=== PATIENT | female | born 1955 | race Caucasian/White ===

== ENCOUNTER 2022-09-10 08:19 | Outpatient (CLI) | payer MEDICARE, SELFPAY ==
--- NOTE | ~2022-09-10 | US_ITS ---
EXAMINATION: US arterial ankle brachial ind DATE: 09/10/2022 09:14 INDICATION: Peripheral vascular disease with claudication TECHNIQUE: Segmental pressures and plethysmographic and Doppler waveforms of the brachial and lower e xtremity arteries were obtained. COMPARISON: None. FINDINGS: Right and left brachial artery pressures of 163 mm Hg and 163 mm Hg, respectively, are concordant (no rmal difference <= 30 mmHg). The right ankle-brachial index (SARANYA) is 0.80 (normal >= 0.9-1.0). The right great toe-brachial index (TBI) is 0.26 (normal >= 0.65). Arterial Doppler waveforms are biphasic with brisk systolic upstrokes at both right posterior tibial and dorsalis pedis arteries. The left SARANYA is 0.88. The left TBI is 0.25. Arterial Doppler waveforms are biphasic with brisk systol ic upstrokes at both left posterior tibial and dorsalis pedis arteries. IMPRESSION: 1. Arterial occlusive disease to bilateral lower limbs with lateral mildly decreased ABIs and moderat nito decreased TBI's Reviewed, dictated and finalized at location A. IMPRESSION: 1. Arterial occlusive disease to bilateral lower limbs with lateral mildly decr eased ABIs and moderately decreased TBI's
== END 2022-09-10 08:20 | disposition home or self-care (01) ==
LOC: ANHIMG 08:21
PROVIDERS: PCP Family Medicine; Visit Provider Physician Assistant
DX: I73.9 Peripheral vascular disease, unspecified (principal)
CPT/HCPCS: 93922

== ENCOUNTER 2022-11-11 14:14 | Outpatient (CLI) | payer MEDICARE, SELFPAY ==
--- NOTE | ~2022-11-11 | XR_ITS ---
EXAMINATION: XR lumbar spine 2-3V DATE: 11/11/2022 14:32 INDICATION: Lumbar radiculopathy TECHNIQUE: 3 views of lumbar spine were obtained. COMPARISON: None. FINDINGS: There is 12 degrees dextroscoliosis of thoracolumbar spine. There is 4 mm anterolisthesis o f L3 on L4. Vertebral body heights are normal. There is mildly decreased disc height at L1-L2, modera tely decreased disc height at L3-L4, and mildly decreased disc height at L5-S1. There is multilevel f acet joint osteoarthritis, severe at multiple levels. IMPRESSION: 1. Moderate lumbar spondylosis. 2. Thoracolumbar dextroscoliosis. Reviewed, dictated and finalized at location A.
== END 2022-11-11 14:15 | disposition home or self-care (01) ==
PROVIDERS: PCP Family Medicine; Visit Provider Physician Assistant
DX: M47.26 Other spondylosis with radiculopathy, lumbar region (principal)
CPT/HCPCS: 72100

== ENCOUNTER 2022-11-15 09:17 | Outpatient (CLI) | payer MEDICARE, SELFPAY ==
--- NOTE | ~2022-11-15 | MR_ITS ---
MRI of the lumbar spine Clinical History: Back pain Technique: Axial T2-weighted images, and sagittal T1-weighted, T2-weighted, and T2 fat-sat images wer e acquired. Findings: No fracture identified. 4 mm anterolisthesis of L3 over L4 noted. No suspicious bone marrow signal reality seen. At L1-L2, there is mild disc bulge and mild to moderate facet arthropathy. No central canal stenosis. There is moderate left neural foraminal narrowing, and mild right neural foraminal narrowing. At L2-L3, there is disc bulge and advanced facet arthropathy, which contribute to mild central canal stenosis. There is mild bilateral neural foraminal narrowing. At L3-L4, disc bulge/uncovering and severe facet arthropathy result in severe spinal canal stenosis/t hecal sac compression. There is moderate bilateral neural foraminal narrowing. At L4-L5, there is minimal disc bulge and minimal facet joint arthropathy. No central canal stenosis. There is mild bilateral neural foraminal narrowing. At L5-S1, there is no disc bulge or herniation. There is moderate facet arthropathy. No central canal stenosis or neural foraminal narrowing. Paravertebral soft tissues are unremarkable. Impression: Severe degenerative spondylosis at L3-L4 with associated 4 mm anterolisthesis of L3 over L4, as detai led above. Mild degenerative spondylosis in the remainder of the lumbar spine, as above. Reviewed, dictated and finalized at [facility]. Impression: Severe degenerative spondylosis at L3-L4 with associated 4 mm anterolisthesis o f L3 over L4, as detailed above. Mild degenerative spondylosis in the remainder of the lumbar spine, as above.
== END 2022-11-15 09:18 | disposition home or self-care (01) ==
LOC: ANHIMG 09:19
PROVIDERS: PCP Family Medicine; Visit Provider Physician Assistant
DX: M47.896 Other spondylosis, lumbar region (principal)
CPT/HCPCS: 72148

== ENCOUNTER 2023-03-03 10:23 | Outpatient (CLI) | payer MEDICARE, SELFPAY ==
--- NOTE | ~2023-03-03 | XR_ITS ---
Cervical Spine: AP, lateral, open-mouth views Clinical History: Pain Findings: There is reversal normal cervical lordosis. There is advanced degenerative disc narrowing C 4-C5, C5-C6, and C6-C7. There is minimal grade 1 retrolisthesis of C4 over C5, C5 over C6, and of C6 over C7. There is moderate to advanced facet arthropathy throughout the cervical spine. Pre-vertebral soft tissues are unremarkable. Impression: Advanced degenerative spondylosis, as detailed above. Reviewed, dictated and finalized at location M. Impression: Advanced degenerative spondylosis, as detailed above.
== END 2023-03-03 10:24 | disposition home or self-care (01) ==
PROVIDERS: PCP Family Medicine; Visit Provider Physician Assistant
DX: M54.2 Cervicalgia (principal); M43.02 Spondylolysis, cervical region
CPT/HCPCS: 72050

== ENCOUNTER 2024-03-05 08:59 | Outpatient (CLI) | payer MEDICARE, SELFPAY ==
[2024-03-05 09:23] LABS: Basophils Percent Auto 1.2 % (0.2-1.2); Eosinophils Absolute Auto 0.1 K/mm3 (0-0.3); Hematocrit 30.8 % (37.0-47.0); Hemoglobin 9.4 g/dL (12.0-15.0); Immature Granulocyte Absolute 0.01 K/mm3 (0.00-0.031); Immature Granulocyte Percent A 0.3 % (0-0.5); Lymphocytes Percent Auto 30.4 % (18.3-44.2); Mean Corpuscular HGB Conc 30.5 g/dl (32-36); Mean Corpuscular Hemoglobin 29.4 pg (26-34); Mean Corpuscular Volume 96.3 fl (80-100); Mean Platelet Volume 8.8 fl (7.4-10.4); Monocytes Absolute Auto 0.5 K/mm3 (0.1-0.6); Neutrophils Absolute Auto 1.7 K/mm3 (1.3-6.7); Neutrophils Percent Auto 51.1 % (45.5-73.1); Platelet Count Result 320 k/mm3 (150-375); Red Cell Distribution Width 14.5 % (11.5-14.5); White Blood Count 3.3 K/mm3 (4.5-10.0)
[2024-03-05 09:42] LABS: Alanine Aminotransferase 26 U/L (6-35); Albumin Level 4.5 g/dL (3.5-5.1); Alkaline Phosphatase 98 U/L (38-126); Anion Gap 9 mmol/L (4-12); Aspartate Amino Transferase 32 U/L (14-36); Bilirubin,Total 0.2 mg/dL (0.2-1.3); Blood Urea Nitrogen 15 mg/dL (7-17); Calcium 9.8 mg/dL (8.4-10.2); Carbon Dioxide 27 mmol/L (22-30); Chloride 102 mmol/L (98-107); Cholesterol 177 mg/dL (0-200); Estimated Glomerular Filt Rate > 60; Glucose 98 mg/dL (65-110); HDL Direct 63 mg/dL; Potassium 4.7 mmol/L (3.4-5.0); Sodium 138 mmol/L (137-145); Triglycerides 268 mg/dL (<150)
[2024-03-05 09:53] LABS: LDL Cholesterol Direct 79 mg/dL
[2024-03-05 10:16] LABS: Iron 203 ug/dL (37-170)
[2024-03-05 10:25] LABS: Percent Iron Saturation 42 % (20-50)
== END 2024-03-05 09:00 | disposition home or self-care (01) ==
LOC: ANHLAB 09:02
PROVIDERS: PCP Family Medicine; Visit Provider Family Medicine
DX: D50.9 Iron deficiency anemia, unspecified (principal); E78.2 Mixed hyperlipidemia; I10 Essential (primary) hypertension
CPT/HCPCS: 36415; 80053; 80061; 82728; 83540; 83550; 85025

== ENCOUNTER 2024-09-04 14:16 | Inpatient (IN) | payer MEDICARE, SELFPAY ==
[2024-09-04] VITALS (30 sets, daily range): BP systolic 141–168; BP diastolic 56–77; PULSE 93–113; RESP 16–46; TEMP 36.4–36.8; O2SAT 95–100
--- NOTE | ~2024-09-04 | CT_ITS ---
EXAMINATION: CT abdomen pelvis w con DATE: 09/04/2024 20:31 INDICATION: new anemia TECHNIQUE: Computed tomography (CT) of the abdomen and pelvis was performed with 100 mL Omnipaque-350 intravenous contrast. Automated exposure control and iterative reconstruction technique were employe d. The dose-length product was 284.57 mGy-cm. COMPARISON: 06/02/2015. FINDINGS: Lower thorax: Coronary artery calcification. Emphysematous changes. Medial right middle lobe scar/ate lectasis. Liver: Normal. Biliary/Gallbladder: Possible gallstones in the gallbladder neck. No gallbladder wall thickening or p ericholecystic fluid. No bile duct dilation. Pancreas: No mass or duct dilation. Spleen: Normal. Adrenals:No mass. Kidneys: No suspicious mass, obstructing stone, or hydronephrosis. Small parapelvic cysts versus unfi lled calyces. Simple left lower pole cyst. Contrast in the collecting system from prior contrasted ex amination. GI tract: Mild distal esophageal and gastric wall edema. No small or large bowel dilation. Normal jose endix. Mesentery/Peritoneum: No ascites, mass, or free air. Retroperitoneum: No mass. Atherosclerotic calcifications of intra-abdominal arterial vessels. Moderat e-severe celiac origin stenosis. Pelvis: Normal urinary bladder. Absent uterus. Normal bilateral ovaries. Soft Tissues: Soft tissues and body wall unremarkable. Bones: No acute osseous finding. Grade 1 retrolisthesis at L1-2, with severe degenerative disc disea se. Grade 1 retrolisthesis at L3-4, with severe degenerative disc disease. IMPRESSION: Mild esophagitis/gastritis. Cholelithiasis, without CT evidence of cholecystitis. Moderate-severe atherosclerotic celiac origin stenosis. Reviewed, dictated and finalized at location K.
--- NOTE | ~2024-09-04 | CT_ITS ---
EXAMINATION: CTA brain carotid DATE: 09/04/2024 20:03 INDICATION: acute stroke TECHNIQUE: Computed tomographic angiography (CTA) of the head and neck was performed with 100 mL Omni paque-350 intravenous contrast. Automated exposure control and iterative reconstruction technique wer e employed. The dose-length product was 1093.69 mGy-cm. Maximum intensity projection and volume rende red 3D-reconstructions were created by the technologist on a separate workstation. COMPARISON: CT brain, same date. FINDINGS: CTA HEAD: No large vessel occlusion, aneurysm, high flow vascular malformation, nidus or extravasation. Focal a ronaldo of parenchymal hypodensity in the right frontal lobe corresponding to the abnormality in the prio r CT. Patent cerebral veins. CTA NECK: Aortic arch and proximal great vessels: Normal arch anatomy. Atherosclerotic calcifications at the vi sualized aortic arch and proximal great vessels. Right common carotid, carotid bifurcation, and internal carotid artery: Calcified atherosclerotic bakari que at the carotid bifurcation.There is 0% stenosis of the proximal right internal carotid artery rel ative to normal distal artery lumen diameter (NASCET criteria). Left common carotid, carotid bifurcation, and internal carotid artery: No plaque.There is 0% stenosis of the proximal left internal carotid artery relative to normal distal artery lumen diameter (NASCET criteria). Vertebral arteries: No significant plaque or stenosis. Focal calcified and calcified/noncalcified bakari que in the proximal and mid left vertebral artery, respectively. Right vertebral artery is dominant. Other findings: Severe multilevel cervical degenerative disc disease, multilevel facet arthropathy, m ultilevel minimal degenerative listheses, moderate central canal stenosis at C6-7. Biapical pleural s carring. Emphysematous changes.. IMPRESSION: No large vessel intracranial occlusion, high-grade intracranial stenosis, or aneurysm. No carotid or vertebral artery occlusion, dissection, or significant stenosis. Reviewed, dictated and finalized at location K. IMPRESSION: No large vessel intracranial occlusion, high-grade intracranial stenosis, or an eurysm. No carotid or vertebral artery occlusion, dissection, or significant stenosis.
--- NOTE | ~2024-09-04 | CT_ITS ---
EXAMINATION: CT brain wo con DATE: 09/04/2024 18:52 INDICATION: confusion . TECHNIQUE: Computed tomography (CT) of the head was performed without intravenous contrast. The mA wa s adjusted according to patient size. Iterative reconstruction technique was employed. The dose-lengt h product was 605.33 mGy-cm. COMPARISON: None. FINDINGS: No acute intracranial hemorrhage or extra-axial fluid collection. No hydrocephalus, mass, or herniation. Focal area of gyral hypodensity in the right frontal lobe with loss of delgado-white junction. No acute large vessel ischemic infarct. Unremarkable dural venous sinus attenuation. No acute osseous abnormality. The aerated spaces are clear. Moderate atrophy and chronic white matter change. Atherosclerotic intracranial calcification. IMPRESSION: Focal area of right frontal lobe hypodensity suspicious for a acute or subacute infarct. No acute int racranial hemorrhage. Recommend MRI of the brain for further evaluation. Reviewed, dictated and finalized at location K. IMPRESSION: Focal area of right frontal lobe hypodensity suspicious for a acute or subacute infarct. No acute intracranial hemorrhage. Recommend MRI of the brain for furt her evaluation.
--- OUTSIDE RECORDS SUMMARY | 2024-09-04 14:19 | XMS_ITS | Referral Summary ---
Author Organization [facility] Address [address] [place] [address] Care Team Providers Care Operator Prefinish Name Role Phone Aicha Tatum Primary Care Provider [phone] Encounters Date Type Department Care Team Description 08/23/2024 Orders Only [facility] Medical Office Building [address] [place] [phone] Geronimo Gimenez MD Atherosclerosis of igiugig arteries of extremities with intermittent claudication, left leg (Primary Dx); Atherosclerosis of igiugig arteries of extremities with intermittent claudication, right leg 08/23/2024 9:45 AM BUFFER COPPER Office Visit [facility] [address] [place] [address] [place] [phone] Sallie Swain NP Encounter for surgical aftercare following surgery on the circulatory system (Primary Dx) 08/23/2024 8:00 AM BUFFER COPPER Ancillary Procedure [facility] Advanced [facility] [address]th [place] [address] [place] [phone] Encounter for surgical aftercare following surgery on the circulatory system; Presence of other vascular implants and grafts from Last 3 Months Allergies No known active allergies Medications ascorbic acid, vitamin C, 500 mg capsuleIndications :supplement Take 500 mg by mouth every morning Active atorvastatin (LIPITOR) 10 mg tabletIndications: hyperlipidemia Take 1 tablet (10 mg total) by mouth every morning 023 Active cholecalciferol (VITAMIN D-3) 2000 unit capsuleIndications :supplement Take 1 capsule (2,000 Units total) by mouth every morning Active L. acidophilus/Bifid. animalis 32 billion cell capsuleIndications :supplement Take 1 capsule by mouth nightly Active lisinopriL (PRINIVIL,ZESTRIL) 40 mg tabletIndications: hypertension Take 1 tablet (40 mg total) by mouth nightly 023 Active potassium chloride ER 10 mEq CR tabletIndications: hypokalemia prevention Take 1 tablet/capsule (10 mEq total) by mouth nightly Active pramipexole (MIRAPEX) 1 mg tabletIndications: Restless Legs Syndrome Take 1 tablet (1 mg total) by mouth nightly 023 Active traMADoL (ULTRAM) 50 mg tabletIndications: Pain Take 1 tablet (50 mg total) by mouth 2 (two) times a day as needed for pain [address] (VOLTAREN) 75 mg EC tabletIndications: Pain,inflammation Take 1 tablet (75 mg total) by mouth 2 (two) times a day 024 Active clopidogreL (PLAVIX) 75 mg tabletIndications: Peripheral Arterial Thromboembolism Prevention Take 1 tablet (75 mg total) by mouth every morning 024 Active zolpidem (AMBIEN) 5 mg tabletIndications: Sleep-Onset Insomnia Take 1 tablet (5 mg total) by mouth nightly 024 Active cetirizine (ZyrTEC) 10 mg tabletIndications: Allergic Rhinitis Take 1 tablet (10 mg total) by mouth nightly Active aspirin 81 mg chewable tablet Take 1 tablet (81 mg total) by mouth daily 30 tablet 024 2024 Active Additional Information Patient taking differently:81 mg oralDaily (early AM), Indications: prevention of thrombosis, Informant: Self, Reported on 08/23/2024 ferrous sulfate (IRON ORAL)Indications:s upplement Take 65 mg by mouth every other day Active igssupsc-qhyagac-f violeta-lutein tabletIndications: supplement Take 1 tablet by mouth geographic information systems director before breakfast Active CALCIUM CARBONATE-VITAMIN D3 ORALIndications:Os teoporosis,Vitamin D Deficiency Take 1 tablet by mouth daily Active amLODIPine (NORVASC) 5 mg tablet Take 1 tablet (5 mg total) by mouth daily Active sertraline (ZOLOFT) 50 mg tablet 025 Active sertraline (ZOLOFT) 25 mg tabletIndications: depression,mood swings Take 1 tablet (25 mg total) by mouth every morning 024 2024 Discontinued Active Problems Problem Noted Date Diagnosed Date PVD (peripheral vascular disease) 01/09/2024 Encounter for surgical after care following surgery on the circulatory system 01/05/2024 Non-healing open wound of toe, initial encounter 09/18/2023 Non-healing wound of left lower extremity 2023 Secondary hypertension 11/04/2022 Assessment & Plan (09/09/2023 10:27 AM CDT): Stable continue lisinopril 40 mg. Assessment & Plan (08/27/2023 2:36 PM BUFFER COPPER): Stable continue lisinopril 40 mg. Hypercholesterolemia 11/04/2022 Assessment & Plan (09/09/2023 10:26 AM CDT): Stable continue Lipitor 10 mg. Assessment & Plan (08/27/2023 2:36 PM BUFFER COPPER): Stable continue Lipitor 10 mg. PAD (peripheral artery disease) 10/11/2022 Assessment & Plan (09/10/2023 9:07 AM CDT): Chronic limb-threatening ischemia to the left lower extremity with ischemic changes of the left hallux. Discussed angiogram findings with the patient and her . Given her severe multilevel occlusive disease I have recommended a proximal amputation. She would like a 2nd and/or 3rd opinion and has an appointment scheduled with [facility]. Assessment & Plan (08/27/2023 2:36 PM BUFFER COPPER): Left lower extremity chronic limb-threatening ischemia with a left hallux wound, compared to her prior Dopplers which were normal she now has critical limb ischemia to the left lower extremity with likely a superficial femoral artery occlusion. Risks benefits alternatives to left lower extremity angiography with possible intervention discussed, risks including bleeding, infection, perforation, contrast induced nephropathy, dissection, thrombosis, distal embolization, need further surgery. She wished proceed. We also discussed she is at risk for limb loss given the wound. Assessment & Plan (08/19/2023 10:54 AM BUFFER COPPER): Continues to deny any symptoms of claudication or rest pain. However has developed a sore versus ingrown toenail to her left great toe. Has been trying to soak it for the past month which has gotten worse. She did see 1 of her physicians who put her on steroids for 5 days. This has not helped the wound. States now her toe is starting to turn a different color in his more painful just to the area of the sore. Plan: Follow-up in the next 1 week for re-evaluation and noninvasive studies. Patient may need referral to podiatry versus an angiogram. In the meantime will place her on Bactrim advised on continued daily wound care and to not soak the foot. Assessment & Plan (11/04/2022 11:53 AM CDT): History of bilateral hip and knee pain with walking. Continues to deny any rest pain or claudication to the calves with exertion. Lower extremity arterial Doppler shows triphasic waveforms bilaterally. Symptoms are likely neurogenic in nature versus arthritic. Discussed the patient with Dr. Smart. Plan: Recommend further workup with her orthopedist and continued follow-up with her PCP. If these workups are negative for any findings she can return for an exercise test otherwise can follow-up as needed. Assessment & Plan (10/11/2022 12:13 PM CDT): History of chronic bilateral lower extremity pain from the hips to the knees with ambulation. Has been ongoing for the past 2 years and slowly progressed. Lower extremities are warm with diminished palpable distal pulses. Seen with Dr. Smart. Plan: Obtain a lower extremity arterial Doppler follow-up in the next 2 weeks to discuss results. Disorder of esophagus 07/28/2015 Immunizations Immunization Administration Dates Next Due Tdap 08/22/2012 Social History Tobacco Use Types Packs/Day Years Used Date Smoking Tobacco: Former Cigarettes 1.5 42 1 974 - 2016 Passive Smoke Exposure: Never Smokeless Tobacco: Never Tobacco Cessation:Counseling Given: Not Answered AUDIT-C Answer Date Recorded Q1: How often do you have a drink containing alcohol? 4 or more times a week 01/21/2024 Q2: How many drinks containi ng alcohol do you have on a typical day when you are drinking? 7 to 9 Q3: How often do you have si x or more drinks on one occasion? Daily or almost daily 01/21/2024 Personal Safety Answer Date Recorded Have you ever been in or are you currently in a harmful physical or emotional relationship or is someone making you feel afraid or unsafe? Denies 01/21/2024 Comments No Sex and Gender Information Value Date Recorded Sex Assigned at Not on file Legal Sex Female 6:03 AM BUFFER COPPER Gender Identity Female 10/20/2022 4:51 PM CDT Sexual Orientation Not on file Last Filed Vital Signs Vital Sign Reading Time Taken Comments Blood Pressure 133/55 08/23/2024 8:49 AM BUFFER COPPER Pulse 100 08/23/2024 8:49 AM BUFFER COPPER Temperature 36.1 C (97 F) 01/21/2024 3:11 PM CDT Respiratory Rate 20 01/21/2024 5:30 PM CDT Oxygen Saturation 95% 08/23/2024 8:49 AM BUFFER COPPER Inhaled Oxygen Concentration - - Weight 61.2 kg (135 lb) 08/23/2024 8:49 AM BUFFER COPPER Height 157.5 cm (5' 2 ) 08/23/2024 8:49 AM BUFFER COPPER Body Mass Index 24.69 08/23/2024 8:49 AM BUFFER COPPER Plan of Treatment Not on file Medical Devices Implanted Type Area Aircraft Engine Assembler Device Identifier Shelf Expiration Date Model / Serial / Lot [employer] Protege Everflex 5mm .079in 60mm 120cm Otw Delivery System Self [id number] - [id number] Implanted:Qty : 1 on 09/18/2023 by Geronimo Gimenez MD at [facility] Left: Superficial Femoral Artery [employer] [id number] 04/22/2026 [id number] / / [id number] Procedures Procedure Name Priority Date/Time Associated Diagnosis Comments US ARTERIAL DUPLEX LOWER EXTREMITY LEFT LIMITED Schedule Routine, Read Routine (OP Routine) 08/23/2024 9:01 AM BUFFER COPPER Encounter for surgical aftercare following surgery on the circulatory system Presence of other vascular implants and grafts US ARTERIAL DOPPLER LOWER EXTREMITY BILATERAL Schedule Routine, Read Routine (OP Routine) 08/23/2024 9:01 AM BUFFER COPPER Encounter for surgical aftercare following surgery on the circulatory system from Last 3 Months Results * US Arterial Duplex Lower Extremity Left Limited (08/23/2024 9:01 AM BUFFER COPPER) Anatomical Region Laterality Modality Vascular Left Ultrasound 08/23/2024 7:52 AM BUFFER COPPER Narrative 08/23/2024 10:56 AM BUFFER COPPER [facility] - Department of Vascular Surgery, Vascular Laboratory [address] [place] [address] [facility] [place] Lower Extremity Arterial Duplex Report Patient Name: ACE YBARRA : 1955 Study Date: 08/23/2024 7:52:42 AM Gender: F Tech: Location: [facility] Provider: TY KNOX Quality: Adequate Order Provider: TY KNOX PROCEDURES: Arterial Report: Left Lower Extremity Arterial Duplex Exam - above knee pop and popliteal stent. INDICATIONS: Encounter for Surgical Aftercare Following Surgery on the Circulatory System; Presence of Vascular Implants and Grafts Dx: Encounter for surgical aftercare following surgery on the circulatory system [Z48.812 (ICD-10-CM)]; Presence of other vascular implants and grafts [Z95.828 (ICD-10-CM)] Z48.812 Encounter for surgical aftercare following surgery on the circulatory system, and Z95.828 Presence of other vascular implants and grafts. MEASUREMENTS: Left Value Units Lt AD COMPOSITOR Dst PSV 258 cm/s Lt Profunda Dst PSV 234 cm/s Lt Superficial Femoral Prx PSV 199 cm/s Lt Superficial Femoral Mid PSV 198 cm/s Lt Superficial Femoral Dst PSV 251 cm/s Lt Pop Dst PSV 75 cm/s Lt Tibio-Peroneal Trunk 73 cm/s Lt Post Tibial Mid PSV 58 cm/s Lt Ant Tibial Mid PSV 63 cm/s Lt Peroneal Mid PSV 70 cm/s Lt Mid Stent 187 cm/s Left Value Units FINDINGS: Performing Armor Reconnaissance Specialist: Jessica Lee RVT. Left Common Femoral: The left common femoral waveform is multiphasic. Elevated peak velocity of 258cm/s, ratio less than 2 consistent with mild, <50% stenosis. Left Profunda: The left profunda waveform is multiphasic. Left Proximal Superficial Femoral Artery: The left proximal femoral artery waveform is multiphasic. Left Mid Superficial Femoral Artery: The left mid femoral artery waveform is multiphasic. Smooth, heterogenous plaque. Left Distal Superficial Femoral Artery: The left distal femoral artery waveform is multiphasic. Elevated velocity of 251cm/s and ratio is 1.5 consistent with mild <50% stenosis. Left Popliteal: The left popliteal is stented. Stent is patent. Highest stented PSV is 198cm/s. Small area of homogenous in stent material. Waveform remains multiphasic. Left Posterior Tibial: The left posterior tibial waveform is multiphasic. Left Anterior Tibial: The left anterior tibial waveform is multiphasic. Left Peroneal: The left peroneal artery waveform is multiphasic. CONCLUSIONS: 1. See Ankle/ Brachial Index report. 2. Patent left popliteal artery stent. HISTORY: 01/21/2024 Second Drug coated balloon angioplasty of left popliteal artery 09/01/2023 above knee popliteal/SFA junction stent - PREVIOUS STUDIES: Previous study on 02/12/2024, patent popliteal artery stent, no evidence of hemodynamically significant stenosis. DISCLAIMER: The study images and the final report will be retained in the patient chart by the Vascular Laboratory for the legally required time period. This chart constitutes the legal record of any testing performed. ATTESTATION: I have reviewed and interpreted the pertinent images and measurements of this study. I attest to the conclusions in the final report that is provided above. Electronically Signed By: Geronimo Gimenez MD [facility] [phone] 08/23/2024 9:44:02 AM BUFFER COPPER Procedure Note Geronimo Gimenez MD - 08/23/2024 [facility] - Department of Vascular Surgery,Vascular Laboratory [address] [place] [address] [facility] Lower Extremity Arterial Duplex Report Patient Name: ACE YBARRA : 1955 Study Date: 08/23/2024 7:52:42 AM Gender: F Tech: Location: [facility] Provider: TY KNOX Quality: Adequate Order Provider: TY KNOX PROCEDURES: Arterial Report: Left Lower Extremity Arterial Duplex Exam - above knee pop and poplitealstent. INDICATIONS: Encounter for Surgical Aftercare Following Surgery on the CirculatorySystem; Presence of Vascular Implants and Grafts Dx: Encounter for surgical aftercare following surgery on the circulatorysystem [Z48.812 (ICD-10-CM)]; Presence of other vascular implants and grafts [Z95.828(ICD-10-CM)] Z48.812 Encounter for surgical aftercare following surgery on thecirculatory system, and Z95.828 Presence of other vascular implants and grafts. MEASUREMENTS: Left Value Units Lt AD COMPOSITOR Dst PSV 258 cm/s Lt Profunda Dst PSV 234 cm/s Lt Superficial Femoral Prx PSV 199 cm/s Lt Superficial Femoral Mid PSV 198 cm/s Lt Superficial Femoral Dst PSV 251 cm/s Lt Pop Dst PSV 75 cm/s Lt Tibio-Peroneal Trunk 73 cm/s Lt Post Tibial Mid PSV 58 cm/s Lt Ant Tibial Mid PSV 63 cm/s Lt Peroneal Mid PSV 70 cm/s Lt Mid Stent 187 cm/s Left Value Units FINDINGS: Performing Armor Reconnaissance Specialist: Jessica Lee RVT. Left Common Femoral: The left common femoral waveform is multiphasic. Elevated peak velocity of 258cm/s, ratio less than 2 consistent with mild,<50% stenosis. Left Profunda: The left profunda waveform is multiphasic. Left Proximal Superficial Femoral Artery: The left proximal femoral artery waveform is multiphasic. Left Mid Superficial Femoral Artery: The left mid femoral artery waveform is multiphasic. Smooth, heterogenous plaque. Left Distal Superficial Femoral Artery: The left distal femoral artery waveform is multiphasic. Elevated velocity of 251cm/s and ratio is 1.5 consistent with mild <50%stenosis. Left Popliteal: The left popliteal is stented. Stent is patent. Highest stented PSV is 198cm/s. Small area of homogenous in stentmaterial. Waveform remains multiphasic. Left Posterior Tibial: The left posterior tibial waveform is multiphasic. Left Anterior Tibial: The left anterior tibial waveform is multiphasic. Left Peroneal: The left peroneal artery waveform is multiphasic. CONCLUSIONS: 1. See Ankle/ Brachial Index report. 2. Patent left popliteal artery stent. HISTORY: 01/21/2024 Second Drug coated balloon angioplasty of left poplitealartery 09/01/2023 above knee popliteal/SFA junction stent - PREVIOUS STUDIES: Previous study on 02/12/2024, patent popliteal artery stent, no evidence of hemodynamically significant stenosis. DISCLAIMER: The study images and the final report will be retained in the patientchart by the Vascular Laboratory for the legally required time period. This chartconstitutes the legal record of any testing performed. ATTESTATION: I have reviewed and interpreted the pertinent images and measurements ofthis study. I attest to the conclusions in the final report that is provided above. Electronically Signed By: Geronimo Gimenez MD [facility] [phone] 08/23/2024 9:44:02 AM BUFFER COPPER us Ty Knox MD [facility] US PROCEDURES Final R esult * US Arterial Doppler Lower Extremity Bilateral (08/23/2024 9:01 AM BUFFER COPPER) Anatomical Region Laterality Modality Vascular Bilateral Ultrasound 08/23/2024 8:19 AM BUFFER COPPER Narrative 08/23/2024 10:56 AM BUFFER COPPER [facility] - Department of Vascular Surgery, Vascular Laboratory [address] [place] [address] Lower Extremity Arterial Doppler Report Patient Name: ACE YBARRA : 1955 Study Date: 08/23/2024 8:19:00 AM Gender: F Tech: Jessica Lee [facility] Location: [facility] Provider: TY KNOX Quality: Adequate Order Provider: TY KNOX PROCEDURES: Arterial Report: Bilateral lower extremity arterial Doppler exam at rest. INDICATIONS: Encounter for Surgical Aftercare Following Surgery on the Circulatory System Dx: Encounter for surgical aftercare following surgery on the circulatory system [Z48.812 (ICD-10-CM)] Z48.812 Encounter for surgical aftercare following surgery on the circulatory system. MEASUREMENTS: Right Value Units Left Value Units Rt Brachial Pressure 137 mmHg Lt Brachial Pressure 140 mmHg Rt FORM BLOCK MAKER Pressure 118 mmHg Lt FORM BLOCK MAKER Pressure 120 mmHg Rt DPA Pressure 93 mmHg Lt DPA Pressure 115 mmHg Rt 1st Digit Pressure 90 mmHg Lt 1st Digit Pressure 57 mmHg Rt PT SARANYA Resting 0.84 Lt PT SARANYA Resting 0.86 Rt AT SARANYA Resting 0.66 Lt AT SARANYA Resting 0.82 Rt Digit/Arm Index 0.64 Lt Digit/Arm Index 0.41 Right Value Units Left Value Units FINDINGS: Performing Armor Reconnaissance Specialist: Jessica Lee RVT. Right Common Femoral Artery Analysis: The common femoral artery waveform is multiphasic. Right Popliteal Artery Analysis: The popliteal waveform is multiphasic. Right Posterior Tibial Artery Analysis: The posterior tibial waveform is multiphasic. Right Anterior Tibial Artery Analysis: The anterior tibial waveform is monophasic. Right Digits: Normal right digit pressure. Left Common Femoral Artery Analysis: The common femoral artery waveform is multiphasic(turbulent - see Duplex exam). Left Popliteal Artery Analysis: The popliteal waveform is multiphasic. Left Posterior Tibial Artery Analysis: The posterior tibial waveform is multiphasic. Left Anterior Tibial Artery Analysis: The anterior tibial waveform is multiphasic. Left Digits: The left digit waveform is dampened. CONCLUSIONS: 1. The above listed right Ankle/Brachial Index at rest is consistent with mild -moderate peripheral arterial disease - claudication (for reference, claudication range is 0.50 -0.89). 2. The above listed left Ankle/Brachial Index at rest is consistent with mild -moderate peripheral arterial disease - claudication, (for reference, claudication range is 0.50 -0.89). 3. Right Digit/Arm Index is within normal limits (for reference, normal KYLEE is >0.6). 4. Left Digit/Arm Index is abnormal (for reference, abnormal KYLEE is <0.6). 5. There is evidence of right leg arterial insufficiency at the level of infrapopliteal arteries. 6. Unable to determine the level of stenosis on the left. HISTORY: 01/21/2024 Second Drug coated balloon angioplasty of left popliteal artery 09/01/2023 above knee popliteal/SFA junction stent - PREVIOUS STUDIES: Previous study on 02/12/2024 R SARANYA L SARANYA. DISCLAIMER: The study images and the final report will be retained in the patient chart by the Vascular Laboratory for the legally required time period. This chart constitutes the legal record of any testing performed. ATTESTATION: I have reviewed and interpreted the pertinent images and measurements of this study. I attest to the conclusions in the final report that is provided above. Electronically Signed By: Geronimo Gimenez MD [facility] [phone] 08/23/2024 9:40:32 AM BUFFER COPPER Procedure Note Geronimo Gimenez MD - 08/23/2024 [facility] - Department of Vascular Surgery,Vascular Laboratory [address] [place] [address] Lower Extremity Arterial Doppler Report Patient Name: ACE YBARRA : 1955 Study Date: 08/23/2024 8:19:00 AM Gender: F Tech: Jessica Lee [facility] Location: [facility] Provider: TY KNOX Quality: Adequate Order Provider: TY KNOX PROCEDURES: Arterial Report: Bilateral lower extremity arterial Doppler exam at rest. INDICATIONS: Encounter for Surgical Aftercare Following Surgery on the CirculatorySystem Dx: Encounter for surgical aftercare following surgery on the circulatorysystem [Z48.812 (ICD-10-CM)] Z48.812 Encounter for surgical aftercare following surgery on thecirculatory system. MEASUREMENTS: Right Value Units Left Value Units Rt Brachial Pressure 137 mmHg Lt Brachial Pressure 140 mmHg Rt FORM BLOCK MAKER Pressure 118 mmHg Lt FORM BLOCK MAKER Pressure 120 mmHg Rt DPA Pressure 93 mmHg Lt DPA Pressure 115 mmHg Rt 1st Digit Pressure 90 mmHg Lt 1st Digit Pressure 57 mmHg Rt PT SARANYA Resting 0.84 Lt PT SARANYA Resting 0.86 Rt AT SARANYA Resting 0.66 Lt AT SARANYA Resting 0.82 Rt Digit/Arm Index 0.64 Lt Digit/Arm Index 0.41 Right Value Units Left Value Units FINDINGS: Performing Armor Reconnaissance Specialist: Jessica Lee RVT. Right Common Femoral Artery Analysis: The common femoral artery waveform is multiphasic. Right Popliteal Artery Analysis: The popliteal waveform is multiphasic. Right Posterior Tibial Artery Analysis: The posterior tibial waveform is multiphasic. Right Anterior Tibial Artery Analysis: The anterior tibial waveform is monophasic. Right Digits: Normal right digit pressure. Left Common Femoral Artery Analysis: The common femoral artery waveform is multiphasic(turbulent - see Duplexexam). Left Popliteal Artery Analysis: The popliteal waveform is multiphasic. Left Posterior Tibial Artery Analysis: The posterior tibial waveform is multiphasic. Left Anterior Tibial Artery Analysis: The anterior tibial waveform is multiphasic. Left Digits: The left digit waveform is dampened. CONCLUSIONS: 1. The above listed right Ankle/Brachial Index at rest is consistent withmild -moderate peripheral arterial disease - claudication (for reference, claudicationrange is 0.50 -0.89). 2. The above listed left Ankle/Brachial Index at rest is consistent withmild -moderate peripheral arterial disease - claudication, (for reference, claudicationrange is 0.50 -0.89). 3. Right Digit/Arm Index is within normal limits (for reference, normalDAI is >0.6). 4. Left Digit/Arm Index is abnormal (for reference, abnormal KYLEE is<0.6). 5. There is evidence of right leg arterial insufficiency at the level ofinfrapopliteal arteries. 6. Unable to determine the level of stenosis on the left. HISTORY: 01/21/2024 Second Drug coated balloon angioplasty of left poplitealartery 09/01/2023 above knee popliteal/SFA junction stent - PREVIOUS STUDIES: Previous study on 02/12/2024 R SARANYA L SARANYA. DISCLAIMER: The study images and the final report will be retained in the patientchart by the Vascular Laboratory for the legally required time period. This chartconstitutes the legal record of any testing performed. ATTESTATION: I have reviewed and interpreted the pertinent images and measurements ofthis study. I attest to the conclusions in the final report that is provided above. Electronically Signed By: Geronimo Gimenez MD [facility] [phone] 08/23/2024 9:40:32 AM BUFFER COPPER Ty Knox MD IM US PROCEDURES Final R esult from Last 3 Months Insurance MEDICARE [employer] SENIOR SUPPLEMENT MEDICARE [facility] SENIOR SUPPLEMENT Advance Directives For more information, please contact: [phone] * Full Code (Latest Code Status on File) Date Activated Date Inactivated Comments 09/01/2023 10:16 AM 09/01/2023 6:05 PM Care Teams Operator Prefinish Relationship Specialty Start Date End Date Aicha Tatum PA [address] [place] [address] PCP - General Family Medicine 09/16/22
--- OUTSIDE RECORDS SUMMARY | 2024-09-04 14:19 | XMS_ITS | Clinical Summary ---
Author Organization [facility] the [facility] Address [address] [place] [address] Care Team Providers Care Lock Expert Name Role Phone Aicha Tatum Primary Care Provider [phone] Allergies No known active allergies Medications ascorbic [...] by mouth 2 (two) times a day Active clopidogreL (PLAVIX) 75 mg tabletIndications: Peripheral Arterial Thromboembolism Prevention Take 1 tablet (75 mg total) by mouth every morning Active zolpidem (AMBIEN) 5 mg tabletIndications: Sleep-Onset Insomnia Take 1 tablet (5 mg total) by mouth nightly Active cetirizine (ZyrTEC) 10 mg tabletIndications: Allergic Rhinitis Take 1 tablet (10 mg total) by mouth nightly Active aspirin 81 mg chewable tablet Take 1 tablet (81 mg total) by mouth daily 30 tablet 11 024 2024 Active Additional Information Patient taking differently:81 mg oralDaily (early AM), Indications: prevention of thrombosis, Informant: Self, Reported on 08/23/2024 ferrous sulfate (IRON ORAL)Indications:s upplement Take 65 mg by mouth every other day Active mmwesvvs-aakghoq-c violeta-lutein tabletIndications: supplement Take 1 tablet by mouth 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 Assessment & Plan (08/27/2023 2:36 PM SUPERVISOR FRUIT GRADING): Stable continue lisinopril 40 mg. Hypercholesterolemia 11/04/2022 Assessment & Plan (09/09/2023 10:26 AM CDT): Stable continue Lipitor 10 mg. Assessment & Plan (08/27/2023 2:36 PM SUPERVISOR FRUIT GRADING): Stable continue Lipitor 10 mg. PAD (peripheral [...] opinion and has an appointment scheduled with [facility]. Assessment & Plan (08/27/2023 2:36 PM SUPERVISOR FRUIT GRADING): Left lower extremity chronic limb-threatening ischemia with [...] wound. Assessment & Plan (08/19/2023 10:54 AM SUPERVISOR FRUIT GRADING): Continues to deny any symptoms of claudication [...] to discuss results. Disorder of esophagus 07/28/2015 Encounters Date Type Department Care Team Description 08/23/2024 9:45 AM SUPERVISOR FRUIT GRADING Office Visit [facility] Surgery [facility] [facility] 8th [place] [address] [place] [address] Sallie Swain NP Encounter for surgical aftercare following surgery on the circulatory system (Primary Dx) 08/23/2024 8:00 AM SUPERVISOR FRUIT GRADING Ancillary Procedure [facility] Vascular Lab at the [facility] [address] [facility] 8th [place] [address] [place] [address] Encounter for surgical aftercare following surgery on the circulatory system; Presence of other vascular implants and grafts 08/23/2024 Orders Only [facility] Vascular Surgery [address] [place] [address] Medical Office Building [address] [place] [address] Geronimo Gimenez MD Atherosclerosis of cowl[place] arteries of extremities with intermittent claudication, left leg (Primary Dx); Atherosclerosis of cowlitz arteries of extremities with intermittent claudication, right leg from Last 3 Months Immunizations Immunization Administration Dates Next Due Tdap 08/22/2012 Surgical History Surgery Date Site/Laterality Comments WRIST SURGERY 08/21/2021 - 09/20/2021 Right distal radius fx HYSTERECTOMY OTHER SURGICAL HISTORY 09/01/2023 Left angiogram, LLE COLONOSCOPY last one 2016 ELBOW SURGERY Left tendenitis - early Medical History Medical History Date Comments Motion sickness RLS (restless legs syndrome) PVD (peripheral vascular disease) Hypertension Hyperlipidemia Family History Medical History Relation Name Comments Heart disease Brother Stroke Father Heart attack Mother Cancer Sister Relation Name Status Comments Brother Father Mother Sister Social History Tobacco Use Types Packs/Day Years [...] on file Legal Sex Female 6:03 AM SUPERVISOR FRUIT GRADING Gender Identity Female 10/20/2022 4:51 PM CDT Sexual Orientation Not on file Obstetrics History Last Filed Vital Signs Vital Sign Reading Time Taken Comments Blood Pressure 133/55 08/23/2024 8:49 AM SUPERVISOR FRUIT GRADING Pulse 100 08/23/2024 8:49 AM SUPERVISOR FRUIT GRADING Temperature 36.1 C (97 F) 01/21/2024 3:11 PM CDT Respiratory Rate 20 01/21/2024 5:30 PM CDT Oxygen Saturation 95% 08/23/2024 8:49 AM SUPERVISOR FRUIT GRADING Inhaled Oxygen Concentration - - Weight 61.2 kg (135 lb) 08/23/2024 8:49 AM SUPERVISOR FRUIT GRADING Height 157.5 cm (5' 2 ) 08/23/2024 8:49 AM SUPERVISOR FRUIT GRADING Body Mass Index 24.69 08/23/2024 8:49 AM SUPERVISOR FRUIT GRADING Plan of Treatment Health Maintenance Due Date Last Done Comments Colon Cancer Screening-Colonoscopy 1955 Depression Screening 1957 Hepatitis C Screening 1955 Osteoporosis Screening-Bone Density Scan 1955 Hepatitis B Screening 1975 Lung Cancer Screening 2007 Pneumococcal vaccine 65+ (1 of 1 - PCV) 2007 Zoster Vaccine (1 of 2) 2007 Well Visit 65+ 2022 Breast Cancer Screening-Mammogram 04/13/2022 04/13/2021, 04/13/2021, 02/07/2020, Additional history exists DTaP/Tdap/Td Vaccine (2 - Td or Tdap) 08/22/2022 08/22/2012 Influenza Vaccine (#1) 2024 Fall Risk Assessment 09/17/2024 09/18/2023 Medical Devices Implanted Type Area Production Administrative Assistant Device Identifier Shelf Expiration Date Model / Serial / Lot Med[employer]onic [employer] Protege Everflex 5mm .079in 60mm 120cm Otw Delivery System Self [id number] - [id number] Implanted:Qty : 1 on 09/18/2023 by Geronimo Gimenez MD at [facility] Left: Superficial Femoral Artery [employer] [id number] 04/22/2026 [id number] / / [id number] Procedures Procedure Name Priority Date/Time Associated Diagnosis Comments US ARTERIAL DUPLEX LOWER EXTREMITY LEFT LIMITED Schedule Routine, Read Routine (OP Routine) 08/23/2024 9:01 AM SUPERVISOR FRUIT GRADING Encounter for surgical aftercare following surgery on the circulatory system Presence of other vascular implants and grafts US ARTERIAL DOPPLER LOWER EXTREMITY BILATERAL Schedule Routine, Read Routine (OP Routine) 08/23/2024 9:01 AM SUPERVISOR FRUIT GRADING Encounter for surgical aftercare following surgery on the circulatory system from Last 3 Months Results * US Arterial Duplex Lower Extremity Left Limited (08/23/2024 9:01 AM SUPERVISOR FRUIT GRADING) Anatomical Region Laterality Modality Vascular Left Ultrasound 08/23/2024 7:52 AM SUPERVISOR FRUIT GRADING Narrative 08/23/2024 10:56 AM SUPERVISOR FRUIT GRADING [facility] - Department of Vascular Surgery, Vascular Laboratory [address] [place] [address] [place] Lower Extremity Arterial Duplex Report Patient Name: ACE YBARRA : 1955 Study Date: 08/23/2024 7:52:42 AM Gender: F Tech: Location: [facility] Provider: TY KNOX Quality: Adequate Order Provider: [...] and grafts. MEASUREMENTS: Left Value Units Lt ORIGINATION SPECIALIST Dst PSV 258 cm/s Lt Profunda Dst [...] 187 cm/s Left Value Units FINDINGS: Performing Solutions Architect Consultant: Jessica Lee RVT. Left Common Femoral: The [...] above. Electronically Signed By: Geronimo Gimenez MD [facility] [phone] 08/23/2024 9:44:02 AM SUPERVISOR FRUIT GRADING Procedure Note Geronimo Gimenez MD - 08/23/2024 [facility] - Department of Vascular Surgery,Vascular Laboratory [address] [place] [address] [place] Lower Extremity Arterial Duplex Report Patient Name: ACE YBARRA : 1955 Study Date: 08/23/2024 7:52:42 AM Gender: F Tech: Location: [facility] Provider: TY KNOX Quality: Adequate Order Provider: [...] and grafts. MEASUREMENTS: Left Value Units Lt ORIGINATION SPECIALIST Dst PSV 258 cm/s Lt Profunda Dst [...] 187 cm/s Left Value Units FINDINGS: Performing Solutions Architect Consultant: Jessica Lee RVT. Left Common Femoral: The [...] above. Electronically Signed By: Geronimo Gimenez MD [facility] [phone] 08/23/2024 9:44:02 AM SUPERVISOR FRUIT GRADING us Ty Knox MD IM US PROCEDURES Final R esult * US Arterial Doppler Lower Extremity Bilateral (08/23/2024 9:01 AM SUPERVISOR FRUIT GRADING) Anatomical Region Laterality Modality Vascular Bilateral Ultrasound 08/23/2024 8:19 AM SUPERVISOR FRUIT GRADING Narrative 08/23/2024 10:56 AM SUPERVISOR FRUIT GRADING [facility] - Department of Vascular Surgery, Vascular Laboratory [address] [place] [address] Lower Extremity Arterial Doppler Report Patient Name: ACE YBARRA : 1955 Study Date: 08/23/2024 8:19:00 AM Gender: F Tech: Jessica Lee RVT Location: [facility] Provider: TY KNOX Quality: Adequate Order Provider: [...] mmHg Lt Brachial Pressure 140 mmHg Rt CAB STATION ATTENDANT Pressure 118 mmHg Lt CAB STATION ATTENDANT Pressure 120 mmHg Rt DPA Pressure 93 mmHg Lt DPA Pressure 115 mmHg Rt 1st Digit Pressure 90 mmHg Lt 1st Digit Pressure 57 mmHg Rt PT SARANYA Resting 0.84 Lt PT SARANYA Resting 0.86 Rt AT SARANYA Resting 0.66 Lt AT SARANYA Resting 0.82 Rt Digit/Arm Index 0.64 Lt Digit/Arm Index 0.41 Right Value Units Left Value Units FINDINGS: Performing Solutions Architect Consultant: Jessica Lee RVT. Right Common Femoral Artery [...] above. Electronically Signed By: Geronimo Gimenez MD [facility] [phone] 08/23/2024 9:40:32 AM SUPERVISOR FRUIT GRADING Procedure Note Geronimo Gimenez MD - 08/23/2024 [facility] - Department of Vascular Surgery,Vascular Laboratory [address] [place] [address] Lower Extremity Arterial Doppler Report Patient Name: ACE YBARRA : 1955 Study Date: 08/23/2024 8:19:00 AM Gender: F Tech: Jessica Lee RVT Location: [facility] Provider: TY KNOX Quality: Adequate Order Provider: [...] mmHg Lt Brachial Pressure 140 mmHg Rt CAB STATION ATTENDANT Pressure 118 mmHg Lt CAB STATION ATTENDANT Pressure 120 mmHg Rt DPA Pressure 93 mmHg Lt DPA Pressure 115 mmHg Rt 1st Digit Pressure 90 mmHg Lt 1st Digit Pressure 57 mmHg Rt PT SARANYA Resting 0.84 Lt PT SARANYA Resting 0.86 Rt AT SARANYA Resting 0.66 Lt AT SARANYA Resting 0.82 Rt Digit/Arm Index 0.64 Lt Digit/Arm Index 0.41 Right Value Units Left Value Units FINDINGS: Performing Solutions Architect Consultant: Jessica Krus, RVT. Right Common Femoral Artery Analysis: The [...] above. Electronically Signed By: Geronimo Gimenez MD [facility] [phone] 08/23/2024 9:40:32 AM SUPERVISOR FRUIT GRADING Ty Knox MD [facility] PROCEDURES Final R esult from Last 3 Months Insurance MEDICARE AET [facility] MEDICARE [employer] SENIOR SUPPLEMENT Advance Directives For more information, please contact: [phone] * Full Code (Latest Code Status on File) Date Activated Date Inactivated Comments 09/01/2023 10:16 AM 09/01/2023 6:05 PM Care Teams Lock Expert Relationship Specialty Start Date End Date Aicha Tatum PA [address] [place] [address] [place] [address] PCP - General Family Medicine 09/16/22
--- OUTSIDE RECORDS SUMMARY | 2024-09-04 14:19 | XMS_ITS | Clinical Summary ---
Author Organization [facility] Address [address] [place] [address] Care Team Providers Care Director Of Software Engineering Name Role Phone Zoe Aguero Primary Care Provider [phone] Allergies No known active allergies Medications sertraline 25 MG tablet Take 25 mg by mouth daily. 06/25/2021 Active pramipexole 1 MG tablet Take 1 mg by mouth nightly at bedtime. at bedtime. 02/16/2021 Active lisinopril 40 MG tablet Take 40 mg by mouth daily. 06/25/2021 Active traMADol 50 MG tablet 04/17/2021 Active Cyanocobalamin (B-12) 50 MCG Tab Active vitamin D3, cholecalciferol , 1000 UNIT Tab tablet Take 1 tablet by mouth daily. Active probiotic Cap capsule Take 1 capsule by mouth 3 (three) times daily with meals. Active Ascorbic Acid (VITAMIN C) 100 MG tablet Take 100 mg by mouth daily. Active potassium chloride CR 10 MEQ Tab CR tablet Take 1 tablet by mouth 3 (three) times daily. Active oxyCODONE-aceta minophen 5-325 MG tabletIndicatio ns:Acute Pain < 7 Day Supply Take 1-2 tablets by mouth every 6 (six) hours as needed for Pain. Indications: Acute Pain < 7 Day Supply For Severe Pain 20 tablet 08/28/2021 Active Active Problems No known active problems Family History Medical History Relation Comments Heart Attack Father Heart Attack Mother Breast Cancer Neg Hx Relation Status Comments Father Mother Social History Tobacco Use Types Packs/Day Years Used Date Smoking Tobacco: Former Cigarettes 1 30 0 08/27/1981 - 08/28/2011 Smokeless Tobacco: Never Tobacco Cessation:Counseling Given: No Comments:former Alcohol Use Standard Drinks/Week Comments Yes 0 (1 standard drink = 0.6 oz pur e alcohol) social PHQ-2 Answer Date Recorded PHQ-2 Score - If the patient scores above 3, please move on to questions 3-9 0 08/27/2021 Comments No Sex and Gender Information Value Date Recorded Sex Assigned at Not on file Legal Sex Female 6:17 PM CDT Gender Identity Not on file Sexual Orientation Not on file Last Filed Vital Signs Vital Sign Reading Time Taken Comments Blood Pressure 119/63 10/18/2021 7:59 AM CDT Pulse 84 10/18/2021 7:59 AM CDT Temperature 36.3 C (97.3 F) 09/03/2021 8:17 AM CDT Respiratory Rate 16 08/28/2021 4:35 PM PUBLICATIONS DESIGNER Oxygen Saturation 97% 08/28/2021 4:35 PM PUBLICATIONS DESIGNER Inhaled Oxygen Concentration - - Weight 62.3 kg (137 lb 6.4 oz) 10/18/2021 7:59 A M CDT Height 157.5 cm (5' 2 ) 10/18/2021 7:59 AM CDT Body Mass Index 25.13 10/18/2021 7:59 AM CDT Plan of Treatment Health Maintenance Due Date Last Done Comments Colorectal Cancer Screening Colonoscopy (10 Years) 1955 Hepatitis C 1975 DTaP, Tdap and Td Vaccines ( 1 - Tdap) 01/23/1976 Zoster Vaccines (1 of 2) 2007 Annual Medicare Wellness Visit 2022 Dexa Scan (General) 2022 Pneumococcal Vaccine: 65+ Years (1 of 1 - PCV) 2022 Mammogram Screening 04/13/2023 04/13/2021, 02/07/2020, 01/19/2019 COVID-19 Vaccine ( - 2023-2 5 season) 2024 Influenza Adult (#1) 2024 RSV Immunization or 60+ Years (1 - 1-dose 75+ series) 01/23/2032 Meningococcal B Vaccine Aged Out No l onger eligible based on patient's age to complete this topic Meningococcal Vaccine Aged Out No prabhakar zen eligible based on patient's age to complete this topic RSV Immunizations Under 20 Months Aged Out No longer eligible b ased on patient's age to complete this topic Medical Devices Implanted Type Area Upstream Biomanufacturing Technician Device Identifier Shelf Expiration Date Model / Serial / Lot Plate Synthes 2.4 Va-Lcp Vlr Dist Radius 6h Hd/2h Shaft Right - [id number] Implanted:Qty: 1 on 08/28/2021 by Jj Barr MD at [facility] Plate Right: Radius SYNTHES .111.620 / / Screw Synthes 2.4 Locking Stardrive 14mm - [id number] Implanted:Qty: 1 on 08/28/2021 by Jj Barr MD at [facility] Screw Right: Radius SYNTHES 210.114 / / Screw Synthes 2.4 Locking Stardrive 18mm - [id number] Implanted:Qty: 2 on 08/28/2021 by Jj Barr MD at [facility] Screw Right: Radius SYNTHES 210.118 / / Screw Synthes 2.4 Locking Stardrive 20mm - [id number] Implanted:Qty: 4 on 08/28/2021 by Jj Barr MD at [facility] Screw Right: Radius SYNTHES 210.120 / / Screw Synthes 2.4 Cortical Self Tap 12mm - [id number] Implanted:Qty: 1 on 08/28/2021 by Jj Barr MD at [facility] Screw Right: Radius SYNTHES 201.762 / / Procedures Procedure Name Priority Date/Time Associated Diagnosis Comments MG SCREENING W CHRISTIANNE VANE DIGI Routine 04/13/2021 3:51 PM CDT Visit for screening mammogram from Last 3 Months or Most Recently Relevant to Health Maintenance Results * MG SCREENING W CHRISTIANNE VANE DIGI (04/13/2021 3:51 PM CDT) Anatomical Region Laterality Modality Breast Bilateral Mammography 04/13/2021 4:34 PM CDT Impressions 04/13/2021 4:38 PM CDT IMPRESSION: 1. No mammographic evidence of malignancy. 2. BI-RADS Category 2 - benign findings. Annual screening mammography recommended. MQSA BI-RADS Categories: Category 0 - needs additional imaging evaluation. Category 1 - negative. Category 2 - benign findings. Category 3 - probably benign findings, but short interval follow-up is recommended. Category 4 - suspicious abnormality and biopsy should be considered though the lesion may well be benign. Category 5 - highly suggestive of malignancy and appropriate action should be taken. A) A negative report should not delay a biopsy if a dominant or clinically suspicious mass is present. B) Adenosis and dense breasts may obscure an underlying neoplasm. C) Study interpreted with computer aided detection. Referred By: ZOE AGUERO Interpreted By: Jeff Johnson, 04/13/2021 4:34 PM Narrative 04/13/2021 4:38 PM CDT IMAGING STUDIES: Bilateral screening mammograms with computer-aided detection with 2-D and 3-D imaging. Tomosynthesis. DATE: 04/13/2021 3:17 PM HISTORY: scr . No current complaints. Routine exam. COMPARISON: 01/19/2019. 02/07/2020 TISSUE TYPE: There are scattered areas of fibroglandular density. FINDINGS: 1. Bilateral screening mammograms with computer detection with 2-D and 3-D imaging. Tomosynthesis. Mild to moderate scattered fibroglandular tissue pattern is present. Benign nodularity. 2. No malignant microcalfcifications, new dominant masses, or architectural distortion. 3. No skin thickening or nipple retraction. Axillary regions are within normal limits. Zoe WESLEY MAMMO Final Result from Last 3 Months or Most Recently Relevant to Health Maintenance Insurance [employer] MEDICARE Care Teams Director Of Software Engineering Relationship Specialty Start Date End Date Zoe Aguero PA PCP - General PHYSICIAN AIR TWIST OPERATOR 01/12/19
--- OUTSIDE RECORDS SUMMARY | 2024-09-04 14:19 | XMS_ITS | Data Portability ---
Author Organization [place] - [facility] [employer], Main Office Address [address] [place] [address] Care Team Providers Care Databases Software Consultant Name Role Phone KATHY FRITZ Primary Care Provider KATHY FRITZ Referring Provider Assessment Encounter Date Assessment Date Assessment LastModified by Organization Details LastModified Time 09/11/2022 09/11/2022 impression: Patient has pain in her shoulders with heavier lifting particularly overhead work. On the left shoulder she has symptoms of rotator cuff tendinitis impingement syndrome. I suspect she has the same problem on the right it is just not symptomatic today. 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 She will continue with the Naprosyn I will see her back in 6 weeks to assess her progress. Not available 09/25/2022 08:41:42 10/23/2022 10/23/2022 HPI: Patient returns. She is here for follow-up of her bilateral shoulder pain. She has go to physical therapy and has been continuing on the naproxen 500 mg b.i.d.. She has not had any significant improvement in her shoulders. Her right shoulder is more painful than left. She states it has always been the right has been more problematic than the left. She has had no definite injury or trauma. Most the pain she feels is over the anterior deltoid in the right shoulder. It is worse with heavy use. She has been on restrictions with work and tolerating this. Physical exam: 67-year-old female alert. She has active elevation 150 external rotation is to 100 internal rotation is to T8. She has mild discomfort with range of motion. Moderate tenderness over the anterior supraspinatus tendon insertion. No AC joint tenderness. Subscap lift-off is intact. She has excellent strength with external rotation and mild weakness with abduction testing. Impression: 67-year-old female who has weakness in the right shoulder with continued pain and symptoms. Concern at this point is whether not she may have significant tearing of the rotator cuff tendon or possible full-thickness tear. I have recommended an MRI scan of her shoulder since she has not had improvement in her symptoms. We will keep her on the same work restriction see her back after the test. Not available 10/23/2022 09:42:29 11/04/2022 11/04/2022 patient returns after MRI scan of the right shoulder. I reviewed the images as well as the radiologist's report. there is diffuse tendinopathy the upper aspect of subscapularis and supraspinatus tendons. Image 80 1-15 and 7 1-15 show evidence of very small interstitial higher grade partial-thicknes s tear at the posterior aspect of the supraspinatus close the insertion. There are shallow bursal sided partial thickness tear and moderate subdeltoid effusion noted. MRI scan was reviewed with the patient. I have discussed options with her. She has never had a cortisone he I think trying a cortisone shot in the subacromial space may helpful for. She wished to try this. Risk of side effects were discussed. After ChloraPrep prep, 20 mg of Kenalog and 4 cc of 0.5% ropivacaine were injected the subacromial space successfully and after the injection she had full range of motion of her right shoulder it was painless including putting on her sugar which has been bothering. With respect to her work, we have her on her work restriction says no working with weights away from the body or overhead and I think be appropriate to make this a permanent restriction for. I have discussed with her that she has degenerative changes within the tendon. She does not have a full-thickness tear but the tendon may continue to deteriorate over time and at some point she may develop a full-thickness tear. For example if she develops severe symptoms again few years from now may wish to obtain a new MRI scan at that time as the deterioration may have worsened. For now, if she gets satisfactory results, observation is appropriate. I will be happy to see her back as needed. She has been taking naproxen and may start to wean off of this if gets excellent relief with the cortisone injection. 30 minutes were spent in total care this patient more than half the time spent in [id number] care. Not available 11/04/2022 16:25:45 03/28/2023 03/28/2023 HPI: 68-year-old female came in today for evaluation of her left lateral hip pain. She states she has been having symptoms for about a year. It comes and goes depending on activities. She points directly at the lateral hip where she feels the pain. She has no pain in the groin. There is no sensations radiating down the leg. She has been taking Aleve once in morning and once at night and has done this for a long time. She does feel it was helping much with her symptoms. Physical exam: 68-year-old female very alert pleasant. She is 5 ft 2 138 lb she walks very well without limp Trendelenburg sag. Her left hip flexes to 130 externally rotates to 40 internally rotates to 20 without any discomfort. Negative Stinchfield maneuver. Moderate tenderness over the trochanteric bursa to palpation. She has mild weakness with abductor testing lateral position. Mild pain with abductor testing as well. No swelling in either lower extremity. 2+ dorsalis pedis pulse. Impression: 68-year-old female who has trochanteric bursitis of the left hip. She does have some mild weakness on strength testing have recommended that she go to formal physical therapy to work stretching and strengthening. Again she does not feel that the sleeve is helping her. Her uses diclofenac and patient feels she would like to try the diclofenac 75 mg b.i.d. to see if this would benefit her at all and I think that is reasonable. I will see her in a month. If she has continued symptoms at that point I think cortisone injection would be reasonable. If she is doing very well she will cancel. 20 minutes was spent treatment patient than half of this in [id number] conversation Not available 03/28/2023 14:53:09 Plan of Treatment Reminders Order Date Submit Date Provider Last Modified By Organization Details Last Modified Time Details Appointments None recorded. Lab None recorded. Referral None recorded. Procedures injection/ aspiration joint/burs a (PROC) - in office procedure, administer ed by provider 2022 023 [email or web address] In-Office Order, Internal Use Only DO Not Attach Compendium DO Not Attach Compendium, Do Not Delete/merge, [id number] 16:19:15 Surgeries None recorded. Imaging XR, hip + pelvis, unilateral 2022 023 [facility] [place], [address], [place], [address], 16:06:59 XR, shoulder 2022 023 [email or web address] [facility] [place], [address], [place], [address], 09:56:50 Medication Orders diclofenac sodium 75 mg tablet,del ayed release 2022 023 [facility], [address] [place], [id number], 16:06:59 Kenalog 10 mg/mL suspension for injection 2022 023 [facility], [address] [place], [id number], 3 10:30:52 ropivacain e (PF) 5 mg/mL (0.5 %) injection solution 2022 023 [facility], [address] [place], [id number], 3 10:30:52 Patient TargetsNo targets recorded. Patient InstructionsNo instructions recorded. Reason for Referral None Reported. Results Created Date Observation Date Name Description Value Unit Range Abnormal Flag Note LastModifiedBy Organization Detail LastModifiedTime 09/12/19 23 XR, shoul marlon No observ ation record ed. [facility] [place] [address], [place], [address], 09/25/2022 08:40:00 11/02/19 23 MRI, shoul marlon, w/o contr ast [facility] [address], [place] [address] Patien t Name: SURESH YBARRA Access ion #: [id number] Sex: F : 1954 7 2 Locati on: RA2 Attend ing Physic carmen: MICHELE HERNANDEZ Orderi ng Physic carmen: MICHELE HERNANDEZ Exam Date: 023 8:51 AM Exam Name: MRI SHOULD ER RT WO Admitt ing Diagno sis(es ): RADIOL OGY REPORT - FINAL EXAM: MRI SHOULD ER RT WO HISTOR Y: 67-yea r-old female with right should er pain and poppin g, no known injury . COMPAR JULIEN: Should er radiog raphs dated 2022. TECHNI QUE: Multip lanar multis equenc e noncon trast MR images of the right should er were perfor med. FINDIN GS: No fractu re or bone marrow edema are identi fied about the right should er. No eviden ce of full-t hickne ss rotato r cuff tear. There are partia l-thic kness tears and attenu ation of the subsca pulari s tendon near the insert ion (image s 15-17, series 901). There are partia l-thic kness bursal surfac e tears of the supras pinatu s and infras pinatu s tendon s and partia l-thic kness intras ubstan ce Page 1 of 2 [facility] Pativaleriano t Name: SURESH YBARRA Access ion #: [id number] Sex: F : 1954 7 2 Exam Date: 023 8:51 AM Exam Name: MRI SHOULD ER RT WO Admitt ing Diagno sis(es ): and articu lar surfac e tears of the supras pinatu s tendon . There is an intras ubstan ce partia l thickn ess tear of the supras pinatu s muscul otendi nous juncti on. The labrum is torn gloria superi cherie (image s 15-16, series 401; image 11, series 801). The long head of the biceps tendon is intact and locate d in the bicipi isaac groove . There is acromi oclavi cular hypert rophy with fluid in the joint. The AC joint exerts mass effect on the supras pinatu s muscul otendi nous juncti on anteri or margin . The unders urface of the acromi on is curved . Subacr omial space is narrow ed to 6 mm. There is a small glenoh umeral effusi on. There is fluid in the subacr omial- subdel toid region . IMPRES EVA: 1. No fractu re of the right should er. 2. Multip le partia l-thic kness tears of the supras pinatu s, infras pinatu s, and subsca pulari s as detail ed above. 3. Tear of the anteri or superi or labrum . 4. Acromi oclavi cular hypert rophy and synovi tis with curved acromi on and mild narrow ing of the subacr omial space. These factor s may be relate d to clinic al sympto ms of subacr omial imping ement. 5. Subacr omial- subdel toid bursit is. 6. Small right glenoh umeral effusi on. Create d and electr onical ly signed by: Rashawn thakkar MD Signed Date: 3:32 PM (CT) Dictat ed by: Rashawn thakkar MD DD: 3:32 PM (CT) DT: 3:32 PM (CT) Page 2 of 2 [email or web address] [facility] (Imaging) [address] [place], [address], 11/04/2022 11:51:37 03/28/20 23 XR, hip + pelvi s, unila teral No observ ation record ed. [email or web address] [facility] [place] [address], [place], [address], 03/28/2023 14:51:38 Result Notes None recorded. Problems Name Problem SNOMED Code Status Onset Date Resolution Date Notes Provider Name and Address Organization Details Recorded Time Bilateral shoulder joint pain 09423469626513 104 Active 2022 Jenna Chin RMSandra null, [facility] 5minutes [facility] 3 09:07:42 Pain of right shoulder joint 68895084913697 100 Active 2022 Dasia Gutiérrez CMA null, [facility] 5minutes [facility] 3 09:45:31 Pain of left hip joint 87619583779515 0 Active 2022 Rizwana Franks null, [facility] 5minutes [facility] 3 14:09:14 Notes:Some problems listed i n Document: #[id number] could not be added to this patient's chart. Please review this document and add these problems to the patient's chart manually as needed. Problem Notes None recorded. Procedures Surgical History None recorded. Imaging Results Imaging Date Name Status LastModified by [facility] Details LastModified Time 09/11/2022 XR, shoulder completed [facility] [place] [address], [place], [address], 09/25/2022 08:40:00 11/01/2022 MRI, shoulder, w/o contrast completed [email or web address] [facility] (Imaging) [address] [place], [address], 11/04/2022 11:51:37 03/28/2023 XR, hip + pelvis, unilateral completed [email or web address] [facility] [place] [address], [place], [address], 03/28/2023 14:51:38 Procedure Notes None recorded. Medical Equipment None Reported. Allergies No known drug allergies Medications Name Sig Start Date Stop Date Status Note LastModified by Organization Details LastModified Time pramipexole 1 mg tablet TAKE 2 TABLETS BY MOUTH (2 MG) ORALLY EVERY DAY AT BEDTIME active Not Available Not Available N ot Available atorvastatin 10 mg tablet TAKE 1 TABLET BY MOUTH DAILY active Not Available Not Available Not Available tramadol 50 mg tablet TAKE 1 TABLET BY MOUTH EVERY SIX HOURS NEEDED active Not Available Not Available No t Available Kenalog 10 mg/mL suspension for injection in office procedure, administere d by provider 2022 active [facility]: 0003- 0494- 20 Not Available Not Available Not Available sertraline 25 mg tablet TAKE 1 TABLET BY MOUTH EVERY DAY active Not Available Not Available No t Available diclofenac sodium 75 mg tablet,delay ed release Take 1 tablet twice a day by oral route. active Not Available Not Available No t Available lisinopril 40 mg tablet TAKE 1 TABLET ORALLY ONCE A DAY 90 DAY(S) active Not Available Not Available No t Available naproxen active Not Available Not Avai lable Not Available B12 active Not Available Not Availa ble Not Available ropivacaine (PF) 5 mg/mL (0.5 %) injection solution in office procedure, administere d by provider 2022 active [facility] [phone] Not Available Not Available Not Available Vitals Date Recorded Body height Body mass index (BMI) Body weight Provider Name and Address Organization Details Last Updated DateTime 09/11/2022 157.48 cm 25.2 kg/m2 10635.75 g Jenna Chin Sandra [facility] 5minutes [facility] 09/11/2022 09:12:56 Date Recorded Body height Provider Name an d Address Organization Details Last Updated DateTime 10/23/2022 157.48 cm Jenna Chin [facility] 10/23/2022 08:59:11 Date Recorded Body height Provider Name an d Address Organization Details Last Updated DateTime 11/04/2022 157.48 cm Jenna Chin [facility] 5minutes [facility] 11/04/2022 15:31:32 Date Recorded Body height Provider Name an d Address Organization Details Last Updated DateTime 03/28/2023 157.48 cm Rizwana Ortizs [facility] 5minutes [facility] 03/28/2023 14:08:43 Social History Question Answer Notes LastModified by Organizat ion Details LastModified Time Tobacco Smoking Status Never Smoker Jenna Giuseppe, AMBER null, [place] [facility] 09/11/2022 09:06:58 What Is Your Level Of Alcohol Consumption? Heavy [email or web address] Information not available 09/11/2022 Sex: Unknown Functional Status None recorded. Mental Status None recorded. Family History Nothing Reported. Medical History No medical history recorded. Gynecological HistoryNo gynecological history recorded. Obstetrics History GPAL:G 0 P 0 0 0 0 Past Encounters Encounter ID Performer Location Encounter Start Date Encounter Closed Date Diagnosis/Indication Diagnosis SNOMED-CT Code Diagnosis ICD10 Code Diagnosis Note [id number] Shad Steiner MD [facility] [place] [address] [place] [address] 09/11/2022 08:42:59 09/30/2022 09:56:49 Bilateral shoulder joint pain 7496816160 5597507 M25.511 M25.512 [id number] MARYJANE Strange [facility] [place] [address] [place] [address] 10/23/2022 08:57:01 10/23/2022 10:01:19 Bilateral shoulder joint pain 2014433929 1090223 M25.511 M25.512 [id number] Shad Steiner MD [facility] [place] [address] [place] [address] 11/04/2022 15:26:52 11/04/2022 16:31:16 Pain of right shoulder joint 3985270388 6741313 M25.709 [id number] MARYJANE Strange [facility] [place] [address] [place] [address] 03/28/2023 14:00:59 03/28/2023 14:56:01 Pain of left hip joint 6110265544 80610 M25.552 Health Concerns Section Related Observation LastModified by Organization Detai ls LastModified Time None Recorded Concern Status LastModified by Organization Details LastModified Time None Recorded Advance Directives Directive None Recorded Payers Encounter Date Sequence Insurance Name Policy Number Policy Simon Covered Member ID Simon Member ID Guarantor Name 09/11/2022 1 [place] Ashley Ybarra [id number] Ashley Ybarra 09/11/2022 2 [employer] (MEDICARE SUPPLEMENT) Ashley Ybarra [id number] Ashley Ybarra 10/23/2022 1 [place] Ashley Hinojosaon [id number] Ashley Ybarra 10/23/2022 2 [employer] (MEDICARE SUPPLEMENT) Ashley Hinojosaon [id number] Ashley Ybarra 11/04/2022 1 [place] Ashley Esther Hinojosaon [id number] Ashley Ybarra 11/04/2022 2 [employer] (MEDICARE SUPPLEMENT) Ashley Ybarra [id number] Ashley Ybarra 03/28/2023 1 [place] Ashley Hinojosaon [id number] Ashley Ybarra 03/28/2023 2 [employer] (MEDICARE SUPPLEMENT) Ashley Ybarra [id number] Ashley Ybarra Notes Date Note Type Note Provider Name and Address Organization Details Recorded Time 09/11/2022 text/html patient is a 67-year-old female presents for evaluation of both shoulders. She started having symptoms approximately 3 months ago. No prior problems. No injury. Pain is mainly in the front and top of her shoulder worse on the. 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 She has been taking tramadol and naproxen twice daily for the last 2 years. She takes these medications for pain in her legs that has been thought to be due to vascular claudication pain and she is scheduled to see a vascular surgeon about that. The right Shoulder is slightly worse. Shad Steiner MD [address] [place] [address], [facility] [address], [place], [address], [facility] [employer] 09/25/2022 09:17:33 OBGyn Episode No OBEpisode recorded.
--- NOTE | 2024-09-04 18:11 | ECG_ITS ---
Test Date: 2024-09-04 18:35:47 Measurements Intervals [place] Rate: 94 P: 63 WI: 133 QRS: 38 QRSD: 85 T: 49 QT: 344 QTc: 432 Interpretive Statements SINUS RHYTHM Electronically Signed On 09-05-2024 13:59:44 CDT by Driss Nj D.O
--- OUTSIDE RECORDS SUMMARY | 2024-09-04 18:17 | XMS_ITS | Clinical Summary ---
Author Organization [facility] at the [facility] Address [address] [place] [address] Care Team Providers Care Patrol Officer Name Role Phone Aicha Tatum Primary Care Provider [phone] Allergies No known active allergies Medications ascorbic [...] mg by mouth every other day Active fewraqvn-iqlnukt-s violeta-lutein tabletIndications: supplement Take 1 tablet by mouth early education teacher before 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 Assessment & Plan (08/27/2023 2:36 PM PAPER BAG INSPECTOR): Stable continue lisinopril 40 mg. Hypercholesterolemia 11/04/2022 Assessment & Plan (09/09/2023 10:26 AM CDT): Stable continue Lipitor 10 mg. Assessment & Plan (08/27/2023 2:36 PM PAPER BAG INSPECTOR): Stable continue Lipitor 10 mg. PAD (peripheral [...] opinion and has an appointment scheduled with [facility]. Assessment & Plan (08/27/2023 2:36 PM PAPER BAG INSPECTOR): Left lower extremity chronic limb-threatening ischemia with [...] wound. Assessment & Plan (08/19/2023 10:54 AM PAPER BAG INSPECTOR): Continues to deny any symptoms of claudication [...] Department Care Team Description 08/23/2024 9:45 AM PAPER BAG INSPECTOR Office Visit [facility] Surgery [facility] 8th [place] [address] [place] [address] Sallie Swain NP Encounter for surgical aftercare following surgery on the circulatory system (Primary Dx) 08/23/2024 8:00 AM PAPER BAG INSPECTOR Ancillary Procedure [facility] Vascular Lab at the [facility] [address] [facility] 8th [place] [address] [place] [address] Encounter for surgical aftercare following surgery on the circulatory system; Presence of other vascular implants and grafts 08/23/2024 Orders Only [facility] Vascular Surgery [address] [place] [address] Medical Office Building [address] [place] [address] Geronimo Gimenez MD Atherosclerosis of [place] arteries of extremities with intermittent claudication, left leg (Primary Dx); Atherosclerosis of [place] arteries of extremities with intermittent claudication, right [...] on file Legal Sex Female 6:03 AM PAPER BAG INSPECTOR Gender Identity Female 10/20/2022 4:51 PM CDT Sexual Orientation Not on file Obstetrics History Last Filed Vital Signs Vital Sign Reading Time Taken Comments Blood Pressure 133/55 08/23/2024 8:49 AM PAPER BAG INSPECTOR Pulse 100 08/23/2024 8:49 AM PAPER BAG INSPECTOR Temperature 36.1 C (97 F) 01/21/2024 3:11 PM CDT Respiratory Rate 20 01/21/2024 5:30 PM CDT Oxygen Saturation 95% 08/23/2024 8:49 AM PAPER BAG INSPECTOR Inhaled Oxygen Concentration - - Weight 61.2 kg (135 lb) 08/23/2024 8:49 AM PAPER BAG INSPECTOR Height 157.5 cm (5' 2 ) 08/23/2024 8:49 AM PAPER BAG INSPECTOR Body Mass Index 24.69 08/23/2024 8:49 AM PAPER BAG INSPECTOR Plan of Treatment Health Maintenance Due Date [...] 09/17/2024 09/18/2023 Medical Devices Implanted Type Area Answerer Device Identifier Shelf Expiration Date Model / Serial / Lot Medtronic [employer] Protege Everflex 5mm .079in 60mm 120cm Otw Delivery System Self [id number] - [id number] Implanted:Qty : 1 on 09/18/2023 by Geronimo Gimenez MD at [facility] Left: Superficial Femoral Artery [employer] [id number] 04/22/2026 [id number] 060-120 / / [id number] Procedures Procedure Name Priority Date/Time Associated Diagnosis Comments US ARTERIAL DUPLEX LOWER EXTREMITY LEFT LIMITED Schedule Routine, Read Routine (OP Routine) 08/23/2024 9:01 AM PAPER BAG INSPECTOR Encounter for surgical aftercare following surgery on the circulatory system Presence of other vascular implants and grafts US ARTERIAL DOPPLER LOWER EXTREMITY BILATERAL Schedule Routine, Read Routine (OP Routine) 08/23/2024 9:01 AM PAPER BAG INSPECTOR Encounter for surgical aftercare following surgery on the circulatory system from Last 3 Months Results * US Arterial Duplex Lower Extremity Left Limited (08/23/2024 9:01 AM PAPER BAG INSPECTOR) Anatomical Region Laterality Modality Vascular Left Ultrasound 08/23/2024 7:52 AM PAPER BAG INSPECTOR Narrative 08/23/2024 10:56 AM PAPER BAG INSPECTOR [facility] - Department of Vascular Surgery, Vascular Laboratory [address] [place] [address] Nikolai Lower Extremity Arterial Duplex Report Patient Name: [...] and grafts. MEASUREMENTS: Left Value Units Lt FURNACE CHARGER Dst PSV 258 cm/s Lt Profunda Dst [...] 187 cm/s Left Value Units FINDINGS: Performing Patient Financial Services Specialist: Jessica Lee RVT. Left Common Femoral: [...] above. Electronically Signed By: Geronimo Gimenez MD [facility] [phone] 08/23/2024 9:44:02 AM PAPER BAG INSPECTOR Procedure Note Geronimo Gimenez MD - 08/23/2024 [facility] - Department of Vascular Surgery,Vascular Laboratory [address] [place] [address] Nikolai Lower Extremity Arterial Duplex Report Patient Name: [...] and grafts. MEASUREMENTS: Left Value Units Lt FURNACE CHARGER Dst PSV 258 cm/s Lt Profunda Dst [...] 187 cm/s Left Value Units FINDINGS: Performing Patient Financial Services Specialist: Jessica Lee RVT. Left Common Femoral: [...] above. Electronically Signed By: Geronimo Gimenez MD [facility] [phone] 08/23/2024 9:44:02 AM PAPER BAG INSPECTOR us Ty Knox MD IM US PROCEDURES Final R esult * US Arterial Doppler Lower Extremity Bilateral (08/23/2024 9:01 AM PAPER BAG INSPECTOR) Anatomical Region Laterality Modality Vascular Bilateral Ultrasound 08/23/2024 8:19 AM PAPER BAG INSPECTOR Narrative 08/23/2024 10:56 AM PAPER BAG INSPECTOR [facility] - Department of Vascular Surgery, Vascular Laboratory [address] [place] [address] Lower Extremity Arterial Doppler Report Patient Name: ACE YBARRA : 1955 Study Date: 08/23/2024 8:19:00 AM Gender: F Tech: Jessica Lee RVT Location: [facility] Provider: TY KNOX [...] mmHg Lt Brachial Pressure 140 mmHg Rt ENGLISH TUTOR Pressure 118 mmHg Lt ENGLISH TUTOR Pressure 120 mmHg Rt DPA Pressure 93 mmHg Lt DPA Pressure 115 mmHg Rt 1st Digit Pressure 90 mmHg Lt 1st Digit Pressure 57 mmHg Rt PT SARANYA Resting 0.84 Lt PT SARANYA Resting 0.86 Rt AT SARANYA Resting 0.66 Lt AT SARANYA Resting 0.82 Rt Digit/Arm Index 0.64 Lt Digit/Arm Index 0.41 Right Value Units Left Value Units FINDINGS: Performing Patient Financial Services Specialist: Jessica Lee RVT. Right Common Femoral [...] above. Electronically Signed By: Geronimo Gimenez MD [facility] [phone] 08/23/2024 9:40:32 AM PAPER BAG INSPECTOR Procedure Note Geronimo Gimenez MD - 08/23/2024 [facility] - Department of Vascular Surgery,Vascular Laboratory [address] [place] [address] Lower Extremity Arterial Doppler Report Patient Name: ACE YBARRA : 1955 Study Date: 08/23/2024 8:19:00 AM Gender: F Tech: Jessica Lee RVT Location: [facility] Provider: TY KNOX [...] mmHg Lt Brachial Pressure 140 mmHg Rt ENGLISH TUTOR Pressure 118 mmHg Lt ENGLISH TUTOR Pressure 120 mmHg Rt DPA Pressure 93 mmHg Lt DPA Pressure 115 mmHg Rt 1st Digit Pressure 90 mmHg Lt 1st Digit Pressure 57 mmHg Rt PT SARANYA Resting 0.84 Lt PT SARANYA Resting 0.86 Rt AT SARANYA Resting 0.66 Lt AT SARANYA Resting 0.82 Rt Digit/Arm Index 0.64 Lt Digit/Arm Index 0.41 Right Value Units Left Value Units FINDINGS: Performing Patient Financial Services Specialist: Jessica Krus, RVT. Right Common Femoral Artery [...] above. Electronically Signed By: Geronimo Gimenez MD [facility] [phone] 08/23/2024 9:40:32 AM PAPER BAG INSPECTOR Ty Knox MD [facility] PROCEDURES Final R esult from Last 3 Months Insurance MEDICARE [facility] Address: [address] [address] [place] [address] AET SENIOR [facility] MEDICARE [employer] SENIOR SUPPLEMENT Advance Directives For more information, please contact: [phone] * Full Code (Latest Code Status on File) Date Activated Date Inactivated Comments 09/01/2023 10:16 AM 09/01/2023 6:05 PM Care Teams Patrol Officer Relationship Specialty Start Date End Date Aicha Tatum PA [address] [place] [address] [place] [address] PCP - General Family Medicine 09/16/22
--- OUTSIDE RECORDS SUMMARY | 2024-09-04 18:17 | XMS_ITS | Clinical Summary ---
Author Organization [facility] Address [address] [place] [address] Care Team Providers Care Transport Manager Name Role Phone Zoe Aguero Primary Care Provider [phone] Allergies No known active allergies Medications sertraline [...] CDT Respiratory Rate 16 08/28/2021 4:35 PM OFFICE CLEANER Oxygen Saturation 97% 08/28/2021 4:35 PM OFFICE CLEANER Inhaled Oxygen Concentration - - Weight 62.3 [...] this topic Medical Devices Implanted Type Area Wardrobe Assistant Device Identifier Shelf Expiration Date Model / Serial / Lot Plate Synthes 2.4 Va-Lcp Vlr Dist Radius 6h Hd/2h Shaft Right - [id number] Implanted:Qty: 1 on 08/28/2021 by Jj Barr MD at [facility] Plate Right: Radius SYNTHES .111.620 / / Screw Synthes 2.4 Locking Stardrive 14mm - [id number] Implanted:Qty: 1 on 08/28/2021 by Jj Barr MD at [facility] Screw Right: Radius SYNTHES 210.114 / / Screw Synthes 2.4 Locking Stardrive 18mm - [id number] Implanted:Qty: 2 on 08/28/2021 by Jj Barr MD at [facility] Screw Right: Radius SYNTHES 210.118 / / Screw Synthes 2.4 Locking Stardrive 20mm - [id number] Implanted:Qty: 4 on 08/28/2021 by Jj Barr MD at [facility] Screw Right: Radius SYNTHES 210.120 / / Screw Synthes 2.4 Cortical Self Tap 12mm - [id number] Implanted:Qty: 1 on 08/28/2021 by Jj Barr MD at [facility] Screw Right: Radius SYNTHES 201.762 / / [...] Health Maintenance Insurance [employer] MEDICARE Care Teams Transport Manager Relationship Specialty Start Date End Date Zoe Aguero PA PCP - General PHYSICIAN MULTIMEDIA SPECIALIST 01/12/19
--- OUTSIDE RECORDS SUMMARY | 2024-09-04 18:17 | XMS_ITS | Referral Summary ---
Author Organization [facility] at the [facility] Office Center Address [address] [place] [address] Care Team Providers Care Director Digital Communications Name Role Phone Aicha Tatum Primary Care Provider [phone] Encounters Date Type Department Care Team Description 08/23/2024 Orders Only [facility] Vascular Surgery [facility] Medical Office Building [address] [place] [address] Geronimo Gimenez MD Atherosclerosis of [place] arteries of extremities with intermittent claudication, left leg (Primary Dx); Atherosclerosis of [place] arteries of extremities with intermittent claudication, right leg 08/23/2024 9:45 AM GREY PERCHER Office Visit [facility] Surgery [facility] 8th [place] [address] [place] [address] Sallie Swain NP Encounter for surgical aftercare following surgery on the circulatory system (Primary Dx) 08/23/2024 8:00 AM GREY PERCHER Ancillary Procedure [facility] Vascular Lab at the [facility] Advanced Medicine [facility] 8th [place] [address] [place] [address] Encounter for surgical aftercare following surgery on [...] mg by mouth every other day Active ufndndev-dsjgjtg-e violeta-lutein tabletIndications: supplement Take 1 tablet by mouth customer management specialist before 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 Assessment & Plan (08/27/2023 2:36 PM GREY PERCHER): Stable continue lisinopril 40 mg. Hypercholesterolemia 11/04/2022 Assessment & Plan (09/09/2023 10:26 AM CDT): Stable continue Lipitor 10 mg. Assessment & Plan (08/27/2023 2:36 PM GREY PERCHER): Stable continue Lipitor 10 mg. PAD (peripheral [...] opinion and has an appointment scheduled with [facility]. Assessment & Plan (08/27/2023 2:36 PM GREY PERCHER): Left lower extremity chronic limb-threatening ischemia with [...] wound. Assessment & Plan (08/19/2023 10:54 AM GREY PERCHER): Continues to deny any symptoms of claudication [...] on file Legal Sex Female 6:03 AM GREY PERCHER Gender Identity Female 10/20/2022 4:51 PM CDT Sexual Orientation Not on file Last Filed Vital Signs Vital Sign Reading Time Taken Comments Blood Pressure 133/55 08/23/2024 8:49 AM GREY PERCHER Pulse 100 08/23/2024 8:49 AM GREY PERCHER Temperature 36.1 C (97 F) 01/21/2024 3:11 PM CDT Respiratory Rate 20 01/21/2024 5:30 PM CDT Oxygen Saturation 95% 08/23/2024 8:49 AM GREY PERCHER Inhaled Oxygen Concentration - - Weight 61.2 kg (135 lb) 08/23/2024 8:49 AM GREY PERCHER Height 157.5 cm (5' 2 ) 08/23/2024 8:49 AM GREY PERCHER Body Mass Index 24.69 08/23/2024 8:49 AM GREY PERCHER Plan of Treatment Not on file Medical Devices Implanted Type Area Audio Narrator Device Identifier Shelf Expiration Date Model / Serial / Lot Medtronic Inc Protege Everflex 5mm .079in 60mm 120cm Otw Delivery System Self [id number] - [id number] Implanted:Qty : 1 on 09/18/2023 by Geronimo Gimenez MD at [facility] Left: Superficial Femoral Artery Medtronic Inc [id number] 04/22/2026 [id number]- 060-120 / / [id number] Procedures Procedure Name Priority Date/Time Associated Diagnosis Comments US ARTERIAL DUPLEX LOWER EXTREMITY LEFT LIMITED Schedule Routine, Read Routine (OP Routine) 08/23/2024 9:01 AM GREY PERCHER Encounter for surgical aftercare following surgery on the circulatory system Presence of other vascular implants and grafts US ARTERIAL DOPPLER LOWER EXTREMITY BILATERAL Schedule Routine, Read Routine (OP Routine) 08/23/2024 9:01 AM GREY PERCHER Encounter for surgical aftercare following surgery on the circulatory system from Last 3 Months Results * US Arterial Duplex Lower Extremity Left Limited (08/23/2024 9:01 AM GREY PERCHER) Anatomical Region Laterality Modality Vascular Left Ultrasound 08/23/2024 7:52 AM GREY PERCHER Narrative 08/23/2024 10:56 AM GREY PERCHER [facility] - Department of Vascular Surgery, Vascular Laboratory [address] [place] [address] [place] Lower Extremity Arterial Duplex Report Patient Name: ACE YBARRA : 1955 Study Date: 08/23/2024 7:52:42 AM Gender: F Tech: Location: [facility] Provider: TY KNOX Quality: Adequate Order [...] and grafts. MEASUREMENTS: Left Value Units Lt INSERT MOLDING OPERATOR Dst PSV 258 cm/s Lt Profunda Dst [...] 187 cm/s Left Value Units FINDINGS: Performing Fleet Sales Manager: Jessica Lee RVT. Left Common Femoral: The [...] above. Electronically Signed By: Geronimo Gimenez MD [facility] [phone] 08/23/2024 9:44:02 AM GREY PERCHER Procedure Note Geronimo Gimenez MD - 08/23/2024 [facility] - Department of Vascular Surgery,Vascular Laboratory [address] [place] [address] [place] Lower Extremity Arterial Duplex Report Patient Name: ACE YBARRA : 1955 Study Date: 08/23/2024 7:52:42 AM Gender: F Tech: Location: [facility] Provider: TY KNOX Quality: Adequate Order [...] and grafts. MEASUREMENTS: Left Value Units Lt INSERT MOLDING OPERATOR Dst PSV 258 cm/s Lt Profunda Dst [...] 187 cm/s Left Value Units FINDINGS: Performing Fleet Sales Manager: Jessica Lee RVT. Left Common Femoral: The [...] above. Electronically Signed By: Geronimo Gimenez MD [facility] [phone] 08/23/2024 9:44:02 AM GREY PERCHER us Ty Knox MD [facility] US PROCEDURES Final R esult * US Arterial Doppler Lower Extremity Bilateral (08/23/2024 9:01 AM GREY PERCHER) Anatomical Region Laterality Modality Vascular Bilateral Ultrasound 08/23/2024 8:19 AM GREY PERCHER Narrative 08/23/2024 10:56 AM GREY PERCHER [facility] - Department of Vascular Surgery, Vascular Laboratory [address] [place] [address] Lower Extremity Arterial Doppler Report Patient Name: ACE YBARRA : 1955 Study Date: 08/23/2024 8:19:00 AM Gender: F Tech: Jessica Lee [facility] Location: [facility] Provider: TY KNOX Quality: Adequate Order [...] mmHg Lt Brachial Pressure 140 mmHg Rt FEED HOUSE SUPERVISOR Pressure 118 mmHg Lt FEED HOUSE SUPERVISOR Pressure 120 mmHg Rt DPA Pressure 93 mmHg Lt DPA Pressure 115 mmHg Rt 1st Digit Pressure 90 mmHg Lt 1st Digit Pressure 57 mmHg Rt PT SARANYA Resting 0.84 Lt PT SARANYA Resting 0.86 Rt AT SARANYA Resting 0.66 Lt AT SARANYA Resting 0.82 Rt Digit/Arm Index 0.64 Lt Digit/Arm Index 0.41 Right Value Units Left Value Units FINDINGS: Performing Fleet Sales Manager: Jessica Lee RVT. Right Common Femoral Artery [...] above. Electronically Signed By: Geronimo Gimenez MD [facility] [phone] 08/23/2024 9:40:32 AM GREY PERCHER Procedure Note Geronimo Gimenez MD - 08/23/2024 [facility] - Department of Vascular Surgery,Vascular Laboratory [address] [place] [address] Lower Extremity Arterial Doppler Report Patient Name: ACE YBARRA : 1955 Study Date: 08/23/2024 8:19:00 AM Gender: F Tech: Jessica Lee [facility] Location: [facility] Provider: TY KNOX Quality: Adequate Order [...] mmHg Lt Brachial Pressure 140 mmHg Rt FEED HOUSE SUPERVISOR Pressure 118 mmHg Lt FEED HOUSE SUPERVISOR Pressure 120 mmHg Rt DPA Pressure 93 mmHg Lt DPA Pressure 115 mmHg Rt 1st Digit Pressure 90 mmHg Lt 1st Digit Pressure 57 mmHg Rt PT SARANYA Resting 0.84 Lt PT SARANYA Resting 0.86 Rt AT SARANYA Resting 0.66 Lt AT SARANYA Resting 0.82 Rt Digit/Arm Index 0.64 Lt Digit/Arm Index 0.41 Right Value Units Left Value Units FINDINGS: Performing Fleet Sales Manager: Jessica Lee RVT. Right Common Femoral Artery [...] above. Electronically Signed By: Geronimo Gimenez MD [facility] [phone] 08/23/2024 9:40:32 AM GREY PERCHER Ty Knox MD IM US PROCEDURES Final R esult from Last 3 Months [place] [address] [employer] SENIOR SUPPLEMENT MEDICARE [facility] SENIOR SUPPLEMENT Advance Directives For more information, please contact: [phone] * Full Code (Latest Code Status on File) Date Activated Date Inactivated Comments 09/01/2023 10:16 AM 09/01/2023 6:05 PM Care Teams Director Digital Communications Relationship Specialty Start Date End Date Aicha Tatum PA [address] [place] [address] PCP - General Family Medicine 09/16/22
[2024-09-04 18:42] LABS: BEDSIDEPREGUCG Negative (Negative)
[2024-09-04 18:56] LABS: Add Urine Microscopic? YES; Appearance Urine Cloudy (Clear); Bacteria Urine None Seen /hpf; Basophils Percent Auto 0.6 % (0.2-1.2); Bilirubin Urine Negative (Negative); Blood Urine Negative (Negative); Color Urine Yellow (Yellow); Eosinophils Absolute Auto 0.1 K/mm3 (0-0.3); Eosinophils Percent Auto 1.1 % (0-4.4); Glucose Urine UA Negative (Negative); Hematocrit 21.7 % (37.0-47.0); Immature Granulocyte Absolute 0.02 K/mm3 (0.00-0.031); Immature Granulocyte Percent A 0.4 % (0-0.5); Ketones Urine Negative (Negative); Leukocyte Esterase Ur 2+ LEU/UL (Negative); Lymphocytes Absolute Auto 0.81 K/mm3 (0.9-3.2); Lymphocytes Percent Auto 15.1 % (18.3-44.2); Mean Corpuscular HGB Conc 26.3 g/dl (32-36); Mean Corpuscular Hemoglobin 19.8 pg (26-34); Mean Corpuscular Volume 75.3 fl (80-100); Mean Platelet Volume 8.6 fl (7.4-10.4); Monocytes Absolute Auto 0.6 K/mm3 (0.1-0.6); Monocytes Percent Auto 10.8 % (2.6-8.5); Neutrophils Absolute Auto 3.9 K/mm3 (1.3-6.7); Nitrate Urine Negative (Negative); Non Pathogenic Casts 0-2; Platelet Count Result 346 k/mm3 (150-375); Protein Urine Negative (Negative); RBC Urine 0-2 /hpf (0-2); Red Blood Count 2.88 M/mm3 (4.2-5.4); Red Cell Distribution Width 16.3 % (11.5-14.5); Specific Grav Ur 1.006 (1.001-1.035); Squamous Epithelial Cell Urine None Seen /hpf (Few); Urobilinogen Urine 0.2 mg/dL (<2.0); White Blood Count 5.4 K/mm3 (4.5-10.0); pH Urine 5.5 (5.0-9.0)
[2024-09-04 19:04] LABS: Alanine Aminotransferase 24 U/L (6-35); Albumin Level 4.7 g/dL (3.5-5.1); Alkaline Phosphatase 100 U/L (38-126); Anion Gap 13 mmol/L (4-12); Aspartate Amino Transferase 25 U/L (14-36); Bilirubin,Total 0.2 mg/dL (0.2-1.3); Blood Urea Nitrogen 21 mg/dL (7-17); Calcium 9.2 mg/dL (8.4-10.2); Carbon Dioxide 22 mmol/L (22-30); Chloride 108 mmol/L (98-107); Estimated CRCL calculation 43 ml/min; Estimated Glomerular Filt Rate > 60; Glucose 94 mg/dL (65-110); Potassium 4.2 mmol/L (3.4-5.0); Sodium 143 mmol/L (137-145)
[2024-09-04 19:05] LABS: Ethanol < 10 mg/dL (<10)
[2024-09-04 19:07] LABS: Prothrombin Time 13.7 Seconds (11.1-14.7)
[2024-09-04 19:08] LABS: Partial Thromboplastin Time 24.6 Seconds (22.3-36.8)
--- NOTE | 2024-09-04 19:14 | ED_ITS ---
HPI - Altered Mental Status General Chief Complaint: Altered Mental Status <Tyson Smith MD - Last Filed: 09/04/24 20:10> Stated Complaint: DIZZINESS REPORTS ODD BEHAVIOR. CONFUSION <Tyson Smith MD - Last Filed: 09/04/24 20:10> Time Seen by Provider: 09/04/24 18:10 <Tyson Smith MD - Last Filed: 09/04/24 20:10> Limitations: language barrier <Tyson Smith MD - Last Filed: 09/04/24 20:10> History of Present Illness HPI narrative: 69-year-old female with a past medical history including peripheral vascular disease, hypertension, hyperlipidemia, restless leg syndrome. She presents to the emergency department for evaluation of confusion. Patient was otherwise in her normal state of health but today he has been acting more confused according to the . She is normally alert oriented x3 but states she is alert to herself, she is not any acute distress denies any injuries. No falls or trauma. No headache, vision changes, chest pain, shortness a breath. No back pain, fever chills. She states she feels fine but her states that she has been acting confused throughout the day, acting inappropriately and not herself. This has never happened before according the family. Last on well 7:00 p.m. last night. <Tyson Smith MD - Last Filed: 09/04/24 20:10> Related Data Allergies/Adverse Reactions: Allergies Allergy/AdvReac Type Severity Reaction Status Date / Time No Known Allergies Allergy Verified 09/05/24 05:01 <Tyson Smith MD - Last Filed: 09/04/24 20:10> Review of Systems 2 Review of Systems: As reviewed above in HPI <Tyson Smith MD - Last Filed: 09/04/24 20:10> PMF Past Medical History Medical History: Medical History Major depressive disorder in partial remission Chronic anemia Peripheral arterial disease with history of revascularization Mixed hyperlipidemia Joint pain Restless leg syndrome Major depression in full remission Allergic rhinitis Vitamin D deficiency, unspecified Essential (primary) hypertension <Tyson Smith MD - Last Filed: 09/04/24 20:10> Surgical History Surgical History: Surgical History History of surgery on right wrist ORIF Hx of elbow surgery left cubital tunnel release History of total abdominal hysterectomy 1995 <Tyson Smith MD - Last Filed: 09/04/24 20:10> Family History Family History: Family History Father Heart disease Mother Heart disease <Tyson Smith MD - Last Filed: 09/04/24 20:10> Social History Social History: Social History Smoking packs per day: 2 Smoking cigarettes per day: 40.0 Years smoked: 40 Smoking pack-years: 80.00 Smoking status: Former smoker Tobacco type: cigarettes Second hand tobacco smoke exposure: No Alcohol intake: current Drinks per week: 5 Substance use: never Substance use type: does not use Do You Feel Safe in your Home?: Yes Lack of Transportation: No Lack of Food: Never True Current Housing: I Have Housing Concerned About Future Housing: Decline to Answer Difficulty Paying Gas/Electric Bills: Decline to Answer Difficulty Paying for Meds: Decline to Answer Currently Unemployed: Decline to Answer Education: Decline to Answer Difficulty w/ Childcare or Family Care: Decline to Answer Living arrangements: with family Occupation/Education: occupation Gender identity (if verbalized by the patient): Female Sexual Orientation (if Verbalized by the Patient): Straight or Heterosexual Spiritual care concerns: No <Tyson Smith MD - Last Filed: 09/04/24 20:10> Exam 2 Narrative: GENERAL: [Well-appearing, well-nourished, and in no acute distress.] HEAD: [Normocephalic, atraumatic.] EYES: [PERRLA and EOMI.] ENT: Nares clear, no rhinorrhea or epistaxis. Mucous membranes moist. NECK: Supple. CHEST: [Clear to auscultation. No respiratory distress.] HEART: [Regular rate and rhythm]. No murmur heard. [Normal peripheral pulses.] ABDOMEN: [Soft, nondistended], [nontender], [No rigidity or guarding] EXTREMITIES: Normal range of motion. [No edema.] SKIN: Warm, dry, no rash. NEURO: [No focal deficits]. Alert and oriented x2, does not know the month PSYCH: [Normal mood and affect.] <Tyson Smith MD - Last Filed: 09/04/24 20:10> Course Course Emergency Course: Patient signed out to [facility] on 09/04/24. New patient has a history of hypertension hyperlipidemia, restless leg syndrome with 7:00 p.m. the day prior this last greater than 20 hours. It is reported that she had been altered this morning mother did x1 2 which is at her baseline. No focal deficits had been demonstrating odd behavior by report. Was concern CT scan a frontal acute versus subacute stroke. Patient pending CTA as well as consultation with Neurology. The patient had 6 compared to greater than 9 approximately 1 year prior with no obvious source. Discussed with Dr Smith and recommended obtaining pre-transfusion labs, holding off on administering aspirin and/or Plavix, and obtaining CT abd/pelvis to assess for obvious source. Patient has 2 units of blood ordered and 1 is hanging in being administered at the time I assessed her. CT has been done, no mention of infarct but also no evidence of aneurysm/mass effect, etc. Discussed recommendation/need for admission given her two main issues and for further work up of this to include repeat H/H and obtaining MRI. She and family/friend at bedside verified understanding and are in agreement. 3 attempts by charge out clerk made to contact loss prevention guard neurologist Dr Oviedo with no response. Consulted neurologist Dr Arias who is in agreement with holding aspirin or DAPT until further assessment. Discussed patient with on-call hospitalist Dr Arthur who accepts admission. MRI ordered as is repeat CBC in the AM. Ferritin lab added as it had accidentally been excluded. Patient to be IMU admission given CVA/TIA work up as well as degree of anemia. Stable. <Zofia Hummel MD - Last Filed: 09/05/24 17:16> Vital Signs Vital signs: Vital Signs Temperature 97.9 F 09/04/24 14:53 Pulse Rate 97 09/04/24 14:53 Respiratory Rate 18 09/04/24 14:53 Blood Pressure 153/64 H 09/04/24 14:53 Pulse Oximetry 100 09/04/24 14:53 Oxygen Delivery Room Air 09/04/24 14:53 Temperature 98.3 F 09/05/24 15:47 Pulse Rate 101 H 09/05/24 15:47 Respiratory Rate 14 09/05/24 15:47 Blood Pressure 153/58 H 09/05/24 15:47 Pulse Oximetry 100 09/05/24 15:47 Oxygen Delivery Room Air 09/05/24 05:00 <Tyson Smith MD - Last Filed: 09/04/24 20:10> Vital Signs Temperature 97.9 F 09/04/24 14:53 Pulse Rate 97 09/04/24 14:53 Respiratory Rate 18 09/04/24 14:53 Blood Pressure 153/64 H 09/04/24 14:53 Pulse Oximetry 100 09/04/24 14:53 Oxygen Delivery Room Air 09/04/24 14:53 Temperature 98.3 F 09/05/24 15:47 Pulse Rate 101 H 09/05/24 15:47 Respiratory Rate 14 09/05/24 15:47 Blood Pressure 153/58 H 09/05/24 15:47 Pulse Oximetry 100 09/05/24 15:47 Oxygen Delivery Room Air 09/05/24 05:00 <Zofia Hummel MD - Last Filed: 09/05/24 17:16> MDM - Altered Mental Status MDM Narrative Medical decision making narrative: 69-year-old female with history of peripheral vascular disease, hypertension, hyperlipidemia, restless leg syndrome. She presents today with mental status changes throughout the day. She is more confused than her normal self according to the spouse was at bedside. Patient has no focal neurological deficits, normal neurovascular assessment, full strength and sensation throughout both arms and legs, no ataxia. Normal vital signs aside from some stable hypertension. No tachycardia, fever or hypoxia. No signs of trauma. Patient denies any urinary complaints. Patient denies any complaints whatsoever at this time but the is concerned about her confusion. Present suspicion for potential urinary tract infection, electrolyte imbalance, dehydration. Low suspicion intracranial pathology such as stroke or bleed given the lacking neurological deficits. Toxicological suspicions are lower she denies any alcohol intake or drug use. Laboratory studies were including a CBC, CMP, urinalysis, alpha level, drug screen, CT of the head, chest x-ray, EKG, coag studies. Spoke to the who provided a concrete last known well approximately 7:00 p.m. last night. Laboratory studies show a significant anemia 5.7 appears to be microcytic. Patient denies any active bleeding or hemorrhage. Her last hemoglobin here is 9.4. Coagulation panel within normal limits. Electrolytes largely unremarkable. Normal renal, normal hepatic function. Normal glucose. Urinalysis without signs of active infection. Alcohol level negative. CT of the head shows focal area of right frontal temporal hypodensity suspicious for acute or subacute infarct. Patient is approximately 24+ hours out from her last known well making her not a candidate for thrombectomy or thrombolytics therapy. No acute intracranial hemorrhage was noted. At this time CT angiography was ordered and I attempted to reach our neurologist for recommendations. Awaiting CT angiography at this time. Patient signed out to oncoming ER physician Dr. Hummel pending imaging and discussion with Neurology and hospitalist for admission. <Tyson Smith MD - Last Filed: 09/04/24 20:10> Lab Data Result diagrams: 09/05/24 05:57 09/04/24 18:44 <Tyson Smith MD - Last Filed: 09/04/24 20:10> Labs: Lab Results 09/04/24 09/04/24 09/04/24 Range/Units 18:40 18:44 19:42 WBC 5.4 (4.5-10.0) K/mm3 RBC 2.88 L (4.2-5.4) M/mm3 Hgb 5.7 L* D (12.0-15.0) g/dL Hct 21.7 L (37.0-47.0) % MCV 75.3 L (80-100) fl MCH 19.8 L (26-34) pg MCHC 26.3 L (32-36) g/dl RDW 16.3 H (11.5-14.5) % Plt Count 346 (150-375) k/mm3 MPV 8.6 (7.4-10.4) fl Immature Gran % (Auto) 0.4 (0-0.5) % Neut % (Auto) 72.0 (45.5-73.1) % Lymph % (Auto) 15.1 L (18.3-44.2) % Pershing % (Auto) 10.8 H (2.6-8.5) % Eos % (Auto) 1.1 (0-4.4) % Baso % (Auto) 0.6 (0.2-1.2) % Lymph # (Auto) 0.81 L (0.9-3.2) K/mm3 Pershing # (Auto) 0.6 (0.1-0.6) K/mm3 Eos # (Auto) 0.1 (0-0.3) K/mm3 Baso # (Auto) 0.0 (0.0-0.1) K/mm3 Abs Immat Gran (auto) 0.02 (0.00-0.031) K/mm3 Absolute Neuts (auto) 3.9 (1.3-6.7) K/mm3 Absolute Nucleated RBC 0.000 (0.0-0.012) K/mm3 Band Neutrophils % Not Reportable Nucleated RBC % 0.0 (0.0-0.2) % Platelet Estimate Adequate (Adequate) Hypochromasia 2+ Anisocytosis 1+ Microcytosis 1+ (NORMAL) Schistocytes None seen PT 13.7 (11.1-14.7) Seconds INR 1.0 APTT 24.6 (22.3-36.8) Seconds Sodium 143 (137-145) mmol/L Potassium 4.2 (3.4-5.0) mmol/L Chloride 108 H (98-107) mmol/L Carbon Dioxide 22 (22-30) mmol/L Anion Gap 13 H (4-12) mmol/L BUN 21 H (7-17) mg/dL Creatinine 0.89 (0.7-1.0) mg/dL Estim Creat Clear Calc 43 ml/min Estimated GFR > 60 (59 - ) Glucose 94 (65-110) mg/dL Calcium 9.2 (8.4-10.2) mg/dL Iron 27 L (37-170) ug/dL TIBC 646 H (261-462) ug/dL % Saturation 4 L (20-50) % Ferritin 6.53 L (11.1-264) ng/mL Total Bilirubin 0.2 (0.2-1.3) mg/dL AST 25 (14-36) U/L ALT 24 (6-35) U/L Alkaline Phosphatase 100 (38-126) U/L Total Protein 7.0 (6.3-8.2) g/dL Albumin 4.7 (3.5-5.1) g/dL Urine Color Yellow (Yellow) Urine Appearance Cloudy H (Clear) Urine pH 5.5 (5.0-9.0) Ur Specific [place] 1.006 (1.001-1.035) Urine Protein Negative (Negative) mg/dL Urine Glucose (UA) Negative (Negative) mg/dL Urine Ketones Negative (Negative) mg/dL Ur Blood (Man) Negative (Negative) Urine Nitrate Negative (Negative) Urine Bilirubin Negative (Negative) Urine Urobilinogen 0.2 (<2.0) mg/dL Leukocyte Esterase Rfl 2+ H (Negative) LAUREN/UL Urine RBC 0-2 (0-2) /hpf Urine WBC 11-20 H (0-3) /hpf Ur Squamous Epith Cells None seen (Few) /hpf Urine Bacteria None seen /hpf Urine Casts 0-2 POC Urine HCG, Qual Negative (Negative) Urine Opiates Screen Negative (Negative) Urine Methadone Screen Negative (Negative) Ur Barbiturates Screen Negative (Negative) Ur Phencyclidine Scrn Negative (Negative) Ur Amphetamine Screen Negative (Negative) U Benzodiazepines Scrn Negative (Negative) Urine Cocaine Screen Negative (Negative) U Cannabinoids Screen Negative (Negative) Ethyl Alcohol < 10 (<10) mg/dL Blood Type O Negative Antibody Screen Negative Crossmatch See Detail <Tyson Smith MD - Last Filed: 09/04/24 20:10> Lab Results 09/04/24 09/04/24 09/04/24 Range/Units 18:40 18:44 19:42 WBC 5.4 (4.5-10.0) K/mm3 RBC 2.88 L (4.2-5.4) M/mm3 Hgb 5.7 L* D (12.0-15.0) g/dL Hct 21.7 L (37.0-47.0) % MCV 75.3 L (80-100) fl MCH 19.8 L (26-34) pg MCHC 26.3 L (32-36) g/dl RDW 16.3 H (11.5-14.5) % Plt Count 346 (150-375) k/mm3 MPV 8.6 (7.4-10.4) fl Immature Gran % (Auto) 0.4 (0-0.5) % Neut % (Auto) 72.0 (45.5-73.1) % Lymph % (Auto) 15.1 L (18.3-44.2) % Pershing % (Auto) 10.8 H (2.6-8.5) % Eos % (Auto) 1.1 (0-4.4) % Baso % (Auto) 0.6 (0.2-1.2) % Lymph # (Auto) 0.81 L (0.9-3.2) K/mm3 Pershing # (Auto) 0.6 (0.1-0.6) K/mm3 Eos # (Auto) 0.1 (0-0.3) K/mm3 Baso # (Auto) 0.0 (0.0-0.1) K/mm3 Abs Immat Gran (auto) 0.02 (0.00-0.031) K/mm3 Absolute Neuts (auto) 3.9 (1.3-6.7) K/mm3 Absolute Nucleated RBC 0.000 (0.0-0.012) K/mm3 Band Neutrophils % Not Reportable Nucleated RBC % 0.0 (0.0-0.2) % Platelet Estimate Adequate (Adequate) Hypochromasia 2+ Anisocytosis 1+ Microcytosis 1+ (NORMAL) Schistocytes None seen PT 13.7 (11.1-14.7) Seconds INR 1.0 APTT 24.6 (22.3-36.8) Seconds Sodium 143 (137-145) mmol/L Potassium 4.2 (3.4-5.0) mmol/L Chloride 108 H (98-107) mmol/L Carbon Dioxide 22 (22-30) mmol/L Anion Gap 13 H (4-12) mmol/L BUN 21 H (7-17) mg/dL Creatinine 0.89 (0.7-1.0) mg/dL Estim Creat Clear Calc 43 ml/min Estimated GFR > 60 (59 - ) Glucose 94 (65-110) mg/dL Calcium 9.2 (8.4-10.2) mg/dL Iron 27 L (37-170) ug/dL TIBC 646 H (261-462) ug/dL % Saturation 4 L (20-50) % Ferritin 6.53 L (11.1-264) ng/mL Total Bilirubin 0.2 (0.2-1.3) mg/dL AST 25 (14-36) U/L ALT 24 (6-35) U/L Alkaline Phosphatase 100 (38-126) U/L Total Protein 7.0 (6.3-8.2) g/dL Albumin 4.7 (3.5-5.1) g/dL Urine Color Yellow (Yellow) Urine Appearance Cloudy H (Clear) Urine pH 5.5 (5.0-9.0) Ur Specific [place] 1.006 (1.001-1.035) Urine Protein Negative (Negative) mg/dL Urine Glucose (UA) Negative (Negative) mg/dL Urine Ketones Negative (Negative) mg/dL Ur Blood (Man) Negative (Negative) Urine Nitrate Negative (Negative) Urine Bilirubin Negative (Negative) Urine Urobilinogen 0.2 (<2.0) mg/dL Leukocyte Esterase Rfl 2+ H (Negative) LAUREN/UL Urine RBC 0-2 (0-2) /hpf Urine WBC 11-20 H (0-3) /hpf Ur Squamous Epith Cells None seen (Few) /hpf Urine Bacteria None seen /hpf Urine Casts 0-2 POC Urine HCG, Qual Negative (Negative) Urine Opiates Screen Negative (Negative) Urine Methadone Screen Negative (Negative) Ur Barbiturates Screen Negative (Negative) Ur Phencyclidine Scrn Negative (Negative) Ur Amphetamine Screen Negative (Negative) U Benzodiazepines Scrn Negative (Negative) Urine Cocaine Screen Negative (Negative) U Cannabinoids Screen Negative (Negative) Ethyl Alcohol < 10 (<10) mg/dL Blood Type O Negative Antibody Screen Negative Crossmatch See Detail <Zofia Hummel MD - Last Filed: 09/05/24 17:16> Imaging Data Radiologist's impression: Impressions Head CT 09/04/24 19:03 IMPRESSION: Focal area of right frontal lobe hypodensity suspicious for a acute or subacute infarct. No acute intracranial hemorrhage. Recommend MRI of the brain for further evaluation. Head/Neck CTA 09/04/24 20:11 IMPRESSION: No large vessel intracranial occlusion, high-grade intracranial stenosis, or aneurysm. No carotid or vertebral artery occlusion, dissection, or significant stenosis. Abdomen/Pelvis CT 09/04/24 20:41 IMPRESSION: Mild esophagitis/gastritis. Cholelithiasis, without CT evidence of cholecystitis. Moderate-severe atherosclerotic celiac origin stenosis. <Zofia Hummel MD - Last Filed: 09/05/24 17:16> Discharge Plan Discharge Clinical Impression: Ischemic cerebrovascular accident (CVA) of frontal lobe, Anemia, Blood transfusion during current hospitalization <Tyson Smith MD - Last Filed: 09/04/24 20:10> Patient Disposition: Still a Patient <Tyson Smith MD - Last Filed: 09/04/24 20:10> Condition: Stable <Tyson Smith MD - Last Filed: 09/04/24 20:10>
[2024-09-04 19:20] LABS: Hemoglobin 5.7 g/dL (12.0-15.0)
[2024-09-04 19:21] LABS: Hypochromasia 2+; Platelet Estimate Adequate (Adequate)
[2024-09-04 19:22] LABS: Anisocytosis 1+; Microcytosis 1+ (NORMAL); Schistocytes None Seen
--- NOTE | 2024-09-04 19:22 | PC.NURSE ---
Report received from KATLYN Carmen. Assumed care of patient at this time.
[2024-09-04 20:22] LABS: Iron 27 ug/dL (37-170)
[2024-09-04 20:32] LABS: Percent Iron Saturation 4 % (20-50)
[2024-09-04] MEDS: SODIUM CHLORIDE 0.9% IV 250 ML 30 ML IV CONT (20:56)
[2024-09-04] MEDS: TUBING, BLOOD PLUM PUMP TUBING 1 EACH XX ×2 (20:56→22:49)
[2024-09-04] MEDS: SODIUM CHLORIDE 0.9% IV 1,000 ML 999 ML IV CONT (20:56)
[2024-09-04 20:59] LABS: Amphetamine Screen Urine Negative (Negative); Barbiturate Screen Urine Negative (Negative); Benzodiazepines Screen Urine Negative (Negative); Cannabinoid Screen Urine Negative (Negative); Cocaine Screen Urine Negative (Negative); Methadone Screen Urine Negative (Negative); Opiate Screen Urine Negative (Negative); Phencyclidine Screen Urine Negative (Negative)
[2024-09-04] MEDS: PRAMIPEXOLE 1 MG TABLET 2 MG PO (21:17)
[2024-09-04 22:46] LABS: Ferritin 6.53 ng/mL (11.1-264)
--- NOTE | 2024-09-04 22:49 | PC.NURSE ---
Patients brought food for patient to eat. EPR states okay for patient to eat. Patient remains a/ox4. Patient denies any pain.
[2024-09-05] VITALS (25 sets, daily range): BP systolic 140–174; BP diastolic 56–79; PULSE 90–107; RESP 14–33; TEMP 36.5–36.8; O2SAT 95–100; BMI 24.0
--- NOTE | 2024-09-05 04:45 | PC.NURSE ---
This patient, Ashley Ybarra, was admitted to IMU Room 201-01. Patient/family oriented to hospital policies and general routines including ID bracelet, bed and alarms, visiting hours, pain management, procedures, bathroom and other care routines, personal items, smoking policy, room service/diet, and visiting hours. Information on how to activate the Rapid Response Team has been discussed. Patient/Family are encouraged to report perceived risks to care and to ask questions if they do not understand what they are told or what they should do.
[2024-09-05 06:04] LABS: Basophils Percent Auto 0.5 % (0.2-1.2); Eosinophils Absolute Auto 0.1 K/mm3 (0-0.3); Eosinophils Percent Auto 1.4 % (0-4.4); Hematocrit 29.5 % (37.0-47.0); Hemoglobin 8.6 g/dL (12.0-15.0); Immature Granulocyte Absolute 0.03 K/mm3 (0.00-0.031); Immature Granulocyte Percent A 0.5 % (0-0.5); Lymphocytes Absolute Auto 0.65 K/mm3 (0.9-3.2); Lymphocytes Percent Auto 11.4 % (18.3-44.2); Mean Corpuscular HGB Conc 29.2 g/dl (32-36); Mean Corpuscular Hemoglobin 22.3 pg (26-34); Mean Corpuscular Volume 76.6 fl (80-100); Mean Platelet Volume 8.7 fl (7.4-10.4); Monocytes Absolute Auto 0.7 K/mm3 (0.1-0.6); Monocytes Percent Auto 12.7 % (2.6-8.5); Neutrophils Absolute Auto 4.2 K/mm3 (1.3-6.7); Neutrophils Percent Auto 73.5 % (45.5-73.1); Platelet Count Result 304 k/mm3 (150-375); Red Blood Count 3.85 M/mm3 (4.2-5.4); Red Cell Distribution Width 16.2 % (11.5-14.5); White Blood Count 5.7 K/mm3 (4.5-10.0)
[2024-09-05 06:25] LABS: Platelet Estimate Adequate (Adequate)
[2024-09-05 06:26] LABS: Anisocytosis 1+; Hypochromasia 1+; Ovalocytes 1+; Polychromasia 1+; Schistocytes None Seen
--- NOTE | 2024-09-05 07:59 | P.HP_ITS ---
H&P: HPI History of Present Illness Date/Time: 09/05/24 07:59 Chief Complaint: Confusion Narrative: [age] years old lady with history of peripheral vascular disease, hypertension, hyperlipidemia, restless leg syndrome present ED with a chief complaint of confusion. Patient's noticed patient was confused yesterday, acting inappropriately. Last known well was 7:00 p.m. before yesterday patient. Patient states she could not understand what she was reading, and patient could not is breast herself. She denies headache, vision changes, lightheadedness, unstable gait. Patient also denies chest pain, shortness of breath abdomen pain, nausea vomiting diarrhea dysuria. Patient also denies bloody or black stools. Patient also denies fever chills. Upon arrival to ED, patient was afebrile blood pressure stable, no O2 desaturation on room air. Labs showed profound anemia hemoglobin 5.7, baseline hemoglobin 9.4 on March 05 2024. chemistry showed elevated BUN creatinine ratio 21/0.[address] abdomen pelvis scan showed mild esophagitis gastritis gallstone without evidence of cholecystitis CT head showed focal area of right frontal lobe hypodensity suspicious for a acu te or subacute infarct. No acute intracranial hemorrhage. CT head shows no large vessel occlusion, stenosis or aneurysm Review of Systems Review of Systems: ROS negative except above PMFSH Past Medical History Medical History Major depressive disorder in partial remission Chronic anemia Peripheral arterial disease with history of revascularization Mixed hyperlipidemia Joint pain Restless leg syndrome Major depression in full remission Allergic rhinitis Vitamin D deficiency, unspecified Essential (primary) hypertension Surgical History Surgical History History of surgery on right wrist ORIF Hx of elbow surgery left cubital tunnel release History of total abdominal hysterectomy 1995 Family History Family History Father Heart disease Mother Heart disease Social History Social History Smoking packs per day: 2 Smoking cigarettes per day: 40.0 Years smoked: 40 Smoking pack-years: 80.00 Smoking status: Former smoker Tobacco type: cigarettes Second hand tobacco smoke exposure: No Alcohol intake: current Drinks per week: 5 Substance use: never Substance use type: does not use Do You Feel Safe in your Home?: Yes Lack of Transportation: No Lack of Food: Never True Current Housing: I Have Housing Concerned About Future Housing: Decline to Answer Difficulty Paying Gas/Electric Bills: Decline to Answer Difficulty Paying for Meds: Decline to Answer Currently Unemployed: Decline to Answer Education: Decline to Answer Difficulty w/ Childcare or Family Care: Decline to Answer Living arrangements: with family Occupation/Education: occupation Gender identity (if verbalized by the patient): Female Sexual Orientation (if Verbalized by the Patient): Straight or Heterosexual Spiritual care concerns: No Meds Home Medications and Allergies Home Medications ?Medication ?Instructions ?Recorded ?Confirmed ?Type calcium 1,000 mg (as 800 - 1,000 tablet PO DAILY #90 08/30/22 09/05/24 Rx carbonate)-vitamin D3 20 mcg (800 tabs unit) tablet cetirizine 10 mg tablet (All Day 10 mg PO DAILY PRN allergy 08/30/22 09/04/24 Rx Allergy (cetirizine)) symptoms #90 tabs lactobacillus combination no.9 4 4,000 mmu cells PO DAILY #90 caps 08/30/22 09/04/24 Rx billion cell capsule (Adult 50 Plus Probiotic) potassium citrate 99 mg capsule 99 mg PO DAILY #90 caps 08/30/22 09/04/24 Rx tramadol 50 mg tablet 50 mg PO Q6H PRN pain 30 days #90 02/18/24 09/04/24 Rx tabs sertraline 50 mg tablet 50 mg PO DAILY #90 tabs 03/15/24 09/04/24 Rx pramipexole 1 mg tablet 1 mg PO QHS #135 tabs 03/29/24 09/04/24 Rx atorvastatin 10 mg tablet See Rx Instructions .Route 05/10/24 09/04/24 Rx .COMPLEX #30 tabs clopidogrel 75 mg tablet See Rx Instructions .Route 06/29/24 09/04/24 Rx .COMPLEX #90 tabs diclofenac sodium 75 mg See Rx Instructions .Route 06/29/24 09/04/24 Rx tablet,delayed release .COMPLEX #60 tabs zolpidem 5 mg tablet 5 mg PO QHS PRN insomnia #30 tabs 07/27/24 09/04/24 Rx amlodipine 5 mg tablet 5 mg PO DAILY #90 tabs 08/25/24 09/04/24 Rx lisinopril 40 mg tablet 40 mg PO DAILY #90 tabs 08/25/24 09/04/24 Rx Allergies Allergy/AdvReac Type Severity Reaction Status Date / Time No Known Allergies Allergy Verified 09/05/24 05:01 Vital Signs Vital Signs - 24 hr 09/04/24 14:53 09/04/24 18:30 09/04/24 19:31 Temperature 97.9 F Pulse Rate 97 105 H Respiratory Rate 18 21 H Blood Pressure 153/64 H 168/61 H Pulse Oximetry 100 100 Oxygen Delivery Room Air Room Air 09/04/24 20:03 09/04/24 20:07 09/04/24 20:15 Temperature Pulse Rate 108 H 99 104 H Respiratory Rate 23 H 23 H 28 H Blood Pressure 160/66 H Pulse Oximetry 98 99 Oxygen Delivery 09/04/24 20:31 09/04/24 20:47 09/04/24 20:48 Temperature Pulse Rate 110 H 103 H 102 H Respiratory Rate 46 H 23 H 19 Blood Pressure 161/77 H Pulse Oximetry 99 98 98 Oxygen Delivery 09/04/24 20:51 09/04/24 20:54 09/04/24 21:00 Temperature 97.6 F Pulse Rate 113 H 107 H 102 H Respiratory Rate 20 23 H 27 H Blood Pressure 161/77 H 161/77 H Pulse Oximetry 95 100 97 Oxygen Delivery 09/04/24 21:01 09/04/24 21:10 09/04/24 21:36 Temperature 97.6 F Pulse Rate 104 H 107 H 106 H Respiratory Rate 21 H 21 H 25 H Blood Pressure 165/75 H 165/75 H Pulse Oximetry 99 100 100 Oxygen Delivery 09/04/24 21:45 09/04/24 22:08 09/04/24 22:10 Temperature 97.8 F Pulse Rate 103 H 105 H 99 Respiratory Rate 19 23 H Blood Pressure 153/57 H Pulse Oximetry 99 99 Oxygen Delivery 09/04/24 22:10 09/04/24 22:29 09/04/24 22:29 Temperature 97.9 F Pulse Rate 98 100 99 Respiratory Rate 23 H 22 H 19 Blood Pressure 153/57 H 148/63 H Pulse Oximetry 100 97 100 Oxygen Delivery 09/04/24 22:30 09/04/24 22:31 09/04/24 22:42 Temperature 97.6 F Pulse Rate 102 H 102 H 99 Respiratory Rate 19 22 H 20 Blood Pressure 148/63 H 141/56 H Pulse Oximetry 99 Oxygen Delivery 09/04/24 22:44 09/04/24 22:45 09/04/24 22:59 Temperature 98.1 F Pulse Rate 100 105 H 99 Respiratory Rate 23 H 26 H 20 Blood Pressure 141/56 H 142/59 H Pulse Oximetry 100 100 97 Oxygen Delivery 09/04/24 23:10 09/04/24 23:15 09/04/24 23:30 Temperature Pulse Rate 104 H 99 98 Respiratory Rate 19 20 16 Blood Pressure Pulse Oximetry 96 96 98 Oxygen Delivery 09/04/24 23:31 09/04/24 23:45 09/04/24 23:59 Temperature 98.2 F Pulse Rate 97 96 93 Respiratory Rate 18 20 18 Blood Pressure 156/69 H 154/67 H Pulse Oximetry 98 96 Oxygen Delivery 09/05/24 00:04 09/05/24 00:30 09/05/24 00:31 Temperature Pulse Rate 107 H 93 91 Respiratory Rate 33 H 21 H 17 Blood Pressure 159/74 H Pulse Oximetry 96 98 Oxygen Delivery 09/05/24 00:43 09/05/24 00:45 09/05/24 01:02 Temperature 98.1 F Pulse Rate 95 91 94 Respiratory Rate 19 19 15 Blood Pressure 157/79 H Pulse Oximetry 95 95 Oxygen Delivery 09/05/24 01:15 09/05/24 01:30 09/05/24 01:31 Temperature Pulse Rate 93 98 95 Respiratory Rate 21 H 22 H 20 Blood Pressure 174/76 H Pulse Oximetry 96 97 96 Oxygen Delivery 09/05/24 03:33 09/05/24 04:36 09/05/24 04:50 Temperature Pulse Rate 90 92 96 Respiratory Rate 19 20 Blood Pressure 140/56 L 164/68 H Pulse Oximetry 96 99 Oxygen Delivery 09/05/24 05:00 09/05/24 05:17 09/05/24 06:00 Temperature 97.7 F Pulse Rate 95 100 Respiratory Rate 18 Blood Pressure 172/66 H Pulse Oximetry 100 Oxygen Delivery Room Air Exam Narrative: GENERAL: Pleasant, in no acute distress. Well-nourished. - EYES: EOMI. Anicteric. - HENT: Moist mucous membranes. - LUNGS: Clear to auscultation bilateral ly, no wheezing, rhonchi, or rales. - CARDIOVASCULAR: Regular rate and rhyth m. No murmur. No JVD. - ABDOMEN: Soft, non-tender and non-dist ended. No palpable masses. - EXTREMITIES: No edema. Peripheral puls es 2+. Non-tender. - NEUROLOGIC: No focal neurological defi cits. CN II-XII grossly intact. - PSYCHIATRIC: Awake, Alert and oriented x 3. Appropriate mood and affect. - SKIN: No rashes or lesions. Warm. - LYMPH: No cervical lymphadenopathy. H&P: Results Labs Labs: Short CBC 09/04/24 09/05/24 Range/Units 18:44 05:57 WBC 5.4 5.7 (4.5-10.0) K/mm3 Hgb 5.7 L* D 8.6 L (12.0-15.0) g/dL Hct 21.7 L 29.5 L (37.0-47.0) % Plt Count 346 304 (150-375) k/mm3 BMP 09/04/24 18:44 Sodium 143 Potassium 4.2 Chloride 108 H Carbon Dioxide 22 BUN 21 H Creatinine 0.89 Glucose 94 Calcium 9.2 Liver Function 09/04/24 Range/Units 18:44 Total Bilirubin 0.2 (0.2-1.3) mg/dL AST 25 (14-36) U/L ALT 24 (6-35) U/L Alkaline Phosphatase 100 (38-126) U/L Albumin 4.7 (3.5-5.1) g/dL Urine 09/04/24 Range/Units 18:44 Urine Color Yellow (Yellow) Urine Appearance Cloudy H (Clear) Urine pH 5.5 (5.0-9.0) Ur Specific [place] 1.006 (1.001-1.035) Urine Protein Negative (Negative) mg/dL Urine Glucose (UA) Negative (Negative) mg/dL Assessment and Plan Assessment and plan (1) Altered mental status: Code(s): R41.82 - Altered mental status, unspecified Status: Acute (2) Severe anemia: Code(s): D64.9 - Anemia, unspecified Status: Acute (3) Complicated UTI (urinary tract infection): Code(s): N39.0 - Urinary tract infection, site not specified Status: Acute (4) Acute CVA (cerebrovascular accident): Code(s): I63.9 - Cerebral infarction, unspecified Status: Acute (5) Essential (primary) hypertension: Code(s): I10 - Essential (primary) hypertension Status: Acute (6) Peripheral arterial disease with history of revascularization: Code(s): I73.9 - Peripheral vascular disease, unspecified; Z98.890 - Other specified postprocedural states Status: Acute (7) Mixed hyperlipidemia: Code(s): E78.2 - Mixed hyperlipidemia Status: Acute (8) Chronic anemia: Code(s): D64.9 - Anemia, unspecified Status: Acute Plan Acute CVA Patient had a sudden onset confusion yesterday, patient states she could not understand what she was reading. And patient was not oriented yesterday Patient denies lightheadedness, unstable gait CT head showed focal area of right frontal lobe hypodensity suspicious for a acute or subacute infarct. No acute intracranial hemorrhage. CT head shows no large vessel occlusion, stenosis or aneurysm Will continue Plavix 75 mg daily p.o. given the acute stroke, even though the patient has profound anemia Pending brain MRI and echocardiogram with bubble study ER physician consulted urologist, follow-up recommendations Altered mental status change Likely secondary to acute stroke, anemia, UTI Profound anemia Labs showed profound anemia hemoglobin 5.7, baseline hemoglobin 9.4 on March 05 2024. Patient denies nausea vomiting black emesis or bloody stools CT abdomen pelvis scan showed mild esophagitis gastritis gallstone without evidence of cholecystitis Patient received 2 pack RBC in the ED Hemoglobin stable Follow-up stool guaiac, ferritin, iron panel, reticulocyte Will start Protonix 40 mg b.i.d. IV push because patient has gastritis and profound anemia Will consult GI for evaluation treatment Uncontrolled hypertension Hypertension permission is over Continue amlodipine 5 mg daily p.o. lisinopril 40 mg daily p.o. Dehydration Gentle IV fluid UTI UA shows pyuria Start ceftriaxone IV Pending urine culture Patient may stay more than 2 midnights in the hospital
[2024-09-05 09:00] LABS: Immature Reticulocyte Fraction 41.9 % (3.0-15.9); Reticulocyte Hemoglobin Conten 19.4 pg (28.2-36.6); Reticulocyte Percent 2.16 % (0.7-4.3); Reticulocytes Absolute 0.08 10^6/uL (0.02-0.10)
[2024-09-05] MEDS: lisinopriL 20 MG TABLET 40 MG PO (09:06)
[2024-09-05] MEDS: amLODIPine BESYLATE 5 MG TABLET PO (09:06)
[2024-09-05] MEDS: ATORVASTATIN 10 MG TABLET BY MOUTH (09:09)
[2024-09-05 09:22] LABS: Iron 41 ug/dL (37-170)
[2024-09-05 09:29] LABS: Percent Iron Saturation 7 % (20-50)
--- NOTE | 2024-09-05 12:22 | WPDNEURCNPN ---
Assessment and Plan Assessment and plan (1) Acute CVA (cerebrovascular accident): Code(s): I63.9 - Cerebral infarction, unspecified Status: Acute (2) Severe anemia: Code(s): D64.9 - Anemia, unspecified Status: Acute (3) Restless leg syndrome: Code(s): G25.81 - Restless legs syndrome Status: Acute Plan 1. Confusion with focal area of right frontal lobe hypodensity raising the possibly acute or subacute infarct, MRI of the brain would be necessary to differentiate further. Head and neck CTA has been done which is completely normal. Echocardiogram will also be obtained. 2. Complaints of increasing confusion ,a routine EEG will be obtained in addition considering the history of alcohol B12 and folate levels are indicated 3. 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 Consult date: 09/05/24 HPI: Ashley Yabrra is a 69 year old female Admitted to the hospital through the emergency room for the complaints of change in the mental status described as altered behavior confusion and dizziness in addition to the ongoing history of in the past 1. Peripheral vascular disease 2. Hypertension 3. Hyperlipidemia 4. Restless leg syndrome 5. No drug allergy as per the patient was becoming increasingly confused. 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, CTA of the brain normal with no evidence of stenosis or aneurysm, patient did have the advanced degenerative spondylosis on x-ray of cervical spine on March 03, 2023, severe degenerative spondylosis at L3-4 immune of 23 on MRI, also serum iron in August of 2024 was only 27 and in February of 2024 was 203 and accordingly abnormal total iron binding capacity is and saturation, last normal hemoglobin was in August of 2023 that is 13.5 Review of Systems Review of Systems: All systems reviewed & are unremarkable except as noted in HPI and below PMFSH Past Medical History Medical History Major depressive disorder in partial remission Chronic anemia Peripheral arterial disease with history of revascularization Mixed hyperlipidemia Joint pain Restless leg syndrome Major depression in full remission Allergic rhinitis Vitamin D deficiency, unspecified Essential (primary) hypertension Surgical History Surgical History History of surgery on right wrist ORIF Hx of elbow surgery left cubital tunnel release History of total abdominal hysterectomy 1995 Family History Family History Father Heart disease Mother Heart disease Social History Social History Smoking packs per day: 2 Smoking cigarettes per day: 40.0 Years smoked: 40 Smoking pack-years: 80.00 Smoking status: Former smoker Tobacco type: cigarettes Second hand tobacco smoke exposure: No Alcohol intake: current Drinks per week: 5 Substance use: never Substance use type: does not use Do You Feel Safe in your Home?: Yes Lack of Transportation: No Lack of Food: Never True Current Housing: I Have Housing Concerned About Future Housing: Decline to Answer Difficulty Paying Gas/Electric Bills: Decline to Answer Difficulty Paying for Meds: Decline to Answer Currently Unemployed: Decline to Answer Education: Decline to Answer Difficulty w/ Childcare or Family Care: Decline to Answer Living arrangements: with family Occupation/Education: occupation Gender identity (if verbalized by the patient): Female Sexual Orientation (if Verbalized by the Patient): Straight or Heterosexual Spiritual care concerns: No Meds Home Medications and Allergies Home Medications ?Medication ?Instructions ?Recorded ?Confirmed ?Type calcium 1,000 mg (as 800 - 1,000 tablet PO DAILY #90 08/30/22 09/05/24 Rx carbonate)-vitamin D3 20 mcg (800 tabs unit) tablet cetirizine 10 mg tablet (All Day 10 mg PO DAILY PRN allergy 08/30/22 09/04/24 Rx Allergy (cetirizine)) symptoms #90 tabs lactobacillus combination no.9 4 4,000 mmu cells PO DAILY #90 caps 08/30/22 09/04/24 Rx billion cell capsule (Adult 50 Plus Probiotic) potassium citrate 99 mg capsule 99 mg PO DAILY #90 caps 08/30/22 09/04/24 Rx tramadol 50 mg tablet 50 mg PO Q6H PRN pain 30 days #90 02/18/24 09/04/24 Rx tabs sertraline 50 mg tablet 50 mg PO DAILY #90 tabs 03/15/24 09/04/24 Rx pramipexole 1 mg tablet 1 mg PO QHS #135 tabs 03/29/24 09/04/24 Rx atorvastatin 10 mg tablet See Rx Instructions .Route 05/10/24 09/04/24 Rx .COMPLEX #30 tabs clopidogrel 75 mg tablet See Rx Instructions .Route 06/29/24 09/04/24 Rx .COMPLEX #90 tabs diclofenac sodium 75 mg See Rx Instructions .Route 06/29/24 09/04/24 Rx tablet,delayed release .COMPLEX #60 tabs zolpidem 5 mg tablet 5 mg PO QHS PRN insomnia #30 tabs 07/27/24 09/04/24 Rx amlodipine 5 mg tablet 5 mg PO DAILY #90 tabs 08/25/24 09/04/24 Rx lisinopril 40 mg tablet 40 mg PO DAILY #90 tabs 08/25/24 09/04/24 Rx Allergies Allergy/AdvReac Type Severity Reaction Status Date / Time No Known Allergies Allergy Verified 09/05/24 05:01 Vital Signs Vital Signs - 24 hr 09/04/24 14:53 09/04/24 18:30 09/04/24 19:31 Temperature 36.6 C Pulse Rate 97 105 H Respiratory Rate 18 21 H Blood Pressure 153/64 H 168/61 H Pulse Oximetry 100 100 Oxygen Delivery Room Air Room Air 09/04/24 20:03 09/04/24 20:07 09/04/24 20:15 Temperature Pulse Rate 108 H 99 104 H Respiratory Rate 23 H 23 H 28 H Blood Pressure 160/66 H Pulse Oximetry 98 99 Oxygen Delivery 09/04/24 20:31 09/04/24 20:47 09/04/24 20:48 Temperature Pulse Rate 110 H 103 H 102 H Respiratory Rate 46 H 23 H 19 Blood Pressure 161/77 H Pulse Oximetry 99 98 98 Oxygen Delivery 09/04/24 20:51 09/04/24 20:54 09/04/24 21:00 Temperature 36.4 C Pulse Rate 113 H 107 H 102 H Respiratory Rate 20 23 H 27 H Blood Pressure 161/77 H 161/77 H Pulse Oximetry 95 100 97 Oxygen Delivery 09/04/24 21:01 09/04/24 21:10 09/04/24 21:36 Temperature 36.4 C Pulse Rate 104 H 107 H 106 H Respiratory Rate 21 H 21 H 25 H Blood Pressure 165/75 H 165/75 H Pulse Oximetry 99 100 100 Oxygen Delivery 09/04/24 21:45 09/04/24 22:08 09/04/24 22:10 Temperature 36.6 C Pulse Rate 103 H 105 H 99 Respiratory Rate 19 23 H Blood Pressure 153/57 H Pulse Oximetry 99 99 Oxygen Delivery 09/04/24 22:10 09/04/24 22:29 09/04/24 22:29 Temperature 36.6 C Pulse Rate 98 100 99 Respiratory Rate 23 H 22 H 19 Blood Pressure 153/57 H 148/63 H Pulse Oximetry 100 97 100 Oxygen Delivery 09/04/24 22:30 09/04/24 22:31 09/04/24 22:42 Temperature 36.4 C Pulse Rate 102 H 102 H 99 Respiratory Rate 19 22 H 20 Blood Pressure 148/63 H 141/56 H Pulse Oximetry 99 Oxygen Delivery 09/04/24 22:44 09/04/24 22:45 09/04/24 22:59 Temperature 36.7 C Pulse Rate 100 105 H 99 Respiratory Rate 23 H 26 H 20 Blood Pressure 141/56 H 142/59 H Pulse Oximetry 100 100 97 Oxygen Delivery 09/04/24 23:10 09/04/24 23:15 09/04/24 23:30 Temperature Pulse Rate 104 H 99 98 Respiratory Rate 19 20 16 Blood Pressure Pulse Oximetry 96 96 98 Oxygen Delivery 09/04/24 23:31 09/04/24 23:45 09/04/24 23:59 Temperature 36.8 C Pulse Rate 97 96 93 Respiratory Rate 18 20 18 Blood Pressure 156/69 H 154/67 H Pulse Oximetry 98 96 Oxygen Delivery 09/05/24 00:04 09/05/24 00:30 09/05/24 00:31 Temperature Pulse Rate 107 H 93 91 Respiratory Rate 33 H 21 H 17 Blood Pressure 159/74 H Pulse Oximetry 96 98 Oxygen Delivery 09/05/24 00:43 09/05/24 00:45 09/05/24 01:02 Temperature 36.7 C Pulse Rate 95 91 94 Respiratory Rate 19 19 15 Blood Pressure 157/79 H Pulse Oximetry 95 95 Oxygen Delivery 09/05/24 01:15 09/05/24 01:30 09/05/24 01:31 Temperature Pulse Rate 93 98 95 Respiratory Rate 21 H 22 H 20 Blood Pressure 174/76 H Pulse Oximetry 96 97 96 Oxygen Delivery 09/05/24 03:33 09/05/24 04:36 09/05/24 04:50 Temperature Pulse Rate 90 92 96 Respiratory Rate 19 20 Blood Pressure 140/56 L 164/68 H Pulse Oximetry 96 99 Oxygen Delivery 09/05/24 05:00 09/05/24 05:17 09/05/24 06:00 Temperature 36.5 C Pulse Rate 95 100 Respiratory Rate 18 Blood Pressure 172/66 H Pulse Oximetry 100 Oxygen Delivery Room Air 09/05/24 08:00 09/05/24 11:59 Temperature 36.7 C 36.7 C Pulse Rate 92 94 Respiratory Rate 16 18 Blood Pressure 157/69 H 152/58 H Pulse Oximetry 100 98 Oxygen Delivery Exam Narrative: Exam this morning revealed her to be awake alert cooperative in no obvious acute distress, happened to be in the room at the bedside, his speech not dysphasic not dysarthric not dysphonic, head normocephalic with no bruit, ear nose throat examination normal, neck supple with no cervical bruit no thyromegaly no lymphadenopathy, heart regular, lungs clear to auscultation with no rhonchi or crepitations, abdomen is soft nontender, neurologically she is awake alert follow the verbal commands appropriately his speech not dysphasic not dysarthric and not dysphonic pupils round regular feels the vision full in all 4 quadrants extraocular movements full with no nystagmus facial sensation intact face symmetrical tongue midline uvula midline motor examination revealed normal strength and tone in upper and lower extremities with no evidence of abnormal tone reflexes symmetrical plantars downgoing there is no evidence of gross cerebellar deficit. Results Labs 09/05/24 05:57 09/04/24 18:44 Labs: Short CBC 09/04/24 09/05/24 Range/Units 18:44 05:57 WBC 5.4 5.7 (4.5-10.0) K/mm3 Hgb 5.7 L* D 8.6 L (12.0-15.0) g/dL Hct 21.7 L 29.5 L (37.0-47.0) % Plt Count 346 304 (150-375) k/mm3 BMP 03/15/25 18:44 Sodium 143 Potassium 4.2 Chloride 108 H Carbon Dioxide 22 BUN 21 H Creatinine 0.89 Glucose 94 Calcium 9.2 Liver Function 09/04/24 Range/Units 18:44 Total Bilirubin 0.2 (0.2-1.3) mg/dL AST 25 (14-36) U/L ALT 24 (6-35) U/L Alkaline Phosphatase 100 (38-126) U/L Albumin 4.7 (3.5-5.1) g/dL Urine 09/04/24 Range/Units 18:44 Urine Color Yellow (Yellow) Urine Appearance Cloudy H (Clear) Urine pH 5.5 (5.0-9.0) Ur Specific [place] 1.006 (1.001-1.035) Urine Protein Negative (Negative) mg/dL Urine Glucose (UA) Negative (Negative) mg/dL
[2024-09-05] MEDS: CLOPIDOGREL BISULFATE 75 MG TABLET PO (13:15)
--- NOTE | 2024-09-05 16:43 | PC.NURSE ---
Called MRI with the results of MRI screening. MRI needed more info on stent in leg. I looked through [facility] vascular information and found the date inserted, size, and type of stent. MRI wanted information about whether the stent was MRI compatible or not. Patient does not have stent card. Patient went through all [facility] info and did not find a stent card. MRI called. Since patient does not have card they cancelled MRI. Brennan was notified of MRI decision.
--- NOTE | 2024-09-05 16:49 | WPDGICN ---
Assessment and Plan Assessment and plan (1) Severe anemia: Code(s): D64.9 - Anemia, unspecified Status: Acute Assessment and Plan: no overt gib per patient will do egd and colonoscopy tomorrow to assess if gi source, she is agreeable (2) Acute CVA (cerebrovascular accident): Code(s): I63.9 - Cerebral infarction, unspecified Status: Acute Assessment and Plan: confusion resolved pending mri brain neurology on board (3) Altered mental status: Code(s): R41.82 - Altered mental status, unspecified Status: Acute (4) Essential (primary) hypertension: Code(s): I10 - Essential (primary) hypertension Status: Acute GI Consult Note Consult date/time: 09/05/24 16:49 Reason for consult: severe anemia HPI: Ashley Ybarra is a 69 year old female with history of peripheral vascular disease, hypertension, hyperlipidemia, restless leg syndrome here with new onset of confusion. Her noticed she was confused yesterday and not acting herself. inappropriately. She was brought here and noted to have severe anemia with hgb 5.7. Patient denies bloody or black stools. Baseline hemoglobin 9.4 on March 05 2024. UA shows pyuria CT abdomen pelvis scan showed mild esophagitis gastritis gallstone without evidence of cholecystitis. CT head showed focal area of right frontal lobe hypodensity suspicious for a acute or subacute infarct. She says that last colonoscopy 6 years ago and never had EGD. She uses plavix. Review of Systems Constitutional: Constitutional: Reports weakness Eyes: Eyes: Denies photophobia ENT: Reports Normal hearing present Cardiovascular: Cardiovascular: Denies chest pain Respiratory: Respiratory: Denies cough Gastrointestinal: Gastrointestinal: Denies melena Genitourinary: Genitourinary: Denies hematuria Musculoskeletal: Musculoskeletal: Denies neck pain Integumentary/Breasts: Skin/Breast: Denies rash Neurologic: Reports confusion Psychiatric: Psychiatric: Reports confusion (resolved now) [facility] Past Medical History Medical History Major depressive disorder in partial remission Chronic anemia Peripheral arterial disease with history of revascularization Mixed hyperlipidemia Joint pain Restless leg syndrome Major depression in full remission Allergic rhinitis Vitamin D deficiency, unspecified Essential (primary) hypertension Surgical History Surgical History History of surgery on right wrist ORIF Hx of elbow surgery left cubital tunnel release History of total abdominal hysterectomy 1995 Family History Family History Father Heart disease Mother Heart disease Social History Social History Smoking packs per day: 2 Smoking cigarettes per day: 40.0 Years smoked: 40 Smoking pack-years: 80.00 Smoking status: Former smoker Tobacco type: cigarettes Second hand tobacco smoke exposure: No Alcohol intake: current Drinks per week: 5 Substance use: never Substance use type: does not use Do You Feel Safe in your Home?: Yes Lack of Transportation: No Lack of Food: Never True Current Housing: I Have Housing Concerned About Future Housing: Decline to Answer Difficulty Paying Gas/Electric Bills: Decline to Answer Difficulty Paying for Meds: Decline to Answer Currently Unemployed: Decline to Answer Education: Decline to Answer Difficulty w/ Childcare or Family Care: Decline to Answer Living arrangements: with family Occupation/Education: occupation Gender identity (if verbalized by the patient): Female Sexual Orientation (if Verbalized by the Patient): Straight or Heterosexual Spiritual care concerns: No Meds Home Medications and Allergies Home Medications ?Medication ?Instructions ?Recorded ?Confirmed ?Type calcium 1,000 mg (as 800 - 1,000 tablet PO DAILY #90 08/30/22 09/05/24 Rx carbonate)-vitamin D3 20 mcg (800 tabs unit) tablet cetirizine 10 mg tablet (All Day 10 mg PO DAILY PRN allergy 08/30/22 09/04/24 Rx Allergy (cetirizine)) symptoms #90 tabs lactobacillus combination no.9 4 4,000 mmu cells PO DAILY #90 caps 08/30/22 09/04/24 Rx billion cell capsule (Adult 50 Plus Probiotic) potassium citrate 99 mg capsule 99 mg PO DAILY #90 caps 08/30/22 09/04/24 Rx tramadol 50 mg tablet 50 mg PO Q6H PRN pain 30 days #90 02/18/24 09/04/24 Rx tabs sertraline 50 mg tablet 50 mg PO DAILY #90 tabs 03/15/24 09/04/24 Rx pramipexole 1 mg tablet 1 mg PO QHS #135 tabs 03/29/24 09/04/24 Rx atorvastatin 10 mg tablet See Rx Instructions .Route 05/10/24 09/04/24 Rx .COMPLEX #30 tabs clopidogrel 75 mg tablet See Rx Instructions .Route 06/29/24 09/04/24 Rx .COMPLEX #90 tabs diclofenac sodium 75 mg See Rx Instructions .Route 06/29/24 09/04/24 Rx tablet,delayed release .COMPLEX #60 tabs zolpidem 5 mg tablet 5 mg PO QHS PRN insomnia #30 tabs 07/27/24 09/04/24 Rx amlodipine 5 mg tablet 5 mg PO DAILY #90 tabs 08/25/24 09/04/24 Rx lisinopril 40 mg tablet 40 mg PO DAILY #90 tabs 08/25/24 09/04/24 Rx Allergies Allergy/AdvReac Type Severity Reaction Status Date / Time No Known Allergies Allergy Verified 09/05/24 05:01 Vital Signs Vital Signs - 24 hr 09/04/24 18:30 09/04/24 19:31 09/04/24 20:03 Temperature Pulse Rate 105 H 108 H Respiratory Rate 21 H 23 H Blood Pressure 168/61 H Pulse Oximetry 100 Oxygen Delivery Room Air 09/04/24 20:07 09/04/24 20:15 09/04/24 20:31 Temperature Pulse Rate 99 104 H 110 H Respiratory Rate 23 H 28 H 46 H Blood Pressure 160/66 H Pulse Oximetry 98 99 99 Oxygen Delivery 09/04/24 20:47 09/04/24 20:48 09/04/24 20:51 Temperature Pulse Rate 103 H 102 H 113 H Respiratory Rate 23 H 19 20 Blood Pressure 161/77 H 161/77 H Pulse Oximetry 98 98 95 Oxygen Delivery 09/04/24 20:54 09/04/24 21:00 09/04/24 21:01 Temperature 97.6 F Pulse Rate 107 H 102 H 104 H Respiratory Rate 23 H 27 H 21 H Blood Pressure 161/77 H 165/75 H Pulse Oximetry 100 97 99 Oxygen Delivery 09/04/24 21:10 09/04/24 21:36 09/04/24 21:45 Temperature 97.6 F Pulse Rate 107 H 106 H 103 H Respiratory Rate 21 H 25 H 19 Blood Pressure 165/75 H Pulse Oximetry 100 100 99 Oxygen Delivery 09/04/24 22:08 03/15/25 22:10 09/04/24 22:10 Temperature 97.8 F Pulse Rate 105 H 99 98 Respiratory Rate 23 H 23 H Blood Pressure 153/57 H 153/57 H Pulse Oximetry 99 100 Oxygen Delivery 09/04/24 22:29 09/04/24 22:29 09/04/24 22:30 Temperature 97.9 F Pulse Rate 100 99 102 H Respiratory Rate 22 H 19 19 Blood Pressure 148/63 H Pulse Oximetry 97 100 Oxygen Delivery 09/04/24 22:31 09/04/24 22:42 09/04/24 22:44 Temperature 97.6 F Pulse Rate 102 H 99 100 Respiratory Rate 22 H 20 23 H Blood Pressure 148/63 H 141/56 H 141/56 H Pulse Oximetry 99 100 Oxygen Delivery 09/04/24 22:45 09/04/24 22:59 09/04/24 23:10 Temperature 98.1 F Pulse Rate 105 H 99 104 H Respiratory Rate 26 H 20 19 Blood Pressure 142/59 H Pulse Oximetry 100 97 96 Oxygen Delivery 09/04/24 23:15 09/04/24 23:30 09/04/24 23:31 Temperature Pulse Rate 99 98 97 Respiratory Rate 20 16 18 Blood Pressure 156/69 H Pulse Oximetry 96 98 98 Oxygen Delivery 09/04/24 23:45 09/04/24 23:59 09/05/24 00:04 Temperature 98.2 F Pulse Rate 96 93 107 H Respiratory Rate 20 18 33 H Blood Pressure 154/67 H Pulse Oximetry 96 Oxygen Delivery 09/05/24 00:30 09/05/24 00:31 09/05/24 00:43 Temperature 98.1 F Pulse Rate 93 91 95 Respiratory Rate 21 H 17 19 Blood Pressure 159/74 H 157/79 H Pulse Oximetry 96 98 95 Oxygen Delivery 09/05/24 00:45 09/05/24 01:02 09/05/24 01:15 Temperature Pulse Rate 91 94 93 Respiratory Rate 19 15 21 H Blood Pressure Pulse Oximetry 95 96 Oxygen Delivery 09/05/24 01:30 09/05/24 01:31 09/05/24 03:33 Temperature Pulse Rate 98 95 90 Respiratory Rate 22 H 20 19 Blood Pressure 174/76 H 140/56 L Pulse Oximetry 97 96 96 Oxygen Delivery 09/05/24 04:36 09/05/24 04:50 09/05/24 05:00 Temperature Pulse Rate 92 96 Respiratory Rate 20 Blood Pressure 164/68 H Pulse Oximetry 99 Oxygen Delivery Room Air 09/05/24 05:17 09/05/24 06:00 09/05/24 08:00 Temperature 97.7 F 98.0 F Pulse Rate 95 100 92 Respiratory Rate 18 16 Blood Pressure 172/66 H 157/69 H Pulse Oximetry 100 100 Oxygen Delivery 09/05/24 08:00 09/05/24 10:00 09/05/24 11:59 Temperature 98.0 F Pulse Rate 98 96 94 Respiratory Rate 18 Blood Pressure 152/58 H Pulse Oximetry 98 Oxygen Delivery 09/05/24 12:00 09/05/24 14:00 09/05/24 15:47 Temperature 98.3 F Pulse Rate 97 95 101 H Respiratory Rate 14 Blood Pressure 153/58 H Pulse Oximetry 100 Oxygen Delivery Exam Const: General: comfortable and no acute distress Other: she is fully awake and oriented, back to her normal. HENMT: Face/Nose/Sinus: Normal nares present Eyes: General: appearance normal, both eyes and all related structures Neck: Neck: supple Resp: Auscultation: clear to auscultation bilaterally Cardio: Rate: regular rate Rhythm: regular rhythm GI: Inspection: non-distended GI Palp: Yes Soft to palpation and No Tenderness to palpation present (GI) Auscultation: normal bowel sounds Skin: General skin exam: no rashes or lesions noted Neuro: Speech: normal speech Motor exam (neuro): 5/5 motor strength present throughout Extrem: General: normal to inspection Psych: Mental Status: mental status grossly normal Results Labs 09/05/24 05:57 09/04/24 18:44 Labs: Short CBC 09/04/24 09/05/24 Range/Units 18:44 05:57 WBC 5.4 5.7 (4.5-10.0) K/mm3 Hgb 5.7 L* D 8.6 L (12.0-15.0) g/dL Hct 21.7 L 29.5 L (37.0-47.0) % Plt Count 346 304 (150-375) k/mm3 BMP 09/04/24 18:44 Sodium 143 Potassium 4.2 Chloride 108 H Carbon Dioxide 22 BUN 21 H Creatinine 0.89 Glucose 94 Calcium 9.2 Liver Function 09/04/24 Range/Units 18:44 Total Bilirubin 0.2 (0.2-1.3) mg/dL AST 25 (14-36) U/L ALT 24 (6-35) U/L Alkaline Phosphatase 100 (38-126) U/L Albumin 4.7 (3.5-5.1) g/dL Urine 09/04/24 Range/Units 18:44 Urine Color Yellow (Yellow) Urine Appearance Cloudy H (Clear) Urine pH 5.5 (5.0-9.0) Ur Specific [place] 1.006 (1.001-1.035) Urine Protein Negative (Negative) mg/dL Urine Glucose (UA) Negative (Negative) mg/dL
[2024-09-05] MEDS: BISACODYL 5 MG TABLET EC 20 MG PO (17:39)
[2024-09-05] MEDS: polyethylene glycoL 3350 238 GM BOTTLE PO (17:39)
[2024-09-05 19:03] LABS: IFOB Positive Control Positive; Immunochemical Fecal Occult Bl Positive (N)
[2024-09-05] MEDS: PANTOPRAZOLE SODIUM IV 40 MG VIAL IV PUSH (20:24)
[2024-09-05] MEDS: PRAMIPEXOLE 1 MG TABLET PO (20:26)
[2024-09-06] VITALS (18 sets, daily range): BP systolic 97–160; BP diastolic 43–73; PULSE 85–120; RESP 14–20; TEMP 36–36.7; O2SAT 99–100
[2024-09-06] MEDS: MAGNESIUM CITRATE 300 ML BTL PO (03:21)
[2024-09-06] MEDS: PANTOPRAZOLE SODIUM IV 40 MG VIAL IV PUSH (08:43)
--- NOTE | 2024-09-06 09:35 | P.PNIM_ITS ---
Progress Note: A&P Assessment and Plan (1) Altered mental status: Code(s): R41.82 - Altered mental status, unspecified Status: Acute (2) Severe anemia: Code(s): D64.9 - Anemia, unspecified Status: Acute (3) Complicated UTI (urinary tract infection): Code(s): N39.0 - Urinary tract infection, site not specified Status: Acute (4) Acute CVA (cerebrovascular accident): Code(s): I63.9 - Cerebral infarction, unspecified Status: Acute (5) Essential (primary) hypertension: Code(s): I10 - Essential (primary) hypertension Status: Acute (6) Peripheral arterial disease with history of revascularization: Code(s): I73.9 - Peripheral vascular disease, unspecified; Z98.890 - Other specified postprocedural states Status: Acute (7) Mixed hyperlipidemia: Code(s): E78.2 - Mixed hyperlipidemia Status: Acute (8) Chronic anemia: Code(s): D64.9 - Anemia, unspecified Status: Acute Plan Acute CVA Patient had a sudden onset confusion yesterday, patient states she could not understand what she was reading. And patient was not oriented yesterday Patient denies lightheadedness, unstable gait CT head showed focal area of right frontal lobe hypodensity suspicious for a acute or subacute infarct. No acute intracranial hemorrhage. CT head shows no large vessel occlusion, stenosis or aneurysm Will continue Plavix 75 mg daily p.o. given the acute stroke, even though the patient has profound anemia Pending brain MRI and echocardiogram with bubble study ER physician consulted urologist, follow-up recommendations Altered mental status change Likely secondary to acute stroke, anemia, UTI Profound anemia Labs showed profound anemia hemoglobin 5.7, baseline hemoglobin 9.4 on March 05 2024. Patient denies nausea vomiting black emesis or bloody stools CT abdomen pelvis scan showed mild esophagitis gastritis gallstone without evidence of cholecystitis Patient received 2 pack RBC in the ED Hemoglobin stable Follow-up stool guaiac, ferritin, iron panel, reticulocyte Will start Protonix 40 mg b.i.d. IV push because patient has gastritis and profound anemia Will consult GI for evaluation treatment Uncontrolled hypertension Hypertension permission is over Continue amlodipine 5 mg daily p.o. lisinopril 40 mg daily p.o. Dehydration Gentle IV fluid UTI UA shows pyuria Start ceftriaxone IV Pending urine culture Patient may stay more than 2 midnights in the hospital Subjective Date/time seen: 09/06/24 09:35 Interval history: Patient feels tired, but denies nausea vomiting black stools. Mental status is improving, no focal weakness. Hemoglobin stable Exam Narrative: GENERAL: Pleasant, in no acute distress. Well-nourished. - EYES: EOMI. Anicteric. - HENT: Moist mucous membranes. - LUNGS: Clear to auscultation bilateral ly, no wheezing, rhonchi, or rales. - CARDIOVASCULAR: Regular rate and rhyth m. No murmur. No JVD. - ABDOMEN: Soft, non-tender and non-dist ended. No palpable masses. - EXTREMITIES: No edema. Peripheral puls es 2+. Non-tender. - NEUROLOGIC: No focal neurological defi cits. CN II-XII grossly intact. - PSYCHIATRIC: Awake, Alert and oriented x 3. Appropriate mood and affect. - SKIN: No rashes or lesions. Warm. - LYMPH: No cervical lymphadenopathy. Objective Data Vital Signs Vital Signs: Vital Signs - 24 hr 09/05/24 10:00 09/05/24 11:59 09/05/24 12:00 Temperature 98.0 F Pulse Rate 96 94 97 Respiratory Rate 18 Blood Pressure 152/58 H Pulse Oximetry 98 Oxygen Delivery 09/05/24 14:00 09/05/24 15:47 09/05/24 16:00 Temperature 98.3 F Pulse Rate 95 101 H 102 H Respiratory Rate 14 Blood Pressure 153/58 H Pulse Oximetry 100 Oxygen Delivery 09/05/24 18:00 09/05/24 20:00 09/05/24 20:00 Temperature 98.3 F Pulse Rate 101 H 101 H 100 Respiratory Rate 14 Blood Pressure 174/71 H Pulse Oximetry 98 Oxygen Delivery 09/05/24 22:00 09/05/24 23:15 09/06/24 00:00 Temperature 98.2 F Pulse Rate 104 H 96 102 H Respiratory Rate 14 Blood Pressure 165/61 H Pulse Oximetry 98 Oxygen Delivery 09/06/24 02:00 09/06/24 04:00 09/06/24 04:00 Temperature 98.0 F Pulse Rate 110 H 103 H Respiratory Rate 14 Blood Pressure 160/73 H Pulse Oximetry 100 Oxygen Delivery Room Air 09/06/24 04:00 09/06/24 06:00 09/06/24 07:40 Temperature 98.1 F Pulse Rate 104 H 117 H 95 Respiratory Rate 14 Blood Pressure 137/60 Pulse Oximetry 99 Oxygen Delivery Intake/Output Intake/Output: Intake & Output 09/03/24 09/04/24 09/05/24 09/06/24 23:59 23:59 23:59 23:59 Intake Total 1350 2230 2440 Output Total 700 Balance 1350 1530 2440 Meds/Results Medications: Active Medications Generic Name Dose Route Start Last Admin Trade Name Freq PRN Reason Stop Dose Admin Acetaminophen 650 mg 09/04/24 21:51 Acetaminophen 325 Mg Tablet PO Q4H PRN Mild Pain (1-3) or Fever Amlodipine Besylate 5 mg 09/05/24 09:00 09/05/24 09:06 Amlodipine Besylate 5 Mg Tablet PO 5 mg DAILY LIAM Administration Atorvastatin Calcium 10 mg 09/05/24 09:00 09/05/24 09:09 Atorvastatin 10 Mg Tablet BY MOUTH 10 mg DAILY LIAM Administration Clopidogrel Bisulfate 75 mg 09/05/24 10:55 09/05/24 13:15 Clopidogrel Bisulfate 75 Mg Tablet PO 75 mg DAILY LIAM Administration Ceftriaxone Sodium 1 gm in 50 mls @ 100 mls/hr 09/05/24 09:00 09/06/24 08:43 Rocephin 1 Gm/Ns 50 Ml IVPB 100 mls/hr Q24H LIAM Administration Lisinopril 40 mg 09/05/24 09:00 09/05/24 09:06 Lisinopril 20 Mg Tablet PO 40 mg DAILY LIAM Administration Ondansetron HCl 4 mg 09/04/24 21:51 Ondansetron Inj 4 Mg/2 Ml Vial IV PUSH Q4H PRN Nausea Pantoprazole Sodium 40 mg 09/05/24 21:00 09/06/24 08:43 Pantoprazole Sodium Iv 40 Mg Vial IV PUSH 40 mg Q12HR LIAM Administration Pramipexole Dihydrochloride 1 mg 09/05/24 21:00 09/05/24 20:26 Pramipexole 1 Mg Tablet PO 1 mg HS LIAM Administration Zolpidem Tartrate 5 mg 09/05/24 08:18 Zolpidem Tartrate (*Crx) 5 Mg Tablet PO QHS PRN insomnia Radiology Results: ITS Impressions Head CT 09/04/24 19:03 IMPRESSION: Focal area of right frontal lobe hypodensity suspicious for a acute or subacute infarct. No acute intracranial hemorrhage. Recommend MRI of the brain for further evaluation. Head/Neck CTA 09/04/24 20:11 IMPRESSION: No large vessel intracranial occlusion, high-grade intracranial stenosis, or aneurysm. No carotid or vertebral artery occlusion, dissection, or significant stenosis. Abdomen/Pelvis CT 09/04/24 20:41 IMPRESSION: Mild esophagitis/gastritis. Cholelithiasis, without CT evidence of cholecystitis. Moderate-severe atherosclerotic celiac origin stenosis. Labs Labs: Laboratory Results - last 24 hr 09/05/24 09/05/24 05:57 18:50 Ferritin 7.20 L Stl Occult Blood (IFOB) Positive H
[2024-09-06 11:31] LABS: Basophils Absolute Auto 0.1 K/mm3 (0.0-0.1); Basophils Percent Auto 0.8 % (0.2-1.2); Eosinophils Percent Auto 0.6 % (0-4.4); Hematocrit 34.4 % (37.0-47.0); Hemoglobin 9.9 g/dL (12.0-15.0); Immature Granulocyte Absolute 0.02 K/mm3 (0.00-0.031); Immature Granulocyte Percent A 0.3 % (0-0.5); Lymphocytes Absolute Auto 0.68 K/mm3 (0.9-3.2); Lymphocytes Percent Auto 10.9 % (18.3-44.2); Mean Corpuscular HGB Conc 28.8 g/dl (32-36); Mean Corpuscular Hemoglobin 22.2 pg (26-34); Mean Corpuscular Volume 77.3 fl (80-100); Monocytes Absolute Auto 0.6 K/mm3 (0.1-0.6); Monocytes Percent Auto 10.1 % (2.6-8.5); Neutrophils Absolute Auto 4.8 K/mm3 (1.3-6.7); Neutrophils Percent Auto 77.3 % (45.5-73.1); Platelet Count Result 377 k/mm3 (150-375); Red Blood Count 4.45 M/mm3 (4.2-5.4); White Blood Count 6.2 K/mm3 (4.5-10.0)
[2024-09-06 11:47] LABS: Anion Gap 12 mmol/L (4-12); Blood Urea Nitrogen 7 mg/dL (7-17); Calcium 9.9 mg/dL (8.4-10.2); Carbon Dioxide 23 mmol/L (22-30); Chloride 107 mmol/L (98-107); Estimated CRCL calculation 47 ml/min; Estimated Glomerular Filt Rate > 60; Glucose 115 mg/dL (65-110); Potassium 4.3 mmol/L (3.4-5.0); Sodium 142 mmol/L (137-145)
[2024-09-06 12:09] LABS: Schistocytes None Seen
[2024-09-06 12:10] LABS: Hypochromasia 1+
[2024-09-06 13:19] LABS: Platelet Estimate Adequate (Adequate)
[2024-09-06] MEDS: LACTATED RINGERS 1,000 ML 150 ML IV CONT (13:56)
--- NOTE | 2024-09-06 14:00 | P.PNAN_ITS ---
Anes - Initial Pre Proc Eval Procedure: Operation Date: 09/06/24 15:00 Proposed Procedures p Esophagogastroduodenoscopy & Colonoscopy - Carlin Jones MD Date/Time: 09/06/24 14:00 Surgeon: Lily Arthur DO Pre Op Diagnosis: CVA/TIA work up; Anemia requiring blood transfusio Patient Data Age: 69 Gender: F Height: 1.57 m Weight: 57.2 kg Last Vital Signs Temp 36.0 C L 09/06/24 13:57 Pulse 93 09/06/24 13:57 Resp 20 09/06/24 13:57 BP 120/46 L 09/06/24 13:57 Pulse Ox 100 09/06/24 13:57 O2 Del Method Room Air 09/06/24 13:57 Allergies Allergy/AdvReac Type Severity Reaction Status Date / Time No Known Allergies Allergy Verified 09/06/24 13:48 Home Medications ?Medication ?Instructions ?Recorded ?Confirmed ?Type calcium 1,000 mg (as 800 - 1,000 tablet PO DAILY #90 08/30/22 09/05/24 Rx carbonate)-vitamin D3 20 mcg (800 tabs unit) tablet cetirizine 10 mg tablet (All Day 10 mg PO DAILY PRN allergy 08/30/22 09/04/24 Rx Allergy (cetirizine)) symptoms #90 tabs lactobacillus combination no.9 4 4,000 mmu cells PO DAILY #90 caps 08/30/22 09/04/24 Rx billion cell capsule (Adult 50 Plus Probiotic) potassium citrate 99 mg capsule 99 mg PO DAILY #90 caps 08/30/22 09/04/24 Rx tramadol 50 mg tablet 50 mg PO Q6H PRN pain 30 days #90 02/18/24 09/04/24 Rx tabs sertraline 50 mg tablet 50 mg PO DAILY #90 tabs 03/15/24 09/04/24 Rx pramipexole 1 mg tablet 1 mg PO QHS #135 tabs 03/29/24 09/04/24 Rx atorvastatin 10 mg tablet See Rx Instructions .Route 05/10/24 09/04/24 Rx .COMPLEX #30 tabs clopidogrel 75 mg tablet See Rx Instructions .Route 06/29/24 09/04/24 Rx .COMPLEX #90 tabs diclofenac sodium 75 mg See Rx Instructions .Route 06/29/24 09/04/24 Rx tablet,delayed release .COMPLEX #60 tabs zolpidem 5 mg tablet 5 mg PO QHS PRN insomnia #30 tabs 07/27/24 09/04/24 Rx amlodipine 5 mg tablet 5 mg PO DAILY #90 tabs 08/25/24 09/04/24 Rx lisinopril 40 mg tablet 40 mg PO DAILY #90 tabs 08/25/24 09/04/24 Rx Laboratory Tests 09/05/24 09/06/24 18:50 11:25 WBC 6.2 K/mm3 (4.5-10.0) RBC 4.45 M/mm3 (4.2-5.4) Hgb 9.9 L g/dL (12.0-15.0) Hct 34.4 L % (37.0-47.0) MCV 77.3 L fl (80-100) MCH 22.2 L pg (26-34) MCHC 28.8 L g/dl (32-36) RDW 17.0 H % (11.5-14.5) Plt Count 377 H k/mm3 (150-375) MPV 9.0 fl (7.4-10.4) Immature Gran % (Auto) 0.3 % (0-0.5) Neut % (Auto) 77.3 H % (45.5-73.1) Lymph % (Auto) 10.9 L % (18.3-44.2) [place] % (Auto) 10.1 H % (2.6-8.5) Eos % (Auto) 0.6 % (0-4.4) Baso % (Auto) 0.8 % (0.2-1.2) Lymph # (Auto) 0.68 L K/mm3 (0.9-3.2) [place] # (Auto) 0.6 K/mm3 (0.1-0.6) Eos # (Auto) 0.0 K/mm3 (0-0.3) Baso # (Auto) 0.1 K/mm3 (0.0-0.1) Abs Immat Gran (auto) 0.02 K/mm3 (0.00-0.031) Absolute Neuts (auto) 4.8 K/mm3 (1.3-6.7) Absolute Nucleated RBC 0.000 K/mm3 (0.0-0.012) Band Neutrophils % Not Reportable Nucleated RBC % 0.0 % (0.0-0.2) Platelet Estimate Adequate (Adequate) Hypochromasia 1+ Schistocytes None seen Sodium 142 mmol/L (137-145) Potassium 4.3 mmol/L (3.4-5.0) Chloride 107 mmol/L (98-107) Carbon Dioxide 23 mmol/L (22-30) Anion Gap 12 mmol/L (4-12) BUN 7 D mg/dL (7-17) Creatinine 0.80 mg/dL (0.7-1.0) Estim Creat Clear Calc 47 ml/min Estimated GFR > 60 (59 - ) Glucose 115 H mg/dL (65-110) Calcium 9.9 mg/dL (8.4-10.2) Stl Occult Blood (IFOB) Positive H (N) Patient hx anesthesia problems: none Family hx anesthesia problems: none Results Review: All pre-operative results and documents have been reviewed as part of the pre-operative evaluation. [facility] Past Medical History Medical History Major depressive disorder in partial remission Chronic anemia Peripheral arterial disease with history of revascularization Mixed hyperlipidemia Joint pain Restless leg syndrome Major depression in full remission Allergic rhinitis Vitamin D deficiency, unspecified Essential (primary) hypertension Surgical History Surgical History History of surgery on right wrist ORIF Hx of elbow surgery left cubital tunnel release History of total abdominal hysterectomy 1995 Family History Family History Father Heart disease Mother Heart disease Social History Social History Smoking packs per day: 2 Smoking cigarettes per day: 40.0 Years smoked: 40 Smoking pack-years: 80.00 Smoking status: Former smoker Tobacco type: cigarettes Second hand tobacco smoke exposure: No Alcohol intake: current Drinks per week: 5 Substance use: never Substance use type: does not use Do You Feel Safe in your Home?: Yes Lack of Transportation: No Lack of Food: Never True Current Housing: I Have Housing Concerned About Future Housing: Decline to Answer Difficulty Paying Gas/Electric Bills: Decline to Answer Difficulty Paying for Meds: Decline to Answer Currently Unemployed: Decline to Answer Education: Decline to Answer Difficulty w/ Childcare or Family Care: Decline to Answer Living arrangements: with family Occupation/Education: occupation Gender identity (if verbalized by the patient): Female Sexual Orientation (if Verbalized by the Patient): Straight or Heterosexual Spiritual care concerns: No Anes - Eval Final PreProcedure Day of Procedure 09/06/24 14:00 Patient weight: normal Heart: regular rate and rhythm Lungs: clear to auscultation Airway: Mallampati scale class II Neurological: alert and oriented Last oral intake: >/= 8 hours ASA classification: IV Emergent: no Anesthetic plan: proceed Anesthesia type and monitoring: general GIVS and standard monitoring Results Review: All pre-operative results and documents have been reviewed as part of the pre- operative evaluation. Informed Consent: The patient's anesthetic plan and its attendant risks and benefits were discussed with the patient/family/POA. Questions were solicited and answers provided to the satisfaction of the patient/family/POA.
--- NOTE | 2024-09-06 14:42 | SUR.OPER ---
EGD end time: 1435, Colonoscopy end time: 1439
[2024-09-06] MEDS: ATORVASTATIN 10 MG TABLET BY MOUTH (15:23)
[2024-09-06] MEDS: lisinopriL 20 MG TABLET 40 MG PO (15:24)
[2024-09-06] MEDS: CLOPIDOGREL BISULFATE 75 MG TABLET PO (15:24)
[2024-09-06] MEDS: amLODIPine BESYLATE 5 MG TABLET PO (15:24)
[2024-09-06 15:50] LABS: HPYLORIRESULT Negative (Negative)
[2024-09-06] MEDS: ZOLPIDEM TARTRATE (*CRX) 5 MG TABLET PO (20:29)
[2024-09-06] MEDS: PANTOPRAZOLE 40 MG TABLET PO (20:30)
[2024-09-06] MEDS: PRAMIPEXOLE 1 MG TABLET PO (20:30)
[2024-09-07] VITALS (11 sets, daily range): BP systolic 128–154; BP diastolic 39–64; PULSE 78–97; RESP 18–20; TEMP 36.4–36.6; O2SAT 98–100
--- NOTE | 2024-09-07 00:56 | PC.NURSE ---
Report called to KATLYN Aggarwal. Patient transferred to -.
[2024-09-07] MEDS: amLODIPine BESYLATE 5 MG TABLET PO (08:17)
[2024-09-07] MEDS: ATORVASTATIN 10 MG TABLET BY MOUTH (08:17)
[2024-09-07] MEDS: lisinopriL 20 MG TABLET 40 MG PO (08:18)
[2024-09-07] MEDS: PANTOPRAZOLE 40 MG TABLET PO ×2 (08:18→21:28)
[2024-09-07] MEDS: CLOPIDOGREL BISULFATE 75 MG TABLET PO (08:18)
--- NOTE | 2024-09-07 10:25 | PM.IMPN ---
Progress Note: A&P Assessment and Plan (1) Altered mental status: Code(s): R41.82 - Altered mental status, unspecified Status: Acute (2) Severe anemia: Code(s): D64.9 - Anemia, unspecified Status: Acute (3) Complicated UTI (urinary tract infection): Code(s): N39.0 - Urinary tract infection, site not specified Status: Acute (4) Acute CVA (cerebrovascular accident): Code(s): I63.9 - Cerebral infarction, unspecified Status: Acute (5) Essential (primary) hypertension: Code(s): I10 - Essential (primary) hypertension Status: Acute (6) Peripheral arterial disease with history of revascularization: Code(s): I73.9 - Peripheral vascular disease, unspecified; Z98.890 - Other specified postprocedural states Status: Acute (7) Mixed hyperlipidemia: Code(s): E78.2 - Mixed hyperlipidemia Status: Acute (8) Chronic anemia: Code(s): D64.9 - Anemia, unspecified Status: Acute Plan Acute CVA Patient had a sudden onset confusion yesterday, patient states she could not understand what she was reading. And patient was not oriented yesterday Patient denies lightheadedness, unstable gait CT head showed focal area of right frontal lobe hypodensity suspicious for a acute or subacute infarct. No acute intracranial hemorrhage. CT head shows no large vessel occlusion, stenosis or aneurysm continue Plavix 75 mg daily p.o. given the acute stroke, even though the patient has profound anemia brain MRI cannot be done because of peripheral artery stent. Neurologist will repeat CT scan of brain and EEG of patient echocardiogram with bubble study still pending Altered mental status change Likely secondary to acute stroke, anemia, UTI Now patient is back to the baseline, patient alert oriented x3 Profound anemia Labs showed profound anemia hemoglobin 5.7, baseline hemoglobin 9.4 on March 05 2024. Patient denies nausea vomiting black emesis or bloody stools CT abdomen pelvis scan showed mild esophagitis gastritis gallstone without evidence of cholecystitis Patient received 2 pack RBC in the ED Hemoglobin stable Follow-up stool guaiac, ferritin, iron panel, reticulocyte start Protonix 40 mg b.i.d. IV push because patient has gastritis and profound anemia consult GI for evaluation treatment. Appreciate GI consultation EGD and colonoscopy will perform yesterday, patient found have gastritis, internal hemorrhoids without active bleeding Hemoglobin is stable and is trending up Uncontrolled hypertension Hypertension permission is over Continue amlodipine 5 mg daily p.o. lisinopril 40 mg daily p.o. Dehydration Received Gentle IV fluid Corrected UTI UA shows pyuria Start ceftriaxone IV No growth from urine culture Patient received ceftriaxone 3 days, discontinue ceftriaxone, no need further treatment Subjective Date/time seen: 09/07/24 10:25 Interval history: Patient feels comfortable, denies abdomen pain nausea vomiting. Patient alert oriented x3, able to follow commands, hemoglobin stable Exam Narrative: GENERAL: Pleasant, in no acute distress. Well-nourished. - EYES: EOMI. Anicteric. - HENT: Moist mucous membranes. - LUNGS: Clear to auscultation bilaterally, no wheezing, rhonchi, or rales. - CARDIOVASCULAR: Regular rate and rhythm. No murmur. No JVD. - ABDOMEN: Soft, non-tender and non-distended. No palpable masses. - EXTREMITIES: No edema. Peripheral pulses 2+. Non-tender. - NEUROLOGIC: No focal neurological deficits. CN II-XII grossly intact. - PSYCHIATRIC: Awake, Alert and oriented x 3. Appropriate mood and affect. - SKIN: No rashes or lesions. Warm. - LYMPH: No cervical lymphadenopathy. Objective Data Vital Signs Vital Signs: Vital Signs - 24 hr 09/06/24 12:00 09/06/24 13:57 09/06/24 14:00 Temperature 96.8 F L Pulse Rate 105 H 93 92 Respiratory Rate 20 Blood Pressure 120/46 L Pulse Oximetry 100 Oxygen Delivery Room Air 09/06/24 14:48 09/06/24 14:58 09/06/24 15:08 Temperature Pulse Rate 102 H 93 94 Respiratory Rate 20 20 20 Blood Pressure 143/72 H 97/71 L 117/43 L Pulse Oximetry 100 100 100 Oxygen Delivery Room Air Room Air Room Air 09/06/24 15:33 09/06/24 16:00 09/06/24 17:40 Temperature 98 F Pulse Rate 85 104 H 120 H Respiratory Rate 16 Blood Pressure 122/71 Pulse Oximetry 99 Oxygen Delivery 09/06/24 20:00 09/06/24 20:00 09/06/24 23:14 Temperature 98 F Pulse Rate 94 95 Respiratory Rate 16 Blood Pressure Pulse Oximetry Oxygen Delivery Room Air 09/07/24 00:00 09/07/24 04:00 09/07/24 06:00 Temperature 97.9 F Pulse Rate 82 93 96 Respiratory Rate 18 Blood Pressure 135/64 Pulse Oximetry 98 Oxygen Delivery 09/07/24 08:00 09/07/24 08:00 09/07/24 08:49 Temperature Pulse Rate 86 Respiratory Rate Blood Pressure Pulse Oximetry 100 100 Oxygen Delivery Room Air Room Air Intake/Output Intake/Output: Intake & Output 09/04/24 09/05/24 09/06/24 09/07/24 23:59 23:59 23:59 23:59 Intake Total 1350 2230 3220 0 Output Total 700 0 Balance 1350 1530 3220 0 Meds/Results Medications: Active Medications Generic Name Dose Route Start Last Admin Trade Name Freq PRN Reason Stop Dose Admin Acetaminophen 650 mg 09/04/24 21:51 Acetaminophen 325 Mg Tablet PO Q4H PRN Mild Pain (1-3) or Fever Amlodipine Besylate 5 mg 09/05/24 09:00 09/07/24 08:17 Amlodipine Besylate 5 Mg Tablet PO 5 mg DAILY LIAM Administration Atorvastatin Calcium 10 mg 09/05/24 09:00 09/07/24 08:17 Atorvastatin 10 Mg Tablet BY MOUTH 10 mg DAILY LIAM Administration Clopidogrel Bisulfate 75 mg 09/05/24 10:55 09/07/24 08:18 Clopidogrel Bisulfate 75 Mg Tablet PO 75 mg DAILY LIAM Administration Ceftriaxone Sodium 1 gm in 50 mls @ 100 mls/hr 09/05/24 09:00 09/07/24 08:18 Rocephin 1 Gm/Ns 50 Ml IVPB 100 mls/hr Q24H LIAM Administration Lisinopril 40 mg 09/05/24 09:00 09/07/24 08:18 Lisinopril 20 Mg Tablet PO 40 mg DAILY LIAM Administration Ondansetron HCl 4 mg 09/04/24 21:51 Ondansetron Inj 4 Mg/2 Ml Vial IV PUSH Q4H PRN Nausea Pantoprazole Sodium 40 mg 09/06/24 21:00 09/07/24 08:18 Pantoprazole 40 Mg Tablet PO 40 mg Q12HR LIAM Administration Perflutren Lipid Microsphere 0 ml 09/06/24 17:39 Perflutren Lipid Microspheres 1.5 Ml Vial Diluted To 10 Ml Total Volume IV PUSH 09/09/24 17:39 ONCE PRN adequate visualization Protocol Pramipexole Dihydrochloride 1 mg 09/05/24 21:00 09/06/24 20:30 Pramipexole 1 Mg Tablet PO 1 mg HS LIAM Administration Zolpidem Tartrate 5 mg 09/05/24 08:18 09/06/24 20:29 Zolpidem Tartrate (*Crx) 5 Mg Tablet PO 5 mg QHS PRN Administration insomnia Radiology Results: ITS Impressions Head CT 09/04/24 19:03 IMPRESSION: Focal area of right frontal lobe hypodensity suspicious for a acute or subacute infarct. No acute intracranial hemorrhage. Recommend MRI of the brain for further evaluation. Head/Neck CTA 09/04/24 20:11 IMPRESSION: No large vessel intracranial occlusion, high-grade intracranial stenosis, or aneurysm. No carotid or vertebral artery occlusion, dissection, or significant stenosis. Abdomen/Pelvis CT 09/04/24 20:41 IMPRESSION: Mild esophagitis/gastritis. Cholelithiasis, without CT evidence of cholecystitis. Moderate-severe atherosclerotic celiac origin stenosis. Labs Labs: Laboratory Results - last 24 hr 09/06/24 09/06/24 11:25 15:48 WBC 6.2 RBC 4.45 Hgb 9.9 L Hct 34.4 L MCV 77.3 L MCH 22.2 L MCHC 28.8 L RDW 17.0 H Plt Count 377 H MPV 9.0 Immature Gran % (Auto) 0.3 Neut % (Auto) 77.3 H Lymph % (Auto) 10.9 L [place] % (Auto) 10.1 H Eos % (Auto) 0.6 Baso % (Auto) 0.8 Lymph # (Auto) 0.68 L [place] # (Auto) 0.6 Eos # (Auto) 0.0 Baso # (Auto) 0.1 Abs Immat Gran (auto) 0.02 Absolute Neuts (auto) 4.8 Absolute Nucleated RBC 0.000 Band Neutrophils % Not Reportable Nucleated RBC % 0.0 Platelet Estimate Adequate Hypochromasia 1+ Schistocytes None seen Sodium 142 Potassium 4.3 Chloride 107 Carbon Dioxide 23 Anion Gap 12 BUN 7 D Creatinine 0.80 Estim Creat Clear Calc 47 Estimated GFR > 60 Glucose 115 H Calcium 9.9 POC H. pylori Urease Negative
[2024-09-07 11:22] LABS: Anion Gap 13 mmol/L (4-12); Blood Urea Nitrogen 10 mg/dL (7-17); Calcium 9.7 mg/dL (8.4-10.2); Carbon Dioxide 22 mmol/L (22-30); Chloride 105 mmol/L (98-107); Estimated CRCL calculation 36 ml/min; Estimated Glomerular Filt Rate 51; Glucose 124 mg/dL (65-110); Potassium 4.1 mmol/L (3.4-5.0); Sodium 140 mmol/L (137-145)
[2024-09-07 11:32] LABS: Hematocrit 37.2 % (37.0-47.0); Hemoglobin 10.5 g/dL (12.0-15.0); Mean Corpuscular HGB Conc 28.2 g/dl (32-36); Mean Platelet Volume 9.2 fl (7.4-10.4); Platelet Count Result 435 k/mm3 (150-375); Red Blood Count 4.77 M/mm3 (4.2-5.4); Red Cell Distribution Width 17.3 % (11.5-14.5); White Blood Count 6.8 K/mm3 (4.5-10.0)
--- NOTE | 2024-09-07 12:15 | WPDNEUROPN ---
Subjective Date/time seen: 09/07/24 12:15 Interval history: 69 years old right-handed female was initially seen on 09/05 for the complaints of confusion. Initial CT scan of the head in the emergency room revealed her to have right frontal lobe hypodensity raising the possibly acute or subacute infarct. Head and neck CTA was completely normal but MRI of the brain cannot be done. She has been found to have iron deficiency anemia for which supervisor riprap placing has been in consultation. EEG was suggested but as EEG technicians extremely busy right now it will be scheduled as an outpatient in about couple of weeks. I also explained to the patient and her that as the CT scan has raised the possibility of a stroke and MRI can not be done will repeat the CT scan in about 2 weeks to further document the presence of the stroke in the meantime will schedule her for the echocardiogram in the meantime she can continue her home medication particularly atorvastatin, clopidogrel, lisinopril, and all her other medication given by other physician particularly pramipexole, sertraline, and tramadol. Both and the patient were satisfied after the echocardiogram is done she will be discharged and her EEG will be scheduled as an outpatient along with the CT scan of the head. Objective Data Vital Signs Vital Signs: Vital Signs - 24 hr 09/06/24 13:57 09/06/24 14:00 09/06/24 14:48 Temperature 36.0 C L Pulse Rate 93 92 102 H Respiratory Rate 20 20 Blood Pressure 120/46 L 143/72 H Pulse Oximetry 100 100 Oxygen Delivery Room Air Room Air 09/06/24 14:58 09/06/24 15:08 09/06/24 15:33 Temperature 36.6 C Pulse Rate 93 94 85 Respiratory Rate 20 20 16 Blood Pressure 97/71 L 117/43 L 122/71 Pulse Oximetry 100 100 99 Oxygen Delivery Room Air Room Air 09/06/24 16:00 09/06/24 17:40 09/06/24 20:00 Temperature Pulse Rate 104 H 120 H Respiratory Rate Blood Pressure Pulse Oximetry Oxygen Delivery Room Air 09/06/24 20:00 09/06/24 23:14 09/07/24 00:00 Temperature 36.6 C Pulse Rate 94 95 82 Respiratory Rate 16 Blood Pressure Pulse Oximetry Oxygen Delivery 09/07/24 04:00 09/07/24 06:00 09/07/24 08:00 Temperature 36.6 C Pulse Rate 93 96 Respiratory Rate 18 Blood Pressure 135/64 Pulse Oximetry 98 100 Oxygen Delivery Room Air 09/07/24 08:00 09/07/24 08:49 Temperature Pulse Rate 86 Respiratory Rate Blood Pressure Pulse Oximetry 100 Oxygen Delivery Room Air Intake/Output Intake/Output: Intake & Output 09/04/24 09/05/24 09/06/24 09/07/24 23:59 23:59 23:59 23:59 Intake Total 1350 2230 3220 0 Output Total 700 0 Balance 1350 1530 3220 0 Meds/Results Medications: Active Medications Generic Name Dose Route Start Last Admin Trade Name Freq PRN Reason Stop Dose Admin Acetaminophen 650 mg 09/04/24 21:51 Acetaminophen 325 Mg Tablet PO Q4H PRN Mild Pain (1-3) or Fever Amlodipine Besylate 5 mg 09/05/24 09:00 09/07/24 08:17 Amlodipine Besylate 5 Mg Tablet PO 5 mg DAILY LIAM Administration Atorvastatin Calcium 10 mg 09/05/24 09:00 09/07/24 08:17 Atorvastatin 10 Mg Tablet BY MOUTH 10 mg DAILY LIAM Administration Clopidogrel Bisulfate 75 mg 09/05/24 10:55 09/07/24 08:18 Clopidogrel Bisulfate 75 Mg Tablet PO 75 mg DAILY LIAM Administration Lisinopril 40 mg 09/05/24 09:00 09/07/24 08:18 Lisinopril 20 Mg Tablet PO 40 mg DAILY ILAM Administration Ondansetron HCl 4 mg 09/04/24 21:51 Ondansetron Inj 4 Mg/2 Ml Vial IV PUSH Q4H PRN Nausea Pantoprazole Sodium 40 mg 09/06/24 21:00 09/07/24 08:18 Pantoprazole 40 Mg Tablet PO 40 mg Q12HR LIAM Administration Perflutren Lipid Microsphere 0 ml 09/06/24 17:39 Perflutren Lipid Microspheres 1.5 Ml Vial Diluted To 10 Ml Total Volume IV PUSH 09/09/24 17:39 ONCE PRN adequate visualization Protocol Pramipexole Dihydrochloride 1 mg 09/05/24 21:00 09/06/24 20:30 Pramipexole 1 Mg Tablet PO 1 mg HS LIAM Administration Zolpidem Tartrate 5 mg 09/05/24 08:18 09/06/24 20:29 Zolpidem Tartrate (*Crx) 5 Mg Tablet PO 5 mg QHS PRN Administration insomnia Radiology Results: ITS Impressions Head CT 09/04/24 19:03 IMPRESSION: Focal area of right frontal lobe hypodensity suspicious for a acute or subacute infarct. No acute intracranial hemorrhage. Recommend MRI of the brain for further evaluation. Head/Neck CTA 09/04/24 20:11 IMPRESSION: No large vessel intracranial occlusion, high-grade intracranial stenosis, or aneurysm. No carotid or vertebral artery occlusion, dissection, or significant stenosis. Abdomen/Pelvis CT 09/04/24 20:41 IMPRESSION: Mild esophagitis/gastritis. Cholelithiasis, without CT evidence of cholecystitis. Moderate-severe atherosclerotic celiac origin stenosis. Labs Labs: Laboratory Results - last 24 hr 09/06/24 09/06/24 09/07/24 11:25 15:48 10:45 Platelet Estimate Adequate Sodium 140 Potassium 4.1 Chloride 105 Carbon Dioxide 22 Anion Gap 13 H BUN 10 Creatinine 1.07 H Estim Creat Clear Calc 36 Estimated GFR 51 L Glucose 124 H Calcium 9.7 POC H. pylori Urease Negative
--- NOTE | 2024-09-07 14:50 | WPDANESPN ---
Anes - Prog Note Post-Op Date/Time: 09/07/24 14:50 Cardiovascular status: normal Respiratory status: normal Airway patency: baseline Mental status: baseline Post-Op hydration status: normal Vital Signs: Last Vital Signs Temp 97.6 F 09/07/24 13:58 Pulse 94 09/07/24 13:58 Resp 20 09/07/24 13:58 BP 128/39 L 09/07/24 13:58 Pulse Ox 100 09/07/24 13:58 O2 Del Method Room Air 09/07/24 08:49 Pain Score (VAS): 0/10 I/O: Intake & Output 09/06/24 09/07/24 09/07/24 23:59 07:59 15:59 Intake Total 480 0 730 Output Total 0 Balance 480 0 730 Laboratory Tests 09/07/24 10:45 09/07/24 10:45 09/06/24 09/07/24 15:48 10:45 WBC 6.8 RBC 4.77 Hgb 10.5 L Hct 37.2 MCV 78.0 L MCH 22.0 L MCHC 28.2 L RDW 17.3 H Plt Count 435 H MPV 9.2 Sodium 140 Potassium 4.1 Chloride 105 Carbon Dioxide 22 Anion Gap 13 H BUN 10 Creatinine 1.07 H Estim Creat Clear Calc 36 Estimated GFR 51 L Glucose 124 H Calcium 9.7 POC H. pylori Urease Negative Post-procedural complaints: none Patient Feedback: Patient satisfied with anesthetic care.
--- NOTE | 2024-09-07 15:38 | P.PNGI_ITS ---
Progress Note: A&P Assessment and Plan (1) Severe anemia: Code(s): D64.9 - Anemia, unspecified Status: Acute Assessment and Plan: noted non bleeding ulcers in stomach ppi daily and avoid nsaid's given severity of anemia also I suggest to follow-up with senior piping designer will follow as needed (2) Gastritis: Code(s): K29.70 - Gastritis, unspecified, without bleeding Status: Acute Assessment and Plan: ppi daily (3) Acute CVA (cerebrovascular accident): Code(s): I63.9 - Cerebral infarction, unspecified Status: Acute (4) Altered mental status: Code(s): R41.82 - Altered mental status, unspecified Status: Acute Assessment and Plan: resolved Subjective Date/time seen: 09/07/24 15:38 Interval history: no changes egd with non bleeding ulcerative gastritis, colonoscopy no major findings Review of Systems Review of Systems: All systems reviewed & are unremarkable except as noted in HPI and below Exam Const: General: comfortable and no acute distress HENMT: Face/Nose/Sinus: Normal nares present Eyes: General: appearance normal, both eyes and all related structures Neck: Neck: supple Resp: Auscultation: clear to auscultation bilaterally Cardio: Rate: regular rate Rhythm: regular rhythm GI: Inspection: non-distended GI Palp: Yes Soft to palpation and No Tenderness to palpation present (GI) Auscultation: normal bowel sounds Skin: General skin exam: no rashes or lesions noted Neuro: Speech: normal speech Motor exam (neuro): 5/5 motor strength present throughout Extrem: General: normal to inspection Psych: Mental Status: mental status grossly normal Objective Data Vital Signs Vital Signs: Vital Signs - 24 hr 09/06/24 16:00 09/06/24 17:40 09/06/24 20:00 Temperature Pulse Rate 104 H 120 H Respiratory Rate Blood Pressure Pulse Oximetry Oxygen Delivery Room Air 09/06/24 20:00 09/06/24 23:14 09/07/24 00:00 Temperature 98 F Pulse Rate 94 95 82 Respiratory Rate 16 Blood Pressure Pulse Oximetry Oxygen Delivery 09/07/24 04:00 09/07/24 06:00 09/07/24 08:00 Temperature 97.9 F Pulse Rate 93 96 Respiratory Rate 18 Blood Pressure 135/64 Pulse Oximetry 98 100 Oxygen Delivery Room Air 09/07/24 08:00 09/07/24 08:49 09/07/24 12:00 Temperature Pulse Rate 86 94 Respiratory Rate Blood Pressure Pulse Oximetry 100 Oxygen Delivery Room Air 09/07/24 13:58 09/07/24 14:55 Temperature 97.6 F Pulse Rate 94 Respiratory Rate 20 Blood Pressure 128/39 L 138/64 Pulse Oximetry 100 Oxygen Delivery Intake/Output Intake/Output: Intake & Output 09/04/24 09/05/24 09/06/24 09/07/24 23:59 23:59 23:59 23:59 Intake Total 1350 2230 3220 730 Output Total 700 0 Balance 1350 1530 3220 730 Meds/Results Medications: Active Medications Generic Name Dose Route Start Last Admin Trade Name Freq PRN Reason Stop Dose Admin Acetaminophen 650 mg 09/04/24 21:51 Acetaminophen 325 Mg Tablet PO Q4H PRN Mild Pain (1-3) or Fever Amlodipine Besylate 5 mg 09/05/24 09:00 09/07/24 08:17 Amlodipine Besylate 5 Mg Tablet PO 5 mg DAILY LIAM Administration Atorvastatin Calcium 10 mg 09/05/24 09:00 09/07/24 08:17 Atorvastatin 10 Mg Tablet BY MOUTH 10 mg DAILY LIAM Administration Clopidogrel Bisulfate 75 mg 09/05/24 10:55 09/07/24 08:18 Clopidogrel Bisulfate 75 Mg Tablet PO 75 mg DAILY LIAM Administration Lisinopril 40 mg 09/05/24 09:00 09/07/24 08:18 Lisinopril 20 Mg Tablet PO 40 mg DAILY LIAM Administration Ondansetron HCl 4 mg 09/04/24 21:51 Ondansetron Inj 4 Mg/2 Ml Vial IV PUSH Q4H PRN Nausea Pantoprazole Sodium 40 mg 09/06/24 21:00 09/07/24 08:18 Pantoprazole 40 Mg Tablet PO 40 mg Q12HR LIAM Administration Perflutren Lipid Microsphere 0 ml 09/06/24 17:39 Perflutren Lipid Microspheres 1.5 Ml Vial Diluted To 10 Ml Total Volume IV PUSH 09/09/24 17:39 ONCE PRN adequate visualization Protocol Pramipexole Dihydrochloride 1 mg 09/05/24 21:00 09/06/24 20:30 Pramipexole 1 Mg Tablet PO 1 mg HS LIAM Administration Zolpidem Tartrate 5 mg 09/05/24 08:18 09/06/24 20:29 Zolpidem Tartrate (*Crx) 5 Mg Tablet PO 5 mg QHS PRN Administration insomnia Radiology Results: ITS Impressions Head CT 09/04/24 19:03 IMPRESSION: Focal area of right frontal lobe hypodensity suspicious for a acute or subacute infarct. No acute intracranial hemorrhage. Recommend MRI of the brain for further evaluation. Head/Neck CTA 09/04/24 20:11 IMPRESSION: No large vessel intracranial occlusion, high-grade intracranial stenosis, or aneurysm. No carotid or vertebral artery occlusion, dissection, or significant stenosis. Abdomen/Pelvis CT 09/04/24 20:41 IMPRESSION: Mild esophagitis/gastritis. Cholelithiasis, without CT evidence of cholecystitis. Moderate-severe atherosclerotic celiac origin stenosis. Labs Labs: Laboratory Results - last 24 hr 09/06/24 09/07/24 15:48 10:45 WBC 6.8 RBC 4.77 Hgb 10.5 L Hct 37.2 MCV 78.0 L MCH 22.0 L MCHC 28.2 L RDW 17.3 H Plt Count 435 H MPV 9.2 Sodium 140 Potassium 4.1 Chloride 105 Carbon Dioxide 22 Anion Gap 13 H BUN 10 Creatinine 1.07 H Estim Creat Clear Calc 36 Estimated GFR 51 L Glucose 124 H Calcium 9.7 POC H. pylori Urease Negative
--- NOTE | 2024-09-07 17:04 | PC.NURSE ---
Echo results called to Dr Amin.
--- NOTE | 2024-09-07 17:39 | ECHO_ITS ---
Patient Info Name: Ashley Ybarra Age: 69 years : 1955 Gender: Female Ht: 62 in Wt: 126 lbs BSA: 1.59 m2 HR: 85 bpm BP: 135 / 64 mmHg Technical Quality: Good Exam Date: 09/07/2024 3:47 PM Exam Location: Echo Lab Patient Status: Inpatient Admit Date: 09/06/2024 Staff Ordering Physician: Anel Amin MD Rib Matcher And Fitter: Ana Munoz RDCS Attending Provider: Lily Arthur DO Exam Type: CA echo doppler w bubble study Study Info Complete two-dimensional, color flow and Doppler transthoracic echocardiogram is performed with agitated saline. Contrast/Agitated Saline Contrast/Ag. Saline: Agitated Saline Amount: 18.00 ml Existing IV Access: Yes IV Access Condition: patent with no signs of infiltration Summary 1. Left ventricular chamber dimension is normal. 2. Left ventricular systolic function is normal, estimated at 60-65%. 3. The left ventricular diastolic function is grade I diastolic dysfunction. 4. E/e' 11 is mildly elevated. 5. Atrial septal aneurysm. 6. Agitated saline injection with and without valsalva maneuver opacified right side cardiac chambers with shunt of about 5 bubbles to right side cardiac chambers suggestive of small patent foramen ovale. 7. No pulmonary hypertension, estimated pulmonary arterial systolic pressure is 23 mmHg. Left Ventricle E/e' 11 is mildly elevated. Left ventricular chamber dimension is normal. Left ventricular systolic function is normal, estimated at 60-65%. The left ventricular diastolic function is grade I diastolic dysfunction. Right Ventricle Right ventricular systolic function is normal and with normal TAPSE 1.8 cm. Right ventricular chamber dimension is normal. Left Atria Left atrial chamber dimension is normal. Right Atria Right atrial chamber dimension is normal. Atrial Septum Atrial septal aneurysm. Agitated saline injection with and without valsalva maneuver opacified right side cardiac chambers with shunt of about 5 bubbles to right side cardiac chambers suggestive of small patent foramen ovale. Suspected patent foramen ovale visualized by 2D and agitated saline imaging. Aortic Valve The aortic valve is trileaflet. There is no aortic valve stenosis. There is no aortic valve regurgitation. Pulmonic Valve There is no pulmonic regurgitation. Mitral Valve There is no mitral valve stenosis. There is no mitral valve regurgitation. Tricuspid Valve There is no tricuspid valve regurgitation. No pulmonary hypertension, estimated pulmonary arterial systolic pressure is 23 mmHg. Pericardium/Pleural There is no pericardial effusion. Inferior Vena Cava Normal inferior vena cava with >50% collapse upon inspiration consistent with normal right atrial pressure, 5 mmHg. Aorta The aortic root size at the sinus of Valsalva is normal. Left Ventricular Outflow Tract Name Value Normal LVOT 2D LVOT Diameter 1.8 cm LVOT Doppler LVOT Peak Gradient 3 mmHg LVOT Mean Gradient 2 mmHg LVOT VTI 18 cm LVOT VTI/AV VTI Ratio 0.8 LVOT Stroke Volume 47 ml LVOT CO 10.4 l/min LVOT CI 6.5 l/min/m2 Pulmonic Valve Name Value Normal PV Doppler PV Peak Gradient 2 mmHg Mitral Valve Name Value Normal MV Doppler MV Decel [place] 245 cm/s2 MV PHT 73 ms MV Area (PHT) 3.0 cm2 4.0-5.0 MV Diastolic Function MV E Peak Velocity 62 cm/s MV A Peak Velocity 108 cm/s MV E/A 0.6 MV Decel Time 252 ms MV Annular TDI MV E/e' (Septal) 10.4 <=8.0 MV E/e' (Lateral) 11.8 <=8.0 MV E/e' (Average) 11.1 Tricuspid Valve Name Value Normal TV Regurgitation Doppler TR Peak Velocity 212 cm/s TR Peak Gradient 18 mmHg Estimated PAP/RSVP RA Pressure 5 mmHg <=5 PA Systolic Pressure 23 mmHg <36 RV Systolic Pressure 23 mmHg <36 Aorta Name Value Normal Ascending Aorta Ao Root Diameter (MM) 2.7 cm Ao Root Diam Index (MM) 1.7 cm/m2 Aortic Valve Name Value Normal AV Doppler AV Peak Velocity 117 cm/s AV Peak Gradient 6 mmHg AV Mean Gradient 4 mmHg AV VTI 23 cm AV Area (Cont Eq VTI) 2.1 cm2 >=3.0 AV Area (Cont Eq Elieser) 2.0 cm2 AV Regurgitation 2D LVOT Area 2.6 cm2 Ventricles Name Value Normal LV Dimensions 2D/MM IVS Diastolic Thickness (2D) 1.2 cm 0.6-1.0 LVID Diastole (2D) 4.4 cm 3.8-5.2 LVIW Diastolic Thickness (2D) 1.1 cm 0.6-0.9 LVID Systole (2D) 3.1 cm 2.2-3.5 LVOT Diameter 1.8 cm LV Mass (2D Cubed) 177.22 g 67.00-162.00 LV Mass Index (2D Cubed) 112 g/m2 43-95 Relative Wall Thickness (2D) 0.49 LV Fractional Shortening/Ejection Fraction 2D/MM LV Fractional Shortening (2D) 30 % 27-45 LV EF (2D Teicholz) 58 % 54-74 LV Diastolic Volume (4C MOD) 77 ml LV EF (4C MOD) 63 % LV Diastolic Volume (2C MOD) 67 ml LV EF (2C MOD) 62 % LV Diastolic Volume (BP MOD) 74 ml 46-106 LV Diastolic Volume Index (BP MOD) 46 ml/m2 29-61 LV Systolic Volume (BP MOD) 27 ml 14-42 LV Systolic Volume Index (BP MOD) 17 ml/m2 8-24 LV EF (BP MOD) 63 % 54-74 LV Diastolic Length (4C) 6.9 cm LV Systolic Length (4C) 5.8 cm LV Stroke Volume (4C MOD) 48 ml RV Dimensions 2D/MM RVID Diastole (2D) 3.8 cm 2.5-3.5 Atria Name Value Normal LA Dimensions LA Dimension (MM) 3.0 cm 2.7-3.8 LA Volume (4C A-L) 28 ml LA Volume (BP A-L) 37 ml RA Dimensions RA Area (4C) 11.4 cm2 <=18.0 Report Signatures
[2024-09-07] MEDS: PRAMIPEXOLE 1 MG TABLET PO (21:29)
[2024-09-07] MEDS: ZOLPIDEM TARTRATE (*CRX) 5 MG TABLET PO (21:29)
[2024-09-08] VITALS: PULSE 100
[2024-09-08 03:35] VITALS: PULSE 89
[2024-09-08 05:48] VITALS: BP 133/66; PULSE 98; RESP 18; TEMP 36.1; O2SAT 99
[2024-09-08 08:00] VITALS: PULSE 82
--- NOTE | 2024-09-08 08:41 | P.PNIM_ITS ---
Progress Note: A&P Assessment and Plan (1) Altered mental status: Code(s): R41.82 - Altered mental status, unspecified Status: Acute (2) Severe anemia: Code(s): D64.9 - Anemia, unspecified Status: Acute (3) Complicated UTI (urinary tract infection): Code(s): N39.0 - Urinary tract infection, site not specified Status: Acute (4) Acute CVA (cerebrovascular accident): Code(s): I63.9 - Cerebral infarction, unspecified Status: Acute (5) Essential (primary) hypertension: Code(s): I10 - Essential (primary) hypertension Status: Acute (6) Peripheral arterial disease with history of revascularization: Code(s): I73.9 - Peripheral vascular disease, unspecified; Z98.890 - Other specified postprocedural states Status: Acute (7) Mixed hyperlipidemia: Code(s): E78.2 - Mixed hyperlipidemia Status: Acute (8) Chronic anemia: Code(s): D64.9 - Anemia, unspecified Status: Acute Plan Acute CVA Patient had a sudden onset confusion yesterday, patient states she could not understand what she was reading. And patient was not oriented yesterday Patient denies lightheadedness, unstable gait CT head showed focal area of right frontal lobe hypodensity suspicious for a acute or subacute infarct. No acute intracranial hemorrhage. CT head shows no large vessel occlusion, stenosis or aneurysm continue Plavix 75 mg daily p.o. given the acute stroke, even though the patient has profound anemia brain MRI cannot be done because of peripheral artery stent. Neurologist will repeat CT scan of brain and EEG of patient echocardiogram with bubble study still pending Echocardiogram: 1. Left ventricular chamber dimension is normal. 2. Left ventricular systolic function is normal, estimated at 60-65%. 3. The left ventricular diastolic function is grade I diastolic dysfunction. 4. E/e' 11 is mildly elevated. 5. Atrial septal aneurysm. 6. Agitated saline injection with and without valsalva maneuver opacified right side cardiac chambers with shunt of about 5 bubbles to right side cardiac chambers suggestive of small patent foramen ovale. 7. No pulmonary hypertension, estimated pulmonary arterial systolic pressureis 23 mmHg. small patent foramen ovale. Consult environmental department manager for evaluation treatment Altered mental status change Likely secondary to acute stroke, anemia, UTI Now patient is back to the baseline, patient alert oriented x3 Profound anemia Labs showed profound anemia hemoglobin 5.7, baseline hemoglobin 9.4 on March 05 2024. Patient denies nausea vomiting black emesis or bloody stools CT abdomen pelvis scan showed mild esophagitis gastritis gallstone without evidence of cholecystitis Patient received 2 pack RBC in the ED Hemoglobin stable Follow-up stool guaiac, ferritin, iron panel, reticulocyte start Protonix 40 mg b.i.d. IV push because patient has gastritis and profound anemia consult GI for evaluation treatment. Appreciate GI consultation EGD and colonoscopy will perform yesterday, patient found have gastritis, internal hemorrhoids without active bleeding Hemoglobin is stable and is trending up Uncontrolled hypertension Hypertension permission is over Continue amlodipine 5 mg daily p.o. lisinopril 40 mg daily p.o. Dehydration Received Gentle IV fluid Corrected UTI UA shows pyuria Start ceftriaxone IV No growth from urine culture Patient received ceftriaxone 3 days, discontinue ceftriaxone, no need further treatment Subjective Date/time seen: 09/08/24 08:41 Interval history: Patient has no new focal deficit, patient alert oriented, afebrile blood pressure stable. Echocardiogram suggests small patent Sullivan ovale Exam Narrative: GENERAL: Pleasant, in no acute distress. Well-nourished. - EYES: EOMI. Anicteric. - HENT: Moist mucous membranes. - LUNGS: Clear to auscultation bilateral ly, no wheezing, rhonchi, or rales. - CARDIOVASCULAR: Regular rate and rhyth m. No murmur. No JVD. - ABDOMEN: Soft, non-tender and non-dist ended. No palpable masses. - EXTREMITIES: No edema. Peripheral puls es 2+. Non-tender. - NEUROLOGIC: No focal neurological defi cits. CN II-XII grossly intact. - PSYCHIATRIC: Awake, Alert and oriented x 3. Appropriate mood and affect. - SKIN: No rashes or lesions. Warm. - LYMPH: No cervical lymphadenopathy. Objective Data Vital Signs Vital Signs: Vital Signs - 24 hr 09/07/24 08:49 09/07/24 12:00 09/07/24 13:58 Temperature 97.6 F Pulse Rate 94 94 Respiratory Rate 20 Blood Pressure 128/39 L Pulse Oximetry 100 100 Oxygen Delivery Room Air 09/07/24 14:55 09/07/24 16:00 09/07/24 20:00 Temperature Pulse Rate 97 78 Respiratory Rate Blood Pressure 138/64 Pulse Oximetry Oxygen Delivery 09/07/24 20:33 09/08/24 00:00 09/08/24 03:35 Temperature 97.7 F Pulse Rate 90 100 89 Respiratory Rate 19 Blood Pressure 154/59 H Pulse Oximetry 99 Oxygen Delivery 09/08/24 05:48 Temperature 97.0 F L Pulse Rate 98 Respiratory Rate 18 Blood Pressure 133/66 Pulse Oximetry 99 Oxygen Delivery Intake/Output Intake/Output: Intake & Output 09/05/24 09/06/24 09/07/24 09/08/24 23:59 23:59 23:59 23:59 Intake Total 2230 3220 1110 Output Total 700 0 Balance 1530 3220 1110 Meds/Results Medications: Active Medications Generic Name Dose Route Start Last Admin Trade Name Freq PRN Reason Stop Dose Admin Acetaminophen 650 mg 09/04/24 21:51 Acetaminophen 325 Mg Tablet PO Q4H PRN Mild Pain (1-3) or Fever Amlodipine Besylate 5 mg 09/05/24 09:00 09/07/24 08:17 Amlodipine Besylate 5 Mg Tablet PO 5 mg DAILY LIAM Administration Atorvastatin Calcium 10 mg 09/05/24 09:00 09/07/24 08:17 Atorvastatin 10 Mg Tablet BY MOUTH 10 mg DAILY LIAM Administration Clopidogrel Bisulfate 75 mg 09/05/24 10:55 09/07/24 08:18 Clopidogrel Bisulfate 75 Mg Tablet PO 75 mg DAILY LIAM Administration Lisinopril 40 mg 09/05/24 09:00 09/07/24 08:18 Lisinopril 20 Mg Tablet PO 40 mg DAILY LIAM Administration Ondansetron HCl 4 mg 09/04/24 21:51 Ondansetron Inj 4 Mg/2 Ml Vial IV PUSH Q4H PRN Nausea Pantoprazole Sodium 40 mg 09/06/24 21:00 09/07/24 21:28 Pantoprazole 40 Mg Tablet PO 40 mg Q12HR LIAM Administration Perflutren Lipid Microsphere 0 ml 09/06/24 17:39 Perflutren Lipid Microspheres 1.5 Ml Vial Diluted To 10 Ml Total Volume IV PUSH 09/09/24 17:39 ONCE PRN adequate visualization Protocol Pramipexole Dihydrochloride 1 mg 09/05/24 21:00 09/07/24 21:29 Pramipexole 1 Mg Tablet PO 1 mg HS LIAM Administration Zolpidem Tartrate 5 mg 09/05/24 08:18 09/07/24 21:29 Zolpidem Tartrate (*Crx) 5 Mg Tablet PO 5 mg QHS PRN Administration insomnia Radiology Results: ITS Impressions Head CT 09/04/24 19:03 IMPRESSION: Focal area of right frontal lobe hypodensity suspicious for a acute or subacute infarct. No acute intracranial hemorrhage. Recommend MRI of the brain for further evaluation. Head/Neck CTA 09/04/24 20:11 IMPRESSION: No large vessel intracranial occlusion, high-grade intracranial stenosis, or aneurysm. No carotid or vertebral artery occlusion, dissection, or significant stenosis. Abdomen/Pelvis CT 09/04/24 20:41 IMPRESSION: Mild esophagitis/gastritis. Cholelithiasis, without CT evidence of cholecystitis. Moderate-severe atherosclerotic celiac origin stenosis. Labs Labs: Laboratory Results - last 24 hr 09/07/24 10:45 WBC 6.8 RBC 4.77 Hgb 10.5 L Hct 37.2 MCV 78.0 L MCH 22.0 L MCHC 28.2 L RDW 17.3 H Plt Count 435 H MPV 9.2 Sodium 140 Potassium 4.1 Chloride 105 Carbon Dioxide 22 Anion Gap 13 H BUN 10 Creatinine 1.07 H Estim Creat Clear Calc 36 Estimated GFR 51 L Glucose 124 H Calcium 9.7
[2024-09-08] MEDS: CLOPIDOGREL BISULFATE 75 MG TABLET PO (08:55)
[2024-09-08] MEDS: lisinopriL 20 MG TABLET 40 MG PO (08:55)
[2024-09-08] MEDS: PANTOPRAZOLE 40 MG TABLET PO (08:56)
[2024-09-08] MEDS: ATORVASTATIN 10 MG TABLET BY MOUTH (08:56)
[2024-09-08] MEDS: amLODIPine BESYLATE 5 MG TABLET PO (08:56)
[2024-09-08 12:00] VITALS: PULSE 97
--- NOTE | 2024-09-08 12:00 | WPDNEUROPN ---
Subjective Date/time seen: 09/08/24 12:00 Interval history: Remains stable, echocardiogram documented with shunt of about 5 by billteagan raising the possibility of small patent foramen ovale, patient is awaiting for the recommendation from the injection molding supervisor for she goes home, in addition the EEG is being done right now which we read and documented according. Her neurological examination remains stable they have been thoroughly counseled 1. About the patent foramina ovale with the final recommendation from the injection molding supervisor with this whole needs to be closed or not or remained as such 2. She can not have the MRI of the brain because of the stent she will have a repeat CT scan done in about couple of weeks as an outpatient to document the diagnosis of stroke this particularly becomes more important because the finding of the patent foramina ovale. If any further question arises please do not hesitate to contact us Objective Data Vital Signs Vital Signs: Vital Signs - 24 hr 09/07/24 13:58 09/07/24 14:55 09/07/24 16:00 Temperature 36.4 C Pulse Rate 94 97 Respiratory Rate 20 Blood Pressure 128/39 L 138/64 Pulse Oximetry 100 Oxygen Delivery 09/07/24 20:00 09/07/24 20:33 09/08/24 00:00 Temperature 36.5 C Pulse Rate 78 90 100 Respiratory Rate 19 Blood Pressure 154/59 H Pulse Oximetry 99 Oxygen Delivery 09/08/24 03:35 09/08/24 05:48 09/08/24 08:55 Temperature 36.1 C L Pulse Rate 89 98 Respiratory Rate 18 Blood Pressure 133/66 Pulse Oximetry 99 Oxygen Delivery Room Air Intake/Output Intake/Output: Intake & Output 09/05/24 09/06/24 09/07/24 09/08/24 23:59 23:59 23:59 23:59 Intake Total 2230 3220 1110 480 Output Total 700 0 Balance 1530 3220 1110 480 Meds/Results Medications: Active Medications Generic Name Dose Route Start Last Admin Trade Name Freq PRN Reason Stop Dose Admin Acetaminophen 650 mg 09/04/24 21:51 Acetaminophen 325 Mg Tablet PO Q4H PRN Mild Pain (1-3) or Fever Amlodipine Besylate 5 mg 09/05/24 09:00 09/08/24 08:56 Amlodipine Besylate 5 Mg Tablet PO 5 mg DAILY LIAM Administration Atorvastatin Calcium 10 mg 09/05/24 09:00 09/08/24 08:56 Atorvastatin 10 Mg Tablet BY MOUTH 10 mg DAILY LIAM Administration Clopidogrel Bisulfate 75 mg 09/05/24 10:55 09/08/24 08:55 Clopidogrel Bisulfate 75 Mg Tablet PO 75 mg DAILY LIAM Administration Lisinopril 40 mg 09/05/24 09:00 09/08/24 08:55 Lisinopril 20 Mg Tablet PO 40 mg DAILY LIAM Administration Ondansetron HCl 4 mg 09/04/24 21:51 Ondansetron Inj 4 Mg/2 Ml Vial IV PUSH Q4H PRN Nausea Pantoprazole Sodium 40 mg 09/06/24 21:00 09/08/24 08:56 Pantoprazole 40 Mg Tablet PO 40 mg Q12HR LIAM Administration Perflutren Lipid Microsphere 0 ml 09/06/24 17:39 Perflutren Lipid Microspheres 1.5 Ml Vial Diluted To 10 Ml Total Volume IV PUSH 09/09/24 17:39 ONCE PRN adequate visualization Protocol Pramipexole Dihydrochloride 1 mg 09/05/24 21:00 09/07/24 21:29 Pramipexole 1 Mg Tablet PO 1 mg HS LIAM Administration Zolpidem Tartrate 5 mg 09/05/24 08:18 09/07/24 21:29 Zolpidem Tartrate (*Crx) 5 Mg Tablet PO 5 mg QHS PRN Administration insomnia Radiology Results: ITS Impressions Head CT 09/04/24 19:03 IMPRESSION: Focal area of right frontal lobe hypodensity suspicious for a acute or subacute infarct. No acute intracranial hemorrhage. Recommend MRI of the brain for further evaluation. Head/Neck CTA 09/04/24 20:11 IMPRESSION: No large vessel intracranial occlusion, high-grade intracranial stenosis, or aneurysm. No carotid or vertebral artery occlusion, dissection, or significant stenosis. Abdomen/Pelvis CT 09/04/24 20:41 IMPRESSION: Mild esophagitis/gastritis. Cholelithiasis, without CT evidence of cholecystitis. Moderate-severe atherosclerotic celiac origin stenosis. Labs Labs: Laboratory Results - last 24 hr 09/07/24 10:45 WBC 6.8 RBC 4.77 Hgb 10.5 L Hct 37.2 MCV 78.0 L MCH 22.0 L MCHC 28.2 L RDW 17.3 H Plt Count 435 H MPV 9.2
--- NOTE | 2024-09-08 13:01 | WPDNEUROLOGY ---
Neurology EEG Report General Information Date of Study: 09/08/24 TEST eeg DIAGNOSIS altered mental status CONDITION OF RECORDING awake ,drowsy and asleep, EEG NUMBER [id number] CLINICAL HISTORY patient reports were due to an episode of confusion and unable to find correct words and difficulty texting. EEG DESCRIPTION Basic resting occipital frequency consists of low to medium voltage 9 to 11 hertz per 2nd alpha admixed with low-voltage 15 to 18 hertz per 2nd. Good gloria posterior gradient is noted. Low-voltage beta alpha and theta activity seen during the initial phases of sleep followed by bilateral symmetrical sleep spindles. Hyperventilation not done. Photic stimulation not done. Is symmetrical intermittent theta activity seen more prominent on the right side. Non paroxysmal. Focal. Lateralizing. IMPRESSION Only questionably abnormal record due to the presence of asymmetrical theta activity which is more prominent over the right side clinical correlation recommended these findings could be suggestive of underlying focal structural lesion.
[2024-09-08 14:00] VITALS: BP 125/52; PULSE 87; RESP 18; TEMP 36.5; O2SAT 98
--- NOTE | 2024-09-08 15:07 | PM.CNCAR ---
Assessment and Plan Assessment and plan (1) Peripheral arterial disease with history of revascularization: Code(s): I73.9 - Peripheral vascular disease, unspecified; Z98.890 - Other specified postprocedural states Status: Acute Assessment and Plan: Followed by vascular surgery at [facility] by Dr. Gimenez. (2) Essential (primary) hypertension: Code(s): I10 - Essential (primary) hypertension Status: Acute Assessment and Plan: At goal (3) Mixed hyperlipidemia: Code(s): E78.2 - Mixed hyperlipidemia Status: Acute Assessment and Plan: Continue statin but will increase the dose at least up to of modest dose of atorvastatin 20 mg daily. (4) Altered mental status: Code(s): R41.82 - Altered mental status, unspecified Status: Acute Assessment and Plan: Possible stroke. Echocardiogram concerning for possible small PFO. Consultation was for further evaluation and treatment. PFO is very tiny if even present. For further evaluation, recommendations for the patient to have a transesophageal echocardiogram for definitive evaluation of her atrial septum. This will also assess her left atrial appendage. At this point though she does have a history of of ulcer and some esophagitis and gastritis. Will like to have her on a PPI for a few weeks before proceeding with a transesophageal echocardiogram. Additionally, further evaluation regarding her possible CVA. It is still not definitive as to whether not she actually had a stroke or not and further imaging is to be performed in a couple weeks per Dr. Oivedo. She was on aspirin and clopidogrel before admission. Regarding her lower extremity stent, MRI compatibility should not be an issue but obviously this could be a question posed to vascular surgery if need be History of Present Illness History of Present Illness Consult date/time: 09/08/24 15:07 Requesting physician: Anel Amin MD Consult reason: Other (Small PFO and stroke) Reason For Visit: CVA/TIA work up; Anemia requiring blood transfusio Narrative: Reason for consultation: Small PFO, probable stroke Date of service 09/08/2024 Requesting provider: Dr. Amin History: Patient is 69-year-old female who has history of peripheral vascular disease followed at [facility]. She also has hypertension hyperlipidemia, former smoker who presented to the hospital because of confusion. Patient as well as the patient's states that she started acting inappropriately and had some confusion. Confusion was described as some speech difficulty for instance. She came to the hospital and workup included a CT scan of the head which showed a focal area of right frontal lobe hypodensity suspicious for acute or subacute infarction. No bleed. There is no large vessel occlusion stenosis or aneurysm. Echocardiogram with results as below showing a possible tiny PFO as noted by a few bubbles which apparently crossed from the right side to the left. The patient is also incidentally found to be significantly anemic. In general, she denies any syncope, presyncope, paroxysmal nocturnal dyspnea, orthopnea, chest pain or shortness of breath Review of Systems Review of Systems: All systems reviewed & are unremarkable except as noted in HPI and below Constitutional: Constitutional: Denies body ache(s) Eyes: Eyes: Denies blurry vision ENT: Reports Normal hearing present Cardiovascular: Cardiovascular: Denies chest pain Respiratory: Respiratory: Denies cough Gastrointestinal: Gastrointestinal: Denies abdominal pain Genitourinary: Genitourinary: Denies hematuria Musculoskeletal: Musculoskeletal: Denies arthralgias Integumentary/Breasts: Skin/Breast: Denies dry skin Neurologic: Denies Abnormal speech present Psychiatric: Psychiatric: Denies behavioral changes Endocrine: Endocrine: Denies excessive sweating Hematologic/Lymphatic: Hematologic/Lymphatic: Denies easy bleeding Allergic/Immunologic: Allergic/Immunologic: Denies GI upset with certain foods PMFSH Past Medical History Medical History (Updated 09/07/24 @ 15:40 by Carlin Jones MD) Gastritis Major depressive disorder in partial remission Chronic anemia Peripheral arterial disease with history of revascularization Mixed hyperlipidemia Joint pain Restless leg syndrome Major depression in full remission Allergic rhinitis Vitamin D deficiency, unspecified Essential (primary) hypertension Surgical History Surgical History History of surgery on right wrist ORIF Hx of elbow surgery left cubital tunnel release History of total abdominal hysterectomy 1995 Family History Family History Father Heart disease Mother Heart disease Social History Social History Smoking packs per day: 2 Smoking cigarettes per day: 40.0 Years smoked: 40 Smoking pack-years: 80.00 Smoking status: Former smoker Tobacco type: cigarettes Second hand tobacco smoke exposure: No Alcohol intake: current Drinks per week: 5 Substance use: never Substance use type: does not use Do You Feel Safe in your Home?: Yes Lack of Transportation: No Lack of Food: Never True Current Housing: I Have Housing Concerned About Future Housing: Decline to Answer Difficulty Paying Gas/Electric Bills: Decline to Answer Difficulty Paying for Meds: Decline to Answer Currently Unemployed: Decline to Answer Education: Decline to Answer Difficulty w/ Childcare or Family Care: Decline to Answer Living arrangements: with family Occupation/Education: occupation Gender identity (if verbalized by the patient): Female Sexual Orientation (if Verbalized by the Patient): Straight or Heterosexual Spiritual care concerns: No Meds Home Medications and Allergies Home Medications ?Medication ?Instructions ?Recorded ?Confirmed ?Type calcium 1,000 mg (as 800 - 1,000 tablet PO DAILY #90 08/30/22 09/05/24 Rx carbonate)-vitamin D3 20 mcg (800 tabs unit) tablet cetirizine 10 mg tablet (All Day 10 mg PO DAILY PRN allergy 08/30/22 09/04/24 Rx Allergy (cetirizine)) symptoms #90 tabs lactobacillus combination no.9 4 4,000 mmu cells PO DAILY #90 caps 08/30/22 09/04/24 Rx billion cell capsule (Adult 50 Plus Probiotic) potassium citrate 99 mg capsule 99 mg PO DAILY #90 caps 08/30/22 09/04/24 Rx tramadol 50 mg tablet 50 mg PO Q6H PRN pain 30 days #90 02/18/24 09/04/24 Rx tabs sertraline 50 mg tablet 50 mg PO DAILY #90 tabs 03/15/24 09/04/24 Rx pramipexole 1 mg tablet 1 mg PO QHS #135 tabs 03/29/24 09/04/24 Rx atorvastatin 10 mg tablet See Rx Instructions .Route 05/10/24 09/04/24 Rx .COMPLEX #30 tabs clopidogrel 75 mg tablet See Rx Instructions .Route 06/29/24 09/04/24 Rx .COMPLEX #90 tabs diclofenac sodium 75 mg See Rx Instructions .Route 06/29/24 09/04/24 Rx tablet,delayed release .COMPLEX #60 tabs zolpidem 5 mg tablet 5 mg PO QHS PRN insomnia #30 tabs 07/27/24 09/04/24 Rx amlodipine 5 mg tablet 5 mg PO DAILY #90 tabs 08/25/24 09/04/24 Rx lisinopril 40 mg tablet 40 mg PO DAILY #90 tabs 08/25/24 09/04/24 Rx pantoprazole 40 mg tablet,delayed 40 mg PO Q12HR #60 tabs 09/08/24 Rx release sucralfate 1 gram tablet (Carafate) 1 g PO ACHS #120 tabs 09/08/24 Rx Allergies Allergy/AdvReac Type Severity Reaction Status Date / Time No Known Allergies Allergy Verified 09/06/24 13:48 Vital Signs Vital Signs - 24 hr 09/07/24 16:00 09/07/24 20:00 09/07/24 20:33 Temperature 36.5 C Pulse Rate 97 78 90 Respiratory Rate 19 Blood Pressure 154/59 H Pulse Oximetry 99 Oxygen Delivery 09/08/24 00:00 09/08/24 03:35 09/08/24 05:48 Temperature 36.1 C L Pulse Rate 100 89 98 Respiratory Rate 18 Blood Pressure 133/66 Pulse Oximetry 99 Oxygen Delivery 09/08/24 08:00 09/08/24 08:55 09/08/24 12:00 Temperature Pulse Rate 82 97 Respiratory Rate Blood Pressure Pulse Oximetry Oxygen Delivery Room Air 09/08/24 14:00 Temperature 36.5 C Pulse Rate 87 Respiratory Rate 18 Blood Pressure 125/52 L Pulse Oximetry 98 Oxygen Delivery Exam Narrative: Awake alert oriented appears to be in no acute distress. Appears stated age Const: General: comfortable and no acute distress HENMT: Ears: TM's normal bilaterally Face/Nose/Sinus: Normal nares present Eyes: General: appearance normal, both eyes and all related structures Sclera: sclerae normal Neck: Neck: supple and no JVD Chest: Other: No reproducible chest wall pain to palpation Resp: Effort & Inspection: normal respiratory effort Auscultation: clear to auscultation bilaterally Cardio: Rate: regular rate Rhythm: regular rhythm Heart sounds: no murmurs GI: Inspection: non-distended GI Palp: Yes Soft to palpation Auscultation: normal bowel sounds Skin: General skin exam: normal color and no rashes or lesions noted Neuro: Speech: No normal speech Sensory Exam: normal sensation Extrem: General: normal to inspection Psych: Mental Status: mental status grossly normal Affect: No Anxious affect present Results Labs and Meds 09/07/24 10:45 09/07/24 10:45 Lab results: Intake and Output 09/07/24 09/08/24 09/08/24 23:59 07:59 15:59 Intake Total 380 952 Balance 380 952 Intake: Oral 380 952 Other: # Unmeasured Voids 5 5 3 Number of Bowel Movements Today 3 Patient Weight 09/08/24 23:59 Weight 59.2 kg Echocardiogram: Personally reviewed and independently interpreted 1. Left ventricular chamber dimension is normal. 2. Left ventricular systolic function is normal, estimated at 60-65%. 3. The left ventricular diastolic function is grade I diastolic dysfunction. 4. E/e' 11 is mildly elevated. 5. Atrial septal aneurysm. 6. Agitated saline injection with and without valsalva maneuver opacified right side cardiac chambers with shunt of about 5 bubbles to right side cardiac chambers suggestive of small patent foramen ovale. 7. No pulmonary hypertension, estimated pulmonary arterial systolic pressure is 23 mmHg.
--- NOTE | 2024-09-10 15:10 | P.DS_ITS ---
DS: Admitting Diagnosis Discharge Date 09/08/24 Admitting Diagnosis (1) Altered mental status: Code(s): R41.82 - Altered mental status, unspecified Status: Acute (2) Severe anemia: Code(s): D64.9 - Anemia, unspecified Status: Acute (3) Complicated UTI (urinary tract infection): Code(s): N39.0 - Urinary tract infection, site not specified Status: Acute (4) Acute CVA (cerebrovascular accident): Code(s): I63.9 - Cerebral infarction, unspecified Status: Acute (5) Essential (primary) hypertension: Code(s): I10 - Essential (primary) hypertension Status: Acute (6) Peripheral arterial disease with history of revascularization: Code(s): I73.9 - Peripheral vascular disease, unspecified; Z98.890 - Other specified postprocedural states Status: Acute (7) Mixed hyperlipidemia: Code(s): E78.2 - Mixed hyperlipidemia Status: Acute (8) Chronic anemia: Code(s): D64.9 - Anemia, unspecified Status: Acute DS: Discharge Diagnosis Discharge Diagnosis (1) Altered mental status: Code(s): R41.82 - Altered mental status, unspecified Status: Acute (2) Severe anemia: Code(s): D64.9 - Anemia, unspecified Status: Acute (3) Complicated UTI (urinary tract infection): Code(s): N39.0 - Urinary tract infection, site not specified Status: Acute (4) Acute CVA (cerebrovascular accident): Code(s): I63.9 - Cerebral infarction, unspecified Status: Acute (5) Essential (primary) hypertension: Code(s): I10 - Essential (primary) hypertension Status: Acute (6) Peripheral arterial disease with history of revascularization: Code(s): I73.9 - Peripheral vascular disease, unspecified; Z98.890 - Other specified postprocedural states Status: Acute (7) Mixed hyperlipidemia: Code(s): E78.2 - Mixed hyperlipidemia Status: Acute (8) Chronic anemia: Code(s): D64.9 - Anemia, unspecified Status: Acute DS: Summary Hospital Course Hospital Course: [age] years old lady with history of peripheral vascular disease, hypertension, hyperlipidemia, restless leg syndrome present ED with a chief complaint of confusion. Patient's noticed patient was confused yesterday, acting inappropriately. Last known well was 7:00 p.m. before yesterday patient. Patient states she could not understand what she was reading, and patient could not is breast herself. She denies headache, vision changes, lightheadedness, unstable gait. Patient also denies chest pain, shortness of breath abdomen pain, nausea vomiting diarrhea dysuria. Patient also denies bloody or black stools. Patient also denies fever chills. Upon arrival to ED, patient was afebrile blood pressure stable, no O2 desaturation on room air. Labs showed profound anemia hemoglobin 5.7, baseline hemoglobin 9.4 on March 05 2024. chemistry showed elevated BUN creatinine ratio 21/0.[address] abdomen pelvis scan showed mild esophagitis gastritis gallstone without evidence of cholecystitis CT head showed focal area of right frontal lobe hypodensity suspicious for a acute or subacute infarct. No acute intracranial hemorrhage. CT head shows no large vessel occlusion, stenosis or aneurysm The following med issues have been addressed during hospitalization Acute CVA Patient had a sudden onset confusion yesterday, patient states she could not understand what she was reading. And patient was not oriented yesterday Patient denies lightheadedness, unstable gait CT head showed focal area of right frontal lobe hypodensity suspicious for a acute or subacute infarct. No acute intracranial hemorrhage. CT head shows no large vessel occlusion, stenosis or aneurysm continue Plavix 75 mg daily p.o. given the acute stroke, even though the patient has profound anemia brain MRI cannot be done because of peripheral artery stent. Neurologist will repeat CT scan of brain and EEG of patient echocardiogram with bubble study still pending Echocardiogram: 1. Left ventricular chamber dimension is normal. 2. Left ventricular systolic function is normal, estimated at 60-65%. 3. The left ventricular diastolic function is grade I diastolic dysfunction. 4. E/e' 11 is mildly elevated. 5. Atrial septal aneurysm. 6. Agitated saline injection with and without valsalva maneuver opacified right side cardiac chambers with shunt of about 5 bubbles to right side cardiac chambers suggestive of small patent foramen ovale. 7. No pulmonary hypertension, estimated pulmonary arterial systolic pressureis 23 mmHg. small patent foramen ovale. Consult public stenographer for evaluation treatment Guitar Repair Technician will have her on a PPI for a few weeks before proceeding with a transesophageal echocardiogram. Altered mental status change Likely secondary to acute stroke, anemia, UTI Now patient is back to the baseline, patient alert oriented x3 Profound anemia Labs showed profound anemia hemoglobin 5.7, baseline hemoglobin 9.4 on March 05 2024. Patient denies nausea vomiting black emesis or bloody stools CT abdomen pelvis scan showed mild esophagitis gastritis gallstone without evidence of cholecystitis Patient received 2 pack RBC in the ED Hemoglobin stable Follow-up stool guaiac, ferritin, iron panel, reticulocyte start Protonix 40 mg b.i.d. IV push because patient has gastritis and profound anemia consult GI for evaluation treatment. Appreciate GI consultation EGD and colonoscopy will perform yesterday, patient found have gastritis, internal hemorrhoids without active bleeding Hemoglobin is stable and is trending up Uncontrolled hypertension Hypertension permission is over Continue amlodipine 5 mg daily p.o. lisinopril 40 mg daily p.o. Dehydration Received Gentle IV fluid Corrected UTI UA shows pyuria Start ceftriaxone IV No growth from urine culture Patient received ceftriaxone 3 days, discontinue ceftriaxone, no need further treatment Time Spent with Patient Time attestation: Total time spent providing and/or coordinating discharge services: Exam Narrative: GENERAL: Pleasant, in no acute distress. Well-nourished. - EYES: EOMI. Anicteric. - HENT: Moist mucous membranes. - LUNGS: Clear to auscultation bilateral ly, no wheezing, rhonchi, or rales. - CARDIOVASCULAR: Regular rate and rhyth m. No murmur. No JVD. - ABDOMEN: Soft, non-tender and non-dist ended. No palpable masses. - EXTREMITIES: No edema. Peripheral puls es 2+. Non-tender. - NEUROLOGIC: No focal neurological defi cits. CN II-XII grossly intact. - PSYCHIATRIC: Awake, Alert and oriented x 3. Appropriate mood and affect. - SKIN: No rashes or lesions. Warm. - LYMPH: No cervical lymphadenopathy. DS: Data Data Completed and Pending Completed studies during hospitalization: Pending at discharge 09/06/24 14:39 Surgical [PTH] Routine Discharge Plan Discharge Attending physician on discharge: Anel Amin Consulting providers: Carlin Jones; Dean Oviedo; Renan Chino; Yoseph Long; Driss Nj; Willie Sampson Discharging Clinician: Anel Amin Anticipated Discharge Date/Time: 09/08/24 08:46 Patient Disposition: Home, Self-Care Activity: as tolerated Diet: as tolerated and heart healthy Patient Instructions: Antibiotic Form, Stroke (DC) Patient Language: Taiwanese Stand Alone Forms: General Discharge Information Follow-up/Referrals: Noé Poon MD [Primary Care Provider] - (See PCP in 1 week) Debbie Arias MD [Physician] - (Call neurologist to schedule follow-up appointment) Discharge Medications: New pantoprazole 40 mg Tablet,Delayed Release (Dr/Ec) 40 mg PO Q12HR Qty: 60 0RF sucralfate [Carafate] 1 gram tablet 1 g PO ACHS Qty: 120 0RF Continued sertraline 50 mg tablet 50 mg PO DAILY Qty: 90 1RF cetirizine [All Day Allergy (cetirizine)] 10 mg tablet 10 mg PO DAILY PRN (Reason: allergy symptoms) Qty: 90 0RF Adult 50 Plus Probiotic 4 billion cell capsule 4,000 mmu cells PO DAILY Qty: 90 0RF Rx Instructions: administer with a meal calcium carbonate-vitamin D3 1,000 mg-20 mcg (800 unit) tablet 800 - 1,000 tablet PO DAILY Qty: 90 0RF potassium citrate 99 mg capsule 99 mg PO DAILY Qty: 90 0RF tramadol 50 mg tablet 50 mg PO Q6H PRN (Reason: pain) 30 Days Qty: 90 2RF pramipexole 1 mg tablet 1 mg PO QHS Qty: 135 1RF Rx Instructions: 1-2 tablets orally q hs atorvastatin 10 mg tablet See Rx Instructions .ROUTE .COMPLEX Qty: 30 5RF Dose Instruction: TAKE 1 TABLET BY MOUTH DAILY Rx Instructions: TAKE 1 TABLET BY MOUTH DAILY diclofenac sodium 75 mg tablet,delayed release (DR/EC) See Rx Instructions .ROUTE .COMPLEX Qty: 60 4RF Dose Instruction: TAKE 1 TABLET BY MOUTH TWICE DAILY Rx Instructions: TAKE 1 TABLET BY MOUTH TWICE DAILY clopidogrel 75 mg tablet See Rx Instructions .ROUTE .COMPLEX Qty: 90 2RF Dose Instruction: TAKE 1 TABLET (75 MG) ORALLY DAILY FOR 30 DAYS Rx Instructions: TAKE 1 TABLET (75 MG) ORALLY DAILY FOR 30 DAYS zolpidem 5 mg tablet 5 mg PO QHS PRN (Reason: insomnia) Qty: 30 2RF lisinopril 40 mg tablet 40 mg PO DAILY Qty: 90 0RF amlodipine 5 mg tablet 5 mg PO DAILY Qty: 90 1RF Date of admission: 09/06/24 09:59 Primary Care Provider: Noé Poon Admitting Provider: Lily Arthur Attending physician on admission: Anel Amin Condition: Stable
== END 2024-09-08 15:16 | disposition home or self-care (01) | DRG 65 ==
LOC: ANHED 20:10 → ANHIMU 22:09 → ANH3MEDSUR 09-07 11:12 → ANHIMU 09-10 11:46
PROVIDERS: Internal Medicine Gastroenterology; Student in an Organized Health Care Education/Training Program; Admitting Provider Internal Medicine; Emergency Provider Student in an Organized Health Care Education/Training Program; PCP Family Medicine; Visit Provider Hospitalist
PROC: 0DJ08ZZ Inspection of Upper Intestinal Tract, Via Natural or Artificial Opening Endoscopic (ICD-10-PCS; CPT 45378; principal; 2024-09-06 15:00)
DX: I63.9 Cerebral infarction, unspecified (principal); N39.0 Urinary tract infection, site not specified; Q21.12 Patent foramen ovale; I10 Essential (primary) hypertension; I73.9 Peripheral vascular disease, unspecified; D50.9 Iron deficiency anemia, unspecified; K29.60 Other gastritis without bleeding; K57.30 Diverticulosis of large intestine without perforation or abscess without bleeding; K21.00 Gastro-esophageal reflux disease with esophagitis, without bleeding; K80.20 Calculus of gallbladder without cholecystitis without obstruction; E55.9 Vitamin D deficiency, unspecified; E78.5 Hyperlipidemia, unspecified; G25.81 Restless legs syndrome; F32.4 Major depressive disorder, single episode, in partial remission; Z87.891 Personal history of nicotine dependence; Z79.02 Long term (current) use of antithrombotics/antiplatelets; Z95.820 Peripheral vascular angioplasty status with implants and grafts
CPT/HCPCS: 36415; 36430; 70450; 70496; 70498; 74177; 80048; 80053; 80307; 81001; 81025; 82077; 82274; 82728; 83540; 83550; 85025; 85027; 85046; 85610; 85730; 86850; 86900; 86901; 86923; 87081; 87086; 88305; 93005; 93306; 95816; 96361; 96375; 96376; 99285; A9270; G0378; J0696; J2470; J2704; J7030; J7050; J7120; P9016; Q9967

== ENCOUNTER 2024-09-17 00:28 | Day surgery (SDC) | payer MEDICARE, SELFPAY ==
[2024-09-17] VITALS (14 sets, daily range): BP systolic 83–140; BP diastolic 39–61; PULSE 72–88; RESP 10–20; TEMP 36.5; O2SAT 95–100; BMI 23.1
--- OUTSIDE RECORDS SUMMARY | 2024-09-17 00:32 | XMS_ITS | Referral Summary ---
Author Organization [facility] Address [address] [place] [address] Care Team Providers Care Professional Bass Fisherman Name Role Phone Aicha Tatum Primary Care Provider [phone] Encounters Date Type Department Care Team Description 09/14/[address] [facility] Medical [facility] Cardiology [address] [place] [phone] Renan Chino MD 09/09/2024 Telephone [facility] Cardiology [address] [place] [phone] Renan Chino MD 08/23/2024 Orders Only [facility] Vascular Surgery [address] [place] [phone] Geronimo Gimenez MD Atherosclerosis of [place] arteries of extremities with intermittent claudication, left leg (Primary Dx); Atherosclerosis of [place] arteries of extremities with intermittent claudication, right leg 08/23/2024 9:45 AM DIVISIONAL MERCHANDISING MANAGER Office Visit [facility] Surgery [address] [place] [address] Sallie Swain NP Encounter for surgical aftercare following surgery on the circulatory system (Primary Dx) 08/23/2024 8:00 AM DIVISIONAL MERCHANDISING MANAGER Ancillary Procedure [facility] Vascular Lab at the [facility] [address] [place] [address] [place] [address] Encounter for surgical aftercare following surgery on [...] by mouth daily 30 tablet 11 024 Active Additional Information Patient taking differently:81 mg oralDaily (early AM), Indications: prevention of thrombosis, Informant: Self, Reported on 08/23/2024 ferrous sulfate (IRON ORAL)Indications:s upplement Take 65 mg by mouth every other day Active ectvvojq-vinnqqj-a violeta-lutein tabletIndications: supplement Take 1 tablet by mouth web master before 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 Assessment & Plan (08/27/2023 2:36 PM DIVISIONAL MERCHANDISING MANAGER): Stable continue lisinopril 40 mg. Hypercholesterolemia 11/04/2022 Assessment & Plan (09/09/2023 10:26 AM CDT): Stable continue Lipitor 10 mg. Assessment & Plan (08/27/2023 2:36 PM DIVISIONAL MERCHANDISING MANAGER): Stable continue Lipitor 10 mg. PAD (peripheral [...] opinion and has an appointment scheduled with [facility]. Assessment & Plan (08/27/2023 2:36 PM DIVISIONAL MERCHANDISING MANAGER): Left lower extremity chronic limb-threatening ischemia with [...] wound. Assessment & Plan (08/19/2023 10:54 AM DIVISIONAL MERCHANDISING MANAGER): Continues to deny any symptoms of claudication [...] Former Cigarettes 1.5 42 1 974 - 2015 Passive Smoke Exposure: Never Smokeless Tobacco: Never [...] on file Legal Sex Female 6:03 AM DIVISIONAL MERCHANDISING MANAGER Gender Identity Female 10/20/2022 4:51 PM CDT Sexual Orientation Not on file Last Filed Vital Signs Vital Sign Reading Time Taken Comments Blood Pressure 133/55 08/23/2024 8:49 AM DIVISIONAL MERCHANDISING MANAGER Pulse 100 08/23/2024 8:49 AM DIVISIONAL MERCHANDISING MANAGER Temperature 36.1 C (97 F) 01/21/2024 3:11 PM CDT Respiratory Rate 20 01/21/2024 5:30 PM CDT Oxygen Saturation 95% 08/23/2024 8:49 AM DIVISIONAL MERCHANDISING MANAGER Inhaled Oxygen Concentration - - Weight 61.2 kg (135 lb) 08/23/2024 8:49 AM DIVISIONAL MERCHANDISING MANAGER Height 157.5 cm (5' 2 ) 08/23/2024 8:49 AM DIVISIONAL MERCHANDISING MANAGER Body Mass Index 24.69 08/23/2024 8:49 AM DIVISIONAL MERCHANDISING MANAGER Plan of Treatment Not on file Medical Devices Implanted Type Area Set Up And Lay Out Inspector Device Identifier Shelf Expiration Date Model / Serial / Lot [employer] Protege Everflex 5mm .079in 60mm 120cm Otw Delivery System Self [id number] - [id number] Implanted:Qty : 1 on 09/18/2023 by Geronimo Gimenez MD at [facility] Left: Superficial Femoral Artery [employer] [id number] 04/22/2026 [id number] / / [id number] Procedures Procedure Name Priority Date/Time Associated Diagnosis Comments CARDIOLOGY DOCUMENT SCAN Routine 09/08/2024 9:43 AM CDT US ARTERIAL DUPLEX LOWER EXTREMITY LEFT LIMITED Schedule Routine, Read Routine (OP Routine) 08/23/2024 9:01 AM DIVISIONAL MERCHANDISING MANAGER Encounter for surgical aftercare following surgery on the circulatory system Presence of other vascular implants and grafts US ARTERIAL DOPPLER LOWER EXTREMITY BILATERAL Schedule Routine, Read Routine (OP Routine) 08/23/2024 9:01 AM DIVISIONAL MERCHANDISING MANAGER Encounter for surgical aftercare following surgery on the circulatory system from Last 3 Months Results * Cardiology Document Scan (09/08/2024 9:43 AM CDT) Anatomical Region Laterality Modality Other us Renan Chino MD CV [facility] Final Result * US Arterial Duplex Lower Extremity Left Limited (08/23/2024 9:01 AM DIVISIONAL MERCHANDISING MANAGER) Anatomical Region Laterality Modality Vascular Left Ultrasound 08/23/2024 7:52 AM DIVISIONAL MERCHANDISING MANAGER Narrative 08/23/2024 10:56 AM DIVISIONAL MERCHANDISING MANAGER [facility] - Department of Vascular Surgery, Vascular Laboratory [address] [place] [address] [place] Lower Extremity Arterial Duplex Report Patient Name: ASHLEY YBARAR : 1955 Study Date: 08/23/2024 7:52:42 AM Gender: F Tech: Location: [facility] Ref Provider: TY KNOX Quality: Adequate Order Provider: [...] and grafts. MEASUREMENTS: Left Value Units Lt REGISTERED NURSE RENAL Dst PSV 258 cm/s Lt Profunda Dst [...] 187 cm/s Left Value Units FINDINGS: Performing Assembler Wire Group: Jessica Lee RVT. Left Common Femoral: The [...] Electronically Signed By: Geronimo Gimenez MD [facility] [phone] 08/23/2024 9:44:02 AM DIVISIONAL MERCHANDISING MANAGER Procedure Note Geronimo Gimenez MD - 08/23/2024 [facility] - Department of Vascular Surgery,Vascular Laboratory [address] [place] [address] [place] Lower Extremity Arterial Duplex Report Patient Name: ASHLEY YBARRA : 1955 Study Date: 08/23/2024 7:52:42 AM Gender: F Tech: Location: [facility] Provider: TY KNOX Quality: Adequate Order Provider: [...] and grafts. MEASUREMENTS: Left Value Units Lt REGISTERED NURSE RENAL Dst PSV 258 cm/s Lt Profunda Dst [...] 187 cm/s Left Value Units FINDINGS: Performing Assembler Wire Group: Jessica Lee RVT. Left Common Femoral: The [...] Electronically Signed By: Geronimo Gimenez MD [facility] [phone] 08/23/2024 9:44:02 AM DIVISIONAL MERCHANDISING MANAGER us Ty Knox MD IMG US PROCEDURES Final R esult * US Arterial Doppler Lower Extremity Bilateral (08/23/2024 9:01 AM DIVISIONAL MERCHANDISING MANAGER) Anatomical Region Laterality Modality Vascular Bilateral Ultrasound 08/23/2024 8:19 AM DIVISIONAL MERCHANDISING MANAGER Narrative 08/23/2024 10:56 AM DIVISIONAL MERCHANDISING MANAGER [facility] - Department of Vascular Surgery, Vascular Laboratory [address] [place] [address] Lower Extremity Arterial Doppler Report Patient Name: ASHLEY YBARRA : 1955 Study Date: 08/23/2024 8:19:00 AM Gender: F Tech: Jessica Lee Neto Location: [facility] Ref Provider: TY KNOX Quality: Adequate Order Provider: [...] mmHg Lt Brachial Pressure 140 mmHg Rt TELEPHONE MAINTAINER Pressure 118 mmHg Lt TELEPHONE MAINTAINER Pressure 120 mmHg Rt DPA Pressure 93 mmHg Lt DPA Pressure 115 mmHg Rt 1st Digit Pressure 90 mmHg Lt 1st Digit Pressure 57 mmHg Rt PT SARANYA Resting 0.84 Lt PT SARANYA Resting 0.86 Rt AT SARANYA Resting 0.66 Lt AT SARANYA Resting 0.82 Rt Digit/Arm Index 0.64 Lt Digit/Arm Index 0.41 Right Value Units Left Value Units FINDINGS: Performing Assembler Wire Group: Jessica Lee RVT. Right Common Femoral Artery [...] Electronically Signed By: Geronimo Gimenez MD [facility] [phone] 08/23/2024 9:40:32 AM DIVISIONAL MERCHANDISING MANAGER Procedure Note Geronimo Gimenez MD - 08/23/2024 [facility] - Department of Vascular Surgery,Vascular Laboratory [address] [place] [address] Lower Extremity Arterial Doppler Report Patient Name: ASHLEY YBARRA : 1955 Study Date: 08/23/2024 8:19:00 AM Gender: F Tech: Jessica Lee RVT Location: [facility] Provider: TY KNOX Quality: Adequate Order Provider: [...] mmHg Lt Brachial Pressure 140 mmHg Rt TELEPHONE MAINTAINER Pressure 118 mmHg Lt TELEPHONE MAINTAINER Pressure 120 mmHg Rt DPA Pressure 93 mmHg Lt DPA Pressure 115 mmHg Rt 1st Digit Pressure 90 mmHg Lt 1st Digit Pressure 57 mmHg Rt PT SARANYA Resting 0.84 Lt PT SARANYA Resting 0.86 Rt AT SARANYA Resting 0.66 Lt AT SARANYA Resting 0.82 Rt Digit/Arm Index 0.64 Lt Digit/Arm Index 0.41 Right Value Units Left Value Units FINDINGS: Performing Assembler Wire Group: Jessica Lee RVT. Right Common Femoral Artery [...] Electronically Signed By: Geronimo Gimenez MD [facility] [phone] 08/23/2024 9:40:32 AM DIVISIONAL MERCHANDISING MANAGER Ty Knox MD [facility] PROCEDURES Final R esult from Last 3 Months Insurance MEDICARE A[employer] SENIOR SUPPLEMENT MEDICARE AET[employer] SENIOR SUPPLEMENT Advance Directives For more information, please contact: [phone] * Full Code (Latest Code Status on File) Date Activated Date Inactivated Comments 09/01/2023 10:16 AM 09/01/2023 6:05 PM Care Teams Professional Bass Fisherman Relationship Specialty Start Date End Date Aicha Tatum PA [facility] [place] [id number] PCP - General Family Medicine 09/16/22
--- OUTSIDE RECORDS SUMMARY | 2024-09-17 00:32 | XMS_ITS | Encounter Summary ---
Author Organization [facility] Address [address] [place] [address] Care Team Providers Care Telephone Lineworker Name Role Phone Aicha Tatum Primary Care Provider [phone] Encounter Details Date Type Department Care Team (Late st Contact Info) Description 09/14/2024 Orders Only [facility] Cardiology [address] [place] [address] Renan Chino MD [address] [address] Social History Tobacco Use Types Packs/Day Years Used Date Smoking Tobacco: Former Cigarettes 1.5 42 1 974 - 2016 Passive Smoke Exposure: Never Smokeless Tobacco: Never AUDIT-C Answer Date Recorded Q1: How often [...] on file Legal Sex Female 6:03 AM DIRECTOR OF WORKFORCE DEVELOPMENT Gender Identity Female 10/20/2022 4:51 PM CDT Sexual Orientation Not on file documented as of this encounter Plan of Treatment Not on file documented as of this encounter Procedures Procedure Name Priority Date/Time Associated Diagnosis Comments CARDIOLOGY DOCUMENT SCAN Routine 09/08/2024 9:43 AM CDT documented in this encounter Results * Cardiology Document Scan (09/08/2024 9:43 AM CDT) Anatomical Region Laterality Modality Other us Renan Chino MD CV CARDIAC SERVICES [facility] Final Result documented in this encounter Visit Diagnoses Not on filedocumented in this encounter Care Teams Telephone Lineworker Relationship Specialty Start Date End Date Aicha Tatum PA [address] [place] [address] PCP - General Family Medicine 09/16/22 documented as of this encounter
--- OUTSIDE RECORDS SUMMARY | 2024-09-17 00:32 | XMS_ITS | Clinical Summary ---
Author Organization [facility] at the [facility] Office Center Address [address] [place] [address] Care Team Providers Care Maintenance Shop Welder Name Role Phone Aicha Tatum Primary Care Provider [phone] Allergies No known active allergies Medications ascorbic [...] total) by mouth daily 30 tablet 11 Active Additional Information Patient taking differently:81 mg oralDaily (early AM), Indications: prevention of thrombosis, Informant: Self, Reported on 08/23/2024 ferrous sulfate (IRON ORAL)Indications:s upplement Take 65 mg by mouth every other day Active fktdwego-onqlltm-n violeta-lutein tabletIndications: supplement Take 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 Active CALCIUM CARBONATE-VITAMIN D3 ORALIndications:Os teoporosis,Vitamin D Deficiency Take 1 tablet by mouth daily Active amLODIPine (NORVASC) 5 mg tablet Take 1 tablet (5 mg total) by mouth daily Active sertraline (ZOLOFT) 50 mg tablet Active sertraline (ZOLOFT) 25 mg tabletIndications: depression,mood swings Take 1 tablet (25 mg total) by mouth every morning 2024 Discontinued Active Problems Problem Noted Date Diagnosed Date PVD (peripheral vascular disease) 01/09/2024 Encounter for surgical after care following surgery on the circulatory system 01/05/2024 Non-healing open wound of toe, initial encounter 09/18/2023 Non-healing wound of left lower extremity 2023 Secondary hypertension 11/04/2022 Assessment & Plan (09/09/2023 10:27 AM CDT): Stable continue lisinopril 40 mg. Assessment & Plan (08/27/2023 2:36 PM TECHNOLOGY SALES SPECIALIST): Stable continue lisinopril 40 mg. Hypercholesterolemia 11/04/2022 Assessment & Plan (09/09/2023 10:26 AM CDT): Stable continue Lipitor 10 mg. Assessment & Plan (08/27/2023 2:36 PM TECHNOLOGY SALES SPECIALIST): Stable continue Lipitor 10 mg. PAD (peripheral [...] opinion and has an appointment scheduled with [facility]. Assessment & Plan (08/27/2023 2:36 PM TECHNOLOGY SALES SPECIALIST): Left lower extremity chronic limb-threatening ischemia with [...] wound. Assessment & Plan (08/19/2023 10:54 AM TECHNOLOGY SALES SPECIALIST): Continues to deny any symptoms of claudication [...] Department Care Team Description 09/14/2024 Orders Only [facility] Medical [facility] Cardiology [address] [place] [address] Renan Chino MD 09/09/2024 Telephone [facility] Cardiology [address] [place] [address] Renan Chino MD 08/23/2024 9:45 AM TECHNOLOGY SALES SPECIALIST Office Visit [facility] Surgery [facility] [address] 8th [place] [address] [place] [address] Sallie Swain NP Encounter for surgical aftercare following surgery on the circulatory system (Primary Dx) 08/23/2024 8:00 AM TECHNOLOGY SALES SPECIALIST Ancillary Procedure [facility] Vascular Lab at the [facility] [address] 8th [place] [address] [place] [address] Encounter for surgical aftercare following surgery on the circulatory system; Presence of other vascular implants and grafts 08/23/2024 Orders Only [facility] Vascular Surgery [facility] Medical Office Building [address] [place] [address] Geronimo Gimenez MD 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, left leg (Primary Dx); 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, right [...] on file Legal Sex Female 6:03 AM TECHNOLOGY SALES SPECIALIST Gender Identity Female 10/20/2022 4:51 PM CDT Sexual Orientation Not on file Obstetrics History Last Filed Vital Signs Vital Sign Reading Time Taken Comments Blood Pressure 133/55 08/23/2024 8:49 AM TECHNOLOGY SALES SPECIALIST Pulse 100 08/23/2024 8:49 AM TECHNOLOGY SALES SPECIALIST Temperature 36.1 C (97 F) 01/21/2024 3:11 PM CDT Respiratory Rate 20 01/21/2024 5:30 PM CDT Oxygen Saturation 95% 08/23/2024 8:49 AM TECHNOLOGY SALES SPECIALIST Inhaled Oxygen Concentration - - Weight 61.2 kg (135 lb) 08/23/2024 8:49 AM TECHNOLOGY SALES SPECIALIST Height 157.5 cm (5' 2 ) 08/23/2024 8:49 AM TECHNOLOGY SALES SPECIALIST Body Mass Index 24.69 08/23/2024 8:49 AM TECHNOLOGY SALES SPECIALIST Plan of Treatment Health Maintenance Due Date [...] 09/17/2024 09/18/2023 Medical Devices Implanted Type Area Wash Barrel Leader Device Identifier Shelf Expiration Date Model / Serial / Lot Med[employer] Protege Everflex 5mm .079in 60mm 120cm Otw Delivery System Self [id number] - [id number] Implanted:Qty : 1 on 09/18/2023 by Geronimo Gimenez MD at [facility] Left: Superficial Femoral Artery [employer] [id number] 04/22/2026 [id number] / / [id number] Procedures Procedure Name Priority Date/Time Associated Diagnosis Comments CARDIOLOGY DOCUMENT SCAN Routine 09/08/2024 9:43 AM CDT US ARTERIAL DUPLEX LOWER EXTREMITY LEFT LIMITED Schedule Routine, Read Routine (OP Routine) 08/23/2024 9:01 AM TECHNOLOGY SALES SPECIALIST Encounter for surgical aftercare following surgery on the circulatory system Presence of other vascular implants and grafts US ARTERIAL DOPPLER LOWER EXTREMITY BILATERAL Schedule Routine, Read Routine (OP Routine) 08/23/2024 9:01 AM TECHNOLOGY SALES SPECIALIST Encounter for surgical aftercare following surgery on the circulatory system from Last 3 Months Results * Cardiology Document Scan (09/08/2024 9:43 AM CDT) Anatomical Region Laterality Modality Other us Renan Chino MD CV CARDI[facility] Final Result * US Arterial Duplex Lower Extremity Left Limited (08/23/2024 9:01 AM TECHNOLOGY SALES SPECIALIST) Anatomical Region Laterality Modality Vascular Left Ultrasound 08/23/2024 7:52 AM TECHNOLOGY SALES SPECIALIST Narrative 08/23/2024 10:56 AM TECHNOLOGY SALES SPECIALIST [facility] - Department of Vascular Surgery, Vascular Laboratory [address] [place] [address] [place] Lower Extremity Arterial Duplex Report Patient Name: ACE YBARRA : 1955 Study Date: 08/23/2024 7:52:42 AM Gender: F Tech: Location: [facility] Provider: TY KNOX Quality: Adequate Order Provider: [...] and grafts. MEASUREMENTS: Left Value Units Lt FORESTRY FARM LABORER Dst PSV 258 cm/s Lt Profunda Dst [...] 187 cm/s Left Value Units FINDINGS: Performing Laundry Operator Wash Room: Jessica Lee RVT. Left Common Femoral: The [...] above. Electronically Signed By: Geronimo Gimenez MD [facility] [phone] 08/23/2024 9:44:02 AM TECHNOLOGY SALES SPECIALIST Procedure Note Geronimo Gimenez MD - 08/23/2024 [facility] - Department of Vascular Surgery,Vascular Laboratory [address] [place] [address] [place] Lower Extremity Arterial Duplex Report Patient Name: ACE YBARRA : 1955 Study Date: 08/23/2024 7:52:42 AM Gender: F Tech: Location: [facility] Provider: TY KNOX Quality: Adequate Order Provider: [...] and grafts. MEASUREMENTS: Left Value Units Lt FORESTRY FARM LABORER Dst PSV 258 cm/s Lt Profunda Dst [...] 187 cm/s Left Value Units FINDINGS: Performing Laundry Operator Wash Room: Jessica Lee RVT. Left Common Femoral: The [...] above. Electronically Signed By: Geronimo Gimenez MD [facility] [phone] 08/23/2024 9:44:02 AM TECHNOLOGY SALES SPECIALIST us Ty Knox MD IMG US PROCEDURES Final R esult * US Arterial Doppler Lower Extremity Bilateral (08/23/2024 9:01 AM TECHNOLOGY SALES SPECIALIST) Anatomical Region Laterality Modality Vascular Bilateral Ultrasound 08/23/2024 8:19 AM TECHNOLOGY SALES SPECIALIST Narrative 08/23/2024 10:56 AM TECHNOLOGY SALES SPECIALIST [facility] - Department of Vascular Surgery, Vascular Laboratory [address] [place] [address] Lower Extremity Arterial Doppler Report Patient Name: ACE YBARRA : 1955 Study Date: 08/23/2024 8:19:00 AM Gender: F Tech: Jessica Lee [facility] Location: [facility] Provider: TY KNOX Quality: Adequate Order Provider: [...] mmHg Lt Brachial Pressure 140 mmHg Rt ENGINE MONITOR Pressure 118 mmHg Lt ENGINE MONITOR Pressure 120 mmHg Rt DPA Pressure 93 mmHg Lt DPA Pressure 115 mmHg Rt 1st Digit Pressure 90 mmHg Lt 1st Digit Pressure 57 mmHg Rt PT SARANYA Resting 0.84 Lt PT SARANYA Resting 0.86 Rt AT SARANYA Resting 0.66 Lt AT SARANYA Resting 0.82 Rt Digit/Arm Index 0.64 Lt Digit/Arm Index 0.41 Right Value Units Left Value Units FINDINGS: Performing Laundry Operator Wash Room: Jessica Lee RVT. Right Common Femoral Artery [...] above. Electronically Signed By: Geronimo Gimenez MD [facility] [phone] 08/23/2024 9:40:32 AM TECHNOLOGY SALES SPECIALIST Procedure Note Geronimo Gimenez MD - 08/23/2024 [facility] - Department of Vascular Surgery,Vascular Laboratory [address] [place] [address] Lower Extremity Arterial Doppler Report Patient Name: ACE YBARRA : 1955 Study Date: 08/23/2024 8:19:00 AM Gender: F Tech: Jessica Lee [facility] Location: [facility] Provider: TY KNOX Quality: Adequate Order Provider: [...] mmHg Lt Brachial Pressure 140 mmHg Rt ENGINE MONITOR Pressure 118 mmHg Lt ENGINE MONITOR Pressure 120 mmHg Rt DPA Pressure 93 mmHg Lt DPA Pressure 115 mmHg Rt 1st Digit Pressure 90 mmHg Lt 1st Digit Pressure 57 mmHg Rt PT SARANYA Resting 0.84 Lt PT SARANYA Resting 0.86 Rt AT SARANYA Resting 0.66 Lt AT SARANYA Resting 0.82 Rt Digit/Arm Index 0.64 Lt Digit/Arm Index 0.41 Right Value Units Left Value Units FINDINGS: Performing Laundry Operator Wash Room: Jessica Lee RVT. Right Common Femoral Artery [...] above. Electronically Signed By: Geronimo Gimenez MD [facility] [phone] 08/23/2024 9:40:32 AM TECHNOLOGY SALES SPECIALIST us Ty Knox MD [facility] PROCEDURES Final R esult from Last 3 Months Insurance MEDICARE A[employer] SENIOR SUPPLEMENT MEDICARE AETNA SENIOR SUPPLEMENT Advance Directives For more information, please contact: [phone] * Full Code (Latest Code Status on File) Date Activated Date Inactivated Comments 09/01/2023 10:16 AM 09/01/2023 6:05 PM Care Teams Maintenance Shop Welder Relationship Specialty Start Date End Date Aicha Tatum PA [address] [place] [id number] PCP - General Family Medicine 09/16/22
--- OUTSIDE RECORDS SUMMARY | 2024-09-17 00:32 | XMS_ITS | Clinical Summary ---
Author Organization [facility] Address [address] [place] [address] Care Team Providers Care Career Services Coordinator Name Role Phone Zoe Aguero Primary Care Provider [phone] Allergies No known active allergies Medications sertraline [...] CDT Respiratory Rate 16 08/28/2021 4:35 PM CARTOGRAPHIC TECHNICIAN Oxygen Saturation 97% 08/28/2021 4:35 PM CARTOGRAPHIC TECHNICIAN Inhaled Oxygen Concentration - - Weight 62.3 [...] this topic Medical Devices Implanted Type Area Pack Changer Device Identifier Shelf Expiration Date Model / Serial / Lot Plate Synthes 2.4 Va-Lcp Vlr Dist Radius 6h Hd/2h Shaft Right - [id number] Implanted:Qty: 1 on 08/28/2021 by Jj Barr MD at [facility] Plate Right: Radius SYNTHES .111.620 / / Screw Synthes 2.4 Locking Stardrive 14mm - [id number] Implanted:Qty: 1 on 08/28/2021 by Jj Barr MD at [facility] Screw Right: Radius SYNTHES 210.114 / / Screw Synthes 2.4 Locking Stardrive 18mm - [id number] Implanted:Qty: 2 on 08/28/2021 by Jj Barr MD at [facility] Screw Right: Radius SYNTHES 210.118 / / Screw Synthes 2.4 Locking Stardrive 20mm - [id number] Implanted:Qty: 4 on 08/28/2021 by Jj Barr MD at [facility] Screw Right: Radius SYNTHES 210.120 / / Screw Synthes 2.4 Cortical Self Tap 12mm - [id number] Implanted:Qty: 1 on 08/28/2021 by Jj Barr MD at [facility] Screw Right: Radius SYNTHES 201.762 / [...] Health Maintenance Insurance AET[employer] MEDICARE Care Teams Career Services Coordinator Relationship Specialty Start Date End Date Zoe Aguero PA PCP - General PHYSICIAN PUMP MECHANIC 01/12/19
--- OUTSIDE RECORDS SUMMARY | 2024-09-17 00:32 | XMS_ITS | Data Portability ---
Author Organization [place] [facility] [employer], Main Office Address [address] [place] [address] Care Team Providers Care Baccarat Manager Name Role Phone KATHY FRITZ Primary Care Provider KATHY FRITZ Referring Provider [phone] Assessment Encounter Date Assessment Date Assessment LastModified [...] more than half the time spent in boip-wl-vokm care. Not available 11/04/2022 16:25:45 03/28/2023 03/28/2023 [...] treatment patient than half of this in xpow-qj-roxy conversation Not available 03/28/2023 14:53:09 Plan of [...] DO Not Attach Compendium, Do Not Delete/merge, [id number] 16:19:15 Surgeries None recorded. Imaging XR, hip + pelvis, unilateral 2022 023 [facility] [place], [address], [place], [address], 16:06:59 XR, shoulder 2022 023 [email or web address] [facility] [place], [address], [place], [address], 09:56:50 Medication Orders diclofenac sodium 75 mg tablet,del ayed release 2022 023 [facility], [address] [place], [id number], 16:06:59 Kenalog 10 mg/mL suspension for injection 2022 023 [facility], [address] [place], [id number], 3 10:30:52 ropivacain e (PF) 5 mg/mL (0.5 %) injection solution 2022 023 [facility], [address] [place], [id number], 3 10:30:52 Patient TargetsNo targets recorded. Patient InstructionsNo instructions recorded. Reason for Referral None Reported. Results Created Date Observation Date Name Description Value Unit Range Abnormal Flag Note LastModifiedBy Organization Detail LastModifiedTime 09/12/19 23 XR, shoul marlon No observ ation record ed. [facility] [place] [address], [place], [address], 09/25/2022 08:40:00 11/02/19 23 MRI, shoul marlon, w/o contr ast [facility] [address], [place] [address] Patien t Name: SURESH YBARRA Access ion #: [id number] Sex: F : 1954 7 2 Locati [...] intras ubstan ce Page 1 of 2 [facility] Pativaleriano t Name: SURESH YBARRA Access ion #: [id number] Sex: F : 1954 7 2 Exam [...] 3:32 PM (CT) Page 2 of 2 [email or web address] [facility] (Imaging) [address] [place], [address], 11/04/2022 11:51:37 03/28/20 23 XR, hip + pelvi s, unila teral No observ ation record ed. [email or web address] [facility] [place] [address], [place], [address], 03/28/2023 14:51:38 Result Notes None recorded. Problems Name Problem SNOMED Code Status Onset Date Resolution Date Notes Provider Name and Address Organization Details Recorded Time Bilateral shoulder joint pain 90105493353320 104 Active 2022 Jenna Chin RMSandra null, [facility] [employer] [facility] 3 09:07:42 Pain of right shoulder joint 25572537314332 100 Active 2022 Dasia Gutiérrez CMA null, [facility] [employer] [facility] 3 09:45:31 Pain of left hip joint 86516731162262 0 Active 2022 Rizwana Franks null, [facility] [employer] [facility] 3 14:09:14 Notes:Some problems listed i n Document: #[id number] could not be added to this patient's chart. Please review this document and add these problems to the patient's chart manually as needed. Problem Notes None recorded. Procedures Surgical History None recorded. Imaging Results Imaging Date Name Status LastModified by Organiz [facility] Details LastModified Time 09/11/2022 XR, shoulder completed [facility] [place] [address], [place], [address], 09/25/2022 08:40:00 11/01/2022 MRI, shoulder, w/o contrast completed [email or web address] [facility] (Imaging) [address] [place], [address], 11/04/2022 11:51:37 03/28/2023 XR, hip + pelvis, unilateral completed [email or web address] [facility] [place] [address], [place], [address], 03/28/2023 14:51:38 Procedure Notes None recorded. Medical [...] procedure, administere d by provider 2022 active [facility]: [phone] Not Available Not Available [...] procedure, administere d by provider 2022 active [facility] [phone] Not Available Not Available Not Available Vitals Date Recorded Body height Body mass index (BMI) Body weight Provider Name and Address Organization Details Last Updated DateTime 09/11/2022 157.48 cm 25.2 kg/m2 45713.75 g Jenna Chin Sandra [facility] [employer] [facility] 09/11/2022 09:12:56 Date Recorded Body height Provider Name an d Address Organization Details Last Updated DateTime 10/23/2022 157.48 cm Jenna Chin [facility] [employer] [facility] 10/23/2022 08:59:11 Date Recorded Body height Provider Name an d Address Organization Details Last Updated DateTime 11/04/2022 157.48 cm Jenna Chin [facility] [employer] [facility] 11/04/2022 15:31:32 Date Recorded Body height Provider Name an d Address Organization Details Last Updated DateTime 03/28/2023 157.48 cm Rizwana Ortizs [facility] [employer] [facility] 03/28/2023 14:08:43 Social History Question Answer Notes LastModified by Organizat ion Details LastModified Time Tobacco Smoking Status Never Smoker Jenna Giuseppe, AMBER null, [place] [facility] 09/11/2022 09:06:58 What Is Your Level Of Alcohol Consumption? Heavy Information not available 09/11/2022 Sex: Unknown Functional Status None recorded. Mental Status None recorded. Family History Nothing Reported. Medical History No medical history recorded. Gynecological HistoryNo gynecological history recorded. Obstetrics History GPAL:G 0 P 0 0 0 0 Past Encounters Encounter ID Performer Location Encounter Start Date Encounter Closed Date Diagnosis/Indication Diagnosis SNOMED-CT Code Diagnosis ICD10 Code Diagnosis Note [id number] Shad Steiner MD [facility] [place] [address] [place] [address] 09/11/2022 08:42:59 09/30/2022 09:56:49 Bilateral shoulder joint pain 6172126080 [id number] M25.511 M25.512 [id number] MARYJANE Strange [facility] [place] [address] [place] [address] 10/23/2022 08:57:01 10/23/2022 10:01:19 Bilateral shoulder joint pain 5034023703 0626506 M25.511 M25.512 [id number] Shad Steiner MD [facility] [place] [address] [place] [address] 11/04/2022 15:26:52 11/04/2022 16:31:16 Pain of right shoulder joint 8756963154 6939537 M25.103 [id number] MARYJANE Strange [facility] [place] [address] [place] [address] 03/28/2023 14:00:59 03/28/2023 14:56:01 Pain of left hip joint 2940549058 19576 M25.552 Health Concerns Section Related Observation LastModified by Organization Detai ls LastModified Time None Recorded Concern Status LastModified by Organization Details LastModified Time None Recorded Advance Directives Directive None Recorded Payers Encounter Date Sequence Insurance Name Policy Number Policy Simon Covered Member ID Simon Member ID Guarantor Name 09/11/2022 1 [place] Ashley Ybarra [id number] Ashley Ybarra 09/11/2022 2 [employer] (MEDICARE SUPPLEMENT) Ashley Ybarra [id number] Ashley Ybarra 10/23/2022 1 [place] Ashley Hinojosaon [id number] Ashley Ybarra 10/23/2022 2 [employer] (MEDICARE SUPPLEMENT) Ashley Hinojosaon [id number] Ashley Ybarra 11/04/2022 1 [place] Ashley Esther Hinojosaon [id number] Ashley Ybarra 11/04/2022 2 [employer] INSURANCE [employer] (MEDICARE SUPPLEMENT) Ashley Ybarra [id number] Ashley Ybarra 03/28/2023 1 [place] Ashley Hinojosaon [id number] Ashley Ybarra 03/28/2023 2 [employer] (MEDICARE SUPPLEMENT) Ashley Ybarra [id number] Ashley Ybarra Notes Date Note Type Note Provider Name and Address Organization Details Recorded Time 09/11/2022 text/html patient is a 67-year-old female presents for evaluation of both shoulders. She started having symptoms approximately 3 months ago. No prior problems. No injury. Pain is mainly in the front and top of her shoulder worse on the. 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 Shad Steiner MD [address] [place] [address], [facility] [address], [place], [address], [facility] [employer] 09/25/2022 09:17:33 OBGyn Episode No OBEpisode recorded.
--- NOTE | 2024-09-17 09:20 | P.SEDATION_ITS ---
Moderate Sedation Note-Pt Data Patient Data Diagnosis: PFO Present Complaint: PFO Procedure to be performed/Plan: Transesophageal Echocardiogram Allergies Allergy/AdvReac Type Severity Reaction Status Date / Time No Known Allergies Allergy Verified 09/17/24 07:43 Home Medications ?Medication ?Instructions ?Recorded ?Confirmed ?Type calcium 1,000 mg (as 800 - 1,000 tablet PO DAILY #90 08/30/22 09/17/24 Rx carbonate)-vitamin D3 20 mcg (800 tabs unit) tablet cetirizine 10 mg tablet (All Day 10 mg PO DAILY PRN allergy 08/30/22 09/16/24 Rx Allergy (cetirizine)) symptoms #90 tabs lactobacillus combination no.9 4 4,000 mmu cells PO DAILY #90 caps 08/30/22 09/17/24 Rx billion cell capsule (Adult 50 Plus Probiotic) tramadol 50 mg tablet 50 mg PO Q6H PRN pain 30 days #90 02/18/24 09/17/24 Rx tabs pramipexole 1 mg tablet 1 mg PO QHS #135 tabs 03/29/24 09/16/24 Rx clopidogrel 75 mg tablet See Rx Instructions .Route 06/29/24 09/17/24 Rx .COMPLEX #90 tabs amlodipine 5 mg tablet 5 mg PO DAILY #90 tabs 08/25/24 09/16/24 Rx lisinopril 40 mg tablet 40 mg PO DAILY #90 tabs 08/25/24 09/16/24 Rx pantoprazole 40 mg tablet,delayed 40 mg PO Q12HR #60 tabs 09/08/24 09/17/24 Rx release sucralfate 1 gram tablet (Carafate) 1 g PO ACHS #120 tabs 09/08/24 09/16/24 Rx atorvastatin 10 mg tablet 10 mg PO DAILY #100 tabs 09/14/24 09/17/24 Rx sertraline 50 mg tablet 50 mg PO DAILY #100 tabs 09/14/24 09/17/24 Rx aspirin 81 mg chewable tablet 81 mg PO DAILY 09/17/24 09/17/24 History (Augustus Chewable Low Dose Aspirin) Sedation/Anesthesia: No previous sedation/anesthesia problems (including family history). [facility] Past Medical History Medical History Acute CVA (cerebrovascular accident) Gastritis Major depressive disorder in partial remission Chronic anemia Peripheral arterial disease with history of revascularization Mixed hyperlipidemia Joint pain Restless leg syndrome Major depression in full remission Allergic rhinitis Vitamin D deficiency, unspecified Essential (primary) hypertension Surgical History Surgical History History of surgery on right wrist ORIF Hx of elbow surgery left cubital tunnel release History of total abdominal hysterectomy 1995 Family History Family History Father Heart disease Mother Heart disease Social History Social History Smoking packs per day: 2 Smoking cigarettes per day: 40.0 Years smoked: 40 Smoking pack-years: 80.00 Smoking status: Former smoker Tobacco type: cigarettes Second hand tobacco smoke exposure: No Alcohol intake: current Drinks per week: 5 Substance use: never Substance use type: does not use Do You Feel Safe in your Home?: Yes Lack of Transportation: No Lack of Food: Never True Current Housing: I Have Housing Concerned About Future Housing: Decline to Answer Difficulty Paying Gas/Electric Bills: Decline to Answer Difficulty Paying for Meds: Decline to Answer Currently Unemployed: Decline to Answer Education: Decline to Answer Difficulty w/ Childcare or Family Care: Decline to Answer Living arrangements: with family Occupation/Education: occupation Gender identity (if verbalized by the patient): Female Sexual Orientation (if Verbalized by the Patient): Straight or Heterosexual Spiritual care concerns: No Mod Sed Physical Exam Physical Exam Pre Procedural Exam: Normal: Appearance, Lungs, Heart Rate, Heart Rhythm, Extremities and Skin Hours since solid foods: 12 Hours since liquid intake: 8 Mallampati Classification: class II Internal Medicine - PN: Obj Da Vital Signs Vital Signs: Vital Signs - 24 hr 09/17/24 07:49 09/17/24 08:58 09/17/24 09:05 Temperature 36.5 C Pulse Rate 79 79 77 Respiratory Rate 14 16 17 Blood Pressure 128/58 L 140/50 L 123/51 L Pulse Oximetry 99 100 100 Oxygen Delivery Room Air Nasal Cannula Nasal Cannula Oxygen Flow Rate 2 2 09/17/24 09:10 09/17/24 09:15 Temperature Pulse Rate 83 80 Respiratory Rate 10 L 16 Blood Pressure 123/61 140/61 Pulse Oximetry 100 96 Oxygen Delivery Nasal Cannula Nasal Cannula Oxygen Flow Rate 2 2 ASA Classification/Sedation ASA Classification/Sedation ASA Class: II Emergent: No Risks: Risks, benefits and alternatives explained and patient/family accepted plan for sedation. Patient re-evaluated immediately prior to sedation.
--- NOTE | 2024-09-17 09:20 | WPDHPUPDATE1 ---
History and Physical Update Update Date/Time: 09/17/24 09:20 History and Physical has been reviewed, including an updated exam of the patient. There are NO changes in the patient's condition. Risks, benefits, and alternatives have been discussed and questions answered. Patient agrees to proceed with procedure.
--- NOTE | 2024-09-17 09:21 | WPDTEECHO ---
[facility] TransEsophageal Echocardiogram Date of procedure: 09/17/24 Procedure Type: Date Of Procedure: 09/17/2024 Brief History Of Present Illness: Patient is a pleasant 69 year old female who is referred for transesophageal echocardiogram for further evaluation of PFO. Procedure In Detail: After verbal and written informed consent was obtained, the patient risks, benefits, and alternatives explained in detail. The patient agreed to proceed with the plan of care as outlined above.?The patient was evaluated at bedside in [facility].?See pre-sedation note for further details. The patient was then placed in the appropriate 30 to 45 degree angle supine position at a slight left lateral decubitus position.?Patient was monitored throughout the study with telemetry, oxygen saturation, end-tidal CO2 monitoring, blood pressure, heart rate, and respirations.?The posterior hypopharynx was then locally anesthetized using repeated administration of Hurricaine spray as well as gargled viscous lidocaine. After local anesthetic of the posterior hypopharynx was achieved and the oral bite block placed, moderate sedation was administered.?After confirmation of adequate moderate sedation, the transesophageal echocardiogram probe was advanced through the oral bite block into the posterior hypopharynx and into the esophagus easily and without complication.?Multiple, multiplanar echocardiographic images were obtained in multiple standard re-projections.?Color-flow Doppler and bubble study were utilized in conjunction with this study.?At the conclusion of the study, the transesophageal echocardiogram probe was removed easily and without complication. The patient tolerated the procedure well without difficulty.?Patient was in sinus rhythm throughout the study. Moderate Sedation / Anesthesia Administration: Procedure / sedation start time: 09:00 Procedure / sedation end time: 09:17 Total procedure time: 17 minutes Total of IV Versed 5mg and Fentanyl 150mg was administered by RN. FINDINGS: LEFT VENTRICLE: Size and systolic function were within normal limits. RIGHT VENTRICLE:?Size and systolic function within normal limits. LEFT ATRIUM: Normal size. RIGHT ATRIUM: Normal size. INTERATRIAL SEPTUM: Interatrial septum is aneurysmal. Bubble study is positive for a small right to left shunt, both at rest and Valsalva, consistent with PFO. MITRAL VALVE: Mitral valve is anatomically normal with preserved leaflet excursion. No mitral valve regurgitation. AORTIC VALVE: The aortic valve was an anatomically normal 3 leaflet structure with normal leaflet excursion and no regurgitation identified. TRICUSPID VALVE: The tricuspid valve is grossly normal. PULMONIC VALVE: Pulmonic valve is grossly normal. LEFT ATRIAL APPENDAGE: Anatomically normal structure with prominent pectinate muscles without thrombus or vegetation identified. PERICARDIUM: The pericardium was anatomically normal without significant pericardial effusion. ? AORTA: Not well visualized. CONCLUSION: Interatrial septum is aneurysmal. Bubble study is positive for a small right to left shunt, both at rest and Valsalva, consistent with PFO. No left atrial appendage thrombus. Complications: None
== END 2024-09-17 10:30 | disposition home or self-care (01) ==
PROVIDERS: PCP Family Medicine; Visit Provider Internal Medicine
PROC: (CPT 93312; principal; 2024-09-17 08:30)
DX: Q21.12 Patent foramen ovale (principal); E78.2 Mixed hyperlipidemia; I10 Essential (primary) hypertension; E55.9 Vitamin D deficiency, unspecified; G25.81 Restless legs syndrome; D64.9 Anemia, unspecified; F32.5 Major depressive disorder, single episode, in full remission; Z79.891 Long term (current) use of opiate analgesic; Z79.02 Long term (current) use of antithrombotics/antiplatelets; Z79.82 Long term (current) use of aspirin; Z98.890 Other specified postprocedural states; Z87.891 Personal history of nicotine dependence; Z86.79 Personal history of other diseases of the circulatory system; Z87.19 Personal history of other diseases of the digestive system; Z82.49 Family history of ischemic heart disease and other diseases of the circulatory system
CPT/HCPCS: 93312; 93320; 93325; J2250; J2704; J3010; J7040

== ENCOUNTER 2024-10-14 10:30 | Outpatient (CLI) | payer MEDICARE, SELFPAY ==
--- NOTE | ~2024-10-14 | MR_ITS ---
MRI of the brain Clinical History: Aphasia Technique: Axial and sagittal T1-weighted images were acquired. These were followed by axial T2-weigh charlie, diffusion weighted, gradient, and FLAIR images. Findings: No definite acute infarct, acute intracranial hemorrhage, or mass lesion identified. There is probable chronic infarct in the right frontal lobe with mild T2 shine through on diffusion images. There are mild background chronic white matter changes in the periventricular white matter. Ventricles are spaces are unremarkable. Orbits are unremarkable. Paranasal sinuses and mastoid air ce lls are clear. Major intracranial flow voids appear intact. Sagittal midline structures are intact. IMPRESSION: No definite acute abnormality. Chronic right frontal lobe infarct with low T2 shine through on diffusion images. Mild chronic microvascular ischemic change. Reviewed, dictated and finalized at location . IMPRESSION: No definite acute abnormality. Chronic right frontal lobe infarct with low T2 shine through on diffusion image s. Mild chronic microvascular ischemic change.
== END 2024-10-14 10:31 | disposition home or self-care (01) ==
PROVIDERS: PCP Internal Medicine Cardiovascular Disease; Visit Provider Family Medicine
DX: R47.01 Aphasia (principal); R93.0 Abnormal findings on diagnostic imaging of skull and head, not elsewhere classified
CPT/HCPCS: 70551

== ENCOUNTER 2024-10-21 13:49 | Outpatient (CLI) | payer MEDICARE, SELFPAY ==
[2024-10-21 14:06] LABS: Basophils Percent Auto 0.4 % (0.2-1.2); Eosinophils Absolute Auto 0.3 K/mm3 (0-0.3); Eosinophils Percent Auto 3.7 % (0-4.4); Immature Granulocyte Absolute 0.03 K/mm3 (0.00-0.031); Immature Granulocyte Percent A 0.4 % (0-0.5); Lymphocytes Absolute Auto 0.78 K/mm3 (0.9-3.2); Lymphocytes Percent Auto 11.1 % (18.3-44.2); Mean Corpuscular HGB Conc 26.8 g/dl (32-36); Mean Corpuscular Hemoglobin 21.1 pg (26-34); Mean Corpuscular Volume 78.9 fl (80-100); Mean Platelet Volume 8.4 fl (7.4-10.4); Monocytes Absolute Auto 0.7 K/mm3 (0.1-0.6); Monocytes Percent Auto 9.4 % (2.6-8.5); Neutrophils Absolute Auto 5.3 K/mm3 (1.3-6.7); Platelet Count Result 424 k/mm3 (150-375); Red Blood Count 2.65 M/mm3 (4.2-5.4); Red Cell Distribution Width 18.6 % (11.5-14.5)
[2024-10-21 14:09] LABS: Hemoglobin 5.6 g/dL (12.0-15.0)
[2024-10-21 14:10] LABS: Hematocrit 20.9 % (37.0-47.0)
[2024-10-21 14:13] LABS: Platelet Estimate Increased (Adequate); Schistocytes None Seen
[2024-10-21 14:15] LABS: Anisocytosis 1+
[2024-10-21 14:16] LABS: Hypochromasia 2+; Ovalocytes 1+; Tear Drop Cells 1+
--- OUTSIDE RECORDS SUMMARY | 2024-10-21 14:36 | XMS_ITS | Clinical Summary ---
Author Organization [facility] Address [address] [place] [address] Care Team Providers Care Check Services Clerk Name Role Phone Zoe Aguero Primary Care Provider [phone] Allergies No known active allergies Medications sertraline [...] CDT Respiratory Rate 16 08/28/2021 4:35 PM MANAGER INTEGRATION Oxygen Saturation 97% 08/28/2021 4:35 PM MANAGER INTEGRATION Inhaled Oxygen Concentration - - Weight 62.3 [...] Td Vaccines ( 1 - Tdap) 01/23/1976 Pneumococcal Vaccine: 50+ Years (1 of 1 - PCV) 2007 Zoster Vaccines (1 of 2) 2007 Annual Medicare Wellness Visit 2022 Dexa Scan (General) 2022 Mammogram Screening 04/13/2023 04/13/2021, 02/07/2020, 01/19/2019 COVID-19 Vaccine ( - 2023-2 5 season) 2024 RSV Immunization or 60+ Years (1 [...] this topic Medical Devices Implanted Type Area Record Center Specialist Device Identifier Shelf Expiration Date Model / Serial / Lot Plate Synthes 2.4 Va-Lcp Vlr Dist Radius 6h Hd/2h Shaft Right - [id number] Implanted:Qty: 1 on 08/28/2021 by Jj Barr MD at [facility] Plate Right: Radius SYNTHES 02.111.620 / / Screw Synthes 2.4 Locking Stardrive 14mm - [id number] Implanted:Qty: 1 on 08/28/2021 by Jj Barr MD at [facility] Screw Right: Radius SYNTHES 02.210.114 / / Screw Synthes 2.4 Locking Stardrive 18mm - [id number] Implanted:Qty: 2 on 08/28/2021 by Jj Barr MD at [facility] Screw Right: Radius SYNTHES 02.210.118 / / Screw Synthes 2.4 Locking Stardrive 20mm - [id number] Implanted:Qty: 4 on 08/28/2021 by Jj Barr MD at [facility] Screw Right: Radius SYNTHES 02.210.120 / / Screw Synthes 2.4 Cortical Self Tap 12mm - [id number] Implanted:Qty: 1 on 08/28/2021 by Jj Barr MD at [facility] Screw Right: Radius SYNTHES [id number] [...] Health Maintenance Insurance [employer] MED[employer]ARE Care Teams Check Services Clerk Relationship Specialty Start Date End Date Zoe Aguero PA PCP - General PHYSICIAN [employer] 01/12/19
--- OUTSIDE RECORDS SUMMARY | 2024-10-21 14:36 | XMS_ITS | Clinical Summary ---
Author Organization [facility] Address [address] [place] [address] Care Team Providers Care Shoe Stitcher Name Role Phone Unavailable Primary Care Provider Unavailabl e Allergies No known active allergies Medications lisinopriL (PRINIVIL) 40 mg tablet Take 40 mg by mouth daily at bedtime. 09/23/2022 Active amLODIPine (NORVASC) 5 mg tablet Take 5 mg by mouth daily. Active sertraline (ZOLOFT) 50 mg tablet Take 50 mg by mouth daily. 06/24/2024 Active traMADol (ULTRAM) 50 mg tablet Take 50 mg by mouth 2 times daily as needed for Pain. 08/23/2022 Active clopidogreL (PLAVIX) 75 mg Tablet Take 75 mg by mouth daily in the morning. 09/05/2023 Active diclofenac sodium (VOLTAREN) 75 mg Tablet, Delayed Release (E.C.) Take 75 mg by mouth 2 times daily. 07/07/2023 Active cholecalciferol, vitamin D3, 1,000 unit Take 1 Tablet by mouth daily. Active MULTIVITAMIN ORAL Take by mouth daily. Active zolpidem (AMBIEN) 5 mg tablet Take 5 mg by mouth daily at bedtime. 09/01/2023 Active ASCORBIC ACID, VITAMIN C, ORAL Take by mouth daily. Active cetirizine (ZyrTEC) 10 mg tablet Take 10 mg by mouth daily at bedtime. Active Lactobacillus Acidophilus (Acidophilus) Capsule Take by mouth daily. Active CALCIUM CARBONATE-VITAMI N D3 ORAL Take 1 Tablet by mouth daily. Active aspirin (MANNY CHEWABLE) 81 mg Tablet, Chewable Take 81 mg by mouth daily. 09/18/2023 Active Active Problems No known active problems Encounters Date Type Department Care Team Description 10/21/2024 1:30 PM CDT Office Visit [facility] - [facility] [address] [place] [address] Last Marks MD Chronic anemia (Primary Dx) from Last 3 Months Family History Medical History Relation Name Comments Heart Disease Brother 1 No Known Problems Brother 2 Heart Disease Father Heart Disease Mother No Known Problems Sister 1 No Known Problems Sister 2 No Known Problems Sister 3 No Known Problems Sister 4 Breast Cancer Sister 5 Relation Name Status Comments Brother 1 Brother 2 Alive Father Mother Sister 1 Alive Sister 2 Alive Sister 3 Alive Sister 4 Alive Sister 5 Social History Tobacco Use Types Packs/Day Years Used Date Smoking Tobacco: Never Smokeless Tobacco: Never Alcohol Use Standard Drinks/Week Comments Yes 0 (1 standard drink = 0.6 oz pur e alcohol) Everyday Comments Unknown Sex and Gender Information Value Date Recorded Sex Assigned at Not on file Legal Sex Female 3:21 PM CDT Gender Identity Not on file Sexual Orientation Not on file Last Filed Vital Signs Vital Sign Reading Time Taken Comments Blood Pressure 124/63 10/21/2024 1:18 PM CDT Pulse 93 10/21/2024 1:18 PM CDT Temperature 35.9 C (96.7 F) 10/21/2024 1:18 PM CDT Respiratory Rate 16 10/21/2024 1:18 PM CDT Oxygen Saturation 97% 10/21/2024 1:18 PM CDT Inhaled Oxygen Concentration - - Weight 61.7 kg (136 lb) 10/21/2024 1:18 PM CDT Height 157.5 cm (5' 2 ) 10/21/2024 1:18 PM CDT Body Mass Index 24.87 10/21/2024 1:18 PM CDT Plan of Treatment Upcoming Encounters Date Type Department Care Team (Late st Contact Info) Description 11/04/2024 4:30 PM CDT Telephone Check Up [facility] [address] [place] [address] Last Marks MD [address] [facility] [address] [place] [address] Health Maintenance Due Date Last Done Comments Traditional Medicare (ACO) A nnual Wellness Visit 01/23/1976 COLORECTAL SCREENING 2002 Colorectal Cancer Screening 2002 FIT-DNA Q 3 years 2002 FIT/FOBT Q 1 year 2002 Flex Sig/CT Colonography Q 5 years 2002 PNEUMOCOCCAL VACCINE 50+ YEA RS (1 of 1 - PCV) 2007 ZOSTER VACCINE (1 of 2) 2007 OSTEOPOROSIS SCREENING 2022 BREAST CANCER SCREENING 04/13/2022 04/13/20 21, 04/13/2021, 02/07/2020 DTAP/TDAP/TD VACCINES (2 - T d or Tdap) 08/22/2022 08/22/2012 INFLUENZA VACCINE (#1) 2024 RSV VACCINE (60+ or ) (1 - 1-dose 75+ series) 01/23/2032 Insurance MEDICARE PART A AND B [employer] [place] [address]
--- OUTSIDE RECORDS SUMMARY | 2024-10-21 14:36 | XMS_ITS | Clinical Summary ---
Author Organization [facility] at the [facility] Office Center Address [address] [place] [address] Care Team Providers Care Cartographic Engineer Name Role Phone Noé Poon MD Primary Care Provider [phone] Allergies No known active allergies Medications ascorbic acid, vitamin C, 500 mg capsuleIndications: supplement Take 500 mg by mouth every morning Active atorvastatin (LIPITOR) 10 mg tabletIndications:h yperlipidemia Take 1 tablet (10 mg total) by mouth every morning 3 Active cholecalciferol (VITAMIN D-3) 2000 unit capsuleIndications: supplement Take 1 capsule (2,000 Units total) by mouth every morning Active L. acidophilus/Bifid. animalis 32 billion cell capsuleIndications: supplement Take 1 capsule by mouth nightly Active lisinopriL (PRINIVIL,ZESTRIL) 40 mg tabletIndications:h ypertension Take 1 tablet (40 mg total) by mouth nightly 3 Active potassium chloride ER 10 mEq CR tabletIndications:h ypokalemia prevention Take 1 tablet/capsul e (10 mEq total) by mouth nightly Active pramipexole (MIRAPEX) 1 mg tabletIndications:R estless Legs Syndrome Take 1 tablet (1 mg total) by mouth nightly 3 Active traMADoL (ULTRAM) 50 mg tabletIndications:P ain Take 1 tablet (50 mg total) by mouth 2 (two) times a day as needed for pain [address] (VOLTAREN) 75 mg EC tabletIndications:P ain,inflammation Take 1 tablet (75 mg total) by mouth 2 (two) times a day 4 Active clopidogreL (PLAVIX) 75 mg tabletIndications:P eripheral Arterial Thromboembolism Prevention Take 1 tablet (75 mg total) by mouth every morning 4 Active zolpidem (AMBIEN) 5 mg tabletIndications:S leep-Onset Insomnia Take 1 tablet (5 mg total) by mouth nightly 4 Active cetirizine (ZyrTEC) 10 mg tabletIndications:A llergic Rhinitis Take 1 tablet (10 mg total) by mouth nightly Active aspirin 81 mg chewable tablet Take 1 tablet (81 mg total) by mouth daily 30 tablet 11 4 Active ferrous sulfate (IRON ORAL)Indications:ambriz pplement Take 65 mg by mouth every other day Active ckzsaodk-ujpazfk-lf on-lutein tabletIndications:s upplement Take 1 tablet by mouth telephone order clerk room service before breakfast Active CALCIUM CARBONATE-VITAMIN D3 ORALIndications:Ost eoporosis,Vitamin D Deficiency Take 1 tablet by mouth daily Active amLODIPine (NORVASC) 5 mg tablet Take 1 tablet (5 mg total) by mouth daily Active sertraline (ZOLOFT) 50 mg tablet [address] (PROTONIX) 40 mg EC tablet 5 Active sucralfate (CARAFATE) 1 gram tablet 5 Active Active Problems Problem Noted Date Diagnosed Date PVD (peripheral vascular disease) 01/09/2024 Encounter for surgical after care following surgery on the circulatory system 01/05/2024 Non-healing open wound of toe, initial encounter 09/18/2023 Non-healing wound of left lower extremity 2023 Secondary hypertension 11/04/2022 Assessment & Plan (09/09/2023 10:27 AM CDT): Stable continue lisinopril 40 mg. Assessment & Plan (08/27/2023 2:36 PM LIQUOR COMMISSIONER): Stable continue lisinopril 40 mg. Hypercholesterolemia 11/04/2022 Assessment & Plan (09/09/2023 10:26 AM CDT): Stable continue Lipitor 10 mg. Assessment & Plan (08/27/2023 2:36 PM LIQUOR COMMISSIONER): Stable continue Lipitor 10 mg. PAD (peripheral [...] opinion and has an appointment scheduled with [facility]. Assessment & Plan (08/27/2023 2:36 PM LIQUOR COMMISSIONER): Left lower extremity chronic limb-threatening ischemia with [...] wound. Assessment & Plan (08/19/2023 10:54 AM LIQUOR COMMISSIONER): Continues to deny any symptoms of claudication [...] Encounters Date Type Department Care Team Description 09/24/2024 10:00 AM CDT Office Visit [facility] Cardiology [address] [place] [address] [place] [phone] Lela Foley NP PFO (patent foramen ovale) (Primary Dx); PAD (peripheral artery disease); History of recent stroke; Hospital discharge follow-up 09/14/2024 Orders Only [facility] Cardiology [address] [place] [address] [place] [phone] Renan Chino MD 09/09/2024 Telephone [facility] Cardiology [address] [place] [address] [place] [phone] Renan Chino MD 08/23/2024 9:45 AM LIQUOR COMMISSIONER Office Visit [facility] Surgery [address] [facility] 8th [place] [address] [place] [address] Sallie Swain NP Encounter for surgical aftercare following surgery on the circulatory system (Primary Dx) 08/23/2024 8:00 AM LIQUOR COMMISSIONER Ancillary Procedure [facility] Vascular Lab at the [facility] [address] [facility] [address]th [place] [address] [place] [address] Encounter for surgical aftercare following surgery on the circulatory system; Presence of other vascular implants and grafts 08/23/2024 Orders Only [facility] Vascular Surgery [address] [facility] Medical Office [address] [place] [address] Geronimo Gimenez MD Atherosclerosis of [place] arteries of extremities with intermittent claudication, left leg (Primary Dx); Atherosclerosis of [place] arteries of extremities with intermittent claudication, right [...] syndrome) PVD (peripheral vascular disease) Hypertension Hyperlipidemia Arthritis N/A CVA (cerebral vascular accident) ([facility]) 5 Family History Medical History Relation Name Comments Heart disease Brother Collins Rensing Stroke Father Be Rensing Heart attack Mother Yaz Rensing Cancer Sister Dana Rensing Relation Name Status Comments Brother Collins Rensing Father Be Rensing Mother Yaz Rensing Sister Dana Rensing Social History Tobacco Use Types Packs/Day Years [...] on file Legal Sex Female 6:03 AM LIQUOR COMMISSIONER Gender Identity Female 10/20/2022 4:51 PM CDT Sexual Orientation Not on file Obstetrics History Last Filed Vital Signs Vital Sign Reading Time Taken Comments Blood Pressure 108/46 09/24/2024 10:02 AM CDT Pulse 94 09/24/2024 10:02 AM CDT Temperature 36.1 C (97 F) 01/21/2024 3:11 PM CDT Respiratory Rate 20 01/21/2024 5:30 PM CDT Oxygen Saturation 95% 09/24/2024 10:02 AM CDT Inhaled Oxygen Concentration - - Weight 60.3 kg (133 lb) 09/24/2024 10:02 AM CDT Height 157.5 cm (5' 2 ) 09/24/2024 10:02 AM CDT Body Mass Index 24.33 09/24/2024 10:02 AM CDT Plan of Treatment Health Maintenance [...] (2 - Td or Tdap) 08/22/2022 08/22/2012 Fall Risk Assessment 09/17/2024 09/18/2023 Influenza Vaccine (Season Ended) 2025 Medical Devices Implanted Type Area Records Management Director Device Identifier Shelf Expiration Date Model / Serial / Lot [employer] Protege Everflex 5mm .079in 60mm 120cm Otw Delivery System Self [id number] - [id number] Implanted:Qty : 1 on 09/18/2023 by Geronimo Gimenez MD at [facility] Left: Superficial Femoral Artery [employer] [id number] 04/22/2026 [id number] 060-120 / / [id number] Procedures Procedure Name Priority Date/Time Associated Diagnosis Comments CARDIOLOGY DOCUMENT SCAN Routine 09/08/2024 9:43 AM CDT US ARTERIAL DUPLEX LOWER EXTREMITY LEFT LIMITED Schedule Routine, Read Routine (OP Routine) 08/23/2024 9:01 AM LIQUOR COMMISSIONER Encounter for surgical aftercare following surgery on the circulatory system Presence of other vascular implants and grafts US ARTERIAL DOPPLER LOWER EXTREMITY BILATERAL Schedule Routine, Read Routine (OP Routine) 08/23/2024 9:01 AM LIQUOR COMMISSIONER Encounter for surgical aftercare following surgery on the circulatory system from Last 3 Months Results * Cardiology Document Scan (09/08/2024 9:43 AM CDT) Anatomical Region Laterality Modality Other us Renan Chino MD CV CARDIAC SERVICES [facility] Final Result * US Arterial Duplex Lower Extremity Left Limited (08/23/2024 9:01 AM LIQUOR COMMISSIONER) Anatomical Region Laterality Modality Vascular Left Ultrasound 08/23/2024 7:52 AM LIQUOR COMMISSIONER Narrative 08/23/2024 10:56 AM LIQUOR COMMISSIONER [facility] - Department of Vascular Surgery, Vascular Laboratory [address] [place] [address] [place] Lower Extremity Arterial Duplex Report Patient Name: [...] and grafts. MEASUREMENTS: Left Value Units Lt HOST/HOSTESS GROUND Dst PSV 258 cm/s Lt Profunda Dst [...] 187 cm/s Left Value Units FINDINGS: Performing Master Control Engineer: Jessica Lee RVT. Left Common Femoral: The [...] above. Electronically Signed By: Geronimo Gimenez MD [facility] [phone] 08/23/2024 9:44:02 AM LIQUOR COMMISSIONER Procedure Note Geronimo Gimenez MD - 08/23/2024 [facility] - Department of Vascular Surgery,Vascular Laboratory [address] [place] [address] [place] Lower Extremity Arterial Duplex Report Patient Name: [...] and grafts. MEASUREMENTS: Left Value Units Lt HOST/HOSTESS GROUND Dst PSV 258 cm/s Lt Profunda Dst [...] 187 cm/s Left Value Units FINDINGS: Performing Master Control Engineer: Jessica Lee RVT. Left Common Femoral: The [...] above. Electronically Signed By: Geronimo Gimenez MD [facility] [phone] 08/23/2024 9:44:02 AM LIQUOR COMMISSIONER us Ty Knox MD IMG US PROCEDURES Final R esult * US Arterial Doppler Lower Extremity Bilateral (08/23/2024 9:01 AM LIQUOR COMMISSIONER) Anatomical Region Laterality Modality Vascular Bilateral Ultrasound 08/23/2024 8:19 AM LIQUOR COMMISSIONER Narrative 08/23/2024 10:56 AM LIQUOR COMMISSIONER [facility] - Department of Vascular Surgery, Vascular Laboratory [address] [place] [address] Lower Extremity Arterial Doppler Report Patient Name: ASHLEY YBARRA : 1955 Study Date: 08/23/2024 8:19:00 AM Gender: F Tech: Jessica Lee [facility] Location: [facility] Provider: TY KNOX [...] mmHg Lt Brachial Pressure 140 mmHg Rt MASTER PILOT Pressure 118 mmHg Lt MASTER PILOT Pressure 120 mmHg Rt DPA Pressure 93 mmHg Lt DPA Pressure 115 mmHg Rt 1st Digit Pressure 90 mmHg Lt 1st Digit Pressure 57 mmHg Rt PT SARANYA Resting 0.84 Lt PT SARANYA Resting 0.86 Rt AT SARANYA Resting 0.66 Lt AT SARANYA Resting 0.82 Rt Digit/Arm Index 0.64 Lt Digit/Arm Index 0.41 Right Value Units Left Value Units FINDINGS: Performing Master Control Engineer: Jessica Lee RVT. Right Common Femoral Artery [...] above. Electronically Signed By: Geronimo Gimenez MD [facility] [phone] 08/23/2024 9:40:32 AM LIQUOR COMMISSIONER Procedure Note Geronimo Gimenez MD - 08/23/2024 [facility] - Department of Vascular Surgery,Vascular Laboratory [address] [place] [address] Lower Extremity Arterial Doppler Report Patient Name: ASHLEY YBARRA : 1955 Study Date: 08/23/2024 8:19:00 AM Gender: F Tech: Jessica Lee [facility] Location: [facility] Ref Provider: TY KNOX Quality: Adequate [...] mmHg Lt Brachial Pressure 140 mmHg Rt MASTER PILOT Pressure 118 mmHg Lt MASTER PILOT Pressure 120 mmHg Rt DPA Pressure 93 mmHg Lt DPA Pressure 115 mmHg Rt 1st Digit Pressure 90 mmHg Lt 1st Digit Pressure 57 mmHg Rt PT SARANYA Resting 0.84 Lt PT SARANYA Resting 0.86 Rt AT SARANYA Resting 0.66 Lt AT SARANYA Resting 0.82 Rt Digit/Arm Index 0.64 Lt Digit/Arm Index 0.41 Right Value Units Left Value Units FINDINGS: Performing Master Control Engineer: Jessica Lee RVT. Right Common Femoral Artery [...] is provided above. Electronically Signed By: Geronimo Gimeenz MD [facility] [phone] 08/23/2024 9:40:32 AM LIQUOR COMMISSIONER us Ty Knox MD [facility] US PROCEDURES Final R esult from Last 3 Months Insurance MEDICARE AET SENIOR SUPPLEMENT AET[employer] SENIOR SUPPLEMENT Advance Directives For more information, please contact: [phone] * Full Code (Latest Code Status on File) Date Activated Date Inactivated Comments 09/01/2023 10:16 AM 09/01/2023 6:05 PM Care Teams Cartographic Engineer Relationship Specialty Start Date End Date Noé Poon MD [address] [place] [address] PCP - General Family Medicine 09/24/24
--- OUTSIDE RECORDS SUMMARY | 2024-10-21 14:36 | XMS_ITS | Referral Summary ---
Author Organization [facility] at the Medical Office Center Address [address] [place] [address] Care Team Providers Care Humane Agent Name Role Phone Noé Poon MD Primary Care Provider [phone] Encounters Date Type Department Care Team Description 09/24/2024 10:00 AM CDT Office Visit [facility] Medical [facility] Cardiology [address] [place] [address] [place] [phone] Lela Foley NP PFO (patent foramen ovale) (Primary Dx); PAD (peripheral artery disease); History of recent stroke; Hospital discharge follow-up 09/14/2024 Orders Only [facility] Cardiology [address] [place] [address] [place] [phone] Renan Chino MD 09/09/2024 Telephone [facility] Cardiology [address] [place] [address] [place] [phone] Renan Chino MD 08/23/2024 Orders Only [facility] Vascular Surgery [address] [facility] Medical Office Building [address] [place] [address] Geronimo Gimenez MD Atherosclerosis of [place] arteries of extremities with intermittent claudication, left leg (Primary Dx); Atherosclerosis of [place] arteries of extremities with intermittent claudication, right leg 08/23/2024 9:45 AM DIRECTOR OF PERIOPERATIVE SERVICES Office Visit [facility] Surgery [facility] 8th [place] [address] [place] [phone] Sallie Swain NP Encounter for surgical aftercare following surgery on the circulatory system (Primary Dx) 08/23/2024 8:00 AM DIRECTOR OF PERIOPERATIVE SERVICES Ancillary Procedure [facility] Vascular Lab at the [facility] [address] [place] [address] 8th [place] [address] [place] [address] Encounter for surgical aftercare following surgery on [...] mg by mouth every other day Active rlobigmd-ovdwgeo-ph on-lutein tabletIndications:s upplement Take 1 tablet by mouth chip washer before breakfast Active CALCIUM CARBONATE-VITAMIN D3 ORALIndications:Ost [...] mg. Assessment & Plan (08/27/2023 2:36 PM DIRECTOR OF PERIOPERATIVE SERVICES): Stable continue lisinopril 40 mg. Hypercholesterolemia 11/04/2022 Assessment & Plan (09/09/2023 10:26 AM CDT): Stable continue Lipitor 10 mg. Assessment & Plan (08/27/2023 2:36 PM DIRECTOR OF PERIOPERATIVE SERVICES): Stable continue Lipitor 10 mg. PAD (peripheral [...] opinion and has an appointment scheduled with [facility]. Assessment & Plan (08/27/2023 2:36 PM DIRECTOR OF PERIOPERATIVE SERVICES): Left lower extremity chronic limb-threatening ischemia with [...] wound. Assessment & Plan (08/19/2023 10:54 AM DIRECTOR OF PERIOPERATIVE SERVICES): Continues to deny any symptoms of claudication [...] Legal Sex Female 6:03 AM DIRECTOR OF PERIOPERATIVE SERVICES Gender Identity Female 10/20/2022 4:51 PM CDT [...] 09/24/2024 10:02 AM CDT Plan of Treatment Not on file Medical Devices Implanted Type Area Staffing Recruiter Device Identifier Shelf Expiration Date Model / Serial / Lot [employer] Protege Everflex 5mm .079in 60mm 120cm Otw Delivery System Self [id number] 120 - [id number] Implanted:Qty : 1 on 09/18/2023 by Geronimo Gimenez MD at [facility] Left: Superficial Femoral Artery [employer] [id number] 04/22/2026 [id number]- 060-120 / / [id number] Procedures Procedure Name Priority Date/Time Associated Diagnosis Comments CARDIOLOGY DOCUMENT SCAN Routine 09/08/2024 9:43 AM CDT US ARTERIAL DUPLEX LOWER EXTREMITY LEFT LIMITED Schedule Routine, Read Routine (OP Routine) 08/23/2024 9:01 AM DIRECTOR OF PERIOPERATIVE SERVICES Encounter for surgical aftercare following surgery on the circulatory system Presence of other vascular implants and grafts US ARTERIAL DOPPLER LOWER EXTREMITY BILATERAL Schedule Routine, Read Routine (OP Routine) 08/23/2024 9:01 AM DIRECTOR OF PERIOPERATIVE SERVICES Encounter for surgical aftercare following surgery on the circulatory system from Last 3 Months Results * Cardiology Document Scan (09/08/2024 9:43 AM CDT) Anatomical Region Laterality Modality Other us Renan Chino MD CV CARDIAC SERVICES [facility] Final Result * US Arterial Duplex Lower Extremity Left Limited (08/23/2024 9:01 AM DIRECTOR OF PERIOPERATIVE SERVICES) Anatomical Region Laterality Modality Vascular Left Ultrasound 08/23/2024 7:52 AM DIRECTOR OF PERIOPERATIVE SERVICES Narrative 08/23/2024 10:56 AM DIRECTOR OF PERIOPERATIVE SERVICES [facility] - Department of Vascular Surgery, Vascular Laboratory [address] [place] [address] [place] Lower Extremity Arterial Duplex Report Patient Name: ASHLEY YBARRA : 1955 Study Date: 08/23/2024 7:52:42 AM Gender: F Tech: Location: [facility] Ref Provider: TY KNOX Quality: [...] and grafts. MEASUREMENTS: Left Value Units Lt SR. DIRECTOR Dst PSV 258 cm/s Lt Profunda Dst [...] 187 cm/s Left Value Units FINDINGS: Performing Health Services Rn: Jessica Lee RVT. Left Common Femoral: The [...] above. Electronically Signed By: Geronimo Gimenez MD [facility] [phone] 08/23/2024 9:44:02 AM DIRECTOR OF PERIOPERATIVE SERVICES Procedure Note Geronimo Gimenez MD - 08/23/2024 [facility] - Department of Vascular Surgery,Vascular Laboratory [address] [place] [address] [place] Lower Extremity Arterial Duplex Report Patient Name: ASHLEY YBARRA : 1955 Study Date: 08/23/2024 7:52:42 AM Gender: F Tech: Location: [facility] Ref Provider: TY KNOX Quality: [...] and grafts. MEASUREMENTS: Left Value Units Lt SR. DIRECTOR Dst PSV 258 cm/s Lt Profunda Dst [...] 187 cm/s Left Value Units FINDINGS: Performing Health Services Rn: Jessica Lee RVT. Left Common Femoral: The [...] above. Electronically Signed By: Geronimo Gimenez MD [facility] [phone] 08/23/2024 9:44:02 AM DIRECTOR OF PERIOPERATIVE SERVICES us Ty Knox MD IMG US PROCEDURES Final R esult * US Arterial Doppler Lower Extremity Bilateral (08/23/2024 9:01 AM DIRECTOR OF PERIOPERATIVE SERVICES) Anatomical Region Laterality Modality Vascular Bilateral Ultrasound 08/23/2024 8:19 AM DIRECTOR OF PERIOPERATIVE SERVICES Narrative 08/23/2024 10:56 AM DIRECTOR OF PERIOPERATIVE SERVICES [employer] [facility] - Department of Vascular Surgery, Vascular Laboratory [address] [place] [address] Lower Extremity Arterial Doppler Report Patient Name: ASHLEY YBARRA : 1955 Study Date: 08/23/2024 8:19:00 AM Gender: F Tech: Jessica Lee RVT Location: [facility] Provider: TY KNOX Quality: Adequate Order [...] mmHg Lt Brachial Pressure 140 mmHg Rt BUILDING DRAFTER Pressure 118 mmHg Lt BUILDING DRAFTER Pressure 120 mmHg Rt DPA Pressure 93 mmHg Lt DPA Pressure 115 mmHg Rt 1st Digit Pressure 90 mmHg Lt 1st Digit Pressure 57 mmHg Rt PT SARANYA Resting 0.84 Lt PT SARANYA Resting 0.86 Rt AT SARANYA Resting 0.66 Lt AT SARANYA Resting 0.82 Rt Digit/Arm Index 0.64 Lt Digit/Arm Index 0.41 Right Value Units Left Value Units FINDINGS: Performing Health Services Rn: Jessica Lee RVT. Right Common Femoral Artery [...] above. Electronically Signed By: Geronimo Gimenez MD [facility] [phone] 08/23/2024 9:40:32 AM DIRECTOR OF PERIOPERATIVE SERVICES Procedure Note Geronimo Gimenez MD - 08/23/2024 [facility] - Department of Vascular Surgery,Vascular Laboratory [address] [place] [address] Lower Extremity Arterial Doppler Report Patient Name: ASHLEY YBARRA : 1955 Study Date: 08/23/2024 8:19:00 AM Gender: F Tech: Jessica Lee RVT Location: [facility] Provider: TY KNOX Quality: Adequate Order [...] mmHg Lt Brachial Pressure 140 mmHg Rt BUILDING DRAFTER Pressure 118 mmHg Lt BUILDING DRAFTER Pressure 120 mmHg Rt DPA Pressure 93 mmHg Lt DPA Pressure 115 mmHg Rt 1st Digit Pressure 90 mmHg Lt 1st Digit Pressure 57 mmHg Rt PT SARANYA Resting 0.84 Lt PT SARANYA Resting 0.86 Rt AT SARANYA Resting 0.66 Lt AT SARANYA Resting 0.82 Rt Digit/Arm Index 0.64 Lt Digit/Arm Index 0.41 Right Value Units Left Value Units FINDINGS: Performing Health Services Rn: Jessica Lee RVT. Right Common Femoral Artery [...] above. Electronically Signed By: Geronimo Gimenez MD [facility] [phone] 08/23/2024 9:40:32 AM DIRECTOR OF PERIOPERATIVE SERVICES Ty Knox MD [facility] PROCEDURES Final R esult from Last 3 Months Insurance MEDICARE AET SENIOR SUPPLEMENT MEDICARE AETNA SENIOR SUPPLEMENT Advance Directives For more information, please contact: [phone] * Full Code (Latest Code Status on File) Date Activated Date Inactivated Comments 09/01/2023 10:16 AM 09/01/2023 6:05 PM Care Teams Humane Agent Relationship Specialty Start Date End Date Noé Poon MD [address] [place] [address] [place] [address] PCP - General Family Medicine 09/24/24
--- OUTSIDE RECORDS SUMMARY | 2024-10-21 14:36 | XMS_ITS | Encounter Summary ---
Author Organization [facility] [employer] [facility] Address [address] [place] [address] Care Team Providers Care Basket Filler Name Role Phone Unavailable Primary Care Provider Unavailabl e Reason for Visit * Reason Comments Establish Care Encounter Details Date Type Department Care Team (Late st Contact Info) Description 10/21/2024 1:30 PM CDT Office Visit [facility] - Shreyas [address] [facility] [address] [place] [address] Last Marks MD [address] [facility] [address] [place] [address] Chronic anemia (Primary Dx) Social History Tobacco Use Types Packs/Day Years Used Date Smoking Tobacco: Never Smokeless Tobacco: Never Alcohol Use Standard Drinks/Week Comments Yes 0 (1 standard drink = 0.6 oz pur e alcohol) Everyday Comments Unknown Sex and Gender Information Value Date Recorded Sex Assigned at Not on file Legal Sex Female 3:21 PM CDT Gender Identity Not on file Sexual Orientation Not on file documented as of this encounter Last Filed Vital Signs Vital Sign Reading [...] Mass Index 24.87 10/21/2024 1:18 PM CDT documented in this encounter Progress Notes * Last Marks MD - 10/21/2024 1:52 PM CDT Hematology-oncology consult Note Requesting Physician Noé Poon MD Primary Care Physician No primary care provider on file. Problem list There is no problem list on file for this patient. Previous TREATMENT ? Measurable Disease ? Reason for Visit Ashley Ybarra is a 69 y.o. female who was referred for consultation for chronic anemia. History of present illness This is a 69-year-old female with history of stroke diagnosed in August 2024, hypertension, peripheral vascular disease status post stent placement referred to me for anemia. Patient was admitted to the hospital on September 04 with mental status changes. CT abdomen and pelvis showed mild esophagitis and gastritis. Labs showed hemoglobin 5.7. She denies any history of melena and hematochezia. Denies any previous history of stomach surgery like gastric bypass. Patient had EGD done on September 06 that showed reflux esophagitis and gastritis. Colonoscopy was also performed on September 06 that showed diverticulosis without perforation and bleeding along with internal hemorrhoids. He was taking oral iron about a year ago but that was discontinued. She has lost her appetite but weight remains stable. Complaining of tiredness and fatigue. No other new complaints. Past Medical History Past Medical History: Diagnosis Date Depression History of stomach ulcers Hx of blood clots Hypertension Stroke (CMS/HCC) Surgical History Past Surgical History: Procedure Laterality Date HX ELBOW SURGERY HX HYSTERECTOMY HX WRIST SURGERY Medications Current Outpatient Medications Medication Sig Dispense Refill lisinopriL (PRINIVIL) 40 mg tablet Take 40 mg by mouth daily at bedtime. sertraline (ZOLOFT) 50 mg tablet Take 50 mg by mouth daily. traMADol (ULTRAM) 50 mg tablet Take 50 mg by mouth 2 times daily as needed for Pain. clopidogreL (PLAVIX) 75 mg Tablet Take 75 mg by mouth daily in the morning. diclofenac sodium (VOLTAREN) 75 mg Tablet, Delayed Release (E.C.) Take 75 mg by mouth 2 times daily. MULTIVITAMIN ORAL Take by mouth daily. zolpidem (AMBIEN) 5 mg tablet Take 5 mg by mouth daily at bedtime. ASCORBIC ACID, VITAMIN C, ORAL Take by mouth daily. Lactobacillus Acidophilus (Acidophilus) Capsule Take by mouth daily. aspirin (MANNY CHEWABLE) 81 mg Tablet, Chewable Take 81 mg by mouth daily. amLODIPine (NORVASC) 5 mg tablet Take 5 mg by mouth daily. cholecalciferol, vitamin D3, 1,000 unit Take 1 Tablet by mouth daily. cetirizine (ZyrTEC) 10 mg tablet Take 10 mg by mouth daily at bedtime. CALCIUM CARBONATE-VITAMIN D3 ORAL Take 1 Tablet by mouth daily. No current facility-administered medications for this visit. Allergies No Known Allergies Immunizations: There is no immunization history on file for this patient. Family History Family History Problem Relation Name Age of Onset Heart Disease Father Heart Disease Mother Heart Disease Brother No Known Problems Brother No Known Problems Sister No Known Problems Sister No Known Problems Sister No Known Problems Sister Breast Cancer Sister Social History Social History Tobacco Use Smoking status: Never Smokeless tobacco: Never Substance Use Topics Alcohol use: Yes Comment: Everyday Review of Systems Constitutional: Patient did not mention fever; no night sweats; no anorexia; no weight loss; complain of tiredness and fatigue NEENT: Patient did not mention headache; no change in vision; no change in hearing; no sore throat;no dysphagia Respiratory: Patient did not mention shortness of breath; no pleuritic chest pain; no cough; no hemoptysis Cardiac: Patient did not mention cardiac-like chest pain; no palpitations; no orthopnea; no PND; noDOE Breasts: Patient did not mention tenderness; no masses GI: Patient did not mention abdominal pain; no nausea; no vomiting; no diarrhea; no hematochezia; no melena : Patient did not mention dysuria; no frequency; no hesitancy; no hematuria BACK TACKER: Musculosketetal: Patient did not mention bone pain; no arthralgia; no joint swelling; no myalgia; Skin: Patient did not mention pruritis; no rash; no petechiae; no ecchymoses Endocrine: Patient did not mention polydipsia; no polyuria; no unusual weight gain Neuro: Patient did not mention headache; no change in vision; no sensory changes; no muscle weakness; no confusion; no seizures Psych: Patient did not mention anxiety; no depression; Physical Exam Vitals: As per nursing note Constitutional: Well developed, well nourished, no acute distress, non-toxic appearance Teeth and gum. No signs of infection or swelling. Eyes: PERRL, conjunctiva normal HEENT: Atraumatic, external ears normal, nose normal, oropharynx moist, no pharyngeal exudates. no sinus tenderness Neck- normal range of motion, no tenderness, supple Respiratory: No respiratory distress, normal breath sounds, no rales, no wheezing Cardiovascular: Normal rate, normal rhythm, no murmurs, no gallops, no rubs GI: Soft, nondistended, normal bowel sounds, nontender, no splenomegaly, no hepatomegaly, no mass, no rebound, no guarding : No costovertebral angle tenderness Musculoskeletal: No edema, no tenderness, no deformities. Back- no tenderness Integument: Well hydrated, no rash, Digits and nails inspection normal Lymphatic: No lymphadenopathy noted Neurologic: Alert & oriented x 3, CN 2-12 normal, normal motor function, normal sensory function, no focal deficits noted Psychiatric: Speech and behavior appropriate ? labs No results found for this or any previous visit (from the past 24 hours). Labs from September 13 showed WBC 5.3 hemoglobin 9.8 MCV 77 platelet 443,000 creatinine 0.8 iron 41 saturation 7% ferritin 7.2 Pathology ? Imaging & Other Studies Performance Status? Assessment / Plan: ? Microcytic anemia. Patient is a 69-year-old female with history of peripheral vascular disease status post stent placement on Plavix along with history of stroke, hypertension and depression referred to me for anemia. She is been complaining of tiredness and fatigue but denies any bleeding including melena hematochezia. She had EGD and colonoscopy done on September 06 that showed gastritis,esophagitis, internal hemorrhoids and diverticulosis. Labs showed iron deficiency anemia of unclearetiology. She was taking oral iron up to about a year ago but that was discontinued. I will order labs including CBC, CMP, iron profile, soluble transferrin receptor, methylmalonic acid acid level and vitamin B12 level. Based on the labs we will start her on IV iron infusion in my office. I will discuss the finding with her in 2 weeks. I would also recommend to have follow-up with the gastroenterology for capsule enteroscopy for the completion of GI workup. I have answered all the questions to patient's satisfaction. Peripheral vascular disease status post stent placement. She is on Plavix. Hypertension. Patient is on amlodipine and lisinopril. History of stroke. Patient is on Plavix. Thank you very much for allowing me to participate in Ashley Ybarra's evaluation and management. Please feel free to contact if I can be of any further assistance in your patient???s care requiringhematology or oncology evaluation. Sincerely, ? ? Last Marks M.D. cell TOBACCO COUNSELING She is not a tobacco/nicotine user. Last Marks MD ,10/21/2024 1:52 PM ? Total time spent 60 minutes, two third of the total time spent counseling patient [id number]. CC:?Noé Poon MD documented in this encounter Plan of Treatment Upcoming Encounters Date Type Department Care Team (Late st Contact Info) Description 11/04/2024 4:30 PM CDT Telephone Check Up [facility] - Shreyas [address] [facility] [address] [place] [address] Last Marks MD [address] [facility] [address] [place] [address] Scheduled Orders Name Type Priority Associated Diagnoses Orde r Schedule CBC WITH DIFFERENTIAL Lab Stat Chronic anemia Expected: 10/21/2024, Expires: 10/21/2025 COMPREHENSIVE METABOLIC PANEL Lab Stat Chronic anemia Expected: 10/21/2024, Expires: 10/21/2025 FERRITIN Lab Routine Chronic anemia Expected: 10/21/2024, Expires: 10/21/2025 IRON, TIBC, AND PERCENT SATURATION Lab Routine Chronic anemia Expected: 10/21/2024, Expires: 10/21/2025 METHYLMALONIC ACID Lab Routine Chronic anemia Expected: 10/21/2024, Expires: 10/21/2025 VITAMIN B12 AND FOLATE Lab Routine Chronic anemia Expected: 10/21/2024, Expires: 10/21/2025 TRANSFERRIN RECEPTOR TFR SOLUBLE Lab Routine Chronic anemia Expected: 10/21/2024, Expires: 10/21/2025 documented as of this encounter Visit Diagnoses Diagnosis Chronic anemia- Primary Anemia, unspecified documented in this encounter
--- OUTSIDE RECORDS SUMMARY | 2024-10-21 14:36 | XMS_ITS | Data Portability ---
Author Organization [place] [facility] [employer], Main Office Address [address] [place] [address] Care Team Providers Care Document Review Specialist Name Role Phone KATHY FRITZ Primary Care Provider [phone] KATHY FRITZ Referring Provider [phone] Assessment Encounter Date Assessment Date Assessment LastModified [...] more than half the time spent in [id number] care. Not available 11/04/2022 16:25:45 03/28/2023 03/28/2023 [...] treatment patient than half of this in [id number] conversation Not available 03/28/2023 14:53:09 Plan of [...] DO Not Attach Compendium, Do Not Delete/merge, [id number] 16:19:15 Surgeries None recorded. Imaging XR, hip + pelvis, unilateral 2022 023 [facility] [place], [address] [facility] [address], [place], [address], 16:06:59 XR, shoulder 2022 023 [email or web address] [facility] [place], [address], [place], [address], 09:56:50 Medication Orders diclofenac sodium 75 mg tablet,del ayed release 2022 023 [facility], [address] [place], [id number], 16:06:59 Kenalog 10 mg/mL suspension for injection 2022 023 [facility], [address] [place], [id number], 3 10:30:52 ropivacain e (PF) 5 mg/mL (0.5 %) injection solution 2022 023 [facility], [address] [place], [id number], 3 10:30:52 Patient TargetsNo targets recorded. Patient InstructionsNo instructions recorded. Reason for Referral None Reported. Results Created Date Observation Date Name Description Value Unit Range Abnormal Flag Note LastModifiedBy Organization Detail LastModifiedTime 09/12/19 23 XR, shoul marlon No observ ation record ed. [facility] [place] [address], [place], [address], 09/25/2022 08:40:00 11/02/19 23 MRI, shoul marlon, w/o contr ast [facility] [address], [place] [address] Patien t Name: SURESH YBARRA Access ion #: [id number] Sex: F : 1954 7 2 Locati [...] intras ubstan ce Page 1 of 2 [facility] Pativaleriano t Name: SURESH YBARRA Access ion #: [id number] Sex: F : 1954 7 2 Exam [...] 3:32 PM (CT) Page 2 of 2 [email or web address] [facility] (Imaging) [address] [place], [address], 11/04/2022 11:51:37 03/28/20 23 XR, hip + pelvi s, unila teral No observ ation record ed. [email or web address] [facility] [place] [address], [place], [address], 03/28/2023 14:51:38 Result Notes None recorded. Problems Name Problem SNOMED Code Status Onset Date Resolution Date Notes Provider Name and Address Organization Details Recorded Time Bilateral shoulder joint pain 43495941978879 104 Active 2022 Jenna Chin RMSandra null, [facility] [employer] [facility] 3 09:07:42 Pain of right shoulder joint 69867357954982 100 Active 2022 Dasia Gutiérrez CMA null, [facility] [employer] [facility] 3 09:45:31 Pain of left hip joint 14644053439024 0 Active 2022 Rizwana Franks null, [facility] [employer] [facility] 3 14:09:14 Notes:Some problems listed i n Document: #[id number] could not be added to this patient's chart. Please review this document and add these problems to the patient's chart manually as needed. Problem Notes None recorded. Procedures Surgical History None recorded. Imaging Results Imaging Date Name Status LastModified by [facility] Details LastModified Time 09/11/2022 XR, shoulder completed [facility] [place] [address], [place], [address], 09/25/2022 08:40:00 11/01/2022 MRI, shoulder, w/o contrast completed [email or web address] [facility] (Imaging) [address] [place], [address], 11/04/2022 11:51:37 03/28/2023 XR, hip + pelvis, unilateral completed [email or web address] [facility] [place] [address], [place], [address], 03/28/2023 14:51:38 Procedure Notes None recorded. Medical [...] procedure, administere d by provider 2022 active [facility]: [phone] Not Available Not Available [...] procedure, administere d by provider 2022 active [facility] [phone] Not Available Not Available Not Available Vitals Date Recorded Body height Body mass index (BMI) Body weight Provider Name and Address Organization Details Last Updated DateTime 09/11/2022 157.48 cm 25.2 kg/m2 13617.75 g Jenna Chin Sandra [facility] [employer] [facility] 09/11/2022 09:12:56 Date Recorded Body height Provider Name an d Address Organization Details Last Updated DateTime 10/23/2022 157.48 cm Jenna Chin [facility] [employer] [facility] 10/23/2022 08:59:11 Date Recorded Body height Provider Name an d Address Organization Details Last Updated DateTime 11/04/2022 157.48 cm Jenna Chin [facility] [employer] [facility] 11/04/2022 15:31:32 Date Recorded Body height Provider Name an d Address Organization Details Last Updated DateTime 03/28/2023 157.48 cm Rizwana Ortizs [facility] [employer] [facility] 03/28/2023 14:08:43 Social History Question Answer Notes LastModified by Organizat ion Details LastModified Time Tobacco Smoking Status Never Smoker Jenna Chin, AMBER null, [place] [facility] 09/11/2022 09:06:58 What Is Your Level Of Alcohol Consumption? Heavy [email or web address] Information not available 09/11/2022 Sex: Unknown Functional Status None recorded. Mental Status None recorded. Family History Nothing Reported. Medical History No medical history recorded. Gynecological HistoryNo gynecological history recorded. Obstetrics History GPAL:G 0 P 0 0 0 0 Past Encounters Encounter ID Performer Location Encounter Start Date Encounter Closed Date Diagnosis/Indication Diagnosis SNOMED-CT Code Diagnosis ICD10 Code Diagnosis Note [id number] Shad Steiner MD [facility] [place] [address] [place] [address] 09/11/2022 08:42:59 09/30/2022 09:56:49 Bilateral shoulder joint pain 8309622625 8047182 M25.511 M25.512 [id number] Shad Steiner MD [facility] [place] [address] [place] [address] 10/23/2022 08:57:01 10/23/2022 10:01:19 Bilateral shoulder joint pain 9828490573 1228941 M25.511 M25.512 [id number] Shad Steiner MD [facility] [place] [address] [place] [address] 11/04/2022 15:26:52 11/04/2022 16:31:16 Pain of right shoulder joint 4286726821 7686570 M25.849 [id number] Shad Steiner MD [facility] [place] [address] [place] [address] 03/28/2023 14:00:59 03/28/2023 14:56:01 Pain of left hip joint 9963700847 38454 M25.552 Health Concerns Section Related Observation LastModified by Organization Detai ls LastModified Time None Recorded Concern Status LastModified by Organization Details LastModified Time None Recorded Advance Directives Directive None Recorded Payers Encounter Date Sequence Insurance Name Policy Number Policy Simon Covered Member ID Simon Member ID Guarantor Name 09/11/2022 1 [place] Ashley Ybarra [id number] Ashley Ybarra 09/11/2022 2 [employer] (MEDICARE SUPPLEMENT) Ashley Ybarra [id number] Ashley Ybarra 10/23/2022 1 [place] Ashley Hinojosaon [id number] Ashley Hinojosaon 10/23/2022 2 [employer] (MEDICARE SUPPLEMENT) Ashley Hinojosaon [id number] Ashley Ybarra 11/04/2022 1 [place] Ashley Esther Hinojosaon [id number] Ashley Hinojosaon 11/04/2022 2 [employer] (MEDICARE SUPPLEMENT) Ashley Hinojosaon [id number] Ashley Ybarra 03/28/2023 1 [place] Ashley Hinojosaon [id number] Ashley Ybarra 03/28/2023 2 [email or web address] (MEDICARE SUPPLEMENT) Ashley Hinojosaon [id number] Ashley Ybarra Notes Date Note Type Note Provider Name and Address Organization Details Recorded Time 09/11/2022 text/html patient is a 67-year-old female presents for evaluation of both shoulders. She started having symptoms approximately 3 months ago. No prior problems. No injury. Pain is mainly in the front and top of her shoulder worse on the. 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 Shad Steiner MD [address] [facility] [facility] [address], [place], [address], [facility] [employer] 09/25/2022 09:17:33 OBGyn Episode No OBEpisode recorded.
[2024-10-21 18:01] LABS: Iron 17 ug/dL (37-170)
[2024-10-21 18:10] LABS: Percent Iron Saturation 3 % (20-50)
[2024-10-21 18:16] LABS: Alanine Aminotransferase 24 U/L (6-35); Albumin Level 4.3 g/dL (3.5-5.1); Alkaline Phosphatase 129 U/L (38-126); Anion Gap 11 mmol/L (4-12); Aspartate Amino Transferase 108 U/L (14-36); Bilirubin,Total 0.2 mg/dL (0.2-1.3); Blood Urea Nitrogen 20 mg/dL (7-17); Calcium 8.9 mg/dL (8.4-10.2); Carbon Dioxide 24 mmol/L (22-30); Chloride 103 mmol/L (98-107); Estimated Glomerular Filt Rate 50; Glucose 89 mg/dL (65-110); Potassium 4.7 mmol/L (3.4-5.0); Sodium 138 mmol/L (137-145)
[2024-10-21 18:38] LABS: Ferritin 8.04 ng/mL (11.1-264)
[2024-10-21 19:23] LABS: Folic Acid > 20.0 ng/mL (2.76->20)
[2024-10-25 06:34] LABS: Methylmalonic Acid 359 nmol/L (69-390)
[2024-10-25 15:03] LABS: Soluble Transferrin Receptor 6.43 mg/L (0.76-1.76)
== END 2024-10-21 13:50 | disposition home or self-care (01) ==
PROVIDERS: PCP Family Medicine; Visit Provider Internal Medicine Hematology & Oncology
DX: D64.9 Anemia, unspecified (principal)
CPT/HCPCS: 36415; 80053; 82607; 82728; 82746; 83540; 83550; 83921; 84238; 85025

== ENCOUNTER 2024-10-22 06:48 | Outpatient (RCR) | payer MEDICARE, SELFPAY ==
[2024-10-22] VITALS (7 sets, daily range): BP systolic 127–153; BP diastolic 50–85; PULSE 65–93; RESP 12–19; TEMP 36.4–37.1; O2SAT 97–100
[2024-10-22] MEDS: diphenhydrAMINE HCl CAP 25 MG CAPSULE PO (07:40)
[2024-10-22] MEDS: ACETAMINOPHEN 325 MG TABLET 650 MG PO (07:40)
[2024-10-22] MEDS: FUROSEMIDE INJ 40 MG/4 ML VIAL 20 MG IV PUSH (09:43)
== END 2025-01-20 23:59 | disposition home or self-care (01) ==
LOC: ANHCPCTRAN 06:48
PROVIDERS: PCP Family Medicine; Visit Provider Internal Medicine Hematology & Oncology
DX: D64.89 Other specified anemias (principal)
CPT/HCPCS: 36415; 36430; 80053; 82607; 82728; 82746; 83540; 83550; 83921; 84238; 85025; 86850; 86900; 86901; 86923; 96374; A9270; J1938; P9016

== ENCOUNTER 2024-11-24 09:04 | Outpatient (CLI) | payer MEDICARE, SELFPAY ==
--- OUTSIDE RECORDS SUMMARY | 2024-11-24 09:09 | XMS_ITS | Encounter Summary ---
Author Organization [facility] Address [address] [facility] [address] [place] [address] Phone Care Team Providers Care Chef & Owner Name Role Phone Noé Poon MD Primary Care Provider [phone] Reason for Visit * Diagnostic Imaging (Routine) - Closed Specialty Diagnoses / Procedures Referred By Contac t Referred To Contact Diagnoses Atherosclerosis of [place] arteries of extremities with intermittent claudication, left leg Atherosclerosis of [place] arteries of extremities with intermittent claudication, right leg Procedures US Lower Extremity Treadmill Testing Ruthie Roland MD [address] [facility] [place] [address] [place] [address] Phone: tel: fax: [facility] (All Locations) Referral ID Status Reason Start Date Expiration Date Visits Re quested Visits Authorized [id number] Closed 08/23/2024 09/22/2025 1 1 Encounter Details Date Type Department Care Team (Latest Contact Info) Description 11/23/2024 8:00 AM CDT Ancillary Procedure [facility] Vascular Lab at the [facility] [address] [facility] 8th [place] [address] [place] [id number] Atherosclerosis of [place] arteries of extremities with intermittent claudication, left leg; Atherosclerosis of [place] arteries of extremities with intermittent claudication, right leg Social History Tobacco Use Types Packs/Day Years [...] on file Legal Sex Female 6:03 AM CHANGE LEAD Gender Identity Female 10/20/2022 4:51 PM CDT Sexual Orientation Not on file documented as of this encounter Plan of Treatment Not on file documented as of this encounter Procedures Procedure Name Priority Date/Time Associated Diagnosis Comments US LOWER EXTREMITY TREADMILL TESTING Routine 11/23/2024 9:03 AM CDT Atherosclerosis of [place] arteries of extremities with intermittent claudication, left leg Atherosclerosis of [place] arteries of extremities with intermittent claudication, right leg documented in this encounter Results * US Lower Extremity Treadmill Testing (11/23/2024 9:03 AM CDT) Anatomical Region Laterality Modality Vascular Ultrasound 11/23/2024 8:11 AM CDT Narrative 11/23/2024 1:42 PM CDT [facility] - Department of Vascular Surgery, Vascular Laboratory [address] [place] [address] Lower Extremity Arterial Doppler Report Patient Name: ACE YBARRA : 1955 Study Date: 11/23/2024 8:11:00 AM Gender: F Tech: Joanne Rossi T, [facility] Location: [facility] Provider: RUTHIE ROLAND Quality: Adequate Order Provider: RUTHIE ROLAND PROCEDURES: Arterial Report: Bilateral lower extremity arterial Doppler exam at rest and with treadmill exercise. INDICATIONS: Atherosclerosis of [place] Arteries of Extremities with Intermittent Claudication, Left Leg; Atherosclerosis of [place] Arteries of Extremities with Intermittent Claudication, Right Leg; Left popliteal DCBA + stent Dx: Atherosclerosis of [place] arteries of extremities with intermittent claudication, left leg [I70.212 (ICD-10-CM)]; Atherosclerosis of [place] arteries of extremities with intermittent claudication, right leg [I70.211 (ICD-10-CM)] I70.212 Atherosclerosis of [place] arteries of extremities with intermittent claudication, left leg, and I70.211 Atherosclerosis of [place] arteries of extremities with intermittent claudication, right leg. MEASUREMENTS: Right Value Units Left Value Units Rt Brachial Pressure 176 mmHg Lt Brachial Pressure 173 mmHg Rt RIVET HAMMER MACHINE OPERATOR Pressure 152 mmHg Lt RIVET HAMMER MACHINE OPERATOR Pressure 173 mmHg Rt DPA Pressure 136 mmHg Lt DPA Pressure 162 mmHg Rt 1st Digit Pressure 143 mmHg Lt 1st Digit Pressure 148 mmHg Rt PT SARANYA Resting 0.86 Lt PT SARANYA Resting 0.98 Rt AT SARANYA Resting 0.77 Lt AT SARANYA Resting 0.92 Rt Digit/Arm Index 0.81 Lt Digit/Arm Index 0.84 Right Value Units Left Value Units FINDINGS: Performing Retirement Plan Counselor: Joanne Rossi RVT, RDMS. Right Common Femoral Artery Analysis: The common femoral artery waveform is multiphasic. Right Popliteal Artery Analysis: The popliteal waveform is multiphasic. Right Posterior Tibial Artery Analysis: The posterior tibial waveform is multiphasic. Right Anterior Tibial Artery Analysis: The anterior tibial waveform is barely multiphasic. Right Digits: Normal right digit pressure and waveform. Left Common Femoral Artery Analysis: The common femoral artery waveform is multiphasic. Left Popliteal Artery Analysis: The popliteal waveform is multiphasic. Left Posterior Tibial Artery Analysis: The posterior tibial waveform is multiphasic. Left Anterior Tibial Artery Analysis: The anterior tibial waveform is multiphasic. Left Digits: Normal left digit pressure and waveform. Post Exercise Common Femoral Waveforms: The post exercise right common femoral waveform is monophasic. The post exercise left common femoral waveform is multiphasic. Exercise Testing: Patient walked on a treadmill at 1.5MPH and 12% incline for 3minutes. A more than 17% reduction in the post-exercise systolic blood pressure compared to the resting systolic blood pressure is indicative of a hemodynamically significant arterial disease in the lower extremities. 48% drop in the right RIVET HAMMER MACHINE OPERATOR. 25% drop in the left RIVET HAMMER MACHINE OPERATOR. Post exercise tibial pressures did not return to baseline after 5 minutes bilaterally and provides evidence of multilevel disease. Exercise testing is discontinued at 3 minutes due to patient overall fatigue and bilateral leg fatigue. Patient started experiencing leg fatigue at the 1 minute valdez that worsened throughout the exam, did not report pain in either legs. CONCLUSIONS: 1. The above listed right Ankle/Brachial Index at rest is consistent with moderate peripheral arterial disease - claudication (for reference, claudication range is 0.50 -0.89). 2. The above listed left Ankle/Brachial Index at rest is within normal limits (for reference, normal resting SARANYA is 0.90 - 1.4; SARANYA >1.4 due to non-compressible arteries is not diagnostic). 3. Bilateral Digit/Arm Indices are within normal limits (for reference, normal KYLEE is >0.6). 4. There is evidence of right leg arterial insufficiency AT REST at the level of anterior tibial artery. 5. The left lower extremity arterial Doppler reveals multiphasic waveforms in all distributions above AT REST. No evidence of lower extremity arterial occlusive disease at rest on the left. 6. Abnormal response to exercise with a monophasic post exercise common femoral artery waveform is consistent with iliac arterial obstruction which is hemodynamically significant with exercise on the right. 7. Abnormal response to exercise is consistent with hemodynamically significant arterial disease on the left, per pressure drop. HISTORY: 09-01-2023 left lower extremity angiogram, left femoral artery and popliteal artery balloon angioplasty 09-18-2023 left SFA and popliteal angioplasty, left above knee popliteal artert stent HLD, PAD, PVD. PREVIOUS STUDIES: No previous studies for comparison. DISCLAIMER: The study images and the final [...] that is provided above. Electronically Signed By: Ruthie Roland MD [facility] [phone] 11/23/2024 1:12:44 PM CDT Procedure Note Ruthie Roland MD - 11/23/2024 [facility] - Department of Vascular Surgery,Vascular Laboratory [address] [place] [address] Lower Extremity Arterial Doppler Report Patient Name: ACE YBARRA : 1955 Study Date: 11/23/2024 8:11:00 AM Gender: F Tech: Joanne Rossi Neto, [facility] Location: [facility] Provider: RUTHIE ROLAND Quality: Adequate Order Provider: RUTHIE ROLAND PROCEDURES: Arterial Report: Bilateral lower extremity arterial Doppler exam at rest and with treadmillexercise. INDICATIONS: Atherosclerosis of [place] Arteries of Extremities with IntermittentClaudication, Left Leg; Atherosclerosis of [place] Arteries of Extremities with IntermittentClaudication, Right Leg; Left popliteal DCBA + stent Dx: Atherosclerosis of [place] arteries of extremities with intermittentclaudication, left leg [I70.212 (ICD-10-CM)]; Atherosclerosis of [place] arteries ofextremities with intermittent claudication, right leg [I70.211 (ICD-10-CM)] I70.212 Atherosclerosis of [place] arteries of extremities withintermittent claudication, left leg, and I70.211 Atherosclerosis of [place] arteries of extremitieswith intermittent claudication, right leg. MEASUREMENTS: Right Value Units Left Value Units Rt Brachial Pressure 176 mmHg Lt Brachial Pressure 173 mmHg Rt RIVET HAMMER MACHINE OPERATOR Pressure 152 mmHg Lt RIVET HAMMER MACHINE OPERATOR Pressure 173 mmHg Rt DPA Pressure 136 mmHg Lt DPA Pressure 162 mmHg Rt 1st Digit Pressure 143 mmHg Lt 1st Digit Pressure 148 mmHg Rt PT SARANYA Resting 0.86 Lt PT SARANYA Resting 0.98 Rt AT SARANYA Resting 0.77 Lt AT SARANYA Resting 0.92 Rt Digit/Arm Index 0.81 Lt Digit/Arm Index 0.84 Right Value Units Left Value Units FINDINGS: Performing Retirement Plan Counselor: Joanne Rossi RVT, RDMS. Right Common Femoral Artery Analysis: The common femoral artery waveform is multiphasic. Right Popliteal Artery Analysis: The popliteal waveform is multiphasic. Right Posterior Tibial Artery Analysis: The posterior tibial waveform is multiphasic. Right Anterior Tibial Artery Analysis: The anterior tibial waveform is barely multiphasic. Right Digits: Normal right digit pressure and waveform. Left Common Femoral Artery Analysis: The common femoral artery waveform is multiphasic. Left Popliteal Artery Analysis: The popliteal waveform is multiphasic. Left Posterior Tibial Artery Analysis: The posterior tibial waveform is multiphasic. Left Anterior Tibial Artery Analysis: The anterior tibial waveform is multiphasic. Left Digits: Normal left digit pressure and waveform. Post Exercise Common Femoral Waveforms: The post exercise right common femoral waveform is monophasic. The postexercise left common femoral waveform is multiphasic. Exercise Testing: Patient walked on a treadmill at 1.5MPH and 12% incline for 3minutes. Neisha than 17% reduction in the post-exercise systolic blood pressure compared to theresting systolic blood pressure is indicative of a hemodynamically significant arterialdisease in the lower extremities. 48% drop in the right RIVET HAMMER MACHINE OPERATOR. 25% drop in the left RIVET HAMMER MACHINE OPERATOR. Post exercise tibial pressures did not return tobaseline after 5 minutes bilaterally and provides evidence of multilevel disease.Exercise testing is discontinued at 3 minutes due to patient overall fatigue and bilateral legfatigue. Patient started experiencing leg fatigue at the 1 minute valdez thatworsened throughout the exam, did not report pain in either legs. CONCLUSIONS: 1. The above listed right Ankle/Brachial Index at rest is consistent withmoderate peripheral arterial disease - claudication (for reference, claudicationrange is 0.50 -0.89). 2. The above listed left Ankle/Brachial Index at rest is within normallimits (for reference, normal resting SARANYA is 0.90 - 1.4; SARANYA >1.4 due tonon-compressible arteries is not diagnostic). 3. Bilateral Digit/Arm Indices are within normal limits (for reference,normal KYLEE is >0.6). 4. There is evidence of right leg arterial insufficiency AT REST at thelevel of anterior tibial artery. 5. The left lower extremity arterial Doppler reveals multiphasic waveformsin all distributions above AT REST. No evidence of lower extremity arterialocclusive disease at rest on the left. 6. Abnormal response to exercise with a monophasic post exercise commonfemoral artery waveform is consistent with iliac arterial obstruction which ishemodynamically significant with exercise on the right. 7. Abnormal response to exercise is consistent with hemodynamicallysignificant arterial disease on the left, per pressure drop. HISTORY: 09-01-2023 left lower extremity angiogram, left femoral artery andpopliteal artery balloon angioplasty 09-18-2023 left SFA and popliteal angioplasty, left above knee poplitealartert stent HLD, PAD, PVD. PREVIOUS STUDIES: No previous studies for comparison. DISCLAIMER: The study images and the final report will be retained in the patientchart by the Vascular Laboratory for the legally required time period. This chartconstitutes the legal record of any testing performed. ATTESTATION: I have reviewed and interpreted the pertinent images and measurements ofthis study. I attest to the conclusions in the final report that is provided above. Electronically Signed By: Ruthie Roland MD [facility] [phone] 11/23/2024 1:12:44 PM CDT us Ruthie Roland MD IMG US PROCEDURES Final Result documented in this encounter Visit Diagnoses Diagnosis Atherosclerosis of [place] arteries of extremities with intermittent claudication, left leg Atherosclerosis of [place] arteries of extremities with intermittent claudication, right leg documented in this encounter Care Teams Chef & Owner Relationship Specialty Start Date End Date Noé Poon MD [address] [place] [id number] PCP - General Family Medicine 09/24/24 documented as of this encounter
--- OUTSIDE RECORDS SUMMARY | 2024-11-24 09:09 | XMS_ITS | Referral Summary ---
Author Organization [facility] Address [address] [place] [address] Care Team Providers Care Manager Social Work Name Role Phone Noé Poon MD Primary Care Provider [phone] Encounters Date Type Department Care Team Description 11/23/2024 8:45 AM CDT Office Visit [facility] Surgery [facility] hospital[facility] 8th [place] [address] [place] [address] Ruthie Roland MD Encounter for surgical aftercare following surgery on the circulatory system (Primary Dx); Atherosclerosis of [place] arteries of extremities with intermittent claudication, bilateral legs 11/23/2024 8:00 AM CDT Ancillary Procedure [facility] Vascular Lab at the [address] 8th [place] [address] [place] [address] Atherosclerosis of [place] arteries of extremities with intermittent claudication, left leg; Atherosclerosis of [place] arteries of extremities with intermittent claudication, right leg 09/24/2024 10:00 AM CDT Office Visit [facility] Cardiology [address] [facility] [address] [place] [phone] Lela Foley NP PFO (patent foramen ovale) (Primary Dx); PAD (peripheral artery disease); History of recent stroke; Hospital discharge follow-up 09/14/2024 Orders Only [facility] Cardiology [address] [facility] [address] [place] [phone] Renan Chino MD 09/09/2024 Telephone [facility] Cardiology [address] [place] [address] Renan Chino MD from Last 3 Months Allergies No known [...] mg by mouth every other day Active boeuupvq-pstnwlf-ex on-lutein tabletIndications:s upplement Take 1 tablet by mouth poll watcher before breakfast Active CALCIUM CARBONATE-VITAMIN D3 ORALIndications:Ost [...] mg. Assessment & Plan (08/27/2023 2:36 PM SECTION MAINTAINER): Stable continue lisinopril 40 mg. Hypercholesterolemia 11/04/2022 Assessment & Plan (09/09/2023 10:26 AM CDT): Stable continue Lipitor 10 mg. Assessment & Plan (08/27/2023 2:36 PM SECTION MAINTAINER): Stable continue Lipitor 10 mg. PAD (peripheral [...] opinion and has an appointment scheduled with [facility]. Assessment & Plan (08/27/2023 2:36 PM SECTION MAINTAINER): Left lower extremity chronic limb-threatening ischemia with [...] wound. Assessment & Plan (08/19/2023 10:54 AM SECTION MAINTAINER): Continues to deny any symptoms of claudication [...] Tobacco: Former Cigarettes 1.5 42 1 974 2015 Passive Smoke Exposure: Never Smokeless Tobacco: [...] on file Legal Sex Female 6:03 AM SECTION MAINTAINER Gender Identity Female 10/20/2022 4:51 PM CDT Sexual Orientation Not on file Last Filed Vital Signs Vital Sign Reading Time Taken Comments Blood Pressure 165/71 11/23/2024 8:58 AM CDT Pulse 94 11/23/2024 8:58 AM CDT Temperature 36.1 C (97 F) 01/21/2024 3:11 PM CDT Respiratory Rate 20 01/21/2024 5:30 PM CDT Oxygen Saturation 97% 11/23/2024 8:58 AM CDT Inhaled Oxygen Concentration - - Weight 60.3 kg (133 lb) 11/23/2024 8:58 AM CDT Height 157.5 cm (5' 2) 11/23/2024 8:58 AM CDT Body Mass Index 24.33 11/23/2024 8:58 AM CDT Plan of Treatment Not on file Medical Devices Implanted Type Area Lead Janitor Device Identifier Shelf Expiration Date Model / Serial / Lot [employer] Protege Everflex 5mm .079in 60mm 120cm Otw Delivery System Self [id number] 120 - [id number] Implanted:Qty : 1 on 09/18/2023 by Ruthie Roland MD at [facility] Left: Superficial Femoral Artery [employer] [id number] 04/22/2026 [id number] / / [id number] Procedures Procedure Name Priority Date/Time Associated Diagnosis Comments US LOWER EXTREMITY TREADMILL TESTING Routine 11/23/2024 9:03 AM CDT Atherosclerosis of [place] arteries of extremities with intermittent claudication, left leg Atherosclerosis of [place] arteries of extremities with intermittent claudication, right leg CARDIOLOGY DOCUMENT SCAN Routine 09/08/2024 9:43 AM CDT from Last 3 Months Results * US Lower Extremity Treadmill Testing (11/23/2024 9:03 AM CDT) Anatomical Region Laterality Modality Vascular Ultrasound 11/23/2024 8:11 AM CDT Narrative 11/23/2024 1:42 PM CDT [facility] - Department of Vascular Surgery, Vascular Laboratory [address] [place] [address] Lower Extremity Arterial Doppler Report Patient Name: ACE YBARRA : 1955 Study Date: 11/23/2024 8:11:00 AM Gender: F Tech: Joanne Rossi T, [facility] Location: [facility] Ref Provider: RUTHIE ROLAND Quality: Adequate Order Provider: RUTHIE ROLAND PROCEDURES: Arterial Report: Bilateral lower extremity arterial Doppler exam at rest and with treadmill exercise. INDICATIONS: Atherosclerosis of [place] Arteries of Extremities with Intermittent Claudication, Left Leg; Atherosclerosis of [place] Arteries of Extremities with Intermittent Claudication, Right Leg; Left popliteal DCBA + stent Dx: Atherosclerosis of [place] arteries of extremities with intermittent claudication, left leg [I70.212 (ICD-10-CM)]; Atherosclerosis of [place] arteries of extremities with intermittent claudication, right leg [I70.211 (ICD-10-CM)] I70.212 Atherosclerosis of [place] arteries of extremities with intermittent claudication, left leg, and I70.211 Atherosclerosis of [place] arteries of extremities with intermittent claudication, right leg. MEASUREMENTS: Right Value Units Left Value Units Rt Brachial Pressure 176 mmHg Lt Brachial Pressure 173 mmHg Rt CORE MAKER HELPER Pressure 152 mmHg Lt CORE MAKER HELPER Pressure 173 mmHg Rt DPA Pressure 136 mmHg Lt DPA Pressure 162 mmHg Rt 1st Digit Pressure 143 mmHg Lt 1st Digit Pressure 148 mmHg Rt PT SARANYA Resting 0.86 Lt PT SARANYA Resting 0.98 Rt AT SARANYA Resting 0.77 Lt AT SARANYA Resting 0.92 Rt Digit/Arm Index 0.81 Lt Digit/Arm Index 0.84 Right Value Units Left Value Units FINDINGS: Performing Oncology Navigator: Joanne Rossi RVT, RDMS. Right Common Femoral [...] lower extremities. 48% drop in the right CORE MAKER HELPER. 25% drop in the left CORE MAKER HELPER. Post exercise tibial pressures did not return [...] above. Electronically Signed By: Ruthie Roland MD [facility] [phone] 11/23/2024 1:12:44 PM CDT Procedure Note Ruthie Roland MD - 11/23/2024 [facility] - Department of Vascular Surgery,Vascular Laboratory [address] [place] [address] Lower Extremity Arterial Doppler Report Patient Name: ACE YBARRA : 1955 Study Date: 11/23/2024 8:11:00 AM Gender: F Tech: Joanne Rossi T, [facility] Location: [facility] Provider: RUTHIE ROLAND Quality: Adequate Order Provider: RUTHIE ROLAND PROCEDURES: Arterial Report: Bilateral lower extremity arterial Doppler exam at rest and with treadmillexercise. INDICATIONS: Atherosclerosis of [place] Arteries of Extremities with IntermittentClaudication, Left Leg; Atherosclerosis of [place] Arteries of Extremities with IntermittentClaudication, Right Leg; Left popliteal DCBA + stent Dx: Atherosclerosis of [place] arteries of extremities with intermittentclaudication, left leg [I70.212 (ICD-10-CM)]; Atherosclerosis of [place] arteries ofextremities with intermittent claudication, right leg [I70.211 (ICD-10-CM)] I70.212 Atherosclerosis of [place] arteries of extremities withintermittent claudication, left leg, and I70.211 Atherosclerosis of [place] arteries of extremitieswith intermittent claudication, right leg. MEASUREMENTS: Right Value Units Left Value Units Rt Brachial Pressure 176 mmHg Lt Brachial Pressure 173 mmHg Rt CORE MAKER HELPER Pressure 152 mmHg Lt CORE MAKER HELPER Pressure 173 mmHg Rt DPA Pressure 136 mmHg Lt DPA Pressure 162 mmHg Rt 1st Digit Pressure 143 mmHg Lt 1st Digit Pressure 148 mmHg Rt PT SARANYA Resting 0.86 Lt PT SARANYA Resting 0.98 Rt AT SARANYA Resting 0.77 Lt AT SARANYA Resting 0.92 Rt Digit/Arm Index 0.81 Lt Digit/Arm Index 0.84 Right Value Units Left Value Units FINDINGS: Performing Oncology Navigator: Joanne Rossi RVT, RDMS. Right Common Femoral [...] lower extremities. 48% drop in the right CORE MAKER HELPER. 25% drop in the left CORE MAKER HELPER. Post exercise tibial pressures did not return [...] above. Electronically Signed By: Ruthie Roland MD [facility] [phone] 11/23/2024 1:12:44 PM CDT us Ruthie Roland MD IMG US PROCEDURES Final Result * Cardiology Document Scan (09/08/2024 9:43 AM CDT) Anatomical Region Laterality Modality Other us Renan Chino MD CV [facility] Final Result from Last 3 Months Insurance MEDICARE AETNA SENIOR SUPPLEMENT MEDICARE AETNA SENIOR SUPPLEMENT Member Subscriber Plan / Payer (Ef fective 2022-) Name:Ace Ybarra V Relation to Subscriber:Self Name:Ace Ybarra V Payer ID:[id number] Group ID:[id number] Type:COMMERCIAL Address: [place] [id number] Advance Directives For more information, please contact: [phone] * Full Code (Latest Code Status on File) Date Activated Date Inactivated Comments 09/01/2023 10:16 AM 09/01/2023 6:05 PM Care Teams Manager Social Work Relationship Specialty Start Date End Date Noé Poon MD [address] [place] [address] [place] [id number] PCP - General Family Medicine 09/24/24
--- OUTSIDE RECORDS SUMMARY | 2024-11-24 09:09 | XMS_ITS | Encounter Summary ---
Author Organization [facility] Address [address] [facility] [address] [place] [address] Phone Care Team Providers Care Farm Equipment Engine Mechanic Name Role Phone Noé Poon MD Primary Care Provider [phone] Reason for Referral * Diagnostic Imaging (Routine) - Authorized Specialty Diagnoses / Procedures Referred By Contac t Referred To Contact Diagnoses Encounter for surgical aftercare following surgery on the circulatory system Procedures US Arterial Duplex Lower Extremity Left Limited Geronimo Gimenez MD [address] [facility] [address] [place] [address] Phone: tel: fax: [facility] (All Locations) Referral ID Status Reason Start Date Expiration Date V isits Requested Visits Authorized [id number] Authorized 11/23/2024 12/23/2025 1 1 * Diagnostic Imaging (Routine) - Authorized Specialty Diagnoses / Procedures Referred By Contac t Referred To Contact Diagnoses Encounter for surgical aftercare following surgery on the circulatory system Procedures US Arterial Doppler Lower Extremity Bilateral Geronimo Gimenez MD [address] [facility] [address] [place] [address] Phone: tel: fax: [facility] (All Locations) Referral ID Status Reason Start Date Expiration Date V isits Requested Visits Authorized [id number] Authorized 11/23/2024 12/23/2025 1 1 Reason for Visit * Reason Comments Return Patient Encounter Details Date Type Department Care Team (Late st Contact Info) Description 11/23/2024 8:45 AM CDT Office Visit [facility] Surgery [address] [facility] 8th [place] [address] [place] [address] Geronimo Gimenez MD [address] [facility] [address] [place] [address] Encounter for surgical aftercare following surgery on the circulatory system (Primary Dx); Atherosclerosis of [place] arteries of extremities with intermittent claudication, bilateral legs Social History Tobacco Use Types Packs/Day Years [...] on file 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 Gender Identity Female 10/20/2022 4:51 PM CDT Sexual Orientation Not on file documented as of this encounter Last Filed Vital Signs Vital Sign Reading Time Taken Comments Blood Pressure 165/71 11/23/2024 8:58 AM CDT Pulse 94 11/23/2024 8:58 AM CDT Temperature - - Respiratory Rate - - Oxygen Saturation 97% 11/23/2024 8:58 AM CDT Inhaled Oxygen Concentration - - Weight 60.3 kg (133 lb) 11/23/2024 8:58 AM CDT Height 157.5 cm (5' 2) 11/23/2024 8:58 AM CDT Body Mass Index 24.33 11/23/2024 8:58 AM CDT documented in this encounter Progress Notes * Geronimo Gimenez MD - 11/23/2024 8:45 AM CDT Patient: Ashley Ybarra Date of : 1955 Date of Service: 11/22/2024 VASCULAR SURGERY RETURN OUTPATIENT VISIT HISTORY OF PRESENT ILLNESS: Ashley Ybarra is a 69 y.o. female patient She had presented with a complex ischemic wound of the distal left 1st toe. His angiogram demonstrated diffusely small caliber to the patient's infrainguinal vessels of the left leg. He performed drug coated balloon angioplasty which was complicated by areas of dissection requiring placement of a drug coated stents in the proximal left popliteal artery. On follow-up she was found to have critical restenosis at the drug-eluting stent with recurrent claudication and plateauing of wound healing. This was treated with left pop DCB 01/[address] Stewart. She returns today with no CLTI sxs. She has been struggling with anemia (she thinks ABLA) with workup ongoing, negative colonoscopy and EGD. She has rec'd 4 units PRBC for Hb of 5. She does complain of R+L claudication REVIEW OF SYSTEMS: The patient???s vascular health history was reviewed and signed by me dated 11/22/2024. It has been scanned into the patient's chart. CURRENT PROBLEMS: Patient Active Problem List Diagnosis Date Noted PVD (peripheral vascular disease) 01/09/2024 Encounter for surgical aftercare following surgery on the circulatory system 01/05/2024 Non-healing open wound of toe, initial encounter 09/18/2023 Non-healing wound of left lower extremity 09/09/2023 Secondary hypertension 11/04/2022 Hypercholesterolemia 11/04/2022 PAD (peripheral artery disease) 10/11/2022 Disorder of esophagus 07/28/2015 PHYSICAL EXAMINATION: VITAL SIGNS: There were no vitals taken for this visit. HEENT: Normocephalic and atraumatic. Extraocular movements are intact. Moist mucus membranes. EYES: Pupils are equal and reactive to light bilaterally. NECK: Supple with no carotid bruits. PULMONARY: Non-labored breathing. No audible wheezing. CARDIOVASCULAR: Regular rate and rhythm. GASTROINTESTINAL: Soft, nontender, nondistended. VASCULAR: Palpable radial pulses MUSCULOSKELETAL: Warm, well perfused NEURO: Grossly intact motor and sensory exam. SKIN: No visible rashes. no wounds noted. PSYCHOLOGIC: Normal affect MEDICATIONS: Current Outpatient Medications Medication Sig Dispense Refill amLODIPine (NORVASC) 5 mg tablet Take 1 tablet (5 mg total) by mouth daily ascorbic acid, vitamin C, 500 mg capsule Take 500 mg by mouth every morning aspirin 81 mg chewable tablet Take 1 tablet (81 mg total) by mouth daily 30 tablet 11 atorvastatin (LIPITOR) 10 mg tablet Take 1 tablet (10 mg total) by mouth every morning CALCIUM CARBONATE-VITAMIN D3 ORAL Take 1 tablet by mouth daily cetirizine (ZyrTEC) 10 mg tablet Take 1 tablet (10 mg total) by mouth nightly cholecalciferol (VITAMIN D-3) 2000 unit capsule Take 1 capsule (2,000 Units total) by mouth every morning clopidogreL (PLAVIX) 75 mg tablet Take 1 tablet (75 mg total) by mouth every morning diclofenac DR (VOLTAREN) 75 mg EC tablet Take 1 tablet (75 mg total) by mouth 2 (two) times a day ferrous sulfate (IRON ORAL) Take 65 mg by mouth every other day L. acidophilus/Bifid. animalis 32 billion cell capsule Take 1 capsule by mouth nightly lisinopriL (PRINIVIL,ZESTRIL) 40 mg tablet Take 1 tablet (40 mg total) by mouth nightly uzjqvioc-pzxpixg-atyi-lutein tablet Take 1 tablet by mouth wirer maintenance before breakfast pantoprazole DR (PROTONIX) 40 mg EC tablet potassium chloride ER 10 mEq CR tablet Take 1 tablet/capsule (10 mEq total) by mouth nightly pramipexole (MIRAPEX) 1 mg tablet Take 1 tablet (1 mg total) by mouth nightly sertraline (ZOLOFT) 50 mg tablet sucralfate (CARAFATE) 1 gram tablet traMADoL (ULTRAM) 50 mg tablet Take 1 tablet (50 mg total) by mouth 2 (two) times a day as needed for pain zolpidem (AMBIEN) 5 mg tablet Take 1 tablet (5 mg total) by mouth nightly No current facility-administered medications for this visit. ALLERGY: Patient has no known allergies. VASCULAR LABS: I personally reviewed the ABIs.86/.98. Treadmill testing positive for inducible ischemia bilaterally R>L. ASSESSMENT/PLAN: The patient is a 69 y.o. female with bilateral claudication after left leg revasc. CLTI sxs resolved. She wants to defer any workup at this time (CT scan) and RTC 6 months to see me with repeat vascula lab testing Geronimo Gimenez MD documented in this encounter Plan of Treatment Scheduled Orders Name Type Priority Associated Diagnoses Orde r Schedule US Arterial Doppler Lower Extremity Bilateral Imaging Schedule Routine, Read Routine (OP Routine) Encounter for surgical aftercare following surgery on the circulatory system Expected: 05/25/2025, Expires: 05/25/2026 US Arterial Duplex Lower Extremity Left Limited Imaging Schedule Routine, Read Routine (OP Routine) Encounter for surgical aftercare following surgery on the circulatory system Expected: 05/25/2025, Expires: 05/25/2026 documented as of this encounter Visit Diagnoses Diagnosis Encounter for surgical aftercare following surgery on the circulatory system- Primary Atherosclerosis of [place] arteries of extremities with intermittent claudication, bilateral legs documented in this encounter Care Teams Farm Equipment Engine Mechanic Relationship Specialty Start Date End Date Noé Poon MD [address] [place] [address] PCP - General Family Medicine 09/24/24 documented as of this encounter
--- OUTSIDE RECORDS SUMMARY | 2024-11-24 09:09 | XMS_ITS | Clinical Summary ---
Author Organization [facility] Address [address] [place] [address] Care Team Providers Care Business Process Expert Name Role Phone Noé Poon MD Primary Care Provider [phone] Allergies No known active allergies Medications ascorbic [...] mg by mouth every other day Active brgmxdpc-ltadmmo-fd on-lutein tabletIndications:s upplement Take 1 tablet by mouth sole stainer before breakfast Active CALCIUM CARBONATE-VITAMIN D3 ORALIndications:Ost [...] mg. Assessment & Plan (08/27/2023 2:36 PM FLIGHT CREW ORDNANCEMAN): Stable continue lisinopril 40 mg. Hypercholesterolemia 11/04/2022 Assessment & Plan (09/09/2023 10:26 AM CDT): Stable continue Lipitor 10 mg. Assessment & Plan (08/27/2023 2:36 PM FLIGHT CREW ORDNANCEMAN): Stable continue Lipitor 10 mg. PAD (peripheral [...] opinion and has an appointment scheduled with [facility]. Assessment & Plan (08/27/2023 2:36 PM FLIGHT CREW ORDNANCEMAN): Left lower extremity chronic limb-threatening ischemia with [...] wound. Assessment & Plan (08/19/2023 10:54 AM FLIGHT CREW ORDNANCEMAN): Continues to deny any symptoms of claudication [...] Description 11/23/2024 8:45 AM CDT Office Visit [facility] Surgery [facility] 8th [place] [address] [place] [address] Ruthie Roland MD Encounter for surgical aftercare following surgery on the circulatory system (Primary Dx); Atherosclerosis of andreafski arteries of extremities with intermittent claudication, bilateral legs 11/23/2024 8:00 AM CDT Ancillary Procedure [facility] V[facility] Lab at the [place] [id number] [facility] 8th [place] [address] [place] [address] Atherosclerosis of andreafski arteries of extremities with intermittent claudication, left leg; Atherosclerosis of andreafski arteries of extremities with intermittent claudication, right leg 09/24/2024 10:00 AM CDT Office Visit [facility] Cardiology [address] [place] [address] [address] [place] [phone] Lela Foley NP PFO (patent foramen ovale) (Primary Dx); PAD (peripheral artery disease); History of recent stroke; Hospital discharge follow-up 09/14/2024 Orders Only [facility] Cardiology [address] [place] [address] [address] [place] [phone] Renan Chino MD 09/09/2024 Telephone [facility] Cardiology [address] [place] [address] [address] [place] [phone] Renan Chino MD from Last 3 Months Immunizations Immunization Administration [...] Hyperlipidemia Arthritis N/A CVA (cerebral vascular accident) ([facility]) 5 Family History Medical History [...] on file Legal Sex Female 6:03 AM FLIGHT CREW ORDNANCEMAN Gender Identity Female 10/20/2022 4:51 PM CDT [...] 11/23/2024 8:58 AM CDT Plan of Treatment Health Maintenance [...] Ended) 2025 Medical Devices Implanted Type Area Director Advanced Device Identifier Shelf Expiration Date Model / Serial / Lot [employer] Protege Everflex 5mm .079in 60mm 120cm Otw Delivery System Self [id number] - [id number] Implanted:Qty : 1 on 09/18/2023 by Ruthie Roland MD at [facility] Left: Superficial Femoral Artery [employer] [id number] 04/22/2026 [id number] / / [id number] Procedures Procedure Name Priority Date/Time Associated Diagnosis Comments US LOWER EXTREMITY TREADMILL TESTING Routine 11/23/2024 9:03 AM CDT Atherosclerosis of andreafski arteries of extremities with intermittent claudication, left leg Atherosclerosis of andreafski arteries of extremities with intermittent claudication, right leg CARDIOLOGY DOCUMENT SCAN Routine 09/08/2024 9:43 AM CDT from Last 3 Months Results * US Lower Extremity Treadmill Testing (11/23/2024 9:03 AM CDT) Anatomical Region Laterality Modality Vascular Ultrasound 11/23/2024 8:11 AM CDT Narrative 11/23/2024 1:42 PM CDT [facility] - Department of Vascular Surgery, Vascular Laboratory [address] [place] [address] Lower Extremity Arterial Doppler Report Patient Name: ASHLEY YBARRA : 1955 Study Date: 11/23/2024 8:11:00 AM Gender: F Tech: Joanne Rossi T, [facility] [[email or web address]] Location: [facility] Provider: RUTHIE ROLAND Quality: Adequate Order Provider: RUTHIE ROLAND PROCEDURES: Arterial Report: Bilateral lower extremity arterial Doppler exam at rest and with treadmill exercise. INDICATIONS: Atherosclerosis of [place] Arteries of Extremities with Intermittent Claudication, Left Leg; Atherosclerosis of [place] Arteries of Extremities with Intermittent Claudication, Right Leg; Left popliteal DCBA + stent Dx: Atherosclerosis of andreafski arteries of extremities with intermittent claudication, left leg [I70.212 (ICD-10-CM)]; Atherosclerosis of andreafski arteries of extremities with intermittent claudication, right leg [I70.211 (ICD-10-CM)] I70.212 Atherosclerosis of andreafski arteries of extremities with intermittent claudication, left leg, and I70.211 Atherosclerosis of andreafski arteries of extremities with intermittent claudication, right leg. MEASUREMENTS: Right Value Units Left Value Units Rt Brachial Pressure 176 mmHg Lt Brachial Pressure 173 mmHg Rt INTERNATIONAL MARKETING EXECUTIVE Pressure 152 mmHg Lt INTERNATIONAL MARKETING EXECUTIVE Pressure 173 mmHg Rt DPA Pressure 136 mmHg Lt DPA Pressure 162 mmHg Rt 1st Digit Pressure 143 mmHg Lt 1st Digit Pressure 148 mmHg Rt PT SARANYA Resting 0.86 Lt PT SARANYA Resting 0.98 Rt AT SARANYA Resting 0.77 Lt AT SARANYA Resting 0.92 Rt Digit/Arm Index 0.81 Lt Digit/Arm Index 0.84 Right Value Units Left Value Units FINDINGS: Performing Vice President Corporate Communications: Joanne Rossi RVT, RDMS. Right Common Femoral [...] lower extremities. 48% drop in the right INTERNATIONAL MARKETING EXECUTIVE. 25% drop in the left INTERNATIONAL MARKETING EXECUTIVE. Post exercise tibial pressures did not return [...] above. Electronically Signed By: Ruthie Roland MD [facility] [phone] 11/23/2024 1:12:44 PM CDT Procedure Note Ruthie Roland MD - 11/23/2024 [facility] - Department of Vascular Surgery,Vascular Laboratory [address] [place] [address] Lower Extremity Arterial Doppler Report Patient Name: ASHLEY YBARRA : 1955 Study Date: 11/23/2024 8:11:00 AM Gender: F Tech: Joanne Rossi RVT, [facility] [[email or web address]] Location: [facility] Provider: RUTHIE ROLAND Quality: Adequate Order Provider: RUTHIE ROLAND PROCEDURES: Arterial Report: Bilateral lower extremity arterial Doppler exam at rest and with treadmillexercise. INDICATIONS: Atherosclerosis of [place] Arteries of Extremities with IntermittentClaudication, Left Leg; Atherosclerosis of [place] Arteries of Extremities with IntermittentClaudication, Right Leg; Left popliteal DCBA + stent Dx: Atherosclerosis of andreafski arteries of extremities with intermittentclaudication, left leg [I70.212 (ICD-10-CM)]; Atherosclerosis of andreafski arteries ofextremities with intermittent claudication, right leg [I70.211 (ICD-10-CM)] I70.212 Atherosclerosis of andreafski arteries of extremities withintermittent claudication, left leg, and I70.211 Atherosclerosis of andreafski arteries of extremitieswith intermittent claudication, right leg. MEASUREMENTS: Right Value Units Left Value Units Rt Brachial Pressure 176 mmHg Lt Brachial Pressure 173 mmHg Rt INTERNATIONAL MARKETING EXECUTIVE Pressure 152 mmHg Lt INTERNATIONAL MARKETING EXECUTIVE Pressure 173 mmHg Rt DPA Pressure 136 mmHg Lt DPA Pressure 162 mmHg Rt 1st Digit Pressure 143 mmHg Lt 1st Digit Pressure 148 mmHg Rt PT SARANYA Resting 0.86 Lt PT SARANYA Resting 0.98 Rt AT SARANYA Resting 0.77 Lt AT SARANYA Resting 0.92 Rt Digit/Arm Index 0.81 Lt Digit/Arm Index 0.84 Right Value Units Left Value Units FINDINGS: Performing Vice President Corporate Communications: Joanne Rossi RVT, RDMS. Right Common Femoral [...] lower extremities. 48% drop in the right INTERNATIONAL MARKETING EXECUTIVE. 25% drop in the left INTERNATIONAL MARKETING EXECUTIVE. Post exercise tibial pressures did not return [...] above. Electronically Signed By: Ruthie Roland MD [facility] [phone] 11/23/2024 1:12:44 PM CDT us Ruthie Roland MD IMG US PROCEDURES Final Result * Cardiology Document Scan (09/08/2024 9:43 AM CDT) Anatomical Region Laterality Modality Other us Renan Chino MD [facility] Final Result from Last 3 Months Insurance MEDICARE [employer] SENIOR SUPPLEMENT MEDICARE AET[employer] SENIOR SUPPLEMENT Advance Directives For more information, please contact: [phone] * Full Code (Latest Code Status on File) Date Activated Date Inactivated Comments 09/01/2023 10:16 AM 09/01/2023 6:05 PM Care Teams Business Process Expert Relationship Specialty Start Date End Date Noé Poon MD [address] [place] [address] PCP - General Family Medicine 09/24/24
--- OUTSIDE RECORDS SUMMARY | 2024-11-24 09:09 | XMS_ITS | Clinical Summary ---
Author Organization [facility] Perri Tristan Address [address] [facility] [place] [address] Care Team Providers Care Cattle Broker Name Role Phone Unavailable Primary Care Provider [...] Encounters Date Type Department Care Team Description 11/11/2024 External Device Data ST[facility] ABSTRACTION Provider, Abstract 11/10/2024 External Device Data [facility] ABSTRACTION Provider, Abstract 11/09/2024 External Device Data [facility] ABSTRACTION Provider, Abstract 11/04/2024 4:30 PM CDT Telephone Check Up [facility] Oncology and Hematology [facility] [address] [place] [address] Last Marks MD Chronic anemia (Primary Dx); Iron deficiency anemia, unspecified iron deficiency anemia type 10/29/2024 Orders Only [facility] Oncology and Hematology [facility] [address] [place] [address] Last Marsk MD 10/26/2024 External Device Data STL ABSTRACTION Provider, Abstract 10/26/2024 External Device Data [facility] ABSTRACTION Provider, Abstract 10/26/2024 External Device Data STL ABSTRACTION Provider, Abstract 10/22/2024 Abstract [facility] Oncology and Hematology [facility] [address] [place] [address] Last Marks MD 10/22/2024 Orders Only [facility] Oncology and Hematology [facility] [address] [place] [address] Last Marks MD 10/21/2024 1:30 PM CDT Office Visit [facility] Oncology and Hematology [facility] [address] [place] [address] Last Marks MD Chronic anemia (Primary Dx) [...] 1:18 PM CDT Height 157.5 cm (5' 2) 10/21/2024 1:18 PM CDT Body Mass Index 24.87 10/21/2024 1:18 PM CDT Plan of Treatment Upcoming Encounters Date Type Department Care Team (Late st Contact Info) Description 01/11/2025 11:15 AM CDT Office Visit [facility] Oncology and Hematology [facility] [address] [facility] [address] [place] [address] Last Marks MD [address] [facility] [address] [place] [address] Health Maintenance Due Date Last [...] ) (1 - 1-dose 75+ series) 01/23/2032 Procedures Procedure Name Priority Date/Time Associated Diagnosis Comments TRANSFERRIN RECEPTOR TFR SOLUBLE Routine 10/21/2024 3:13 PM CDT COMPREHENSIVE METABOLIC PANEL Routine 10/21/2024 1:04 PM CDT CBC WITH DIFFERENTIAL Routine 10/21/2024 12:48 PM CDT TYPE AND SCREEN Routine 10/21/2024 9:47 AM CDT from Last 3 Months Results * TRANSFERRIN RECEPTOR TFR SOLUBLE (10/21/2024 3:13 PM CDT) Blood us Last Marks MD CHEMISTRY ORDERABLES Final Resu lt * COMPREHENSIVE METABOLIC PANEL (10/21/2024 1:04 PM CDT) Blood us Last Marks MD CHEMISTRY ORDERABLES Final Resu lt * CBC WITH DIFFERENTIAL (10/21/2024 12:48 PM CDT) Blood us Last Marks MD HEMATOLOGY ORDERABLES Final Res ult * TYPE AND SCREEN (10/21/2024 9:47 AM CDT) Blood us Last Marks MD BLOOD BANK ORDERABLES Final Res ult from Last 3 Months Insurance MEDICARE PART A AND B TNA MEDICARE SUPP AESSI
--- OUTSIDE RECORDS SUMMARY | 2024-11-24 09:09 | XMS_ITS | Data Portability ---
Author Organization [place] - [facility] [employer], Main Office Address [address] [place] [address] Care Team Providers Care Leather Craftsman Name Role Phone KATHY FRITZ Primary Care [...] more than half the time spent in yppv-ai-ztqh care. Not available 11/04/2022 16:25:45 03/28/2023 03/28/2023 [...] treatment patient than half of this in dptb-ho-rcpr conversation Not available 03/28/2023 14:53:09 Plan of [...] DO Not Attach Compendium, Do Not Delete/merge, [id number] 16:19:15 Surgeries None recorded. Imaging XR, hip + pelvis, unilateral 2022 023 [facility] [place], [address], [place], [address], 16:06:59 XR, shoulder 2022 023 [email or web address] [facility] [place], [address], [place], [address], 09:56:50 Medication Orders diclofenac sodium 75 mg tablet,del ayed release 2022 023 [facility], [address] [place], [id number], 16:06:59 Kenalog 10 mg/mL suspension for injection 2022 023 [facility], [address] [place], [id number], 3 10:30:52 ropivacain e (PF) 5 mg/mL (0.5 %) injection solution 2022 023 [facility], [address] [place], [id number], 3 10:30:52 Patient TargetsNo targets recorded. Patient InstructionsNo instructions recorded. Reason for Referral None Reported. Results Created Date Observation Date Name Description Value Unit Range Abnormal Flag Note LastModifiedBy Organization Detail LastModifiedTime 09/12/19 23 XR, shoul marlon No observ ation record ed. [facility] [place] [address], [place], [address], 09/25/2022 08:40:00 11/02/19 23 MRI, shoul marlon, w/o contr ast [facility] [address], [place] [address] Patien t Name: SURESH YBARRA Access ion #: [id number] Sex: F : 1954 7 2 Locati [...] intras ubstan ce Page 1 of 2 [facility] Pativaleriano t Name: SURESH YBARRA Access ion #: [id number] Sex: F : 1954 7 2 Exam [...] 3:32 PM (CT) Page 2 of 2 [email or web address] [facility] (Imaging) [address] [place], [address], 11/04/2022 11:51:37 03/28/20 23 XR, hip + pelvi s, unila teral No observ ation record ed. [email or web address] [facility] [place] [address], [place], [address], 03/28/2023 14:51:38 Result Notes None recorded. Problems Name Problem SNOMED Code Status Onset Date Resolution Date Notes Provider Name and Address Organization Details Recorded Time Bilateral shoulder joint pain 53289837527031 104 Active 2022 AMBER Lowery null, [facility] Narr8 [facility] 3 09:07:42 Pain of right shoulder joint 86171357407105 100 Active 2022 Dasia Gutiérrez CMA null, [facility] Narr8 [facility] 3 09:45:31 Pain of left hip joint 07304179910532 0 Active 2022 Rizwana Franks null, [facility] Narr8 [facility] 3 14:09:14 Notes:Some problems listed i n Document: #[id number] could not be added to this patient's chart. Please review this document and add these problems to the patient's chart manually as needed. Problem Notes None recorded. Medical Equipment None Reported. [...] procedure, administere d by provider 2022 active [place]: [phone] Not Available Not Available [...] procedure, administere d by provider 2022 active [facility] [phone] Not Available Not Available Not Available Vitals Date Recorded Body height Body mass index (BMI) Body weight Provider Name and Address Organization Details Last Updated DateTime 09/11/2022 157.48 cm 25.2 kg/m2 11436.75 g Jenna Chin [facility] [employer] [facility] 09/11/2022 09:12:56 Date Recorded Body height Provider Name an d Address Organization Details Last Updated DateTime 10/23/2022 157.48 cm Jenna Chin [facility] [employer] [facility] 10/23/2022 08:59:11 Date Recorded Body height Provider Name an d Address Organization Details Last Updated DateTime 11/04/2022 157.48 cm Jenna Chin [facility] [employer] [facility] 11/04/2022 15:31:32 Date Recorded Body height Provider Name an d Address Organization Details Last Updated DateTime 03/28/2023 157.48 cm Rizwana Franks [facility] [employer] [facility] 03/28/2023 14:08:43 Social History None recorded. Functional Status Question Answer Note LastModified by Organization D etails LastModified Time What is your level of alcohol consumption? Heavy [email or web address] Information not available 09/11/2022 Mental Status None recorded. Family History Nothing Reported. Medical History No medical history recorded. Gynecological HistoryNo gynecological history recorded. Obstetrics History GPAL:G 0 P 0 0 0 0 Past Encounters Encounter ID Performer Location Encounter Start Date Encounter Closed Date Diagnosis/Indication Diagnosis SNOMED-CT Code Diagnosis ICD10 Code Diagnosis Note [id number] Shad Steiner MD [facility] [place] [address] [place] [address] 09/11/2022 08:42:59 09/30/2022 09:56:49 Bilateral shoulder joint pain 0732736607 6200496 M25.511 M25.512 [id number] Shad Steiner MD [facility] [place] [address] [place] [address] 10/23/2022 08:57:01 10/23/2022 10:01:19 Bilateral shoulder joint pain 4304395181 0833543 M25.511 M25.512 [id number] Shad Steiner MD [facility] [place] [address] [place] [address] 11/04/2022 15:26:52 11/04/2022 16:31:16 Pain of right shoulder joint 6495041156 9200348 M25.173 [id number] Shad Steiner MD [facility] [place] [address] [place] [address] 03/28/2023 14:00:59 03/28/2023 14:56:01 Pain of left hip joint 7384622787 36478 M25.552 Health Concerns Section Related Observation LastModified by Organization Detai ls LastModified Time None Recorded Concern Status LastModified by Organization Details LastModified Time None Recorded Advance Directives Directive None Recorded Payers Encounter Date Sequence Insurance Name Policy Number Policy Simon Covered Member ID Simon Member ID Guarantor Name 09/11/2022 1 [place] Ashley V Ybarra [id number] Ashley Ybarra 09/11/2022 2 [employer] (MEDICARE SUPPLEMENT) Ashley Esther Hinojosaon [id number] Ashley Ybarra 10/23/2022 1 [place] Ashley V Ybarra [id number] Ashley Ybarra 10/23/2022 2 [employer] (MEDICARE SUPPLEMENT) Ashley Esther Hinojosaon [id number] Ashley Ybarra 11/04/2022 1 [place] Ashley V Ybarra [id number] Ashley Ybarra 11/04/2022 2 [employer] (MEDICARE SUPPLEMENT) Ashley V Ybarra [id number] Ashley Ybarra 03/28/2023 1 [place] Ashley V Ybarra [id number] Ashley Ybarra 03/28/2023 2 [employer] (MEDICARE SUPPLEMENT) Ashley Esther Hinojosaon [id number] Ashley Ybarra Notes Date Note Type Note Provider Name and Address Organization Details Recorded Time 09/11/2022 text/html patient is a 67-year-old female presents for evaluation of both shoulders. She started having symptoms approximately 3 months ago. No prior problems. No injury. Pain is mainly in the front and top of her shoulder worse on the. 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 Shad Steiner MD [address] [place] [address], [place] [address], [place], [address], [place] [facility] 09/25/2022 09:17:33 OBGyn Episode No OBEpisode recorded.
[2024-11-24 09:34] LABS: Hematocrit 34.8 % (37.0-47.0); Hemoglobin 10.5 g/dL (12.0-15.0); Mean Corpuscular HGB Conc 30.2 g/dl (32-36); Mean Corpuscular Hemoglobin 27.2 pg (26-34); Mean Corpuscular Volume 90.2 fl (80-100); Mean Platelet Volume 9.1 fl (7.4-10.4); Platelet Count Result 306 k/mm3 (150-375); Red Blood Count 3.86 M/mm3 (4.2-5.4); Red Cell Distribution Width 24.8 % (11.5-14.5); White Blood Count 4.5 K/mm3 (4.5-10.0)
[2024-11-24 10:51] LABS: Iron 48 ug/dL (37-170)
[2024-11-24 11:03] LABS: Percent Iron Saturation 11 % (20-50)
== END 2024-11-24 09:05 | disposition home or self-care (01) ==
LOC: ANHLAB 09:05
PROVIDERS: PCP Family Medicine; Visit Provider Internal Medicine Hematology & Oncology
DX: D64.9 Anemia, unspecified (principal)
CPT/HCPCS: 36415; 82728; 83540; 83550; 85027

== ENCOUNTER 2025-01-11 10:27 | Outpatient (CLI) | payer MEDICARE, SELFPAY ==
--- OUTSIDE RECORDS SUMMARY | 2025-01-11 10:30 | XMS_ITS | Data Portability ---
Author Organization [place] - [facility], Main Office Address [address] [place] [address] Care Team Providers Care Oval Or Circular Glass Cutter Name Role Phone KATHY FRITZ Primary Care Provider [phone] KATHY FRITZ Referring Provider [phone] Assessment Encounter Date Assessment Date Assessment LastModified [...] more than half the time spent in jfsq-id-pifn care. Not available 11/04/2022 16:25:45 03/28/2023 03/28/2023 [...] treatment patient than half of this in hyzl-qu-dbri conversation Not available 03/28/2023 14:53:09 Plan of Treatment Reminders Order Date Submit Date Provider Last Modified By Organization Details Last Modified Time Details Appointments None recorded. Lab None recorded. Referral None recorded. Procedures injection/a spiration joint/bursa (PROC) - in office procedure, administere d by provider 2022 023 [email or web address] In-Office Order, Internal Use Only DO Not Attach Compendium DO Not Attach Compendium, Do Not Delete/merge, [id number] 16:19:15 Surgeries None recorded. Imaging XR, hip + pelvis, unilateral 2022 023 [facility] [place], [address], [place], [address], 16:06:59 XR, shoulder 2022 023 [email or web address] [facility] [place], [address], [place], [address], 09:56:50 Medication Orders diclofenac sodium 75 mg tablet,aliyah yed release 2022 023 Not available 16:06:59 Kenalog 10 mg/mL suspension for injection 2022 023 Not available 3 10:30:52 ropivacaine (PF) 5 mg/mL (0.5 %) injection solution 2022 023 Not available 10:30:52 Patient TargetsNo targets recorded. Patient InstructionsNo instructions recorded. Reason for Referral None Reported. Results Created Date Observation Date Name Description Value Unit Range Abnormal Flag Note LastModifiedBy Organization Detail LastModifiedTime 09/12/19 23 XR, shoul marlon No observ ation record ed. [facility] [place] [address], [place], [address], 09/25/2022 08:40:00 11/02/19 23 MRI, shoul marlon, w/o contr ast [facility] [address] [facility], [place] [address] [phone] [facility] t Name: SURESH YBARRA [place] Access ion #: [id number] Sex: F : 1954 7 2 Locati on: RA2 Attend ing Physic carmen: MICHELE HERNANDEZ Orderi Physic carmen: MICHELE HERNANDEZ Exam Date: 023 [...] intras ubstan ce Page 1 of 2 [facility] t Name: SURESH YBARRA Access ion #: [id number] Sex: F : 1954 7 2 Exam [...] 3:32 PM (CT) Page 2 of 2 [email or web address] [facility] (Imaging) [address] [place], [address], 11/04/2022 11:51:37 03/28/20 23 XR, hip + pelvi s, unila teral No observ ation record ed. [email or web address] [facility] [place] [address], [place], [address], 03/28/2023 14:51:38 Result Notes Documentation Provider Name and Address Organization Details Recorded Time Mri, Shoulder, W/o Contrast : [facility] [address] [place] [address] Patient Name: ASHLEY YBARRA Sex: F : 1955 Location: [facility] Attending Physician: MICHELE HERNANDEZ Ordering Physician: MICHELE HERNANDEZ Exam Date: 11/01/2022 8:51 AM Exam Name: MRI SHOULDER RT WO Admitting Diagnosis(es): RADIOLOGY REPORT - FINAL EXAM: MRI SHOULDER RT WO HISTORY: 67-year-old female with right shoulder pain and popping, no known injury. COMPARISON: Shoulder radiographs dated 09/11/2022. TECHNIQUE: Multiplanar multisequence noncontrast MR images of the right shoulder were performed. FINDINGS: No fracture or bone marrow edema are identified about the right shoulder. No evidence of full-thickness rotator cuff tear. There are partial-thickness tears and attenuation of the subscapularis tendon near the insertion (images 15-17, series 901). There are partial-thickness bursal surface tears of the supraspinatus and infraspinatus tendons and partial-thickness intrasubstance Page 1 of 2 [facility] Patient Name: ASHLEY YBARRA Sex: F : 1955 Exam Date: 11/01/2022 8:51 AM Exam Name: MRI SHOULDER RT WO Admitting Diagnosis(es): and articular surface tears of the supraspinatus tendon. There is an intrasubstance partial thickness tear of the supraspinatus musculotendinous junction. The labrum is torn anterosuperiorly (images 15-16, series 401; image 11, series 801). The long head of the biceps tendon is intact and located in the bicipital groove. There is acromioclavicular hypertrophy with fluid in the joint. The AC joint exerts mass effect on the supraspinatus musculotendinous junction anterior margin. The undersurface of the acromion is curved. Subacromial space is narrowed to 6 mm. There is a small glenohumeral effusion. There is fluid in the subacromial-subdeltoid region. IMPRESSION: 1. No fracture of the right shoulder. 2. Multiple partial-thickness tears of the supraspinatus, infraspinatus, and subscapularis as detailed above. 3. Tear of the anterior superior labrum. 4. Acromioclavicular hypertrophy and synovitis with curved acromion and mild narrowing of the subacromial space. These factors may be related to clinical symptoms of subacromial impingement. 5. Subacromial-subdeltoid bursitis. 6. Small right glenohumeral effusion. Created and electronically signed by: Rashawn Carranza MD Signed Date: 11/01/2022 3:32 PM (CT) Dictated by: Rashawn Carranza MD (CT) (CT) Page 2 of 2 Jenna Chin JEREMYSandra ramírez, [facility] [employer] [facility] 11/04/2022 11:51:37 Problems Name Problem SNOMED Code Status Onset Date Resolution Date Notes Provider Name and Address Organization Details Recorded Time Bilateral shoulder joint pain 20128676027915 104 Active 2022 JEREMY LowerySandra null, [facility] [employer] [facility] 3 09:07:42 Pain of right shoulder joint 85173591321823 100 Active 2022 Dasia Gutiérrez CMA null, [facility] [employer] [facility] 3 09:45:31 Pain of left hip joint 99516658389295 0 Active 2022 Rizwana Franks null, [facility] 3 14:09:14 Notes:Some problems listed i n Document: #[id number] could not be added to this patient's [...] procedure, administere d by provider 2022 active [facility]: [phone] Not Available Not [...] procedure, administere d by provider 2022 active [facility] [phone] -[phone] Not Available Not Available Not Available Vitals Date Recorded Body height Body mass index (BMI) Body weight Provider Name and Address Organization Details Last Updated DateTime 09/11/2022 157.48 cm 25.2 kg/m2 03106.75 g Jenna Chin [facility] [employer] [facility] 09/11/2022 09:12:56 Date Recorded Body height Provider Name an d Address Organization Details Last Updated DateTime 10/23/2022 157.48 cm Jenna Chin [facility] [employer] [facility] 10/23/2022 08:59:11 Date Recorded Body height Provider Name an d Address Organization Details Last Updated DateTime 11/04/2022 157.48 cm Jenna Chin [facility] [employer] [facility] 11/04/2022 15:31:32 Date Recorded Body height Provider Name an d Address Organization Details Last Updated DateTime 03/28/2023 157.48 [facility] [employer] [facility] 03/28/2023 14:08:43 Social History None recorded. Functional Status Question Answer Note LastModified by Organization D etails LastModified Time What is your level of alcohol consumption? Heavy [email or web address] Information not available 09/11/2022 Mental Status None recorded. Family History Nothing Reported. Medical History No medical history recorded. Gynecological HistoryNo gynecological history recorded. Obstetrics History GPAL:G 0 P 0 0 0 0 Past Encounters Encounter ID Performer Location Encounter Start Date Encounter Closed Date Diagnosis/Indication Diagnosis SNOMED-CT Code Diagnosis ICD10 Code Diagnosis Note [id number] Shad Steiner MD [facility] [place] [address] [facility] [address] [place] [address] 09/11/2022 08:42:59 09/30/2022 09:56:49 Bilateral shoulder joint pain 4961244199 6613822 M25.511 M25.512 [id number] Shad Steiner MD [facility] [place] [address] [place] [address] 10/23/2022 08:57:01 10/23/2022 10:01:19 Bilateral shoulder joint pain 7854234083 9524160 M25.511 M25.512 [id number] Shad Steiner MD [facility] [place] [address] [facility] [address] [place] [address] 11/04/2022 15:26:52 11/04/2022 16:31:16 Pain of right shoulder joint 7862915231 2057861 M25.351 [id number] Shad Steiner MD [facility] [place] [address] [place] [address] 03/28/2023 14:00:59 03/28/2023 14:56:01 Pain of left hip joint 9752970983 11738 M25.552 Health Concerns Section Related Observation LastModified by Organization Detai ls LastModified Time None Recorded Concern Status LastModified by Organization Details LastModified Time None Recorded Advance Directives Directive None Recorded Payers Insurance Date Sequence Insurance Name Policy Number Policy Simon Covered Member ID Simon Member ID Guarantor Name 03/25/2023 1 [place] Ashley Ybarra [id number] Ashley Ybarra 04/22/2023 2 [employer] (MEDICARE SUPPLEMENT) Ashley Ybarra [id number] Ashley Ybarra Notes Date Note Type Note Provider Name and Address Organization Details Recorded Time 09/11/2022 text/html patient is a 67-year-old female presents for evaluation of both shoulders. She started having symptoms approximately 3 months ago. No prior problems. No injury. Pain is mainly in the front and top of her shoulder worse on the. 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 Shad Steiner MD [address] [place] [address], [place], [address], [place] [facility] [employer] 09/25/2022 09:17:33 OBGyn Episode No OBEpisode recorded.
--- OUTSIDE RECORDS SUMMARY | 2025-01-11 10:30 | XMS_ITS | Clinical Summary ---
Author Organization [facility] Address [address] [place] [address] Care Team Providers Care External Auditor Name Role Phone Zoe Aguero Primary Care Provider [phone] Allergies No known active allergies Medications sertraline [...] CDT Respiratory Rate 16 08/28/2021 4:35 PM SPORTS AGENT Oxygen Saturation 97% 08/28/2021 4:35 PM SPORTS AGENT Inhaled Oxygen Concentration - - Weight 62.3 kg (137 lb 6.4 oz) 10/18/2021 7:59 A M CDT Height 157.5 cm (5' 2) 10/18/2021 7:59 AM CDT Body Mass Index [...] this topic Medical Devices Implanted Type Area Software Qa Manager Device Identifier Shelf Expiration Date Model / Serial / Lot Plate Synthes 2.4 Va-Lcp Vlr Dist Radius 6h Hd/2h Shaft Right - [id number] Implanted:Qty: 1 on 08/28/2021 by Jj Barr MD at [facility] [place] Plate Right: Radius SYNTHES 02.111.620 / / Screw Synthes 2.4 Locking Stardrive 14mm - [id number] Implanted:Qty: 1 on 08/28/2021 by Jj Barr MD at [facility] [place] Screw Right: Radius SYNTHES 02.210.114 / / Screw Synthes 2.4 Locking Stardrive 18mm - [id number] Implanted:Qty: 2 on 08/28/2021 by Jj Barr MD at [facility] [place] Screw Right: Radius SYNTHES 02.210.118 / / Screw Synthes 2.4 Locking Stardrive 20mm - [id number] Implanted:Qty: 4 on 08/28/2021 by Jj Barr MD at [facility] [place] Screw Right: Radius SYNTHES 02.210.120 / / Screw Synthes 2.4 Cortical Self Tap 12mm - [id number] Implanted:Qty: 1 on 08/28/2021 by Jj Barr MD at [facility] [place] Screw Right: Radius SYNTHES 201.762 / / [...] Health Maintenance Insurance [employer] MEDICARE Care Teams External Auditor Relationship Specialty Start Date End Date Zoe Aguero PA PCP - General PHYSICIAN PICTURE FRAME MAKER 01/12/19
--- OUTSIDE RECORDS SUMMARY | 2025-01-11 10:31 | XMS_ITS | Referral Summary ---
Author Organization [facility] [place] [facility] Address [address] [place] [address] Care Team Providers Care Reforestation Worker Name Role Phone Noé Poon MD Primary Care Provider [phone] Encounters Date Type Department Care Team Description 11/23/2024 8:45 AM CDT Office Visit [facility] 8th [place] [address] [place] [address] Ruthie Roland MD Encounter for surgical aftercare following surgery on the circulatory system (Primary Dx); Atherosclerosis of [place] arteries of extremities with intermittent claudication, bilateral legs 11/23/2024 8:00 AM CDT Ancillary Procedure [facility] Vascular Lab at the [address]th [place] [address] [place] [address] Atherosclerosis of [place] arteries of extremities with intermittent claudication, left leg; Atherosclerosis of [place] arteries of extremities with intermittent claudication, right leg from Last 3 Months Allergies No known [...] mg by mouth every other day Active sqlckjii-qlsuvhb-tl on-lutein tabletIndications:s upplement Take 1 tablet by mouth 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 Assessment & Plan (08/27/2023 2:36 PM ENVIRONMENTAL ENGINEER SCIENTIST): Stable continue lisinopril 40 mg. Hypercholesterolemia 11/04/2022 Assessment & Plan (09/09/2023 10:26 AM CDT): Stable continue Lipitor 10 mg. Assessment & Plan (08/27/2023 2:36 PM ENVIRONMENTAL ENGINEER SCIENTIST): Stable continue Lipitor 10 mg. PAD (peripheral [...] and has an appointment scheduled with [facility]. Assessment & Plan (08/27/2023 2:36 PM ENVIRONMENTAL ENGINEER SCIENTIST): Left lower extremity chronic limb-threatening ischemia with [...] wound. Assessment & Plan (08/19/2023 10:54 AM ENVIRONMENTAL ENGINEER SCIENTIST): Continues to deny any symptoms of claudication [...] on file Legal Sex Female 6:03 AM ENVIRONMENTAL ENGINEER SCIENTIST Gender Identity Female 10/20/2022 4:51 PM CDT [...] on file Medical Devices Implanted Type Area Model Maker Device Identifier Shelf Expiration Date Model / Serial / Lot Medtronic Inc Protege Everflex 5mm .079in 60mm 120cm Otw Delivery System Self [id number] - [id number] Implanted:Qty : 1 on 09/18/2023 by Ruthie Roland MD at [facility] Left: Superficial Femoral Artery [employer] [id number] 04/22/2026 [id number] / / [id number] Procedures Procedure Name Priority Date/Time Associated Diagnosis Comments US LOWER EXTREMITY TREADMILL TESTING Routine 11/23/2024 9:03 AM CDT Atherosclerosis of [place] arteries of extremities with intermittent claudication, left leg Atherosclerosis of [place] arteries of extremities with intermittent claudication, right leg from Last 3 Months Results * US Lower Extremity Treadmill Testing (11/23/2024 9:03 AM CDT) Anatomical Region Laterality Modality Vascular Ultrasound 11/23/2024 8:11 AM CDT Narrative 11/23/2024 1:42 PM CDT [facility] - Department of Vascular Surgery, Vascular Laboratory [address] [place] [address] Lower Extremity Arterial Doppler Report Patient Name: ACE YBARRA : 1955 Study Date: 11/23/2024 8:11:00 AM Gender: F Tech: Joanne Rossi RVT, RDMS Location: [facility] Provider: RUTHIE ROLAND Quality: Adequate Order Provider: RUTHIE ROLAND PROCEDURES: Arterial Report: Bilateral lower extremity arterial Doppler exam at rest and with treadmill exercise. INDICATIONS: Atherosclerosis of [place] Arteries of Extremities with Intermittent Claudication, Left Leg; Atherosclerosis of [place] Arteries of Extremities with Intermittent Claudication, Right Leg; Left popliteal DCBA + stent Dx: Atherosclerosis of [place] arteries of extremities with intermittent claudication, left leg [I70.212 (ICD-10-CM)]; Atherosclerosis of [place] arteries of extremities with intermittent claudication, right leg [I70.211 (ICD-10-CM)] I70.212 Atherosclerosis of [place] arteries of extremities with intermittent claudication, left leg, and I70.211 Atherosclerosis of [place] arteries of extremities with intermittent claudication, right leg. MEASUREMENTS: Right Value Units Left Value Units Rt Brachial Pressure 176 mmHg Lt Brachial Pressure 173 mmHg Rt FUNERAL GREETER Pressure 152 mmHg Lt FUNERAL GREETER Pressure 173 mmHg Rt DPA Pressure 136 mmHg Lt DPA Pressure 162 mmHg Rt 1st Digit Pressure 143 mmHg Lt 1st Digit Pressure 148 mmHg Rt PT SARANYA Resting 0.86 Lt PT SARANYA Resting 0.98 Rt AT SARANYA Resting 0.77 Lt AT SARANYA Resting 0.92 Rt Digit/Arm Index 0.81 Lt Digit/Arm Index 0.84 Right Value Units Left Value Units FINDINGS: Performing Automotive Shop Foreman: Joanne Enid, RVT, RDMS. Right Common Femoral Artery Analysis: [...] lower extremities. 48% drop in the right FUNERAL GREETER. 25% drop in the left FUNERAL GREETER. Post exercise tibial pressures did not return [...] above. Electronically Signed By: Ruthie Roland MD [facility] [phone] 11/23/2024 1:12:44 PM CDT Procedure Note Ruthie Roland MD - 11/23/2024 [facility] - Department of Vascular Surgery,Vascular Laboratory [address] [place] [address] Lower Extremity Arterial Doppler Report Patient Name: ACE YBARRA : 1955 Study Date: 11/23/2024 8:11:00 AM Gender: F Tech: Joanne Rossi Neto, [facility] Location: [facility] Provider: RUTHIE ROLAND Quality: Adequate Order Provider: RUTHIE ROLAND PROCEDURES: Arterial Report: Bilateral lower extremity arterial Doppler exam at rest and with treadmillexercise. INDICATIONS: Atherosclerosis of [place] Arteries of Extremities with IntermittentClaudication, Left Leg; Atherosclerosis of [place] Arteries of Extremities with IntermittentClaudication, Right Leg; Left popliteal DCBA + stent Dx: Atherosclerosis of [place] arteries of extremities with intermittentclaudication, left leg [I70.212 (ICD-10-CM)]; Atherosclerosis of [place] arteries ofextremities with intermittent claudication, right leg [I70.211 (ICD-10-CM)] I70.212 Atherosclerosis of [place] arteries of extremities withintermittent claudication, left leg, and I70.211 Atherosclerosis of [place] arteries of extremitieswith intermittent claudication, right leg. MEASUREMENTS: Right Value Units Left Value Units Rt Brachial Pressure 176 mmHg Lt Brachial Pressure 173 mmHg Rt FUNERAL GREETER Pressure 152 mmHg Lt FUNERAL GREETER Pressure 173 mmHg Rt DPA Pressure 136 mmHg Lt DPA Pressure 162 mmHg Rt 1st Digit Pressure 143 mmHg Lt 1st Digit Pressure 148 mmHg Rt PT SARANYA Resting 0.86 Lt PT SARANYA Resting 0.98 Rt AT SARANYA Resting 0.77 Lt AT SARANYA Resting 0.92 Rt Digit/Arm Index 0.81 Lt Digit/Arm Index 0.84 Right Value Units Left Value Units FINDINGS: Performing Automotive Shop Foreman: Joanne Rossi RVT, RDMS. Right Common Femoral [...] lower extremities. 48% drop in the right FUNERAL GREETER. 25% drop in the left FUNERAL GREETER. Post exercise tibial pressures did not return [...] above. Electronically Signed By: Ruthie Roland MD [facility] [phone] 11/23/2024 1:12:44 PM CDT Ruthie Roland MD IM US PROCEDURES Final Result from Last 3 Months Insurance MEDICARE AET[employer] SENIOR SUPPLEMENT MEDICARE AETNA SENIOR SUPPLEMENT Advance Directives For more information, please contact: [phone] * Full Code (Latest Code Status on File) Date Activated Date Inactivated Comments 09/01/2023 10:16 AM 09/01/2023 6:05 PM Care Teams Reforestation Worker Relationship Specialty Start Date End Date Noé Poon MD [address] [place] [address] [place] [id number] PCP - General Family Medicine 09/24/24
--- OUTSIDE RECORDS SUMMARY | 2025-01-11 10:31 | XMS_ITS | Clinical Summary ---
Author Organization [facility] Address [address] [place] [address] Care Team Providers Care Statistical Clerk Name Role Phone Noé Poon MD Primary Care Provider [phone] Allergies No known active allergies Medications ascorbic [...] mg by mouth every other day Active qxquhjxq-nnvxplj-qk on-lutein tabletIndications:s upplement Take 1 tablet by mouth early childhood teacher before breakfast Active CALCIUM CARBONATE-VITAMIN D3 [...] mg. Assessment & Plan (08/27/2023 2:36 PM FAMILY MEDICINE CHAIR): Stable continue lisinopril 40 mg. Hypercholesterolemia 11/04/2022 Assessment & Plan (09/09/2023 10:26 AM CDT): Stable continue Lipitor 10 mg. Assessment & Plan (08/27/2023 2:36 PM FAMILY MEDICINE CHAIR): Stable continue Lipitor 10 mg. PAD (peripheral [...] opinion and has an appointment scheduled with [facility]. Assessment & Plan (08/27/2023 2:36 PM FAMILY MEDICINE CHAIR): Left lower extremity chronic limb-threatening ischemia with [...] wound. Assessment & Plan (08/19/2023 10:54 AM FAMILY MEDICINE CHAIR): Continues to deny any symptoms of claudication [...] Description 11/23/2024 8:45 AM CDT Office Visit [facility] Surgery [facility] 8th [place] [address] [place] [address] Ruthie Roland MD Encounter for surgical aftercare following surgery on the circulatory system (Primary Dx); Atherosclerosis of [place] arteries of extremities with intermittent claudication, bilateral legs 11/23/2024 8:00 AM CDT Ancillary Procedure [facility] Vascular Lab at the [address]th [place] [address] [place] [address] Atherosclerosis of [place] arteries of extremities with intermittent claudication, left leg; Atherosclerosis of [place] arteries of extremities with intermittent claudication, right [...] Hyperlipidemia Arthritis N/A CVA (cerebral vascular accident) (HCC) 5 Family History Medical History Relation Name Comments Heart disease Brother Collins Rensing Stroke Father Be Rensing Heart attack Mother Yaz Rensing Cancer Sister Dana Buckley Relation Name Status Comments Brother Collins Buckley Father Be Rensing Mother Yaz Rensing Sister Dana Rensinlizbeth Social History Tobacco Use Types Packs/Day Years [...] on file Legal Sex Female 6:03 AM FAMILY MEDICINE CHAIR Gender Identity Female 10/20/2022 4:51 PM CDT [...] Fall Risk Assessment 09/17/2024 09/18/2023 Influenza Vaccine (#1) 2025 Medical Devices Implanted Type Area Biofuels Operations Manager Device Identifier Shelf Expiration Date Model / Serial / Lot Medtronic Inc Protege Everflex 5mm .079in 60mm 120cm Otw Delivery System Self [id number] - [id number] Implanted:Qty : 1 on 09/18/2023 by Ruthie Roland MD at [facility] Left: Superficial Femoral Artery [employer] Inc [id number] 04/22/2026 [id number] / / [id number] Procedures Procedure Name Priority Date/Time Associated Diagnosis Comments US LOWER EXTREMITY TREADMILL TESTING Routine 11/23/2024 9:03 AM CDT Atherosclerosis of [place] arteries of extremities with intermittent claudication, left leg Atherosclerosis of [place] arteries of extremities with intermittent claudication, right leg from Last 3 Months Results * US Lower Extremity Treadmill Testing (11/23/2024 9:03 AM CDT) Anatomical Region Laterality Modality Vascular Ultrasound 11/23/2024 8:11 AM CDT Narrative 11/23/2024 1:42 PM CDT [facility] - Department of Vascular Surgery, Vascular Laboratory [address] [place] [address] Lower Extremity Arterial Doppler Report Patient Name: ASHLEY YBARRA : 1955 Study Date: 11/23/2024 8:11:00 AM Gender: F Tech: Joanne Rossi RVT, RDMS Location: [facility] Provider: RUTHIE ROLAND Quality: Adequate Order Provider: RUTHIE ROLAND PROCEDURES: Arterial Report: Bilateral lower extremity arterial Doppler exam at rest and with treadmill exercise. INDICATIONS: Atherosclerosis of [place] Arteries of Extremities with Intermittent Claudication, Left Leg; Atherosclerosis of [place] Arteries of Extremities with Intermittent Claudication, Right Leg; Left popliteal DCBA + stent Dx: Atherosclerosis of [place] arteries of extremities with intermittent claudication, left leg [I70.212 (ICD-10-CM)]; Atherosclerosis of [place] arteries of extremities with intermittent claudication, right leg [I70.211 (ICD-10-CM)] I70.212 Atherosclerosis of [place] arteries of extremities with intermittent claudication, left leg, and I70.211 Atherosclerosis of [place] arteries of extremities with intermittent claudication, right leg. MEASUREMENTS: Right Value Units Left Value Units Rt Brachial Pressure 176 mmHg Lt Brachial Pressure 173 mmHg Rt INSURANCE CLAIMS REPRESENTATIVE Pressure 152 mmHg Lt INSURANCE CLAIMS REPRESENTATIVE Pressure 173 mmHg Rt DPA Pressure 136 mmHg Lt DPA Pressure 162 mmHg Rt 1st Digit Pressure 143 mmHg Lt 1st Digit Pressure 148 mmHg Rt PT SARANYA Resting 0.86 Lt PT SARANYA Resting 0.98 Rt AT SARANYA Resting 0.77 Lt AT SARANYA Resting 0.92 Rt Digit/Arm Index 0.81 Lt Digit/Arm Index 0.84 Right Value Units Left Value Units FINDINGS: Performing Laborer Golf Course: Joanne Rossi RVT, MICHAEL. Right Common Femoral Artery Analysis: The common [...] lower extremities. 48% drop in the right INSURANCE CLAIMS REPRESENTATIVE. 25% drop in the left INSURANCE CLAIMS REPRESENTATIVE. Post exercise tibial pressures did not return [...] above. Electronically Signed By: Ruthie Roland MD [facility] [phone] 11/23/2024 1:12:44 PM CDT Procedure Note Ruthie Roland MD - 11/23/2024 [facility] - Department of Vascular Surgery,Vascular Laboratory [address] [place] [address] Lower Extremity Arterial Doppler Report Patient Name: ASHLEY YBARRA : 1955 Study Date: 11/23/2024 8:11:00 AM Gender: F Tech: Joanne Rossi Neto, RUST Location: [facility] Provider: RUTHIE ROLAND Quality: Adequate Order Provider: RUTHIE ROLAND PROCEDURES: Arterial Report: Bilateral lower extremity arterial Doppler exam at rest and with treadmillexercise. INDICATIONS: Atherosclerosis of [place] Arteries of Extremities with IntermittentClaudication, Left Leg; Atherosclerosis of [place] Arteries of Extremities with IntermittentClaudication, Right Leg; Left popliteal DCBA + stent Dx: Atherosclerosis of [place] arteries of extremities with intermittentclaudication, left leg [I70.212 (ICD-10-CM)]; Atherosclerosis of [place] arteries ofextremities with intermittent claudication, right leg [I70.211 (ICD-10-CM)] I70.212 Atherosclerosis of [place] arteries of extremities withintermittent claudication, left leg, and I70.211 Atherosclerosis of [place] arteries of extremitieswith intermittent claudication, right leg. MEASUREMENTS: Right Value Units Left Value Units Rt Brachial Pressure 176 mmHg Lt Brachial Pressure 173 mmHg Rt INSURANCE CLAIMS REPRESENTATIVE Pressure 152 mmHg Lt INSURANCE CLAIMS REPRESENTATIVE Pressure 173 mmHg Rt DPA Pressure 136 mmHg Lt DPA Pressure 162 mmHg Rt 1st Digit Pressure 143 mmHg Lt 1st Digit Pressure 148 mmHg Rt PT SARANYA Resting 0.86 Lt PT SARANYA Resting 0.98 Rt AT SARANYA Resting 0.77 Lt AT SARANYA Resting 0.92 Rt Digit/Arm Index 0.81 Lt Digit/Arm Index 0.84 Right Value Units Left Value Units FINDINGS: Performing Laborer Golf Course: Joanne Rossi RVT, RDMS. Right Common Femoral [...] lower extremities. 48% drop in the right INSURANCE CLAIMS REPRESENTATIVE. 25% drop in the left INSURANCE CLAIMS REPRESENTATIVE. Post exercise tibial pressures did not return [...] above. Electronically Signed By: Ruthie Roland MD [facility] [phone] 11/23/2024 1:12:44 PM CDT Ruthie Roland MD IM US PROCEDURES Final Result from Last 3 Months Insurance MEDICARE [facility] MEDICARE AETNA SENIOR SUPPLEMENT Advance Directives For more information, please contact: [phone] * Full Code (Latest Code Status on File) Date Activated Date Inactivated Comments 09/01/2023 10:16 AM 09/01/2023 6:05 PM Care Teams Statistical Clerk Relationship Specialty Start Date End Date Noé Poon MD [address] [place] [address] PCP - General Family Medicine 09/24/24
--- OUTSIDE RECORDS SUMMARY | 2025-01-11 10:31 | XMS_ITS | Clinical Summary ---
Author Organization [facility] Perri Tristan Address [address] [place] [address] Care Team Providers Care Shuttleless Loom Weaver Name Role Phone Unavailable Primary Care Provider [...] Encounters Date Type Department Care Team Description 01/05/2025 External Device Data STL ABSTRACTION Provider, Abstract 12/01/2024 Telephone [facility] Oncology and Hematology [facility] [address] [place] [address] Last Marks MD Lab Results 11/24/2024 Orders Only [facility] Oncology and Hematology Shreyas [address] [place] [phone] Last Marks MD 11/11/2024 External Device Data STL ABSTRACTION Provider, Abstract 11/10/2024 External Device Data STL ABSTRACTION Provider, Abstract 11/09/2024 External Device Data STL ABSTRACTION Provider, Abstract 11/04/2024 4:30 PM CDT Telephone Check Up [facility] Oncology [facility] Hematology [facility] [address] [place] [address] Last Marks MD Chronic anemia (Primary Dx); Iron deficiency anemia, unspecified iron deficiency anemia type 10/29/2024 Orders Only [facility] Oncology and Hematology [facility] [address] [place] [phone] Last Marks MD 10/26/2024 External Device Data STL ABSTRACTION Provider, Abstract 10/26/2024 External Device Data STL ABSTRACTION Provider, Abstract 10/26/2024 External Device Data STL ABSTRACTION Provider, Abstract 10/22/2024 Abstract [facility] Oncology and Hematology [facility] [address] [place] [address] Last Marks MD 10/22/2024 Orders Only [facility] Oncology and Hematology [facility] [address] [place] [address] Last Marks MD 10/21/2024 1:30 PM CDT Office Visit [facility] Oncology and Hematology [facility] [address] [place] [phone] Last Makrs MD Chronic anemia (Primary Dx) from Last [...] Description 01/11/2025 11:15 AM CDT Office Visit [facility] Oncology and Hematology - [address] [facility] [address] [place] [address] Last Marks MD [address] [facility] [address] [place] [address] Health Maintenance Due Date Last [...] or Tdap) 08/22/2022 08/22/2012 INFLUENZA VACCINE (#1) 2025 RSV VACCINE (60+ or ) (1 - 1-dose 75+ series) 01/23/2032 Procedures Procedure Name Priority Date/Time Associated Diagnosis Comments IRON, TIBC, AND PERCENT SATURATION Routine 01/04/2025 8:52 AM CDT Chronic anemia FERRITIN Routine 01/04/2025 8:52 AM CDT Chronic anemia IRON PANEL Routine 11/24/2024 3:22 PM CDT TRANSFERRIN RECEPTOR TFR SOLUBLE Routine 10/21/2024 3:13 PM CDT COMPREHENSIVE METABOLIC PANEL Routine 10/21/2024 1:04 PM CDT CBC WITH DIFFERENTIAL Routine 10/21/2024 12:48 PM CDT TYPE AND SCREEN Routine 10/21/2024 9:47 AM CDT from Last 3 Months Results * IRON, TIBC, AND PERCENT SATURATION (01/04/2025 8:52 AM CDT) IRON 101 45 - 160 mcg/dL [facility] TIBC 411 250 - 450 mcg/dL (calc) [facility] IRON % SATURATION 25 16 - 45 % (calc) [facility] Comment: Test Performed at: [facility] [address] [place] [phone] Alva Otero MD Blood 01/04/2025 8:52 AM CDT 01/04/2025 8:52 AM CDT Last Marks MD CHEMISTRY ORDERABLES Final Resu lt Performing Organization Address City/[facility]/ZIP Co de Phone Number [facility] [phone] [facility] [address] [place] [address] * FERRITIN (01/04/2025 8:52 AM CDT) FERRITIN 58 16 - 288 ng/mL [facility] Comment: Test Performed at: [facility] [address] [place] [phone] Alva Otero MD Blood 01/04/2025 8:52 AM CDT 01/04/2025 8:52 AM CDT us Last Marks MD CHEMISTRY ORDERABLES Final Resu lt Performing Organization Address City/[facility] Co de Phone Number [facility] [phone] [facility] [id number] [place] [address] * IRON PANEL (11/24/2024 3:22 PM CDT) Blood us Last Marks MD CHEMISTRY ORDERABLES Final Resu lt * TRANSFERRIN RECEPTOR TFR SOLUBLE (10/21/2024 3:13 [...] AND SCREEN (10/21/2024 9:47 AM CDT) Blood Last Marks MD BLOOD BANK ORDERABLES Final Res ult from Last 3 Months Insurance MEDICARE PART A AND B AETNA MEDICARE SUPP AESSI
[2025-01-11 10:38] LABS: Hematocrit 39.3 % (37.0-47.0); Hemoglobin 12.8 g/dL (12.0-15.0); Mean Corpuscular HGB Conc 32.6 g/dl (32-36); Mean Corpuscular Hemoglobin 30.5 pg (26-34); Mean Corpuscular Volume 93.6 fl (80-100); Platelet Count Result 264 k/mm3 (150-375); Red Blood Count 4.20 M/mm3 (4.2-5.4); White Blood Count 5.8 K/mm3 (4.5-10.0)
== END 2025-01-11 10:28 | disposition home or self-care (01) ==
LOC: ANHLAB 10:28
PROVIDERS: PCP Family Medicine; Visit Provider Internal Medicine Hematology & Oncology
DX: D64.9 Anemia, unspecified (principal)
CPT/HCPCS: 36415; 85027

== ENCOUNTER 2025-04-18 10:04 | Outpatient (CLI) | payer MEDICARE, SELFPAY ==
[2025-04-18 10:27] LABS: Hematocrit 38.0 % (37.0-47.0); Hemoglobin 12.1 g/dL (12.0-15.0); Mean Corpuscular HGB Conc 31.8 g/dl (32-36); Mean Corpuscular Hemoglobin 32.5 pg (26-34); Mean Corpuscular Volume 102.2 fl (80-100); Platelet Count Result 263 k/mm3 (150-375); Red Blood Count 3.72 M/mm3 (4.2-5.4); White Blood Count 5.0 K/mm3 (4.5-10.0)
[2025-04-18 11:08] LABS: Iron 73 ug/dL (37-170)
[2025-04-18 11:19] LABS: Percent Iron Saturation 19 % (20-50)
--- OUTSIDE RECORDS SUMMARY | 2025-04-18 11:20 | XMS_ITS | Encounter Summary ---
Author Organization [facility] Healthcare Address [address] [place] [address] Care Team Providers Care Bridge Carpenter Name Role Phone Aicha Tatum Primary Care Provider [phone] Noé Poon MD Primary Care Provider [phone] Encounter Details Date Type Department Care Team (Late st Contact Info) Description 09/17/2024 Orders Only [facility] Health Information Management [address] [place] [address] Scanning, Provider Social History Tobacco Use Types Packs/Day Years [...] on file Legal Sex Female 6:03 AM HOG SAWYER Gender Identity Female 10/20/2022 4:51 PM CDT Sexual Orientation Not on file documented as of this encounter Plan of Treatment Not on file documented as of this encounter Procedures Procedure Name Priority Date/Time Associated Diagnosis Comments CARDIOLOGY DOCUMENT SCAN 09/17/2024 documented in this encounter Results * Cardiology Document Scan (09/17/2024) Anatomical Region Laterality Modality Other Provider Scanning CV CARDIAC SERVICES PROCEDURES Final Result documented in this encounter Visit Diagnoses Not on filedocumented in this encounter Care Teams Bridge Carpenter Relationship Specialty Start Date End Date Aicha Tatum PA [address] [place], [place] [phone] PCP - General Family Medicine 09/16/22 09/23/24 Noé Poon MD [address] [place] [address] PCP - General Family Medicine 09/24/24 documented as of this encounter
--- OUTSIDE RECORDS SUMMARY | 2025-04-18 11:20 | XMS_ITS | Encounter Summary ---
Author Organization [facility] Healthcare Address [address] [place] [address] Care Team Providers Care Health Data Administrator Name Role Phone Néo Poon MD Primary Care Provider [phone] Encounter Details Date Type Department Care Team (Late st Contact Info) Description 10/14/2024 Orders Only [facility] Health Information Management [address] [place] [address] Scanning, Provider Social History Tobacco Use Types [...] on file Legal Sex Female 6:03 AM FITTER TYPE BAR AND SEGMENT Gender Identity Female 10/20/2022 4:51 PM CDT Sexual Orientation Not on file documented as of this encounter Plan of Treatment Not on file documented as of this encounter Procedures Procedure Name Priority Date/Time Associated Diagnosis Comments SCAN - RADIOLOGY/IMAGING 10/14/2024 documented in this encounter Results * SCAN - RADIOLOGY/IMAGING (10/14/2024) Anatomical Region Laterality Modality Other us Provider Scanning Final Result documented in this encounter Visit Diagnoses Not on filedocumented in this encounter Care Teams Health Data Administrator Relationship Specialty Start Date End Date Noé Poon MD [address] [place], [place] [address] PCP - General Family Medicine 09/24/24 documented as of this encounter
--- OUTSIDE RECORDS SUMMARY | 2025-04-18 11:20 | XMS_ITS | Clinical Summary ---
Author Organization [facility] Address [address] [place] [address] Care Team Providers Care Executive Asst Name Role Phone Zoe Aguero Primary Care Provider [phone] Allergies No known active allergies Medications sertraline [...] CDT Respiratory Rate 16 08/28/2021 4:35 PM RIVET TAPPING MACHINE OPERATOR Oxygen Saturation 97% 08/28/2021 4:35 PM RIVET TAPPING MACHINE OPERATOR Inhaled Oxygen Concentration - - Weight 62.3 [...] 04/13/2021, 02/07/2020, 01/19/2019 COVID-19 Vaccine ( - 2024-2 6 season) 2025 Influenza Adult (#1) 2025 RSV Immunization or 60+ Years (1 - 1-dose 75+ series) 01/23/2032 Hepatitis A Vaccines Aged Out No long er eligible based on patient's age to complete this topic Meningococcal B Vaccine Aged Out No l onger eligible based on patient's age to complete this topic Meningococcal Vaccine Aged Out No prabhakar zen eligible based on patient's age to complete this topic RSV Immunizations Under 20 Months Aged Out No longer eligible b ased on patient's age to complete this topic Medical Devices Implanted Type Area Orbitread Operator Device Identifier Shelf Expiration Date Model / Serial / Lot Plate Synthes 2.4 Va-Lcp Vlr Dist Radius 6h Hd/2h Shaft Right - [id number] Implanted:Qty: 1 on 08/28/2021 by Jj Barr MD at [facility] Plate Right: Radius SYNTHES 02.111.620 / / Screw Synthes 2.4 Locking Stardrive 14mm - [id number] Implanted:Qty: 1 on 08/28/2021 by Jj Barr MD at [facility] Screw Right: Radius SYNTHES 02.210.114 / / Screw Synthes 2.4 Locking Stardrive 18mm - [id number] Implanted:Qty: 2 on 08/28/2021 by Jj Barr MD at [facility] Screw Right: Radius SYNTHES .210.118 / / Screw Synthes 2.4 Locking Stardrive 20mm - [id number] Implanted:Qty: 4 on 08/28/2021 by Jj Barr MD at [facility] Screw Right: Radius SYNTHES 02.210.120 / / Screw Synthes 2.4 Cortical Self Tap 12mm - [id number] Implanted:Qty: 1 on 08/28/2021 by Jj Barr MD at [facility] Screw Right: Radius SYNTHES 201.762 / [...] Health Maintenance Insurance AETNA MEDICARE Care Teams Executive Asst Relationship Specialty Start Date End Date Zoe Aguero PA PCP - General PHYSICIAN ROSS FURNACE OPERATOR 01/12/19
--- OUTSIDE RECORDS SUMMARY | 2025-04-18 11:21 | XMS_ITS | Encounter Summary ---
Author Organization [facility] Address [address] [place] [address] Care Team Providers Care Associate Vice President Name Role Phone Noé Poon MD Primary Care Provider [phone] Encounter Details Date Type Department Care Team (Late st Contact Info) Description 04/14/2025 Results Follow-Up [facility] Medical Group Cardiology [address] [address], [place] [id number] Renan Chino MD [address] [facility] [address] [facility], [facility] [address] [place] [address] [place] Carotids Duplex Bilateral Social History Tobacco Use Types Packs/Day Years Used Date Smoking Tobacco: Former Cigarettes 1.5 42 1 974 - 2016 Passive Smoke Exposure: Never Smokeless Tobacco: Former AUDIT-C Answer Date Recorded Q1: How often [...] on file Legal Sex Female 6:03 AM HEALTH PSYCHOLOGIST Gender Identity Female 10/20/2022 4:51 PM CDT Sexual Orientation Not on file documented as of this encounter Miscellaneous Notes * Result Encounter Note - Arianne Li RN - 04/14/2025 1:08 PM CDT Spoke to pt, reviewed results, pt denies questions at this time. documented in this encounter Plan of Treatment Not on file documented as of this encounter Visit Diagnoses Not on filedocumented in this encounter Care Teams Associate Vice President Relationship Specialty Start Date End Date Noé Poon MD [address] [place] [id number] PCP - General Family Medicine 09/24/24 documented as of this encounter
--- OUTSIDE RECORDS SUMMARY | 2025-04-18 11:21 | XMS_ITS | Clinical Summary ---
Author Organization [facility] Perri Tristan Address [address] [place] [address] Care Team Providers Care Twister Operator Name Role Phone Unavailable Primary Care Provider [...] Encounters Date Type Department Care Team Description 04/13/2025 External Device Data STL ABSTRACTION Provider, Abstract 04/12/2025 External Device Data STL ABSTRACTION Provider, Abstract 03/08/2025 External Device Data STL ABSTRACTION Provider, Abstract 03/01/2025 External Device Data STL ABSTRACTION Provider, Abstract 01/26/2025 External Device Data STL ABSTRACTION Provider, Abstract from Last 3 Months Family History Medical [...] Date Smoking Tobacco: Never Smokeless Tobacco: Never Tobacco Cessation:Counseling Given: Not Answered Alcohol Use Standard Drinks/Week Comments Yes 0 (1 standard drink = 0.6 oz pur e alcohol) Everyday Comments Unknown Sex and Gender Information Value Date Recorded Sex Assigned at Not on file Legal Sex Female 3:21 PM CDT Gender Identity Not on file Sexual Orientation Not on file Last Filed Vital Signs Vital Sign Reading Time Taken Comments Blood Pressure 112/66 01/11/2025 10:50 AM CDT Pulse 93 01/11/2025 10:50 AM CDT Temperature 36.2 C (97.1 F) 01/11/2025 10:50 AM CDT Respiratory Rate 16 01/11/2025 10:50 AM CDT Oxygen Saturation 92% 01/11/2025 10:50 AM CDT Inhaled Oxygen Concentration - - Weight 60.4 kg (133 lb 3.2 oz) 01/11/2025 10:50 AM CDT Height 157.5 cm (5' 2) 10/21/2024 1:18 PM CDT Body Mass Index 24.36 10/21/2024 1:18 PM CDT Plan of Treatment Upcoming Encounters Date Type Department Care Team (Late st Contact Info) Description 04/28/2025 10:00 AM REGISTERED NURSE BEHAVIORAL HEALTH Office Visit [facility] Oncology and Hematology - [place] [address] [place] [address] Last Marks MD [address] [facility] [address] [place] [address] Health Maintenance Due Date Last [...]
--- OUTSIDE RECORDS SUMMARY | 2025-04-18 11:21 | XMS_ITS | Encounter Summary ---
Author Organization [facility] Address [address] [place] [address] Phone Care Team Providers Care Metal Fabricator Helper Name Role Phone Noé Poon MD Primary Care Provider [phone] Encounter Details Date Type Department Care Team (Late st Contact Info) Description 04/14/2025 Telephone [facility] Medicine Cardiology [facility] 8th [place] [address] [place] [phone] Stephanie Hussein Social History Tobacco Use Types Packs/Day Years [...] on file Legal Sex Female 6:03 AM ATHLETIC DIRECTOR Gender Identity Female 10/20/2022 4:51 PM CDT Sexual Orientation Not on file documented as of this encounter Miscellaneous Notes * Telephone Encounter - Nancy Mendez - 04/14/2025 9:51 AM CDT Requested records from [facility] * Telephone Encounter - Stephanie Hussein - 04/14/2025 9:20 AM CDT CARDIOLOGY NEW PATIENT RECORDS REVIEW Insurance Information Insurance Library Insurance Provider: Medicare A&B / [place] Member ID: Medicare- [id number] - [place] - [id number] Diagnosis and Referring Provider Information (Check for Referrals in [facility]) Cardiac Diagnosis: PFO; Hx of stroke Referring Provider: Dr. Renan Chino Referring Provider Specialty: cardiology Referring Provider Current/Former Prototype Special Build (if different from referring provider): Current/Former Prototype Special Build Phone: Questions to Determine Placement for Specialty Clinics Cardiology-Oncology (For new amyloidosis referrals, complete RRS and send to [facility] POOL and send an encounter to the [facility] to make them aware.) Are you actively undergoing cancer treatments including radiation, chemotherapy, or immunotherapy or is this planned in the future?: no When: Where: Congenital Is this a heart condition that has existed since : yes Maternal- Cardiology (Females Only) Are you or had a baby in the past year: no Sports Medicine Do you regularly exercise or play sports: no Are the symptoms or concerns associated with acviity: no Hypertension (If yes, must be referred by MD) Are you a hemodialysis or peritoneal dialysis patient: no Referring provider: Cardiology History Questions Have you been hospitalized for cardiac issues: yes When: 09/2024 Where: [facility] Have you had an echo: yes When: 09/2024 Where: [facility] Have you had a stress test: no When: Where: Have you had an EKG: no When: Where: Have you had a holter monitor: no When: Where: Have you had cardiac imaging(CT or MRI): no Testing/imaging: When: Where: Have you had any procedures (cath, CABG, cardioversion, or ablation): no When: Where: Have you had a sleep study done: no When: Where: Do you have an implantable cardiac device: no Type: Surveillance Officer: When: Where: Appointment Details Date: Time: Location: Provider: documented in this encounter Plan of Treatment Not on file documented as of this encounter Visit Diagnoses Not on filedocumented in this encounter Care Teams Metal Fabricator Helper Relationship Specialty Start Date End Date Noé Poon MD [address] [place] [id number] PCP - General Family Medicine 09/24/24 documented as of this encounter
--- OUTSIDE RECORDS SUMMARY | 2025-04-18 11:21 | XMS_ITS | Clinical Summary ---
Author Organization [facility] Office Center Address [address] [place] [address] Care Team Providers Care Ball Maker Name Role Phone Noé Poon MD Primary Care Provider [phone] Allergies No known active allergies Medications ascorbic acid, vitamin C, 500 mg capsuleIndications :supplement Take 500 mg by mouth every morning Active cholecalciferol (VITAMIN D-3) 2000 unit capsuleIndications :supplement Take 1 capsule (2,000 Units total) by mouth every morning Active L. acidophilus/Bifid. animalis 32 billion cell capsuleIndications :supplement Take 1 capsule by mouth nightly Active lisinopriL (PRINIVIL,ZESTRIL) 40 mg tabletIndications: hypertension Take 1 tablet (40 mg total) by mouth nightly 09/24/19 23 Active potassium chloride ER 10 mEq CR tabletIndications: hypokalemia prevention Take 1 tablet/capsu le (10 mEq total) by mouth nightly Active pramipexole (MIRAPEX) 1 mg tabletIndications: Restless Legs Syndrome Take 1 tablet (1 mg total) by mouth nightly 09/22/19 23 Active traMADoL (ULTRAM) 50 mg tabletIndications: Pain Take 1 tablet (50 mg total) by mouth 2 (two) times a day as needed for pain 08/24/[address] (VOLTAREN) 75 mg EC tabletIndications: Pain,inflammation Take 1 tablet (75 mg total) by mouth 2 (two) times a day 07/07/19 24 Active clopidogreL (PLAVIX) 75 mg tabletIndications: Peripheral Arterial Thromboembolism Prevention Take 1 tablet (75 mg total) by mouth every morning 09/05/19 24 Active zolpidem (AMBIEN) 5 mg tabletIndications: Sleep-Onset Insomnia Take 1 tablet (5 mg total) by mouth nightly 09/01/19 24 Active cetirizine (ZyrTEC) 10 mg tabletIndications: Allergic Rhinitis Take 1 tablet (10 mg total) by mouth nightly Active aspirin 81 mg chewable tablet Take 1 tablet (81 mg total) by mouth daily 30 tablet 11 09/18/19 24 Active ferrous sulfate (IRON ORAL)Indications:s upplement Take 65 mg by mouth every other day Active nthvwnse-ndrhkaw-i violeta-lutein tabletIndications: supplement Take 1 tablet by mouth pulp house supervisor before breakfast Active CALCIUM CARBONATE-VITAMIN D3 ORALIndications:Os teoporosis,Vitamin D Deficiency Take 1 tablet by mouth daily Active amLODIPine (NORVASC) 5 mg tablet Take 1 tablet (5 mg total) by mouth daily Active sertraline (ZOLOFT) 50 mg tablet 06/24/[address] (PROTONIX) 40 mg EC tablet 09/09/19 25 Active sucralfate (CARAFATE) 1 gram tablet 09/09/19 25 Active atorvastatin (LIPITOR) 40 mg tablet Take 1 tablet (40 mg total) by mouth daily 03/31/20 25 Active atorvastatin (LIPITOR) 10 mg tabletIndications: hyperlipidemia Take 1 tablet (10 mg total) by mouth every morning 09/24/19 23 2024 Discontinued Active Problems Problem Noted Date Diagnosed Date Essential hypertension 04/01/2025 History of stroke 04/01/2025 PFO (patent foramen ovale) 04/01/2025 Left carotid bruit 04/01/2025 PVD (peripheral vascular disease) 01/09/2024 Encounter for surgical after care following surgery on the circulatory system 01/05/2024 Non-healing open wound of toe, initial encounter 09/18/2023 Non-healing wound of left lower extremity 2023 Secondary hypertension 11/04/2022 Assessment & Plan (09/09/2023 10:27 AM CDT): Stable continue lisinopril 40 mg. Assessment & Plan (08/27/2023 2:36 PM ENTRY LEVEL ELECTRICAL ENGINEER): Stable continue lisinopril 40 mg. Hypercholesterolemia 11/04/2022 Assessment & Plan (09/09/2023 10:26 AM CDT): Stable continue Lipitor 10 mg. Assessment & Plan (08/27/2023 2:36 PM ENTRY LEVEL ELECTRICAL ENGINEER): Stable continue Lipitor 10 mg. PAD (peripheral [...] has an appointment scheduled with [facility]. Assessment & Plan (08/27/2023 2:36 PM ENTRY LEVEL ELECTRICAL ENGINEER): Left lower extremity chronic limb-threatening ischemia with [...] wound. Assessment & Plan (08/19/2023 10:54 AM ENTRY LEVEL ELECTRICAL ENGINEER): Continues to deny any symptoms of claudication [...] Encounters Date Type Department Care Team Description 04/14/2025 Results Follow-Up [facility] Cardiology [address] [facility] [address] [place] [id number] Briana Wilburn MD [place] Carotids Duplex Bilateral 04/14/[address] [facility] Cardiology [facility] Advanced Medicine 8th [place] [address] [place] [phone] Stephanie Hussein 04/13/2025 10:00 AM CDT Ancillary Procedure [facility] Vascular and Vein Surgery at [address] [place] [address] History of stroke; Left carotid bruit 04/01/2025 10:30 AM CDT Office Visit [facility] Medical Group Cardiology [address] [facility] [address] [place] [address] Briana Wilburn MD PFO (patent foramen ovale) (Primary Dx); History of stroke; PAD (peripheral artery disease); Hypercholesterolemi a; Essential hypertension; Left carotid bruit from Last 3 Months Immunizations Immunization Administration [...] Hyperlipidemia Arthritis N/A CVA (cerebral vascular accident) ([facility]) Family History Medical History Relation Name Comments [...] Passive Smoke Exposure: Never Smokeless Tobacco: Former Tobacco Cessation:Counseling Given: Not Answered AUDIT-C Answer [...] on file Legal Sex Female 6:03 AM ENTRY LEVEL ELECTRICAL ENGINEER Gender Identity Female 10/20/2022 4:51 PM CDT Sexual Orientation Not on file Obstetrics History Last Filed Vital Signs Vital Sign Reading Time Taken Comments Blood Pressure 134/68 04/01/2025 10:31 AM CDT Pulse 87 04/01/2025 10:31 AM CDT Temperature 36.1 C (97 F) 01/21/2024 3:11 PM CDT Respiratory Rate 20 01/21/2024 5:30 PM CDT Oxygen Saturation 95% 04/01/2025 10:31 AM CDT Inhaled Oxygen Concentration - - Weight 61.7 kg (136 lb) 04/01/2025 10:31 AM CDT Height 157.5 cm (5' 2) 04/01/2025 10:31 AM CDT Body Mass Index 24.87 04/01/2025 10:31 AM CDT Plan of Treatment Health Maintenance [...] (#1) 2025 Medical Devices Implanted Type Area Fish Bin Tender Device Identifier Shelf Expiration Date Model / Serial / Lot Medtronic [employer] Protege Everflex 5mm .079in 60mm 120cm Otw Delivery System Self [id number] - [id number] Implanted:Qty : 1 on 09/18/2023 by Geronimo Gimenez MD at [facility] Left: Superficial Femoral Artery [employer] Inc [id number] 04/22/2026 [id number] / / [id number] Procedures Procedure Name Priority Date/Time Associated Diagnosis Comments US CAROTIDS DUPLEX BILATERAL Schedule Routine, Read Routine (OP Routine) 04/13/2025 10:29 AM CDT History of stroke Left carotid bruit POCT LIPID PANEL Routine 04/01/2025 10:5 9 AM CDT History of stroke Hypercholesterolem ia from Last 3 Months Results * US Carotids Duplex Bilateral (04/13/2025 10:29 AM CDT) Anatomical Region Laterality Modality Vascular Bilateral Ultrasound 04/13/2025 10:0 9 AM CDT Narrative 04/14/2025 10:18 AM CDT Vascular & Vein Surgery [address] [place] [address] Carotid Duplex Ultrasound Report Patient Name: ASHLEY YBARRA V : 1955 (70y 2m) Study Date: 04/13/2025 10:09:04 AM Sex: F Gallery Or Museum Technician: AJ Location: [facility] Ref Provider: BRIANA WILBURN Quality: Adequate Order Provider: BRIANA WILBURN PROCEDURES: Carotid Report: Carotid duplex examination of the extracranial arteries was performed using 2D, color and spectral Doppler. INDICATIONS: Z86.73 Personal history of transient ischemic attack (TIA), and cerebral infarction without residual deficits and R09.89 Other specified symptoms and signs involving the circulatory and respiratory systems. HISTORY: HTN. HLD. PVD. PFO- CVA. Former smoker. COMPARISONS: No previous exams. MEASUREMENTS: Right Value Left Value RT Prox CCA PSV 121 cm/sec LT Prox CCA PSV 98 cm/sec RT Prox CCA EDV 13 cm/sec LT Prox CCA EDV 12 cm/sec RT Distal CCA PSV 63 cm/sec LT Distal CCA PSV 58 cm/sec RT Distal CCA EDV 11 cm/sec LT Distal CCA EDV 13 cm/sec RT Prox ICA PSV 73 cm/sec LT Prox ICA PSV 50 cm/sec RT Prox ICA EDV 12 cm/sec LT Prox ICA EDV 13 cm/sec RT Mid ICA PSV 110 cm/sec LT Mid ICA PSV 160 cm/sec RT Mid ICA EDV 26 cm/sec LT Mid ICA EDV 40 cm/sec RT Distal ICA PSV 98 cm/sec LT Distal ICA PSV 128 cm/sec RT Distal ICA EDV 24 cm/sec LT Distal ICA EDV 27 cm/sec RT ECA Prx PSV 82 cm/sec LT ECA Prx PSV 207 cm/sec RT ICA/CCA 1.75 ratio LT ICA/CCA 2.73 ratio Rt Vert Dst PSV 100 cm/sec Lt Vert Dst PSV 79 cm/sec FINDINGS: Rt Common Carotid Artery: The plaque in the right CCA appears to be heterogeneous. Rt Internal Carotid Artery: The plaque in the right internal carotid artery appears to be heterogeneous and smooth. Atherosclerotic changes of the right internal carotid artery without hemodynamically significant Doppler findings. <50% stenosis. Tortuous mid to distal. Rt External Carotid Artery: Patent right external carotid artery with evidence of atherosclerotic disease present. Rt Vertebral Artery: The right vertebral artery is patent with antegrade flow. Lt Common Carotid Artery: The plaque in the left CCA appears to be homogenous. Lt Internal Carotid Artery: The plaque in the left internal carotid artery appears to be heterogeneous and smooth. Significant atherosclerotic changes of the left internal carotid artery with elevated peak systolic velocity and end diastolic velocity, as above. 50-69% stenosis (at mid segment, possibly due to tortuosity). Tortuous mid to distal. Lt External Carotid Artery: Patent left external carotid artery with evidence of atherosclerotic disease present. Lt Vertebral Artery: The left vertebral artery is patent with antegrade flow. Comments: Brachial artery systolic blood pressure is 154 on the right, 158 on the left. CONCLUSIONS: 1. The right internal carotid artery disease is consistent with a less than 50% stenosis. 2. The left internal carotid artery disease is consistent with moderate 50-69% stenosis. 3. Normal, antegrade flow is noted in bilateral vertebral arteries. ATTESTATION: I have reviewed and interpreted the pertinent images and measurements of this study. I attest to the conclusions in the final report that is provided above. Electronically Signed By: Kenneth Smart MD 04/14/2025 10:09:03 AM CDT Procedure Note Kenneth Smart MD - 04/14/2025 Vascular & Vein Surgery [address] [facility] [address] Carotid Duplex Ultrasound Report Patient Name: ASHLEY YBARRA V : 1955 (70y 2m) Study Date: 04/13/2025 10:09:04 AM Sex: F Gallery Or Museum Technician: Location: [facility] Ref Provider: BRIANA WILBURN Quality: Adequate Order Provider: BRIANA WILBURN PROCEDURES: Carotid Report: Carotid duplex examination of the extracranial arterieswas performed using 2D, color and spectral Doppler. INDICATIONS: Z86.73 Personal history of transient ischemic attack (TIA), and cerebralinfarction without residual deficits and R09.89 Other specified symptoms and signsinvolving the circulatory and respiratory systems. HISTORY: HTN. HLD. PVD. PFO- CVA. Former smoker. COMPARISONS: No previous exams. MEASUREMENTS: Right Value Left Value RT Prox CCA PSV 121 cm/sec LT Prox CCA PSV 98 cm/sec RT Prox CCA EDV 13 cm/sec LT Prox CCA EDV 12 cm/sec RT Distal CCA PSV 63 cm/sec LT Distal CCA PSV 58 cm/sec RT Distal CCA EDV 11 cm/sec LT Distal CCA EDV 13 cm/sec RT Prox ICA PSV 73 cm/sec LT Prox ICA PSV 50 cm/sec RT Prox ICA EDV 12 cm/sec LT Prox ICA EDV 13 cm/sec RT Mid ICA PSV 110 cm/sec LT Mid ICA PSV 160 cm/sec RT Mid ICA EDV 26 cm/sec LT Mid ICA EDV 40 cm/sec RT Distal ICA PSV 98 cm/sec LT Distal ICA PSV 128 cm/sec RT Distal ICA EDV 24 cm/sec LT Distal ICA EDV 27 cm/sec RT ECA Prx PSV 82 cm/sec LT ECA Prx PSV 207 cm/sec RT ICA/CCA 1.75 ratio LT ICA/CCA 2.73 ratio Rt Vert Dst PSV 100 cm/sec Lt Vert Dst PSV 79 cm/sec FINDINGS: Rt Common Carotid Artery: The plaque in the right CCA appears to beheterogeneous. Rt Internal Carotid Artery: The plaque in the right internal carotidartery appears to be heterogeneous and smooth. Atherosclerotic changes of the right internalcarotid artery without hemodynamically significant Doppler findings. <50% stenosis.Tortuous mid to distal. Rt External Carotid Artery: Patent right external carotid artery withevidence of atherosclerotic disease present. Rt Vertebral Artery: The right vertebral artery is patent with antegradeflow. Lt Common Carotid Artery: The plaque in the left CCA appears to behomogenous. Lt Internal Carotid Artery: The plaque in the left internal carotid arteryappears to be heterogeneous and smooth. Significant atherosclerotic changes of the leftinternal carotid artery with elevated peak systolic velocity and end diastolicvelocity, as above. 50-69% stenosis (at mid segment, possibly due to tortuosity). Tortuous midto distal. Lt External Carotid Artery: Patent left external carotid artery withevidence of atherosclerotic disease present. Lt Vertebral Artery: The left vertebral artery is patent with antegradeflow. Comments: Brachial artery systolic blood pressure is 154 on the right, 158on the left. CONCLUSIONS: 1. The right internal carotid artery disease is consistent with a lessthan 50% stenosis. 2. The left internal carotid artery disease is consistent with wesmcaua69-96% stenosis. 3. Normal, antegrade flow is noted in bilateral vertebral arteries. ATTESTATION: I have reviewed and interpreted the pertinent images and measurements ofthis study. I attest to the conclusions in the final report that is provided above. Electronically Signed By: Kenneth Smart MD 04/14/2025 10:09:03 AM CDT Briana Wilburn MD IMG US PROCEDURES Final R esult * (ABNORMAL) POCT lipid panel (04/01/2025 10:59 AM CDT) Cholesterol, POC 195 <200 MG/DL HDL, POC 54 >=40 mg/dL Triglycerides, POC 314(A) <=149 mg/dL LDL Cholesterol POC 78 <=129 mg/dL Chol/HDL Ratio, POC 1.4 NONE Non-HDL Cholesterol, POC 141 NONE mg/dL Cholesterol Total, POC 195 30 - 199 mg/dL Capillary blood 04/01/2025 1 0:59 AM CDT Briana Wilburn MD POINT OF CARE TEST ORDERA BLES Final Result from Last 3 Months Insurance MEDICARE AETNA SENIOR SUPPLEMENT MEDICARE AETNA SENIOR SUPPLEMENT Advance Directives For more information, please contact: [phone] * Full Code (Latest Code Status on File) Date Activated Date Inactivated Comments 09/01/2023 10:16 AM 09/01/2023 6:05 PM Care Teams Ball Maker Relationship Specialty Start Date End Date Noé Poon MD [address] [place] [address] [place] [address] PCP - General Family Medicine 09/24/24
[2025-04-18 11:49] LABS: Ferritin 39.50 ng/mL (11.1-264)
== END 2025-04-18 10:05 | disposition home or self-care (01) ==
LOC: ANHLAB 10:07
PROVIDERS: PCP Family Medicine; Visit Provider Internal Medicine Hematology & Oncology
DX: D64.9 Anemia, unspecified (principal)
CPT/HCPCS: 36415; 82728; 83540; 83550; 85027

== ENCOUNTER 2025-06-13 10:41 | Outpatient (CLI) | payer MEDICARE, SELFPAY ==
[2025-06-13 11:13] LABS: Hematocrit 33.8 % (37.0-47.0); Hemoglobin 10.9 g/dL (12.0-15.0); Immature Granulocyte Percent A 0.6 % (0-0.5); Lymphocytes Absolute Auto 0.75 K/mm3 (0.9-3.2); Mean Corpuscular HGB Conc 32.2 g/dl (32-36); Mean Corpuscular Hemoglobin 33.9 pg (26-34); Mean Corpuscular Volume 105.0 fl (80-100); Nucleated Red Blood Cells Absolute Auto 0.000 K/mm3 (0.0-0.012); Nucleated Red Blood Cells Perc 0.0 % (0.0-0.2); Platelet Count Result 298 k/mm3 (150-375); Red Blood Count 3.22 M/mm3 (4.2-5.4); White Blood Count 6.2 K/mm3 (4.5-10.0)
[2025-06-13 11:28] LABS: Anion Gap 8 mmol/L (4-12); Blood Urea Nitrogen 18 mg/dL (7-17); Calcium 9.2 mg/dL (8.4-10.2); Carbon Dioxide 26 mmol/L (22-30); Chloride 106 mmol/L (98-107); Estimated Glomerular Filt Rate 55; Glucose 160 mg/dL (65-110); Potassium 3.7 mmol/L (3.4-5.0); Sodium 140 mmol/L (137-145)
--- OUTSIDE RECORDS SUMMARY | 2025-06-13 12:30 | XMS_ITS | Encounter Summary ---
Author Organization [facility] Healthcare Address [address] [place] [address] Care Team Providers Care Forest Examiner Name Role Phone Aicha Tatum Primary Care Provider [phone] Noé Poon MD Primary Care Provider [phone] Encounter Details Date Type Department Care Team (Late st Contact Info) Description 09/17/2024 Orders Only [facility] Information Management [address] [place] [address] Scanning, Provider Social History Tobacco Use Types [...] on file Legal Sex Female 6:03 AM POOLROOM/POOLHALL MANAGER Gender Identity Female 10/20/2022 4:51 PM CDT Sexual Orientation Not on file documented as of this encounter Plan of Treatment Upcoming Encounters Date Type Department Care Team (Latest Contact Info) Description 06/29/2025 11:36 AM POOLROOM/POOLHALL MANAGER Hospital Encounter [facility] Heart and Vascular Center 1 [place] [address] Anastacio Sena MD [address] [facility] [address] [place] [address] PFO (patent foramen ovale) 06/29/2025 11:36 AM POOLROOM/POOLHALL MANAGER - 06/29/2025 1:59 PM POOLROOM/POOLHALL MANAGER Surgery [facility] Heart and Vascular Center 1 [place] [address] Anastacio Sena MD [address] [facility] [address] [place], [place] [id number] ATRIAL SEPTAL DEFECT (ASD), PATENT FORAMEN OVALE (PFO), FENESTRATION CLOSURE [id number] documented as of this encounter Procedures Procedure Name Priority Date/Time Associated Diagnosis Comments CARDIOLOGY DOCUMENT SCAN 09/17/2024 documented in this encounter Results * Cardiology Document Scan (09/17/2024) Anatomical Region Laterality Modality Other us Provider Scanning CV CARDIAC SERVICES PROCEDURES Final Result documented in this encounter Visit Diagnoses Not on filedocumented in this encounter Care Teams Forest Examiner Relationship Specialty Start Date End Date Aicha Tatum PA [address] [place] [address] PCP - General Family Medicine 09/16/22 09/23/24 Noé Poon MD [address] [place] [address] PCP - General Family Medicine 09/24/24 documented as of this encounter
--- OUTSIDE RECORDS SUMMARY | 2025-06-13 12:30 | XMS_ITS | Encounter Summary ---
Author Organization [facility] Healthcare Address [address] [place] [address] Care Team Providers Care Spare Parts Clerk Name Role Phone Noé Poon MD Primary Care Provider [phone] Encounter Details Date Type Department Care Team (Late st Contact Info) Description 10/14/2024 Orders Only [facility] [place] Health Information Management [address] [place] [id number] Scanning, Provider Social History Tobacco Use Types [...] on file Legal Sex Female 6:03 AM LIFT TEAM TECHNICIAN Gender Identity Female 10/20/2022 4:51 PM CDT Sexual Orientation Not on file documented as of this encounter Plan of Treatment Upcoming Encounters Date Type Department Care Team (Latest Contact Info) Description 06/29/2025 11:36 AM LIFT TEAM TECHNICIAN Hospital Encounter [facility] Heart and V[facility] Center 1 [place] [address] Anastacio Sena MD [address] [facility] [address] [place] [address] PFO (patent foramen ovale) 06/29/2025 11:36 AM LIFT TEAM TECHNICIAN - 06/29/2025 1:59 PM LIFT TEAM TECHNICIAN Surgery [facility] Vascular [place] 1 [place] [address] Anastacio Sena MD [address] [facility] [address] [place] [address] ATRIAL SEPTAL DEFECT (ASD), PATENT FORAMEN OVALE (PFO), FENESTRATION CLOSURE [id number] documented as of this encounter Procedures Procedure Name Priority Date/Time Associated Diagnosis Comments SCAN - RADIOLOGY/IMAGING 10/14/2024 documented in this encounter Results * SCAN - RADIOLOGY/IMAGING (10/14/2024) Anatomical Region Laterality Modality Other us Provider Scanning Final Result documented in this encounter Visit Diagnoses Not on filedocumented in this encounter Care Teams Spare Parts Clerk Relationship Specialty Start Date End Date Noé Poon MD [address] [place] [address] PCP - General Family Medicine 09/24/24 documented as of this encounter
--- OUTSIDE RECORDS SUMMARY | 2025-06-13 12:30 | XMS_ITS | Data Portability ---
Author Organization [place] [facility], Main Office Address [address] [place] [address] Care Team Providers Care Gill Box Operator Name Role Phone KATHY FRITZ Primary Care Provider [phone] KATHY FRITZ Referring Provider [phone] Assessment Encounter Date Assessment Date Assessment LastModified [...] more than half the time spent in uope-rl-xuxd care. Not available 11/04/2022 16:25:45 03/28/2023 03/28/2023 [...] treatment patient than half of this in hrwl-lm-diny conversation Not available 03/28/2023 14:53:09 Plan of [...] DO Not Attach Compendium, Do Not Delete/merge, [id number] 16:19:15 Surgeries None recorded. Imaging XR, hip + pelvis, unilateral 2022 023 [facility] [place], [address], [place], [address], 16:06:59 XR, shoulder 2022 023 [email or web address] [facility] [place], [address], [place], [address], 09:56:50 Medication Orders diclofenac sodium 75 mg [...] No observ ation record ed. [facility] [place] [address], [place], [address], 09/25/2022 08:40:00 11/02/19 23 MRI, shoul marlon, w/o contr ast [facility] [place] [address] [employer] [facility] [employer] [facility], [place] [address] [phone] [facility] t Name: SURESH YBARRA [place] Access ion #: [id number] Sex: F : 1954 7 2 [...] intras ubstan ce Page 1 of 2 [facility] t Name: SURESH YBARRA Access ion #: [id number] Sex: F : 1954 7 2 Exam [...] 3:32 PM (CT) Page 2 of 2 [email or web address] [facility] (Imaging) [address] [place], [address], 11/04/2022 11:51:37 03/28/20 23 XR, hip + pelvi s, unila teral No observ ation record ed. [email or web address] [facility] [place] [address], [place], [address], 03/28/2023 14:51:38 Result Notes Documentation Provider Name and Address Organization Details Recorded Time Mri, Shoulder, W/o Contrast : [facility] [address] [facility] [place] [address] Patient Name: ASHLEY YBARRA Sex: F : 1955 Location: [facility] Attending Physician: MICHELE HERNANDEZ Ordering Physician: [...] and partial-thickness intrasubstance Page 1 of 2 [facility] Patient Name: ASHLEY YBARRA Sex: F : [...] 2 of 2 Jenna Chin JEREMYSandra ramírez, [facility] [employer] [facility] 11/04/2022 11:51:37 Problems Name Problem SNOMED Code Status Onset Date Resolution Date Notes Provider Name and Address Organization Details Recorded Time Bilateral shoulder joint pain 85813151013078 104 Active 2022 JEREMY LowerySandra null, [facility] [employer] [facility] 3 09:07:42 Pain of right shoulder joint 02775092951034 100 Active 2022 Dasia Gutiérrez CMA null, [facility] [employer] [facility] 3 09:45:31 Pain of left hip joint 79665030316149 0 Active 2022 Rizwana Franks null, [facility] 3 14:09:14 Notes:Some problems listed i n Document: #[id number] could not be added to this patient's [...] procedure, administere d by provider 2022 active [facility]: [phone] Not Available Not Available [...] procedure, administere d by provider 2022 active [facility] [phone] Not Available Not Available Not Available Vitals Date Recorded Body height Body mass index (BMI) Body weight Provider Name and Address Organization Details Last Updated DateTime 09/11/2022 157.48 cm 25.2 kg/m2 84881.75 g Jenna Chin [facility] [employer] [facility] 09/11/2022 09:12:56 Date Recorded Body height Provider Name an d Address Organization Details Last Updated DateTime 10/23/2022 157.48 cm Jenna Chni [facility] [employer] [facility] 10/23/2022 08:59:11 Date Recorded Body height Provider Name an d Address Organization Details Last Updated DateTime 11/04/2022 157.48 cm Jenna Chin [facility] [employer] [facility] 11/04/2022 15:31:32 Date Recorded Body height Provider Name an d Address Organization Details Last Updated DateTime 03/28/2023 157.48 cm [facility] [employer] [facility] 03/28/2023 14:08:43 Social History None recorded. Functional Status Question Answer Note LastModified by Organization D etails LastModified Time What is your level of alcohol consumption? Heavy [email or web address] Information not available 09/11/2022 Mental Status None recorded. Family History Nothing Reported. Medical History No medical history recorded. Gynecological HistoryNo gynecological history recorded. Obstetrics History GPAL:G 0 P 0 0 0 0 Past Encounters Encounter ID Performer Location Encounter Start Date Encounter Closed Date Diagnosis/Indication Diagnosis SNOMED-CT Code Diagnosis ICD10 Code Diagnosis IMO Codes Diagnosis Note [id number] Shad Steiner MD [facility] [place] [address] [place] [address] 09/11/2022 08:42:59 09/30/2022 09:56:49 Bilateral shoulder joint pain 3900027739 [id number] M25.511 M25.512 [id number] Shad Steiner MD [facility] [place] [address] [place] [address] 10/23/2022 08:57:01 10/23/2022 10:01:19 Bilateral shoulder joint pain 9743944604 2441765 M25.511 M25.512 [id number] Shad Steiner MD [facility] [place] [address] [place] [address] 11/04/2022 15:26:52 11/04/2022 16:31:16 Pain of right shoulder joint 1544779616 0046505 M25.107 [id number] Shad Steiner MD [facility] [place] [address] [place] [address] 03/28/2023 14:00:59 03/28/2023 14:56:01 Pain of left hip joint 1584413845 42871 M25.552 Health Concerns Section Related Observation LastModified by Organization Detai ls LastModified Time None Recorded Concern Status LastModified by Organization Details LastModified Time None Recorded Advance Directives Directive None Recorded Payers Insurance Date Sequence Insurance Name Policy Number Policy Simon Covered Member ID Simon Member ID Guarantor Name 03/25/2023 1 [place] Ashley Ybarra [id number] Ashley Ybarra 04/22/2023 2 [employer] (MEDICARE SUPPLEMENT) Ashley Ybarra [id number] Ashley Ybarra Notes Date Note Type Note Provider Name and Address Organization Details Recorded Time 09/11/2022 text/html patient is a 67-year-old female presents for evaluation of both shoulders. She started having symptoms approximately 3 months ago. No prior problems. No injury. Pain is mainly in the front and top of her shoulder worse on the. 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 Shad Steiner MD [address] [place] [address], [place] [address], [place], [address], [place] [facility] [employer] 09/25/2022 09:17:33 OBGyn Episode No OBEpisode recorded.
--- OUTSIDE RECORDS SUMMARY | 2025-06-13 12:30 | XMS_ITS | Clinical Summary ---
Author Organization [facility] Address [address] [facility] [place] [address] Care Team Providers Care Senior Receptionist Name Role Phone Noé Poon MD Primary Care Provider [phone] Allergies No known active allergies Medications lisinopriL [...] 81 mg by mouth daily. 09/18/2023 Active atorvastatin (LIPITOR) 40 mg tablet Take 40 mg by mouth daily. 03/31/2025 Active Active Problems No known active problems Encounters Date Type Department Care Team Description 05/10/2025 External Device Data STL ABSTRACTION Provider, Abstract 04/28/2025 10:00 AM ACTIVITY AIDE Office Visit [facility] Oncology and Hematology [facility] [address] [place] [address] Last Marks MD Chronic anemia (Primary Dx) 04/20/2025 External Device Data STL ABSTRACTION Provider, Abstract 04/19/2025 Orders Only [facility] Oncology and [facility] [address] [place] [address] Last Marks MD 04/13/2025 External Device Data STL ABSTRACTION Provider, [...] Sign Reading Time Taken Comments Blood Pressure 170/80 04/28/2025 9:49 AM ACTIVITY AIDE Pulse 79 04/28/2025 9:47 AM ACTIVITY AIDE Temperature 36.1 C (96.9 F) 04/28/2025 9:47 AM ACTIVITY AIDE Respiratory Rate 16 04/28/2025 9:47 AM ACTIVITY AIDE Oxygen Saturation 98% 04/28/2025 9:47 AM ACTIVITY AIDE Inhaled Oxygen Concentration - - Weight 62.6 kg (138 lb) 04/28/2025 9:47 AM ACTIVITY AIDE Height 157.5 cm (5' 2) 10/21/2024 1:18 PM CDT Body Mass Index 25.24 10/21/2024 1:18 PM CDT Plan of Treatment Upcoming Encounters Date Type Department Care Team (Late st Contact Info) Description 09/05/2025 11:15 AM CDT Office Visit [facility] Oncology and Hematology - [place] [address] [facility] [address] [place] [address] Last Marks MD [address] [facility] [address] [place] [address] Health Maintenance Due Date Last Done Comments Pre-Diabetes and Diabetes Screening 1955 FIT-DNA Q 3 years 2002 FIT/FOBT Q [...] ) (1 - 1-dose 75+ series) 01/23/2032 COLORECTAL SCREENING 09/06/2034 09/06/2024 Colorectal Cancer Screening 09/06/2034 Procedures Procedure Name Priority Date/Time Associated Diagnosis Comments IRON, TIBC, AND PERCENT SATURATION Routine 04/18/2025 11:53 AM CDT CBC WITH AUTODIFFERENTIAL Routine 2024 11:42 AM CDT from Last 3 Months Results * IRON, TIBC, AND PERCENT SATURATION (04/18/2025 11:53 AM CDT) Blood us Last Marks MD CHEMISTRY ORDERABLES Final Resu lt * CBC WITH AUTODIFFERENTIAL (04/18/2025 11:42 AM CDT) Blood Last Marks MD HEMATOLOGY ORDERABLES Final Res ult from Last 3 Months Insurance MEDICARE PART A AND B [employer] MEDICARE SUPP AESSI Care Teams Senior Receptionist Relationship Specialty Start Date End Date Noé Poon MD [address] [place] [address] PCP - General Family Practice 04/28/25
--- OUTSIDE RECORDS SUMMARY | 2025-06-13 12:30 | XMS_ITS | Encounter Summary ---
Author Organization [facility] [employer] [facility] Address [address] [place] [address] Phone Care Team Providers Care Straight Knife Cutter Machine Name Role Phone Noé Poon MD Primary Care Provider [phone] Encounter Details Date Type Department Care Team (Late st Contact Info) Description 06/13/2025 Orders Only [facility] Medicine Cardiology [address] [facility] Advanced Medicine 8th [place] [address] [place] [address] Anastacio Sena MD [address] [facility] [address] [place], [place] [id number] Secondary hypertension (Primary Dx); PFO (patent foramen ovale); Preop testing Social History Tobacco Use Types Packs/Day Years Used Date Smoking Tobacco: Former Cigarettes 1.5 42 1 974 - 2016 Passive Smoke Exposure: Never Smokeless Tobacco: Former Alcohol Use Standard Drinks/Week Comments Yes 6 (1 standard drink = 0.6 oz pur e alcohol) AUDIT-C Answer Date Recorded Q1: How often do you have a drink containing alc ohol? 2-3 times a week 05/26/2025 Q2: How many drinks containi ng alcohol do you have on a typical day when you are drinking? 3 or 4 05/26/2025 Q3: How often do you have si x or more drinks on one occasion? Weekly 05/26/2025 Personal Safety Answer Date Recorded Have you ever been in or are you currently in a harmful physical or emotional relationship or is someone making you feel afraid or unsafe? Denies 01/21/2024 Comments No Sex and Gender Information Value Date Recorded Sex Assigned at Not on file Legal Sex Female 6:03 AM RECONSTRUCTIVE DENTIST Gender Identity Female 10/20/2022 4:51 PM CDT Sexual Orientation Not on file documented as of this encounter Plan of Treatment Upcoming Encounters Date Type Department Care Team (Latest Contact Info) Description 06/29/2025 11:36 AM RECONSTRUCTIVE DENTIST Hospital Encounter [facility] [place] [address] [place] [address] Anastacio Sena MD [address] [address] PFO (patent foramen ovale) 06/29/2025 11:36 AM RECONSTRUCTIVE DENTIST - 06/29/2025 1:59 PM RECONSTRUCTIVE DENTIST Surgery [facility] [place] [address] [place] [address] Anastacio Sena MD [address] [address] ATRIAL SEPTAL DEFECT (ASD), PATENT FORAMEN OVALE (PFO), FENESTRATION CLOSURE [id number] Scheduled Orders Name Type Priority Associated Diagnoses Orde r Schedule CBC with auto differential Lab Routine Secondary hypertension PFO (patent foramen ovale) Preop testing Expected: 06/13/2025, Expires: 06/13/2026 documented as of this encounter Visit Diagnoses Diagnosis PFO (patent foramen ovale)- Primary Ostium secundum type atrial septal defect Secondary hypertension- Primary Other secondary hypertension, unspecified PFO (patent foramen ovale) Ostium secundum type atrial septal defect Preop testing Unspecified pre-operative examination PFO (patent foramen ovale) Ostium secundum type atrial septal defect documented in this encounter Care Teams Straight Knife Cutter Machine Relationship Specialty Start Date End Date Noé Poon MD [address] [place] [address] PCP - General Family Medicine 09/24/24 documented as of this encounter
--- OUTSIDE RECORDS SUMMARY | 2025-06-13 12:30 | XMS_ITS | Clinical Summary ---
Author Organization [facility] Address [address] [place] [address] Care Team Providers Care Geospatial Scientist Name Role Phone Zoe Aguero Primary Care Provider [phone] Allergies No known active allergies Medications sertraline [...] CDT Respiratory Rate 16 08/28/2021 4:35 PM JEWEL BEARING POLISHER Oxygen Saturation 97% 08/28/2021 4:35 PM JEWEL BEARING POLISHER Inhaled Oxygen Concentration - - Weight 62.3 [...] this topic Medical Devices Implanted Type Area Blindstitch Machine Operator Device Identifier Shelf Expiration Date Model / Serial / Lot Plate Synthes 2.4 Va-Lcp Vlr Dist Radius 6h Hd/2h Shaft Right - [id number] Implanted:Qty: 1 on 08/28/2021 by Jj Barr MD at [facility] Plate Right: Radius SYNTHES 02.111.620 / / Screw Synthes 2.4 Locking Stardrive 14mm - [id number] Implanted:Qty: 1 on 08/28/2021 by Jj Barr MD at [facility] Screw Right: Radius SYNTHES 02.210.114 / / Screw Synthes 2.4 Locking Stardrive 18mm - [id number] Implanted:Qty: 2 on 08/28/2021 by Jj Barr MD at [facility] Screw Right: Radius SYNTHES .210.118 / / Screw Synthes 2.4 Locking Stardrive 20mm - [id number] Implanted:Qty: 4 on 08/28/2021 by Jj Barr MD at [facility] Screw Right: Radius SYNTHES 02.210.120 / / Screw Synthes 2.4 Cortical Self Tap 12mm - [id number] Implanted:Qty: 1 on 08/28/2021 by Jj Barr MD at [facility] Screw Right: Radius SYNTHES 201.762 / / [...] Health Maintenance Insurance [employer]ET[employer] MEDICARE Care Teams Geospatial Scientist Relationship Specialty Start Date End Date Zoe Aguero PA PCP - General PHYSICIAN DOPE POURER 01/12/19
--- OUTSIDE RECORDS SUMMARY | 2025-06-13 12:30 | XMS_ITS | Encounter Summary ---
Author Organization [facility] Address [address] [place] [address] Phone Care Team Providers Care Frame Tender Name Role Phone Noé Poon MD Primary Care Provider [phone] Encounter Details Date Type Department Care Team (Late st Contact Info) Description 05/28/2025 Results Follow-Up [facility] Medicine Cardiology [address] [facility] Advanced Medicine 8th [place] [address] [place] [address] Anastacio Sena MD [address] [facility] [address] [place], [place] [phone] ECG 12 lead Social History Tobacco Use Types Packs/Day Years [...] on file Legal Sex Female 6:03 AM AUCTION ASSISTANT Gender Identity Female 10/20/2022 4:51 PM CDT Sexual Orientation Not on file documented as of this encounter Plan of Treatment Upcoming Encounters Date Type Department Care Team (Latest Contact Info) Description 06/29/2025 11:36 AM AUCTION ASSISTANT Hospital Encounter [facility] Heart [facility] [place] [address] [place] [address] Anastacio Sena MD [address] [address] PFO (patent foramen ovale) 06/29/2025 11:36 AM AUCTION ASSISTANT - 06/29/2025 1:59 PM AUCTION ASSISTANT Surgery [facility] Heart [facility] [place] [address] [place] [address] Anastacio Sena MD [address] [address] ATRIAL SEPTAL DEFECT (ASD), PATENT FORAMEN OVALE (PFO), FENESTRATION CLOSURE [id number] documented as of this encounter Visit Diagnoses Not on filedocumented in this encounter Care Teams Frame Tender Relationship Specialty Start Date End Date Noé Poon MD [address] [place] [address] PCP - General Family Medicine 09/24/24 documented as of this encounter
--- OUTSIDE RECORDS SUMMARY | 2025-06-13 12:30 | XMS_ITS | Encounter Summary ---
Author Organization [facility] Address [address] [place] [address] Phone Care Team Providers Care Franchise Sales Manager Name Role Phone Noé Poon MD Primary Care Provider [phone] Encounter Details Date Type Department Care Team (Late st Contact Info) Description 06/13/2025 Telephone [facility] Medicine Cardiology [address] [facility] 8th [place] [address] [place] [address] Anastacio Sena MD [address] [facility] [address] [place] [address] Social History Tobacco Use Types Packs/Day Years [...] on file Legal Sex Female 6:03 AM PERFORMANCE IMPROVEMENT ANALYST Gender Identity Female 10/20/2022 4:51 PM CDT Sexual Orientation Not on file documented as of this encounter Miscellaneous Notes * Telephone Encounter - Tasia Zapata RN - 06/13/2025 11:00 AM CST Lab order was redone and faxed to [facility]. ORMANCE IMPROVEMENT ANALYST * Telephone Encounter - Stephanie Hussein - 06/13/2025 10:52 AM CST [facility] called stating patient is there for labs but CBC not passing medical necessity with code that was given. Please fax order with new code to [phone]. ORMANCE IMPROVEMENT ANALYST documented in this encounter Plan of Treatment Upcoming Encounters Date Type Department Care Team (Latest Contact Info) Description 06/29/2025 11:36 AM PERFORMANCE IMPROVEMENT ANALYST Hospital Encounter [facility] 1 [place] [address] Anastacio Sena MD [address] [address] PFO (patent foramen ovale) 06/29/2025 11:36 AM PERFORMANCE IMPROVEMENT ANALYST - 06/29/2025 1:59 PM PERFORMANCE IMPROVEMENT ANALYST Surgery [facility] [address] [place] [address] Anastacio Sena MD [address] [address] ATRIAL SEPTAL DEFECT (ASD), PATENT FORAMEN OVALE (PFO), FENESTRATION CLOSURE [id number] documented as of this encounter Visit Diagnoses Not on filedocumented in this encounter Care Teams Franchise Sales Manager Relationship Specialty Start Date End Date Noé Poon MD [address] [place] [address] PCP - General Family Medicine 09/24/24 documented as of this encounter
--- OUTSIDE RECORDS SUMMARY | 2025-06-13 12:30 | XMS_ITS | Encounter Summary ---
Author Organization [facility] Healthcare Address [address] [place] [address] Care Team Providers Care Computer Lab Aide Name Role Phone Noé Poon MD Primary Care Provider [phone] Encounter Details Date Type Department Care Team (Late st Contact Info) Description 04/14/2025 Results Follow-Up [facility] Medical Group Cardiology [address] [id number] [id number] Renan Chino MD [address] [facility] [address] [facility], [facility] [address] [place] [address] [place] Carotids Duplex Bilateral Social [...] on file Legal Sex Female 6:03 AM CORE WINDING OPERATOR Gender Identity Female 10/20/2022 4:51 PM CDT [...] (Latest Contact Info) Description 06/29/2025 11:36 AM CORE WINDING OPERATOR Hospital Encounter [facility] [place] [address] [place] [address] Anastacio Sena MD [address] [address] PFO (patent foramen ovale) 06/29/2025 11:36 AM CORE WINDING OPERATOR - 06/29/2025 1:59 PM CORE WINDING OPERATOR Surgery [facility] [place] [address] [place] [address] Anastacio Snea MD [address] [address] ATRIAL SEPTAL DEFECT (ASD), PATENT FORAMEN [place]VALE (PFO), FENESTRATION CLOSURE [id number] documented as of this encounter Visit Diagnoses Not on filedocumented in this encounter Care Teams Computer Lab Aide Relationship Specialty Start Date End Date Noé Poon MD [address] [place] [id number] PCP - General Family Medicine 09/24/24 documented as of this encounter
--- OUTSIDE RECORDS SUMMARY | 2025-06-13 12:30 | XMS_ITS | Clinical Summary ---
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 Assessment & Plan (08/27/2023 2:36 PM WAREHOUSE INVENTORY CLERK): Stable continue lisinopril 40 mg. Hypercholesterolemia 11/04/2022 Assessment & Plan (09/09/2023 10:26 AM CDT): Stable continue Lipitor 10 mg. Assessment & Plan (08/27/2023 2:36 PM WAREHOUSE INVENTORY CLERK): Stable continue Lipitor 10 mg. PAD (peripheral [...] opinion and has an appointment scheduled with [facility]. Assessment & Plan (08/27/2023 2:36 PM WAREHOUSE INVENTORY CLERK): Left lower extremity chronic limb-threatening ischemia with [...] wound. Assessment & Plan (08/19/2023 10:54 AM WAREHOUSE INVENTORY CLERK): Continues to deny any symptoms of claudication [...] Encounters Date Type Department Care Team Description 06/13/2025 Orders Only [facility] Cardiology [facility] 8th [place] [address] [place] [address] Anastacio Sena MD Secondary hypertension (Primary Dx); PFO (patent foramen ovale); Preop testing 06/13/2025 Telephone [facility] Cardiology [facility] 8th [place] [address] [place] [address] Anastacio Sena MD 06/06/2025 4:32 PM WAREHOUSE INVENTORY CLERK - 06/06/2025 11:59 PM WAREHOUSE INVENTORY CLERK Hospital Encounter [address] [address] PAD (peripheral artery disease) Discharge Disposition: Discharge to home or self care 05/28/2025 Results Follow-Up [facility] Cardiology [facility] 8th [place] [address] [place] [address] Anastacio Sena MD ECG 12 lead 05/27/2025 Telephone [facility] Surgery [address] [facility] Floor 1 [place] [address] Susanne Lincoln CMA 05/26/2025 8:00 AM WAREHOUSE INVENTORY CLERK Office Visit [facility] Medicine Cardiology [address] [facility] 8th [place] [address] [place] [address] Anastacio Sena MD Essential hypertension (Primary Dx); 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; Cryptogenic stroke (HCC); Peripheral arterial disease with history of revascularization 05/24/2025 9:30 AM WAREHOUSE INVENTORY CLERK Office Visit [facility] Surgery [address] [facility] [address]th [place] [address] [place] [address] Ruthie Roland MD Aftercare following surgery of the circulatory system (Primary Dx) 05/24/2025 8:00 AM WAREHOUSE INVENTORY CLERK Ancillary Procedure [facility] Vascular Lab at the [address] [place] [address] [place] [address] Encounter for surgical aftercare following surgery on the circulatory system 05/24/2025 Orders Only [facility] Medicine Surgery [address] [place] [address] 8th [place] [address] [place] [address] Ty Stewart MD PAD (peripheral artery disease) (Primary Dx) 05/24/2025 Documentation [facility] Surgery [address] [facility] Floor 1 [place] [address] Ty Stewart MD 04/28/2025 3:46 PM WAREHOUSE INVENTORY CLERK - 04/28/2025 11:59 PM WAREHOUSE INVENTORY CLERK Hospital Encounter [facility] [address] [place] [address] Discharge Disposition: Discharge to home or self care 04/28/2025 3:46 PM WAREHOUSE INVENTORY CLERK - 04/28/2025 11:59 PM WAREHOUSE INVENTORY CLERK Hospital Encounter [facility] [address] [place] [address] Discharge Disposition: Discharge to home or self care 04/27/2025 Telephone [facility] Cardiology [address] [place] [address] 8th [place] [address] [place] [address] Mildred Mono 04/14/2025 Results Follow-Up [facility] Cardiology [address] [place] [address] Briana Wilburn MD US Carotids Duplex Bilateral 04/14/2025 Telephone [facility] Cardiology [address] [facility] 8th [place] [address] [place] [address] Stephanie Hussein 04/13/2025 10:00 AM CDT Ancillary Procedure [facility] Vascular and Vein Surgery at [address] [place] [address] History of stroke; Left carotid bruit 04/01/2025 10:30 AM CDT Office Visit [facility] Cardiology [address] [facility] [address] [place] [address] Briana Wilburn MD PFO (patent foramen ovale) (Primary Dx); History of stroke; PAD (peripheral artery disease); Hypercholesterolemia; Essential hypertension; Left carotid bruit from Last [...] Hyperlipidemia Arthritis N/A CVA (cerebral vascular accident) ([facility]) Family History Medical History Relation Name Comments [...] Tobacco: Former Tobacco Cessation:Counseling Given: Not Answered Alcohol Use Standard Drinks/Week Comments Yes 6 [...] on file Legal Sex Female 6:03 AM WAREHOUSE INVENTORY CLERK Gender Identity Female 10/20/2022 4:51 PM CDT Sexual Orientation Not on file Last Filed Vital Signs Vital Sign Reading Time Taken Comments Blood Pressure 137/76 05/26/2025 8:11 AM WAREHOUSE INVENTORY CLERK Pulse 104 05/26/2025 8:11 AM WAREHOUSE INVENTORY CLERK Temperature 36.1 C (97 F) 01/21/2024 3:11 PM CDT Respiratory Rate 20 01/21/2024 5:30 PM CDT Oxygen Saturation 98% 05/26/2025 8:11 AM WAREHOUSE INVENTORY CLERK Inhaled Oxygen Concentration - - Weight 62.3 kg (137 lb 6.4 oz) 05/26/2025 8:11 A M WAREHOUSE INVENTORY CLERK Height 157.5 cm (5' 2) 05/26/2025 8:11 AM WAREHOUSE INVENTORY CLERK Body Mass Index 25.13 05/26/2025 8:11 AM WAREHOUSE INVENTORY CLERK Plan of Treatment Upcoming Encounters Date Type Department Care Team (Latest Contact Info) Description 06/29/2025 11:36 AM WAREHOUSE INVENTORY CLERK Hospital Encounter [facility] 1 [place] [address] Anastacio Sena MD [address] [address] PFO (patent foramen ovale) 06/29/2025 11:36 AM WAREHOUSE INVENTORY CLERK - 06/29/2025 1:59 PM WAREHOUSE INVENTORY CLERK Surgery [facility] 1 [place] [address] Anastacio Sena MD [address] [facility] [address] [place] [address] ATRIAL SEPTAL DEFECT (ASD), PATENT FORAMEN OVALE (PFO), FENESTRATION CLOSURE [id number] Health Maintenance Due Date Last Done Comments [...] (#1) 2025 Medical Devices Implanted Type Area Italian Lecturer Device Identifier Shelf Expiration Date Model / Serial / Lot [employer] Protege Everflex 5mm .079in 60mm 120cm Otw Delivery System Self [id number] - [id number] Implanted:Qty : 1 on 09/18/2023 by Ruthie Roland MD at [facility] Left: Superficial Femoral Artery [employer] [id number] 04/22/2026 [id number] / / [id number] Procedures Procedure Name Priority Date/Time Associated Diagnosis Comments POCT CREATININE FOR CONTRAST EVALUATION Routine 06/06/2025 5:15 PM WAREHOUSE INVENTORY CLERK ECG 12-LEAD Routine 05/26/2025 8:14 AM WAREHOUSE INVENTORY CLERK Essential hypertension US ARTERIAL DUPLEX LOWER EXTREMITY LEFT LIMITED Schedule Routine, Read Routine (OP Routine) 05/24/2025 8:49 AM WAREHOUSE INVENTORY CLERK Encounter for surgical aftercare following surgery on the circulatory system US ARTERIAL DOPPLER LOWER EXTREMITY BILATERAL Schedule Routine, Read Routine (OP Routine) 05/24/2025 8:49 AM WAREHOUSE INVENTORY CLERK Encounter for surgical aftercare following surgery on the circulatory system US TRANSFER OF OUTSIDE FILMS Routine 04/28/2025 3:46 PM WAREHOUSE INVENTORY CLERK US TRANSFER OF OUTSIDE FILMS Routine 04/28/2025 3:46 PM WAREHOUSE INVENTORY CLERK US CAROTIDS DUPLEX BILATERAL Schedule Routine, Read Routine (OP Routine) 04/13/2025 10:29 AM CDT History of stroke Left carotid bruit POCT LIPID PANEL Routine 04/01/2025 10:5 9 AM CDT History of stroke Hypercholesterolemi a from Last 3 Months Results * POCT creatinine for contrast evaluation (06/06/2025 5:15 PM WAREHOUSE INVENTORY CLERK) Creatinine POC 1.10 0.60 - 1.10 mg/dL Comment:Testing performed by : [facility], [address] [place] [address]., [address] Blood 06/06/2025 5:15 PM WAREHOUSE INVENTORY CLERK 06/06/2025 5:15 PM WAREHOUSE INVENTORY CLERK Ty Stewart MD POINT OF CARE TEST ORDERA BLES Final Result [facility] [address] [facility] [place] [address] * ECG 12 lead (05/26/2025 8:14 AM WAREHOUSE INVENTORY CLERK) Anastacio Sena MD ECG ORDERABLES Edited Result - Final * US Arterial Duplex Lower Extremity Left Limited (05/24/2025 8:49 AM WAREHOUSE INVENTORY CLERK) Anatomical Region Laterality Modality Vascular Left Ultrasound 05/24/2025 8:22 AM WAREHOUSE INVENTORY CLERK Narrative 05/24/2025 8:02 PM WAREHOUSE INVENTORY CLERK [facility] - Department of Vascular Surgery, Vascular Laboratory [address] [place] [address] [place] Lower Extremity Arterial Duplex Report Patient Name: ASHLEY YBARRA : 1955 Study Date: 05/24/2025 8:22:00 AM Sex: F Tech: OK [facility] Provider: RUTHIE ROLAND Quality: Adequate Order Provider: RUTHIE ROLAND PROCEDURES: Arterial Report: Left Lower Extremity Arterial Duplex Exam. INDICATIONS: Z48.812 Encounter for surgical aftercare following surgery on the circulatory system. MEASUREMENTS: Left Value Units Lt SR. DIRECTOR PRODUCT MANAGEMENT Dst PSV 184 cm/s Lt Profunda Dst PSV 115 cm/s Lt Superficial Femoral Prx PSV 123 cm/s Lt Superficial Femoral Dst PSV 72 cm/s Lt Mid Superficial Femoral Artery Above Stenosis 113 cm/s Lt Mid Superficial Femoral Artery At Stenosis 228 cm/s Lt Pop Prx PSV 45 cm/s Lt Post Tibial Prx PSV 49 cm/s Lt Post Tibial Mid PSV 27 cm/s Lt Post Tibial Dst PSV 27 cm/s Lt Ant Tibial Prx PSV 24 cm/s Lt Ant Tibial Mid PSV 29 cm/s Lt Ant Tibial Dst PSV 28 cm/s Lt Peroneal Prx PSV 26 cm/s Lt Peroneal Mid PSV 43 cm/s Lt Peroneal Dst PSV 26 cm/s Lt Mid Stent 250 cm/s Left Value Units FINDINGS: Performing Crop Farm Workers: Michelle Hernandez RVT. Left Common Femoral: The left common femoral waveform is multiphasic. Left Profunda: The left profunda waveform is multiphasic. Left Proximal Superficial Femoral Artery: The left proximal femoral artery waveform is multiphasic. Left Mid Superficial Femoral Artery: Systolic velocity ratio in the left mid superficial femoral artery is 2.0 which is consistent with a 50-75% stenosis. Left Distal Superficial Femoral Artery: The left distal femoral artery waveform is multiphasic. Left Popliteal: The left popliteal waveform is multiphasic. Patent stent with elevated velocity noted mid stent. PSV pre stenosis 37 cm/s PSV at stenosis 250 cm/s Ratio 6.8. Left Posterior Tibial: The left posterior tibial waveform is multiphasic. The left posterior tibial waveform is monophasic. Left Anterior Tibial: The left anterior tibial waveform is multiphasic. Left Peroneal: The left peroneal artery waveform is multiphasic. Provider Notification: Results called on the above date to Ruthie Roland MD. The patient was sent to clinic. CONCLUSIONS: 1. A 50-75% stenosis is noted on the left: mid superficial femoral artery. 2. Patent left popliteal artery stent, with elevated velocity seen mid stent level. HISTORY: 09-01-2023 left lower extremity angiogram, left femoral artery and popliteal artery balloon angioplasty 09-18-2023 left SFA and popliteal angioplasty, left above knee popliteal artert stent HLD, PAD, PVD. PREVIOUS STUDIES: Previous study on 08-23-24, patent stent. DISCLAIMER: The study images and the final [...] that is provided above. Electronically Signed By: Wilmer Figueroa MD [facility] 05/24/2025 7:45:56 PM WAREHOUSE INVENTORY CLERK Procedure Note Wilmer Figueroa MD - 05/24/2025 [facility] - Department of Vascular Surgery,Vascular Laboratory [address] [place] [address] [place] Lower Extremity Arterial Duplex Report Patient Name: ASHLEY YBARRA : 1955 Study Date: 05/24/2025 8:22:00 AM Sex: F Tech: OK [facility] Provider: RUTHIE ROLAND Quality: Adequate Order Provider: RUTHIE ROLAND PROCEDURES: Arterial Report: Left Lower Extremity Arterial Duplex Exam. INDICATIONS: Z48.812 Encounter for surgical aftercare following surgery on thecirculatory system. MEASUREMENTS: Left Value Units Lt SR. DIRECTOR PRODUCT MANAGEMENT Dst PSV 184 cm/s Lt Profunda Dst PSV 115 cm/s Lt Superficial Femoral Prx PSV 123 cm/s Lt Superficial Femoral Dst PSV 72 cm/s Lt Mid Superficial Femoral Artery Above Stenosis 113 cm/s Lt Mid Superficial Femoral Artery At Stenosis 228 cm/s Lt Pop Prx PSV 45 cm/s Lt Post Tibial Prx PSV 49 cm/s Lt Post Tibial Mid PSV 27 cm/s Lt Post Tibial Dst PSV 27 cm/s Lt Ant Tibial Prx PSV 24 cm/s Lt Ant Tibial Mid PSV 29 cm/s Lt Ant Tibial Dst PSV 28 cm/s Lt Peroneal Prx PSV 26 cm/s Lt Peroneal Mid PSV 43 cm/s Lt Peroneal Dst PSV 26 cm/s Lt Mid Stent 250 cm/s Left Value Units FINDINGS: Performing [employer] Farm Workers: Michelle Hernandez RVT. Left Common Femoral: The left common femoral waveform is multiphasic. Left Profunda: The left profunda waveform is multiphasic. Left Proximal Superficial Femoral Artery: The left proximal femoral artery waveform is multiphasic. Left Mid Superficial Femoral Artery: Systolic velocity ratio in the left mid superficial femoral artery is 2.0which is consistent with a 50-75% stenosis. Left Distal Superficial Femoral Artery: The left distal femoral artery waveform is multiphasic. Left Popliteal: The left popliteal waveform is multiphasic. Patent stent with elevatedvelocity noted mid stent. PSV pre stenosis 37 cm/s PSV at stenosis 250 cm/s Ratio 6.8. Left Posterior Tibial: The left posterior tibial waveform is multiphasic. The left posteriortibial waveform is monophasic. Left Anterior Tibial: The left anterior tibial waveform is multiphasic. Left Peroneal: The left peroneal artery waveform is multiphasic. Provider Notification: Results called on the above date to [facility] MD. [facility] CONCLUSIONS: 1. A 50-75% stenosis is noted on the left: mid superficial femoralartery. 2. Patent left popliteal artery stent, with elevated velocity seen midstent level. HISTORY: 09-01-2023 left lower extremity angiogram, left femoral artery andpopliteal artery balloon angioplasty 09-18-2023 left SFA and popliteal angioplasty, left above knee poplitealartert stent HLD, PAD, PVD. PREVIOUS STUDIES: Previous study on 08-23-24, patent stent. DISCLAIMER: The study images and the final report will be retained in the patientchart by the Vascular Laboratory for the legally required time period. This chartconstitutes the legal record of any testing performed. ATTESTATION: I have reviewed and interpreted the pertinent images and measurements ofthis study. I attest to the conclusions in the final report that is provided above. Electronically Signed By: Wilmer Figueroa MD FACS 05/24/2025 7:45:56 PM WAREHOUSE INVENTORY CLERK us Ruthie Roland MD [facility] US PROCEDURES Final Result * US Arterial Doppler Lower Extremity Bilateral (05/24/2025 8:49 AM WAREHOUSE INVENTORY CLERK) Anatomical Region Laterality Modality Vascular Bilateral Ultrasound 05/24/2025 8:01 AM WAREHOUSE INVENTORY CLERK Narrative 05/24/2025 8:03 PM WAREHOUSE INVENTORY CLERK [facility] - Department of Vascular Surgery, Vascular Laboratory [address] [place] [address] Lower Extremity Arterial Doppler Report Patient Name: ASHLEY YBARRA : 1955 Study Date: 05/24/2025 8:01:00 AM Sex: F Tech: Michelle Hernandez RVT [facility] Provider: RUTHIE ROLAND Quality: Adequate Order Provider: RUTHIE ROLAND PROCEDURES: Arterial Report: Bilateral lower extremity arterial Doppler exam at rest. INDICATIONS: Z48.812 Encounter for surgical aftercare following surgery on the circulatory system. MEASUREMENTS: Right Value Units Left Value Units Rt Brachial Pressure 133 mmHg Lt Brachial Pressure 134 mmHg Rt FORM BUILDER HELPER Pressure 132 mmHg Lt FORM BUILDER HELPER Pressure 104 mmHg Rt DPA Pressure 87 mmHg Lt DPA Pressure 100 mmHg Rt 1st Digit Pressure 63 mmHg Lt 1st Digit Pressure 0 mmHg Rt PT SARANYA Resting 0.99 Lt PT SARANYA Resting 0.78 Rt AT SARANYA Resting 0.65 Lt AT SARANYA Resting 0.75 Rt Digit/Arm Index 0.47 Lt Digit/Arm Index - Right Value Units Left Value Units FINDINGS: Performing [employer] Workers: Michelle Hernandez RVT. Left All Levels: The left common femoral, popliteal, posterior tibial and anterior tibial artery waveforms are multiphasic. Right Common Femoral Artery Analysis: The common femoral artery waveform is multiphasic. Right Popliteal Artery Analysis: The popliteal waveform is multiphasic. Right Posterior Tibial Artery Analysis: The posterior tibial waveform is multiphasic. Right Anterior Tibial Artery Analysis: The anterior tibial waveform is monophasic. Right Digits: The right digit waveform is dampened. Left Digits: The left digit waveform is absent. CONCLUSIONS: 1. The above listed right Ankle/Brachial Index at rest is within normal limits (for reference, normal resting SARANYA is 0.90 - 1.4; SARANYA >1.4 due to non-compressible arteries is not diagnostic). 2. The above listed left Ankle/Brachial Index at rest is consistent with moderate peripheral arterial disease - claudication, (for reference, claudication range is 0.50 -0.89). 3. Left toe pressure is immeasurable which may be consistent with vasospasm or peripheral arterial disease. 4. Right Digit/Arm Index is abnormal (for reference, abnormal KYLEE is <0.6). 5. The left lower extremity arterial Doppler reveals multiphasic waveforms in all distributions above. Unable to determine level of disease. 6. There is evidence of right leg arterial insufficiency at the level of posterior tibial artery. HISTORY: 09-01-2023 left lower extremity angiogram, left femoral artery and popliteal artery balloon angioplasty 09-18-2023 left SFA and popliteal angioplasty, left above knee popliteal artert stent HLD, PAD, PVD. - PREVIOUS STUDIES: Previous study on 11-23-24 RT: 0.88 LT: 0.98. DISCLAIMER: The study images and the final [...] that is provided above. Electronically Signed By: Wilmer Figueroa MD FACS 05/24/2025 7:49:01 PM WAREHOUSE INVENTORY CLERK Procedure Note Wilmer Figueroa MD - 05/24/2025 [facility] - Department of Vascular Surgery,Vascular Laboratory [address] [place] [address] Lower Extremity Arterial Doppler Report Patient Name: ASHLEY YBARRA : 1955 Study Date: 05/24/2025 8:01:00 AM Sex: F Tech: Michelle Hernandez RVT [facility] Provider: RUTHIE ROLAND Quality: Adequate Order Provider: RUTHIE ROLAND PROCEDURES: Arterial Report: Bilateral lower extremity arterial Doppler exam at rest. INDICATIONS: Z48.812 Encounter for surgical aftercare following surgery on thecirculatory system. MEASUREMENTS: Right Value Units Left Value Units Rt Brachial Pressure 133 mmHg Lt Brachial Pressure 134 mmHg Rt FORM BUILDER HELPER Pressure 132 mmHg Lt FORM BUILDER HELPER Pressure 104 mmHg Rt DPA Pressure 87 mmHg Lt DPA Pressure 100 mmHg Rt 1st Digit Pressure 63 mmHg Lt 1st Digit Pressure 0 mmHg Rt PT SARANYA Resting 0.99 Lt PT SARANYA Resting 0.78 Rt AT SARANYA Resting 0.65 Lt AT SARANYA Resting 0.75 Rt Digit/Arm Index 0.47 Lt Digit/Arm Index - Right Value Units Left Value Units FINDINGS: Performing [employer] Workers: Michelle Hernandez RVT. Left All Levels: The left common femoral, popliteal, posterior tibial and anterior tibialartery waveforms are multiphasic. Right Common Femoral Artery Analysis: The common femoral artery waveform is multiphasic. Right Popliteal Artery Analysis: The popliteal waveform is multiphasic. Right Posterior Tibial Artery Analysis: The posterior tibial waveform is multiphasic. Right Anterior Tibial Artery Analysis: The anterior tibial waveform is monophasic. Right Digits: The right digit waveform is dampened. Left Digits: The left digit waveform is absent. CONCLUSIONS: 1. The above listed right Ankle/Brachial Index at rest is within normallimits (for reference, normal resting SARANYA is 0.90 - 1.4; SARANYA >1.4 due tonon-compressible arteries is not diagnostic). 2. The above listed left Ankle/Brachial Index at rest is consistent withmoderate peripheral arterial disease - claudication, (for reference, claudicationrange is 0.50 -0.89). 3. Left toe pressure is immeasurable which may be consistent withvasospasm or peripheral arterial disease. 4. Right Digit/Arm Index is abnormal (for reference, abnormal KYLEE is<0.6). 5. The left lower extremity arterial Doppler reveals multiphasic waveformsin all distributions above. Unable to determine level of disease. 6. There is evidence of right leg arterial insufficiency at the level ofposterior tibial artery. HISTORY: 09-01-2023 left lower extremity angiogram, left femoral artery andpopliteal artery balloon angioplasty 09-18-2023 left SFA and popliteal angioplasty, left above knee poplitealartert stent HLD, PAD, PVD. - PREVIOUS STUDIES: Previous study on 11-23-24 RT: 0.88 LT: 0.98. DISCLAIMER: The study images and the final report will be retained in the patientchart by the Vascular Laboratory for the legally required time period. This chartconstitutes the legal record of any testing performed. ATTESTATION: I have reviewed and interpreted the pertinent images and measurements ofthis study. I attest to the conclusions in the final report that is provided above. Electronically Signed By: Wilmer Figueroa MD [facility] 05/24/2025 7:49:01 PM WAREHOUSE INVENTORY CLERK us Ruthie Roland MD IMG US PROCEDURES Final Result * US Outside Reference (04/28/2025 3:46 PM WAREHOUSE INVENTORY CLERK) Impressions RAD_PACS_[facility] - 04/28/2025 3:46 PM WAREHOUSE INVENTORY CLERK These images are for Reference purposes only and have not been reviewed by [facility] Radiology. There will be no report generated by a [facility] Radiologist. Narrative RAD_PACS_[facility]J - 04/28/2025 3:46 PM WAREHOUSE INVENTORY CLERK EXAMINATION: Images For Reference Purposes Only us Anastacio Sena MD [facility] [place] PROCEDURES Final Result Performing Organization Address [facility] de Phone Number [email or web address] * US Outside Reference (04/28/2025 3:46 PM WAREHOUSE INVENTORY CLERK) Impressions RAD_PACS_[facility] - 04/28/2025 3:46 PM WAREHOUSE INVENTORY CLERK These images are for Reference purposes only and have not been reviewed by [facility] Radiology. There will be no report generated by a [facility] Radiologist. Narrative RAD_PACS_[facility]J - 04/28/2025 3:46 PM WAREHOUSE INVENTORY CLERK EXAMINATION: Images For Reference Purposes Only us Anastacio Sena MD [facility] US PROCEDURES Final Result Performing Organization Address [facility] de Phone Number [email or web address] * US Carotids Duplex Bilateral (04/13/2025 10:29 AM CDT) Anatomical Region Laterality Modality Vascular Bilateral Ultrasound 04/13/2025 10:0 9 AM CDT Narrative 04/14/2025 10:18 AM CDT Vascular & Vein Surgery [address] [place] [address] Carotid Duplex Ultrasound Report Patient Name: LYNNE YBARRANICA, V : 1955 (70y 2m) Study Date: 04/13/2025 10:09:04 AM Sex: F [employer]: AJ Location: [facility] Ref Provider: BRIANA WILBURN [...] MD - 04/14/2025 [facility] [address] [place] [address]. [place] [address] Carotid Duplex Ultrasound Report Patient Name: JOASHLEY V : 1955 (70y 2m) Study Date: 04/13/2025 10:09:04 AM Sex: F [employer]: AJ Location: [facility] Ref Provider: BRIANA WILBURN Quality: Adequate Order [...] internal carotid artery disease is consistent with [id number]% stenosis. 3. Normal, antegrade flow is noted in bilateral vertebral arteries. ATTESTATION: I have reviewed and interpreted the pertinent images and measurements ofthis study. I attest to the conclusions in the final report that is provided above. Electronically Signed By: Kenneth Smart MD 04/14/2025 10:09:03 AM CDT us Briana Wilburn MD IMG US PROCEDURES Final [...] Capillary blood 04/01/2025 1 0:59 AM CDT us Briana Wilburn MD POINT OF CARE TEST ORDERA BLES Final Result from Last 3 Months Insurance MEDICARE AET SENIOR SUPPLEMENT MEDICARE AETNA SENIOR SUPPLEMENT Advance Directives For more information, please contact: [phone] * Full Code (Latest Code Status on File) Date Activated Date Inactivated Comments 09/01/2023 10:16 AM 09/01/2023 6:05 PM Care Teams Inventory Planner Relationship Specialty Start Date End Date Noé Poon MD [address] [place] [address] PCP - General Family Medicine 09/24/24
== END 2025-06-13 10:42 | disposition home or self-care (01) ==
PROVIDERS: PCP Family Medicine
DX: Z01.812 Encounter for preprocedural laboratory examination (principal); I15.9 Secondary hypertension, unspecified; Q21.12 Patent foramen ovale
CPT/HCPCS: 36415; 80048; 85025